=== PATIENT | male | born 1960 | race Caucasian/White ===

== ENCOUNTER 2016-12-09 19:46 | Emergency (ER) | payer OTHER ==
[~2016-12-09] VITALS: Ht 175.3 cm; Wt 118.4 kg
[~2016-12-09 19:46] MED LIST: ALBU2.5V13 NEB; BUDE10.2 IH; HYDR-2666 PO; HYDR-971 PO; METF10002 PO; PRED20TA PO; PROAIR HFA8.5 GM IH; SULF1TAB24 PO
[2016-12-09 20:40] VITALS: BP 128/85
[2016-12-09] MEDS ORDERED: LEVO750T31 PO (21:20)
[2016-12-09] MEDS ORDERED: PRED50TA PO (21:20)
--- NOTE | 2016-12-09 21:20 | PHYS DOC ---
Past Medical History Past Medical History: COPD, Diabetes-Type II Additional Past Medical Histor: home o2 Past Surgical History: Other Additional Past Surgical Histo: left hip replacement (titanium), right shoulder surgery, left knee surgery Alcohol Use: None Drug Use: None Adult General Chief Complaint Chief Complaint: COUGH HPI HPI Patient is a 56 year old male who presents with cough for 2 days along with congestion. Daily smoker with COPD and uses an Albuterol inhaler at home. Denies shortness of air, chest pain, or fever. States he has been using his inhaler but is still wheezing. Requesting antibiotic, steroid shot. Refuses Xray Review of Systems Review of Systems Constitutional: Denies fever or chills Eyes: Denies change in visual acuity, redness, or eye pain HENT: Denies nasal congestion or sore throat Respiratory: Denies shortness of breath. COugh for two days and wheezing Cardiovascular: No additional information not addressed in HPI GI: Denies abdominal pain, nausea, vomiting, bloody stools or diarrhea [] : Denies dysuria or hematuria [] Musculoskeletal: Denies back pain or joint pain [] Integument: Denies rash or skin lesions [] Neurologic: Denies headache, focal weakness or sensory changes [] Endocrine: Denies polyuria or polydipsia [] Current Medications Current Medications Current Medications Medications (Trade) Dose Ordered Sig/Paulino Start Time Stop Time Status Last Admin Dose Admin Methylprednisolone Sodium Succinate (Solu-Medrol 125mg Vial) 125 mg 1X ONCE 12/09/16 21:30 12/09/16 21:31 DC 12/09/16 21:18 125 MG Allergies Allergies Allergies Coded Allergies Type Severity Reaction Last Updated Verified No Known Drug Allergies 12/24/15 No Physical Exam Physical Exam Constitutional: Well developed, well nourished, no acute distress, non-toxic appearance. HENT: Normocephalic, atraumatic, bilateral external ears normal, oropharynx moist, no oral exudates, nose normal. Eyes: PERRLA, EOMI, conjunctiva normal, no discharge. Neck: Normal range of motion, no tenderness, supple, no stridor. Cardiovascular:Heart rate regular rhythm, no murmur Lungs & Thorax: Bilateral upper posterior wheezing. Abdomen: Bowel sounds normal, soft, no tenderness, no masses, no pulsatile masses. [] Skin: Warm, dry, no erythema, no rash. [] Back: No tenderness, no CVA tenderness. [] Extremities: No tenderness, no cyanosis, no clubbing, ROM intact, no edema. [] Neurologic: Alert and oriented X 3, normal motor function, normal sensory function, no focal deficits noted. [] Psychologic: Affect normal, judgement normal, mood normal. [] Current Patient Data Vital Signs Vital Signs Date Time Temp Pulse Resp B/P Pulse Ox O2 Delivery O2 Flow Rate FiO2 12/09/16 20:40 97.9 97 22 92 Room Air 97.9 EKG EKG [] Radiology/Procedures Radiology/Procedures [] Impressions: 1. Bronchitis 2. COPD exac Course & Med Decision Making Course & Med Decision Making Pertinent Labs and Imaging studies reviewed. (See chart for details) [] Dragon Disclaimer Dragon Disclaimer This electronic medical record was generated, in whole or in part, using a voice recognition dictation system. Departure Departure Impression: Primary Impression: COPD (chronic obstructive pulmonary disease) Additional Impression: Bronchitis Disposition: HOME, SELF-CARE Condition: STABLE Referrals: KATHRYN SWIFT MD (PCP) Patient Instructions: Acute Bronchitis, [id number], Chronic Obstructive Pulmonary Disease Exacerbation, [id number], Smoking Cessation, Tips For Success Additional Instructions: 1. Take medication as prescribed 2. Stop smoking 3. Follow up with your doctor in 1-2 days 3. Return if problems or concerns Scripts Prednisone 50 Mg [id number] Mg PO DAILY 5 Days Prov:RUPA MADDOX APRN 12/09/16 Levofloxacin (Levaquin)750 Mg Tablet1 Tab PO DAILY #5 TAB Prov:RUPA MADDOX APRN 12/09/16 Problem Qualifiers RUPA MADDOX APRN Dec 09, 2016 21:21
[2016-12-09] MEDS ORDERED: methylPREDNISolone SOD SUCC PF 125 MG/2 ML VIAL. IM ONE (21:30)
== END 2016-12-09 21:36 | disposition home or self-care (01) ==
LOC: ER 19:46
DX: J44.0 Chronic obstructive pulmonary disease with (acute) lower respiratory infection (principal); J40 Bronchitis, not specified as acute or chronic; F17.200 Nicotine dependence, unspecified, uncomplicated; E11.9 Type 2 diabetes mellitus without complications; Z79.899 Other long term (current) drug therapy; Z99.81 Dependence on supplemental oxygen
CPT/HCPCS: 96372; 99283; J2930

== ENCOUNTER → 2017-02-11 | Outpatient (CLI) | payer OTHER ==
[~2017-02-11] MED LIST changes: -ALBU2.5V13 NEB; +ALBU2.5V14 NEB; +LEVO750T31 PO; +PRED50TA PO
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
== END | disposition home or self-care (01) ==
LOC: KCIC MRI 15:53
PROVIDERS: ATTEND Family Medicine
DX: M51.36 Other intervertebral disc degeneration, lumbar region (principal); M25.78 Osteophyte, vertebrae; M47.892 Other spondylosis, cervical region; M50.321 Other cervical disc degeneration at C4-C5 level; M54.2 Cervicalgia
CPT/HCPCS: 72141; 72148

== ENCOUNTER 2017-03-10 15:55 | Emergency (ER) | payer OTHER ==
[2017-03-10 16:15] VITALS: BP 117/75
[2017-03-10] MEDS ORDERED: IPRATRPIUM/ALBUTEROL 0.5/2.5MG 3 ML NEBU. NEB ONE (16:15)
[2017-03-10] MEDS ORDERED: methylPREDNISolone SOD SUCC PF 125 MG/2 ML VIAL. IV ONE (16:15)
[2017-03-10 16:20] LABS: BASO # 0.1 x10^3/uL (0.0-0.2); BASO % 1 % (0-3); EOS % 7 % (0-3); HEMATOCRIT 44.4 % (39.0-53.0); HEMOGLOBIN 14.7 g/dL (13.0-17.5); LYMPH # 1.6 x10^3/uL (1.0-4.8); LYMPH % 18 % (24-48); MEAN CORPUSCULAR HEMOGLOBIN 31 pg (25-35); MEAN CORPUSCULAR HGB CONC 33 g/dL (31-37); MEAN CORPUSCULAR VOLUME 94 fL (79-100); MONO % 15 % (0-9); NEUT % 60 % (31-73); PLATELET COUNT 247 x10^3/uL (140-400); RED BLOOD COUNT 4.73 x10^6/uL (4.30-5.70); RED CELL DISTRIBUTION WIDTH 14.2 % (11.5-14.5); WHITE BLOOD COUNT 9.3 x10^3/uL (4.0-11.0)
[2017-03-10] MEDS ORDERED: ONDANSETRON PF 4 MG/2 ML VIAL. IV ONE (16:30)
[2017-03-10] MEDS ORDERED: FENTANYL PF 100 MCG/2 ML VIAL. IV ONE (16:30)
[2017-03-10 16:31] LABS: CALCIUM 8.7 mg/dL (8.5-10.1); CREATININE 1.4 mg/dL (0.7-1.3); GFR 52.8; POTASSIUM 3.9 mmol/L (3.5-5.1)
[2017-03-10 16:36] LABS: ALBUMIN 3.5 g/dL (3.4-5.0); ALBUMIN/GLOBULIN RATIO 0.9 (1.0-1.7); TOTAL BILIRUBIN 0.4 mg/dL (0.2-1.0); TOTAL PROTEIN 7.5 g/dL (6.4-8.2)
--- NOTE | 2017-03-10 17:08 | PHYS DOC ---
Past Medical History Past Medical History: COPD, Diabetes-Type II Additional Past Medical Histor: home o2 Past Surgical History: Other Additional Past Surgical Histo: left hip replacement (titanium), right shoulder surgery, left knee surgery Alcohol Use: None Drug Use: None Adult General Chief Complaint Chief Complaint: CHEST WALL PAIN HPI HPI 56-year-old male who appears much older than his stated age presents with 2-3 day history of progressive shortness of breath cough and congestion. He states he's been wearing oxygen at home but it doesn't seem to be helping. He is also been using his medication at home but continues to cough and feel short of breath. He denies any fever chills or sweats. He has not had any hemoptysis. He states this feels like a very typical COPD exacerbation. [] Review of Systems Review of Systems Constitutional: Denies fever or chills [] Eyes: Denies change in visual acuity, redness, or eye pain [] HENT: Denies nasal congestion or sore throat [] Respiratory: Per history of present illness [] Cardiovascular: No additional information not addressed in HPI [] GI: Denies abdominal pain, nausea, vomiting, bloody stools or diarrhea [] : Denies dysuria or hematuria [] Musculoskeletal: Denies back pain or joint pain [] Integument: Denies rash or skin lesions [] Neurologic: Denies headache, focal weakness or sensory changes [] Endocrine: Denies polyuria or polydipsia [] Current Medications Current Medications Current Medications Medications (Trade) Dose Ordered Sig/Paulino Start Time Stop Time Status Last Admin Dose Admin Albuterol/ Ipratropium (Duoneb) 6 ml 1X ONCE 03/10/17 16:15 03/10/17 16:21 DC 03/10/17 16:36 6 ML Fentanyl Citrate (Fentanyl 2ml Vial) 50 mcg 1X ONCE 03/10/17 16:30 03/10/17 16:31 DC 03/10/17 16:32 50 MCG Methylprednisolone Sodium Succinate (Solu-Medrol 125mg Vial) 125 mg 1X ONCE 03/10/17 16:15 03/10/17 16:21 DC 03/10/17 16:32 125 MG Ondansetron HCl (Zofran) 4 mg 1X ONCE 03/10/17 16:30 03/10/17 16:31 DC 03/10/17 16:32 4 MG Allergies Allergies Allergies Coded Allergies Type Severity Reaction Last Updated Verified No Known Drug Allergies 12/24/15 No Physical Exam Physical Exam Constitutional: Well developed, well nourished, no acute distress, non-toxic appearance. [] HENT: Normocephalic, atraumatic, bilateral external ears normal, oropharynx moist, no oral exudates, nose normal. [] Eyes: PERRLA, EOMI, conjunctiva normal, no discharge. [] Neck: Normal range of motion, no tenderness, supple, no stridor. [] Cardiovascular:Heart rate regular rhythm, no murmur [] Lungs & Thorax: Bilateral breath sounds clear to auscultation [] Abdomen: Bowel sounds normal, soft, no tenderness, no masses, no pulsatile masses. [] Skin: Warm, dry, no erythema, no rash. [] Back: No tenderness, no CVA tenderness. [] Extremities: No tenderness, no cyanosis, no clubbing, ROM intact, no edema. [] Neurologic: Alert and oriented X 3, normal motor function, normal sensory function, no focal deficits noted. [] Psychologic: Affect normal, judgement normal, mood normal. [] Current Patient Data Vital Signs Vital Signs Date Time Temp Pulse Resp B/P Pulse Ox O2 Delivery O2 Flow Rate FiO2 03/10/17 16:37 90 Nasal Cannula 2.0 03/10/17 16:32 18 03/10/17 16:15 98.5 102 117/75 98.5 Lab Values Laboratory Tests Test 03/10/17 16:09 White Blood Count 9.3x10^3/uL (4.0-11.0) Red Blood Count 4.73x10^6/uL (4.30-5.70) Hemoglobin 14.7g/dL (13.0-17.5) Hematocrit 44.4% (39.0-53.0) Mean Corpuscular Volume 94fL (79-100) Mean Corpuscular Hemoglobin 31pg (25-35) Mean Corpuscular Hemoglobin Concent 33g/dL (31-37) Red Cell Distribution Width 14.2% (11.5-14.5) Platelet Count 247x10^3/uL (140-400) Neutrophils (%) (Auto) 60% (31-73) Lymphocytes (%) (Auto) 18% (24-48) L Monocytes (%) (Auto) 15% (0-9) H Eosinophils (%) (Auto) 7% (0-3) H Basophils (%) (Auto) 1% (0-3) Neutrophils # (Auto) 5.5x10^3uL (1.8-7.7) Lymphocytes # (Auto) 1.6x10^3/uL (1.0-4.8) Monocytes # (Auto) 1.4x10^3/uL (0.0-1.1) H Eosinophils # (Auto) 0.6x10^3/uL (0.0-0.7) Basophils # (Auto) 0.1x10^3/uL (0.0-0.2) Sodium Level 142mmol/L (136-145) Potassium Level 3.9mmol/L (3.5-5.1) Chloride Level 105mmol/L (98-107) Carbon Dioxide Level 26mmol/L (21-32) Anion Gap 11 (6-14) Blood Urea Nitrogen 13mg/dL (8-26) Creatinine 1.4mg/dL (0.7-1.3) H Estimated GFR (Cockcroft-Gault) 52.8 BUN/Creatinine Ratio 9 (6-20) Glucose Level 163mg/dL (70-99) H Calcium Level 8.7mg/dL (8.5-10.1) Total Bilirubin 0.4mg/dL (0.2-1.0) Aspartate Amino Transferase (AST) 27U/L (15-37) Alanine Aminotransferase (ALT) 40U/L (16-63) Alkaline Phosphatase 82U/L (46-116) Troponin I Quantitative < 0.017ng/mL (0.000-0.055) Total Protein 7.5g/dL (6.4-8.2) Albumin 3.5g/dL (3.4-5.0) Albumin/Globulin Ratio 0.9 (1.0-1.7) L Laboratory Tests 03/10/17 16:09 Laboratory Tests 03/10/17 16:09 EKG EKG [EKG: Sinus tachycardia rate of [address]-T changes] Radiology/Procedures Radiology/Procedures [] Impressions: Chest x-ray: No obvious acute cardiopulmonary abnormality Course & Med Decision Making Course & Med Decision Making Pertinent Labs and Imaging studies reviewed. (See chart for details) [ED course: Evaluation reveals a 56-year-old male with significant bilateral wheezing and hypoxia. His initial oxygen saturation was 85% on room air. He was placed on 2 L nasal cannula which did improve his oxygen saturation to 92%. He received [id number] DuoNeb nebs in the department followed by Solu-Medrol 125 mg IV which did significantly help his symptoms.] Dragon Disclaimer Dragon Disclaimer This electronic medical record was generated, in whole or in part, using a voice recognition dictation system. Departure Departure Impression: Primary Impression: COPD (chronic obstructive pulmonary disease) Disposition: HOME, SELF-CARE Condition: IMPROVED Referrals: KATHRYN SWIFT MD (PCP) Patient Instructions: Acute Bronchitis Additional Instructions: Thank you for allowing us to participate in your care today. Followup with your primary care physician in 3 days if your symptoms do not improve. Return to the emergency department you have any new or concerning findings. This should be evaluated by the primary care physician and any necessary consulting services for continued management within a few days after discharge. Return to emergency room if you have any new or concerning symptoms including but not limited to fever, chills, nausea, vomiting, intractable pain, any new rashes, chest pain, shortness of air, uncontrolled bleeding, difficulty breathing, and/or vision loss. You may have been prescribed medication that can change in your level of thinking and ability to operate machinery. These medications include hydrocodone and Ativan. Also, Benadryl has been known to do this as well. Be sure to check with your pharmacist and ask if the medications you've prescribed can affect your level of consciousness. I recommend not operating heavy machinery or driving while on medication such as these. Scripts Prednisone 20 Mg Tablet2 Tab PO DAILY PRN COUGH #14 TAB Prov:JESSIE RAGLAND DO 03/10/17 Hydrocodone/Apap 5-325 ([place]ora 5-325 Tablet)1 Each Tablet1 Tab PO PRN Q6HRS PRN PAIN #10 TAB Prov:JESSIE RAGLAND DO 03/10/17 Azithromycin (Zithromax)250 Mg Tablet1 Pkg PO UD bronchitis #6 TAB Take 2 tablets on day 1 and then 1 tablet each day for the next 4 days as directed Prov:JESSIE RAGLAND DO 03/10/17 Problem Qualifiers Primary Impression: COPD (chronic obstructive pulmonary disease) COPD type: COPD with acute exacerbation Qualified Code: J44.1 - Chronic obstructive pulmonary disease with (acute) exacerbation JESSIE RAGLAND DO Mar 10, 2017 17:07
[2017-03-10] MEDS ORDERED: AZIT250T PO (17:13)
[2017-03-10] MEDS ORDERED: HYDR-971 PO (17:13)
[2017-03-10] MEDS ORDERED: PRED20TA PO (17:13)
--- NOTE | 2017-03-11 06:10 | EKG ---
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
--- NOTE | 2017-03-11 09:39 | RAD ---
Portable chest, 03/10/2017: History: Shortness of breath, COPD Comparison is made to a study from 07/09/2016. The heart size is normal. There is mild prominence of the left basilar pulmonary markings. There may be a component of scarring. The lungs are otherwise clear. There is no evidence of pleural fluid. IMPRESSION: Minimal left basilar atelectasis/infiltrate.
== END 2017-03-10 17:21 | disposition home or self-care (01) ==
LOC: ER 15:55
DX: J44.1 Chronic obstructive pulmonary disease with (acute) exacerbation (principal); E11.9 Type 2 diabetes mellitus without complications; Z99.81 Dependence on supplemental oxygen; Z96.642 Presence of left artificial hip joint
CPT/HCPCS: 36415; 71010; 80053; 84484; 85027; 93005; 94640; 96374; 96375; 99285; J2405; J2930; J3010; J7620

== ENCOUNTER 2017-03-16 17:52 | Emergency (ER) | payer OTHER ==
[~2017-03-16] VITALS: Ht 175.3 cm; Wt 121.1 kg
[~2017-03-16 17:52] MED LIST changes: +AZIT250T PO
[2017-03-16] MEDS ORDERED: PROMETH/CODEINE 6.25/10MG 5 ML SYRUP. PO ONE (18:45)
[2017-03-16] MEDS ORDERED: PREDNISONE 10 MG TABLET PO ONE (18:45)
[2017-03-16] MEDS ORDERED: IPRATRPIUM/ALBUTEROL 0.5/2.5MG 3 ML NEBU. NEB ONE (18:45)
[2017-03-16 18:52] VITALS: BP 134/86
[2017-03-16] MEDS ORDERED: OXYCODONE/APAP 5/325 TABLET. PO ONE (20:00)
[2017-03-16] MEDS ORDERED: SULF1TAB24 PO (20:20)
[2017-03-16] MEDS ORDERED: PROM5SYR2 PO (20:20)
[2017-03-16] MEDS ORDERED: PRED-220 PO (20:20)
--- NOTE | 2017-03-16 20:20 | PHYS DOC ---
Past Medical History Past Medical History: COPD, Diabetes-Type II, High Cholesterol Additional Past Medical Histor: home o2 Past Surgical History: Other Additional Past Surgical Histo: left hip replacement (titanium), right shoulder surgery, left knee surgery Alcohol Use: None Drug Use: None Adult General Chief Complaint Chief Complaint: SHORTNESS OF BREATH HPI HPI Patient is a 56 year old gentleman with history significant for COPD, diabetes , presents here today complaining of shortness of breath for one week. Patient reports that he was seen here on the ninth and was started on steroids and was given an antibiotic to take. Patient reports he finished all his medication and has been getting worse since he's finishes medication. Patient reports that he was told that he did not have pneumonia back in the 90s. Patient denies any fevers shakes chills nausea vomiting diarrhea or abdominal pain. Patient reports he had nasal congestion and a headache and feels like he is clogged up. Patient reports that he feels fine when he is inside or vomiting. He was outside and has contact with pollen he starts getting short of breath and wheezing. He feels like he has allergic rhinitis. Patient reports he does smoke and smoke cessation was discussed with the patient and his . Patient is allergic to any medications. Patient reports he uses Cymbalta, albuterol, and Atrovent home. Patient reports that he uses his nebulizer 2 times a day at home. Patient denies any history of PE DVT stroke CHF hypertension or CAD. Patient does not drink or do any drugs. Patient is not allergic to any medications. Patient is also complaining of some redness to his left groin region. Patient does have an area of induration to his left groin. There is no evidence of significant cellulitis of area. There is no warmth or fluctuance. There is no evidence of fourniers. Patient's ER hospital course was significant for getting a DuoNeb here in the ER was significant improvement in his symptoms. Patient received by mouth prednisone in the ER. Patient's lungs initially had some extra lorenzo wheezing however after the neb treatment patient feels much better and his lungs are clear. Patient was also given Phenergan With Codeine to assist with this cough and congestion as well as a Percocet secondary to pain from the congestion that he is having. Patient's chest x-ray did not reveal any infiltrate or effusion. There is no pneumonia. Patient is stable for discharge to home at this time for respiratory standpoint. Patient will also be given Bactrim DS to assist him with his early cellulitis to his left upper thigh. Patient otherwise clinically and hemodynamically stable. Patient was instructed to follow-up with his doctor within 24-48 hours for reevaluation of the erythematous area in his left upper thigh. Patient's physical exam was significant for inspiratory and expiratory wheezing initially upon arrival. This has cleared since to nebulizer therapy in the ER. Patient's heart was tachycardic initially. Abdomen was soft nontender no rebound or guarding. No calf edema. No calf tenderness. No split S2 no S3. A/P #1 COPD exacerbation likely secondary to environmental allergies. Patient is ready been treated with antibiotics. I discussed with the patient at this is most likely secondary to allergic reaction/pollen/allergic sinusitis. Patient will be discharged home with prednisone 50 mg by mouth daily 7 days. Phenergan with codeine and Bactrim DS. Patient was instructed to follow up with primary care physician. Patient was instructed to return to the ER if he has recurrence of his dyspnea. Review of Systems Review of Systems Constitutional: Denies fever or chills [] Eyes: Denies change in visual acuity, redness, or eye pain []] All other review systems are negative except as documented in the history of present illness. Current Medications Current Medications Current Medications Medications (Trade) Dose Ordered Sig/Paulino Start Time Stop Time Status Last Admin Dose Admin Albuterol/ Ipratropium (Duoneb) 3 ml 1X ONCE 03/16/17 18:45 03/16/17 18:46 DC 03/16/17 18:34 3 ML Oxycodone/ Acetaminophen (Percocet 5/325) 1 tab 1X ONCE 03/16/17 20:00 03/16/17 20:01 DC 03/16/17 19:46 1 TAB Prednisone (Prednisone) 50 mg 1X ONCE 03/16/17 18:45 03/16/17 18:46 DC 03/16/17 18:33 50 MG Promethazine HCl/ Codeine (Phenergan With Codeine) 10 ml 1X ONCE 03/16/17 18:45 03/16/17 18:46 DC 03/16/17 18:33 10 ML Trimethoprim/ Sulfamethoxazole (Bactrim Ds) 2 tab 1X ONCE 03/16/17 21:00 03/16/17 21:01 Allergies Allergies Allergies Coded Allergies Type Severity Reaction Last Updated Verified No Known Drug Allergies 12/24/15 No Physical Exam Physical Exam Constitutional: Well developed, well nourished, no acute distress, non-toxic appearance. [] HENT: Normocephalic, atraumatic, bilateral external ears normal, oropharynx moist, no oral exudates, nose normal. [] Eyes: PERRLA, EOMI, conjunctiva normal, no discharge. [] Neck: Normal range of motion, no tenderness, supple, no stridor. [] Cardiovascular:Heart rate regular and tachycardic. Lungs & Thorax: Diffuse expiratory wheezing upon arrival. This is cleared after the neb treatments. 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 Abdomen: Bowel sounds normal, soft, no tenderness, no masses, no pulsatile masses. [] Skin: Warm, dry see above. Back: No tenderness, no CVA tenderness. [] Extremities: No tenderness, no cyanosis, no clubbing, ROM intact, no edema. [] Neurologic: Alert and oriented X 3, normal motor function, normal sensory function, no focal deficits noted. [] Psychologic: Affect normal, judgement normal, mood normal. [] Current Patient Data Vital Signs Vital Signs Date Time Temp Pulse Resp B/P Pulse Ox O2 Delivery O2 Flow Rate FiO2 03/16/17 18:35 92 Room Air 03/16/17 18:00 98.1 91 28 161/93 98.1 EKG EKG [] Radiology/Procedures Radiology/Procedures [] Course & Med Decision Making Course & Med Decision Making Pertinent Labs and Imaging studies reviewed. (See chart for details) [] Dragon Disclaimer Dragon Disclaimer This electronic medical record was generated, in whole or in part, using a voice recognition dictation system. Departure Departure Impression: Primary Impression: Allergic rhinitis Additional Impressions: Cellulitis of left thigh COPD exacerbation Disposition: HOME, SELF-CARE Condition: IMPROVED Referrals: KATHRYN SWIFT MD (PCP) Patient Instructions: Allergic Rhinitis, Cellulitis, Chronic Obstructive Pulmonary Disease Exacerbation Scripts Promethazine HCl/Codeine (Prometh-Codein 6.25-10 mg/5 ml)5 Ml Syrup10 Ml PO Q6HRS PRN COUGH #120 Prov:LUCY CHEN MD 03/16/17 Sulfamethoxazole/Trimethoprim (Bactrim Ds Tablet)1 Each Tablet2 Tab PO BID 10 Days Prov:LUCY CHEN MD 03/16/17 Prednisone 10 Mg Subxat15 Mg PO DAILY 7 Days Prov:LUCY CHEN MD 03/16/17 Problem Qualifiers LUCY CHEN MD Mar 16, 2017 20:20
[2017-03-16] MEDS ORDERED: SMZ/TMP 800/160MG TABLET. PO ONE (21:00)
--- NOTE | 2017-03-17 07:54 | RAD ---
CHEST PA LATERAL Clinical Indication: cough Comparison: March 10, 2017 Technique: Frontal and lateral views of the chest are obtained. Findings: No interval consolidation, pleural effusion or pneumothorax is seen. Minimal linear opacity is present within the lung bases, suggestive of atelectasis. Cardiomediastinal silhouette remains within normal limits of size. Visualized osseous structures and overlying soft tissues demonstrate no acute interval change. IMPRESSION: No focal consolidation. Minimal bibasilar atelectasis.
--- NOTE | 2017-03-17 09:49 | EKG ---
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
== END 2017-03-16 20:31 | disposition home or self-care (01) ==
LOC: ER 17:52
DX: J44.1 Chronic obstructive pulmonary disease with (acute) exacerbation (principal); L03.116 Cellulitis of left lower limb; J30.9 Allergic rhinitis, unspecified; R51 Headache; E11.9 Type 2 diabetes mellitus without complications; E78.00 Pure hypercholesterolemia, unspecified; Z99.81 Dependence on supplemental oxygen
CPT/HCPCS: 71020; 93005; 94640; 99284; J7512; J7620

== ENCOUNTER → 2017-04-22 | Outpatient (CLI) | payer OTHER ==
[~2017-04-22] MED LIST changes: +METF-620 PO; -METF10002 PO; +PRED-220 PO; +PROM5SYR2 PO
--- NOTE | 2017-04-22 16:23 | RAD ---
Indication shortness of air. PA and lateral views of the chest were obtained. Comparison is made to a study 03/16/2017. The heart and pulmonary vessels are similar. There is some minimal volume loss compatible with atelectasis at the left lung base. An acute parenchymal infiltrate is not seen. There has not been a significant change compared to the previous exam. IMPRESSION: No acute process. No significant change
== END | disposition home or self-care (01) ==
LOC: RAD 15:58
PROVIDERS: ATTEND Internal Medicine Pulmonary Disease
DX: R06.02 Shortness of breath (principal)
CPT/HCPCS: 71020

== ENCOUNTER → 2017-06-19 | Day surgery (SDC) | payer OTHER ==
[~2017-06-19] MED LIST changes: -HYDR-2666 PO; +HYDR-2758 PO; +HYDROmorphone 2 MG/ML VIAL IV PRN; +IV RINGERS,LACTATED 1000ML 1,000 ML IV SCH; +LIDOCAINE 1% 1 ML SYRINGE. ID PRN; +LIDOCAINE 2% PF Vial for OR 5 ML VIAL. ONE; +MORPHINE SULFATE 2 MG/ML DISP.SYRIN. IV PRN; +OMEP20TA8 PO; +ONDANSETRON PF 4 MG/2 ML VIAL. IV PRN; +PIOG15TA42 PO; +PROCHLORPERAZINE 10 MG/2 ML VIAL. IV PRN; +PROPOFOL 0 ML IV ONE; +PROPOFOL 20 ML IV ONE; +SIMV40TA3 PO; +VARE0.5T PO; +fentaNYL PF VIAL 100 MCG/2 ML VIAL IV PRN
[2017-06-19 07:51] VITALS: BP 115/68
--- NOTE | 2017-06-20 15:00 | PATHOLOGY ---
PATHOLOGY REPORT * * * * * * * * FINAL DIAGNOSIS: Esophageal biopsy: - Segments of hyperplastic squamous esophageal mucosa and esophagogastric mucosa showing active chronic inflammation, consistent with reflux esophagitis. JPM:serena; 06/20/2017) COMMENT: Sections of the esophageal biopsy reveal segments of hyperplastic squamous esophageal mucosa and esophagogastric mucosa showing active chronic inflammation. The squamous mucosa shows focal intraepithelial neutrophils and a few eosinophils. The findings are consistent with reflux esophagitis. There is no evidence of Milton's change, dysplasia, or malignancy. (JPM:serena; 06/20/2017) REPORT ELECTRONICALLY SIGNED BY: Angel Fernandez M.D. DATE/TIME: 06/20/2017 14:59 * * * * * * * * GROSS PATHOLOGY: Received in formalin labeled "Zhang Chou, esophagus, r/o Milton's" are multiple segments of fowler soft tissue measuring 0.2 up to 0.3 cm in maximum dimension. The specimen is submitted entirely in cassette A1. INITIAL CPT CODE(S): A; 40443 Professional services performed by [facility] [place] [address] Technical services performed by [facility] at [address] [place] [address]. SPECIMEN(S) RECEIVED: A.Esophageal biopsy, r/o Milton's CLINICAL HISTORY: GERD PATIENT: ZHANG CHOU /AGE: 7 1960 (Age: 56) PATIENT #: [id number] ALT CASE #: SPECIMEN COLLECTION DATE: 06/19/2017 SPECIMEN RECEIVED DATE: 06/19/2017 [facility] - [address] [place] [address] - PHONE: [phone] * * * END OF REPORT * * *
== END | disposition home or self-care (01) ==
LOC: ENDOS 06:26
PROVIDERS: ATTEND Internal Medicine Gastroenterology
DX: K21.0 Gastro-esophageal reflux disease with esophagitis (principal); K29.50 Unspecified chronic gastritis without bleeding; J45.909 Unspecified asthma, uncomplicated; J44.9 Chronic obstructive pulmonary disease, unspecified; E11.9 Type 2 diabetes mellitus without complications; E78.00 Pure hypercholesterolemia, unspecified; F17.200 Nicotine dependence, unspecified, uncomplicated; Z83.3 Family history of diabetes mellitus; Z80.3 Family history of malignant neoplasm of breast; Z72.89 Other problems related to lifestyle
CPT/HCPCS: 43239; 82962; 88305; J2001; J2704

== ENCOUNTER → 2017-11-08 | Outpatient (CLI) | payer BC, OTHER ==
[2017-06-19 07:51] VITALS: BP 115/68
[~2017-11-08] MED LIST changes: -HYDROmorphone 2 MG/ML VIAL IV PRN; -IV RINGERS,LACTATED 1000ML 1,000 ML IV SCH; -LIDOCAINE 1% 1 ML SYRINGE. ID PRN; -LIDOCAINE 2% PF Vial for OR 5 ML VIAL. ONE; -MORPHINE SULFATE 2 MG/ML DISP.SYRIN. IV PRN; -ONDANSETRON PF 4 MG/2 ML VIAL. IV PRN; -PROCHLORPERAZINE 10 MG/2 ML VIAL. IV PRN; -PROPOFOL 0 ML IV ONE; -PROPOFOL 20 ML IV ONE; -fentaNYL PF VIAL 100 MCG/2 ML VIAL IV PRN
--- NOTE | 2017-11-08 16:42 | RAD ---
Examination: CT chest without contrast History: History of smoking, cough Comparison: None available Technique: Axial CT images of chest were performed without contrast. Coronal and sagittal reformats were performed PQRS Compliance Statement: One or more of the following individualized dose reduction techniques were utilized for this examination: 1. Automated exposure control 2. Adjustment of the mA and/or kV according to patient size 3. Use of iterative reconstruction technique Findings: The visualized thyroid gland grossly appears unremarkable. The central airways are patent. Heart size grossly appears unremarkable. No radiologically significant mediastinal lymphadenopathy identified. Moderate emphysematous changes identified in the bilateral upper lobes. Mild airspace opacity identified in the left lingula likely atelectasis or infiltrate. Minimal bibasal lung atelectasis or partially visualized hepatomegaly. There is decreased attenuation noted throughout the liver likely hepatic steatosis. The visualized spleen, adrenals grossly appears unremarkable. Mild degenerative disease thoracic spine. Partially visualized exophytic density measuring 1 cm in the left kidney is difficult to characterize. Impression: 1. Moderate emphysematous changes bilateral lungs. 2. Mild airspace opacity identified in the left lingula of the lung likely atelectasis or infiltrate. Follow-up to resolution. 3. Partially visualized exophytic density measuring 1 cm in the left kidney is difficult to characterize. Follow-up ultrasound kidneys can be considered. 4. Hepatomegaly with hepatic steatosis.
== END | disposition home or self-care (01) ==
LOC: CT 16:32
PROVIDERS: ATTEND Internal Medicine Pulmonary Disease
DX: J43.8 Other emphysema (principal); K76.0 Fatty (change of) liver, not elsewhere classified; R16.0 Hepatomegaly, not elsewhere classified; Z87.891 Personal history of nicotine dependence
CPT/HCPCS: 71250

== ENCOUNTER 2017-11-24 14:07 | Emergency (ER) | payer BC, OTHER ==
[2017-11-24] MEDS: predniSONE 10 MG TABLET PO (14:56)
[2017-11-24] MEDS: ACETAMINOPHEN/CODEINE 120/12MG 5 ML SOLUTION. PO (14:56)
[2017-11-24] MEDS: IPRATRPIUM/ALBUTEROL 0.5/2.5MG 3 ML NEBU. NEB (14:59)
== END 2017-11-24 16:06 | disposition home or self-care (01) ==
LOC: ER 14:07
DX: J44.9 Chronic obstructive pulmonary disease, unspecified (principal); F17.200 Nicotine dependence, unspecified, uncomplicated; E11.9 Type 2 diabetes mellitus without complications; E78.00 Pure hypercholesterolemia, unspecified; Z96.642 Presence of left artificial hip joint; Z99.81 Dependence on supplemental oxygen; Z71.6 Tobacco abuse counseling; Z79.899 Other long term (current) drug therapy
CPT/HCPCS: 71020; 94640; 99284-25; J7512; J7620

== ENCOUNTER → 2017-11-29 | Outpatient (CLI) | payer BC, OTHER | END | disposition home or self-care (01) | LOC: US 16:02 | DX: J44.9 Chronic obstructive pulmonary disease, unspecified (principal); N28.1 Cyst of kidney, acquired | CPT/HCPCS: 76770 ==

== ENCOUNTER 2018-01-21 15:41 | Emergency (ER) | payer BC, OTHER ==
[2018-01-21 16:05] LABS: ADD MAN DIFF? NO
[2018-01-21 16:08] LABS: BASO # 0.1 x10^3/uL (0.0-0.2); BASO % 1 % (0-3); EOS % 9 % (0-3); HEMATOCRIT 44.4 % (39.0-53.0); HEMOGLOBIN 14.4 g/dL (13.0-17.5); LYMPH # 2.7 x10^3/uL (1.0-4.8); LYMPH % 23 % (24-48); MEAN CORPUSCULAR HEMOGLOBIN 30 pg (25-35); MEAN CORPUSCULAR HGB CONC 32 g/dL (31-37); MEAN CORPUSCULAR VOLUME 92 fL (79-100); MONO # 0.8 x10^3/uL (0.0-1.1); MONO % 7 % (0-9); NEUT # 7.2 x10^3uL (1.8-7.7); NEUT % 61 % (31-73); PLATELET COUNT 319 x10^3/uL (140-400); RED BLOOD COUNT 4.82 x10^6/uL (4.30-5.70); WHITE BLOOD COUNT 11.9 x10^3/uL (4.0-11.0)
[2018-01-21 16:14] LABS: ANION GAP 7 (6-14); BLOOD UREA NITROGEN 7 mg/dL (8-26); BUN/CREATININE RATIO 6 (6-20); CALCIUM 9.2 mg/dL (8.5-10.1); CARBON DIOXIDE 30 mmol/L (21-32); CHLORIDE 107 mmol/L (98-107); CREATININE 1.1 mg/dL (0.7-1.3); GFR 69.5; GLUCOSE 177 mg/dL (70-99); POTASSIUM 4.1 mmol/L (3.5-5.1); SODIUM 144 mmol/L (136-145)
[2018-01-21] MEDS ORDERED: IPRATRPIUM/ALBUTEROL 0.5/2.5MG 3 ML NEBU. NEB ×2 (16:15)
[2018-01-21] MEDS: methylPREDNISolone SOD SUCC PF 125 MG/2 ML VIAL. IV ×2 (16:16)
[2018-01-21] MEDS: ONDANSETRON PF 4 MG/2 ML VIAL. IV ×2 (16:16)
[2018-01-21] MEDS: fentaNYL PF VIAL 100 MCG/2 ML VIAL IV ×2 (16:17)
[2018-01-21 16:23] LABS: TROPONINI < 0.017 ng/mL (0.000-0.055)
[2018-01-21 16:27] LABS: ALBUMIN 3.4 g/dL (3.4-5.0); ALBUMIN/GLOBULIN RATIO 0.9 (1.0-1.7); ALK PHOS 102 U/L (46-116); ALT (SGPT) 31 U/L (16-63); AST (SGOT) 16 U/L (15-37); TOTAL BILIRUBIN 0.2 mg/dL (0.2-1.0); TOTAL PROTEIN 7.3 g/dL (6.4-8.2)
== END 2018-01-21 17:39 | disposition home or self-care (01) ==
LOC: ER 15:41
DX: J44.1 Chronic obstructive pulmonary disease with (acute) exacerbation (principal); E11.9 Type 2 diabetes mellitus without complications; E78.00 Pure hypercholesterolemia, unspecified; F17.210 Nicotine dependence, cigarettes, uncomplicated; Z96.642 Presence of left artificial hip joint; Z99.81 Dependence on supplemental oxygen
CPT/HCPCS: 36415; 71045; 80053; 84484; 85025; 93005; 94640; 94760; 96374; 96375; 99285-25; J2405; J2930; J3010

== ENCOUNTER 2018-02-07 14:24 | Emergency (ER) | payer OTHER, BC ==
[2018-02-07 14:45] LABS: ADD MAN DIFF? NO
[2018-02-07 14:47] LABS: BASO # 0.1 x10^3/uL (0.0-0.2); BASO % 1 % (0-3); EOS # 1.1 x10^3/uL (0.0-0.7); EOS % 11 % (0-3); HEMATOCRIT 43.4 % (39.0-53.0); HEMOGLOBIN 14.6 g/dL (13.0-17.5); LYMPH % 19 % (24-48); MEAN CORPUSCULAR HEMOGLOBIN 31 pg (25-35); MEAN CORPUSCULAR HGB CONC 34 g/dL (31-37); MEAN CORPUSCULAR VOLUME 92 fL (79-100); MONO % 10 % (0-9); NEUT # 6.1 x10^3uL (1.8-7.7); NEUT % 59 % (31-73); PLATELET COUNT 346 x10^3/uL (140-400); RED BLOOD COUNT 4.73 x10^6/uL (4.30-5.70); RED CELL DISTRIBUTION WIDTH 14.3 % (11.5-14.5); WHITE BLOOD COUNT 10.3 x10^3/uL (4.0-11.0)
[2018-02-07] MEDS: IPRATRPIUM/ALBUTEROL 0.5/2.5MG 3 ML NEBU. NEB (14:47)
[2018-02-07] MEDS: ALBUTEROL SULFATE 2.5 MG/3 ML NEBU. CONT NEB (14:47)
[2018-02-07] MEDS: IV NORMAL SALINE 1000ML BAG 1,000 ML IV ×2 (14:49→15:45)
[2018-02-07] MEDS: methylPREDNISolone SOD SUCC PF 125 MG/2 ML VIAL. IV (14:49)
[2018-02-07 15:06] LABS: BASE EXCESS ABG -1 mmol/L (-3-3); HCO3 ABG 24 mmol/L (21-28); PCO2 ABG 40 mmHg (35-46); PO2 ABG 79 mmHg (75-108); SAT O2 ABG 96 % (92-99)
[2018-02-07 15:08] LABS: ANION GAP 7 (6-14); BLOOD UREA NITROGEN 15 mg/dL (8-26); BUN/CREATININE RATIO 14 (6-20); CALCIUM 10.2 mg/dL (8.5-10.1); CARBON DIOXIDE 27 mmol/L (21-32); CHLORIDE 103 mmol/L (98-107); CREATININE 1.1 mg/dL (0.7-1.3); GFR 69.5; GLUCOSE 174 mg/dL (70-99); PH ABG 7.39 (7.35-7.45); POTASSIUM 3.9 mmol/L (3.5-5.1); SODIUM 137 mmol/L (136-145)
[2018-02-07 15:14] LABS: ALBUMIN 3.4 g/dL (3.4-5.0); ALBUMIN/GLOBULIN RATIO 0.8 (1.0-1.7); ALK PHOS 112 U/L (46-116); ALT (SGPT) 33 U/L (16-63); AST (SGOT) 16 U/L (15-37); TOTAL BILIRUBIN 0.2 mg/dL (0.2-1.0); TOTAL PROTEIN 7.8 g/dL (6.4-8.2)
[2018-02-07 15:15] LABS: LACTIC ACID 2.3 mmol/L (0.4-2.0)
[2018-02-07 15:18] LABS: TROPONINI < 0.017 ng/mL (0.000-0.055)
[2018-02-07 15:20] LABS: NT-PRO BNP 8 pg/mL (0-124)
[2018-02-07 15:23] LABS: INFLUENZA A PATIENT NEGATIVE (NEGATIVE); INFLUENZA B PATIENT NEGATIVE (NEGATIVE); OBC FLU VALID
[2018-02-07] MEDS: levOFLOXacin PER PHARMACY. MC (15:52)
== END 2018-02-07 16:13 | disposition left against medical advice (07) ==
LOC: ER 14:24
DX: J18.9 Pneumonia, unspecified organism (principal); J96.00 Acute respiratory failure, unspecified whether with hypoxia or hypercapnia; J44.0 Chronic obstructive pulmonary disease with (acute) lower respiratory infection; E11.9 Type 2 diabetes mellitus without complications; E78.00 Pure hypercholesterolemia, unspecified
CPT/HCPCS: 36415; 71045; 80053; 82805; 83605; 83880; 84484; 85025; 87040; 87804; 87804-59; 93005; 94644; 96361; 96374; 99285-25; J2930; J7030; J7613; J7620

== ENCOUNTER 2018-05-12 12:32 | Emergency (ER) | payer BC, OTHER ==
[2018-05-12 14:10] LABS: BILIRUBIN,URINE NEGATIVE (NEG); CLARITY,URINE CLEAR; COLOR,URINE YELLOW; GLUCOSE,URINE 250 mg/dL (NEG); NITRITE,URINE POSITIVE (NEG); PROTEIN,URINE NEGATIVE (NEG-TRACE); UROBILINOGEN,URINE 0.2 mg/dL (0.2 mg/dL)
[2018-05-12 14:20] LABS: ADD MAN DIFF? NO
[2018-05-12 14:21] LABS: BACTERIA,URINE MANY /HPF (0-FEW); WBC,URINE TNTC /HPF (0-4)
[2018-05-12 14:23] LABS: BASO # 0.1 x10^3/uL (0.0-0.2); BASO % 1 % (0-3); EOS # 0.4 x10^3/uL (0.0-0.7); EOS % 3 % (0-3); HEMATOCRIT 44.5 % (39.0-53.0); HEMOGLOBIN 15.1 g/dL (13.0-17.5); LYMPH # 1.9 x10^3/uL (1.0-4.8); LYMPH % 12 % (24-48); MEAN CORPUSCULAR HEMOGLOBIN 31 pg (25-35); MEAN CORPUSCULAR HGB CONC 34 g/dL (31-37); MEAN CORPUSCULAR VOLUME 90 fL (79-100); MONO # 1.4 x10^3/uL (0.0-1.1); MONO % 9 % (0-9); NEUT # 12.1 x10^3uL (1.8-7.7); NEUT % 76 % (31-73); PLATELET COUNT 405 x10^3/uL (140-400); RED BLOOD COUNT 4.94 x10^6/uL (4.30-5.70); RED CELL DISTRIBUTION WIDTH 13.8 % (11.5-14.5)
[2018-05-12] MEDS: IV NORMAL SALINE 1000ML BAG 1,000 ML IV (14:37)
[2018-05-12] MEDS: ONDANSETRON PF 4 MG/2 ML VIAL. IV (14:39)
[2018-05-12] MEDS: fentaNYL PF VIAL 100 MCG/2 ML VIAL IV (14:40)
[2018-05-12 14:42] LABS: ANION GAP 10 (6-14); BLOOD UREA NITROGEN 8 mg/dL (8-26); BUN/CREATININE RATIO 8 (6-20); CALCIUM 9.1 mg/dL (8.5-10.1); CARBON DIOXIDE 27 mmol/L (21-32); CHLORIDE 100 mmol/L (98-107); GFR 77.6; GLUCOSE 183 mg/dL (70-99); POTASSIUM 3.7 mmol/L (3.5-5.1); SODIUM 137 mmol/L (136-145)
[2018-05-12 14:46] LABS: LACTIC ACID 2.1 mmol/L (0.4-2.0)
[2018-05-12 14:47] LABS: TROPONINI < 0.017 ng/mL (0.000-0.055)
[2018-05-12 14:53] LABS: ALBUMIN 2.8 g/dL (3.4-5.0); ALBUMIN/GLOBULIN RATIO 0.6 (1.0-1.7); ALK PHOS 104 U/L (46-116); ALT (SGPT) 25 U/L (16-63); AST (SGOT) 12 U/L (15-37); LIPASE 170 U/L (73-393); TOTAL BILIRUBIN 0.5 mg/dL (0.2-1.0); TOTAL PROTEIN 7.8 g/dL (6.4-8.2)
[2018-05-12] MEDS ORDERED: IOHEXOL 300 MG/ML 100ML VIAL. IV (15:00)
[2018-05-12] MEDS: IOHEXOL 300 MG/ML 100ML VIAL. IV (15:14)
[2018-05-12] MEDS ORDERED: CONTRAST GIVEN. MC (15:15)
[2018-05-12] MEDS ORDERED: IV NORMAL SALINE 1000ML BAG 1,000 ML IV (16:01)
[2018-05-12] MEDS ORDERED: MORPHINE SULFATE 2 MG/ML DISP.SYRIN. IV (16:15)
[2018-05-12] MEDS ORDERED: ONDANSETRON PF 4 MG/2 ML VIAL. IV (16:15)
== END 2018-05-12 16:26 | disposition left against medical advice (07) ==
LOC: ER 12:32
DX: N10 Acute pyelonephritis (principal); J44.9 Chronic obstructive pulmonary disease, unspecified; E11.9 Type 2 diabetes mellitus without complications; E78.00 Pure hypercholesterolemia, unspecified
CPT/HCPCS: 36415; 74177; 80053; 81001; 83605; 83690; 84484; 85025; 87086; 93005; 96374; 96375; 99285-25; J0690; J2405; J3010; J7030; Q9967

== ENCOUNTER → 2018-05-13 | Outpatient (CLI) | payer BC | END | disposition home or self-care (01) | LOC: RAD 13:59 | DX: Z47.1 Aftercare following joint replacement surgery (principal); Z96.652 Presence of left artificial knee joint | CPT/HCPCS: 73502 ==

== ENCOUNTER 2018-06-07 09:41 | Emergency (ER) | payer BC ==
[2018-06-07] MEDS ORDERED: IPRATRPIUM/ALBUTEROL 0.5/2.5MG 3 ML NEBU. NEB (10:00)
[2018-06-07] MEDS: IPRATRPIUM/ALBUTEROL 0.5/2.5MG 3 ML NEBU. NEB (10:12)
[2018-06-07] MEDS: methylPREDNISolone SOD SUCC PF 125 MG/2 ML VIAL. IV (10:16)
[2018-06-07] MEDS: fentaNYL PF VIAL 100 MCG/2 ML VIAL IV (10:16)
[2018-06-07 10:22] LABS: BILIRUBIN,URINE NEGATIVE (NEG); CLARITY,URINE CLEAR; COLOR,URINE YELLOW; GLUCOSE,URINE 100 mg/dL (NEG); NITRITE,URINE NEGATIVE (NEG); PROTEIN,URINE NEGATIVE (NEG-TRACE)
[2018-06-07 10:35] LABS: BASO # 0.1 x10^3/uL (0.0-0.2); BASO % 1 % (0-3); EOS # 1.3 x10^3/uL (0.0-0.7); EOS % 10 % (0-3); HEMATOCRIT 42.7 % (39.0-53.0); HEMOGLOBIN 14.3 g/dL (13.0-17.5); LYMPH # 2.6 x10^3/uL (1.0-4.8); LYMPH % 18 % (24-48); MEAN CORPUSCULAR HEMOGLOBIN 30 pg (25-35); MEAN CORPUSCULAR HGB CONC 33 g/dL (31-37); MEAN CORPUSCULAR VOLUME 91 fL (79-100); MONO # 1.4 x10^3/uL (0.0-1.1); MONO % 10 % (0-9); NEUT # 8.6 x10^3uL (1.8-7.7); NEUT % 61 % (31-73); PLATELET COUNT 309 x10^3/uL (140-400); RED BLOOD COUNT 4.71 x10^6/uL (4.30-5.70); RED CELL DISTRIBUTION WIDTH 14.5 % (11.5-14.5)
[2018-06-07 10:39] LABS: ADD MAN DIFF? YES
[2018-06-07 10:49] LABS: BACTERIA,URINE FEW /HPF (0-FEW); RBC,URINE 0 /HPF (0-2); SQUAMOUS EPITHELIAL CELL,UR OCC /LPF; WBC,URINE 20-40 /HPF (0-4)
[2018-06-07 10:50] LABS: ANION GAP 6 (6-14); BLOOD UREA NITROGEN 15 mg/dL (8-26); BUN/CREATININE RATIO 13 (6-20); CALCIUM 9.3 mg/dL (8.5-10.1); CARBON DIOXIDE 28 mmol/L (21-32); CHLORIDE 105 mmol/L (98-107); CREATININE 1.2 mg/dL (0.7-1.3); GFR 62.9; GLUCOSE 134 mg/dL (70-99); POTASSIUM 3.8 mmol/L (3.5-5.1); SODIUM 139 mmol/L (136-145)
[2018-06-07 10:56] LABS: ALBUMIN 3.1 g/dL (3.4-5.0); ALBUMIN/GLOBULIN RATIO 0.7 (1.0-1.7); ALK PHOS 108 U/L (46-116); ALT (SGPT) 26 U/L (16-63); AST (SGOT) 12 U/L (15-37); TOTAL BILIRUBIN 0.4 mg/dL (0.2-1.0); TOTAL PROTEIN 7.7 g/dL (6.4-8.2)
[2018-06-07 10:57] LABS: TROPONINI < 0.017 ng/mL (0.000-0.055)
[2018-06-07 11:04] LABS: % ATYL 1 % (0-0); % BANDS 2 % (0-9); % BASOS 2 % (0-3); % EOS 11 % (0-5); % LYMPHS 14 % (24-48); % MONOS 7 % (0-10); % SEGS 63 % (35-66)
[2018-06-07 11:05] LABS: CKMB INDEX 1.4 % (0-4); CKMB MASS 2.4 ng/mL (0.0-3.6); CREATINE KINASE 172 U/L (39-308); PLT ESTIMATE ADEQUATE (ADEQUATE)
== END 2018-06-07 12:18 | disposition home or self-care (01) ==
LOC: ER 12:18
DX: J44.1 Chronic obstructive pulmonary disease with (acute) exacerbation (principal); N39.0 Urinary tract infection, site not specified; E11.9 Type 2 diabetes mellitus without complications; E78.00 Pure hypercholesterolemia, unspecified; Z91.041 Radiographic dye allergy status
CPT/HCPCS: 36415; 71045; 80053; 81001; 82553; 84484; 85007; 85025; 93005; 94640; 96365; 96374; 96375; 99285-25; J0690; J2930; J3010; J7620

== ENCOUNTER 2018-06-20 18:04 | Emergency (ER) | payer BC ==
[2018-06-20] MEDS: IPRATRPIUM/ALBUTEROL 0.5/2.5MG 3 ML NEBU. NEB (18:35)
[2018-06-20 18:36] LABS: ADD MAN DIFF? NO
[2018-06-20] MEDS: methylPREDNISolone SOD SUCC PF 125 MG/2 ML VIAL. IV (18:37)
[2018-06-20 18:40] LABS: BASO # 0.1 x10^3/uL (0.0-0.2); BASO % 1 % (0-3); EOS # 1.1 x10^3/uL (0.0-0.7); EOS % 10 % (0-3); HEMATOCRIT 41.2 % (39.0-53.0); HEMOGLOBIN 13.9 g/dL (13.0-17.5); LYMPH # 2.2 x10^3/uL (1.0-4.8); LYMPH % 20 % (24-48); MEAN CORPUSCULAR HEMOGLOBIN 31 pg (25-35); MEAN CORPUSCULAR HGB CONC 34 g/dL (31-37); MEAN CORPUSCULAR VOLUME 91 fL (79-100); MONO # 1.1 x10^3/uL (0.0-1.1); MONO % 10 % (0-9); NEUT # 6.5 x10^3uL (1.8-7.7); NEUT % 59 % (31-73); PLATELET COUNT 318 x10^3/uL (140-400); RED BLOOD COUNT 4.54 x10^6/uL (4.30-5.70); RED CELL DISTRIBUTION WIDTH 14.6 % (11.5-14.5); WHITE BLOOD COUNT 10.9 x10^3/uL (4.0-11.0)
[2018-06-20 18:47] LABS: ANION GAP 9 (6-14); BLOOD UREA NITROGEN 7 mg/dL (8-26); CALCIUM 8.8 mg/dL (8.5-10.1); CARBON DIOXIDE 29 mmol/L (21-32); CHLORIDE 104 mmol/L (98-107); CREATININE 1.1 mg/dL (0.7-1.3); GFR 69.5; GLUCOSE 132 mg/dL (70-99); POTASSIUM 3.6 mmol/L (3.5-5.1); SODIUM 142 mmol/L (136-145)
[2018-06-20 18:55] LABS: TROPONINI < 0.017 ng/mL (0.000-0.055)
[2018-06-20 19:00] LABS: NT-PRO BNP 15 pg/mL (0-124)
[2018-06-20] MEDS: MORPHINE SULFATE 10 MG/ML VIAL. IV (19:08)
[2018-06-20] MEDS: ALBUTEROL SULFATE 2.5 MG/3 ML NEBU. NEB (19:30)
== END 2018-06-20 20:38 | disposition home or self-care (01) ==
LOC: ER 18:04
DX: R06.00 Dyspnea, unspecified (principal); R05 Cough; R07.81 Pleurodynia; E78.00 Pure hypercholesterolemia, unspecified; E11.9 Type 2 diabetes mellitus without complications; J44.9 Chronic obstructive pulmonary disease, unspecified; Z91.041 Radiographic dye allergy status
CPT/HCPCS: 36415; 71045; 80048; 83880; 84484; 85025; 93005; 94640; 96374; 96375; 99285-25; J2270; J2930; J7613; J7620

== ENCOUNTER 2018-07-01 19:17 | Emergency (ER) | payer BC ==
[2018-07-01 20:02] LABS: ADD MAN DIFF? NO
[2018-07-01 20:05] LABS: BASO # 0.1 x10^3/uL (0.0-0.2); BASO % 1 % (0-3); EOS # 0.8 x10^3/uL (0.0-0.7); EOS % 7 % (0-3); HEMATOCRIT 43.9 % (39.0-53.0); HEMOGLOBIN 14.4 g/dL (13.0-17.5); LYMPH # 2.9 x10^3/uL (1.0-4.8); LYMPH % 24 % (24-48); MEAN CORPUSCULAR HEMOGLOBIN 30 pg (25-35); MEAN CORPUSCULAR HGB CONC 33 g/dL (31-37); MEAN CORPUSCULAR VOLUME 91 fL (79-100); MONO # 1.1 x10^3/uL (0.0-1.1); MONO % 9 % (0-9); NEUT # 7.3 x10^3uL (1.8-7.7); NEUT % 60 % (31-73); PLATELET COUNT 343 x10^3/uL (140-400); RED BLOOD COUNT 4.82 x10^6/uL (4.30-5.70); RED CELL DISTRIBUTION WIDTH 14.8 % (11.5-14.5); WHITE BLOOD COUNT 12.2 x10^3/uL (4.0-11.0)
[2018-07-01 20:13] LABS: ANION GAP 10 (6-14); BLOOD UREA NITROGEN 7 mg/dL (8-26); BUN/CREATININE RATIO 6 (6-20); CALCIUM 9.1 mg/dL (8.5-10.1); CARBON DIOXIDE 28 mmol/L (21-32); CHLORIDE 100 mmol/L (98-107); CREATININE 1.1 mg/dL (0.7-1.3); GFR 69.2; GLUCOSE 169 mg/dL (70-99); POTASSIUM 3.7 mmol/L (3.5-5.1); SODIUM 138 mmol/L (136-145)
[2018-07-01] MEDS: ALBUTEROL SULFATE 2.5 MG/3 ML NEBU. NEB (20:15)
[2018-07-01 20:16] LABS: D-DIMER 0.32 ug/mlFEU (0.00-0.50)
[2018-07-01 20:19] LABS: ALBUMIN 3.2 g/dL (3.4-5.0); ALBUMIN/GLOBULIN RATIO 0.7 (1.0-1.7); ALK PHOS 93 U/L (46-116); ALT (SGPT) 27 U/L (16-63); AST (SGOT) 14 U/L (15-37); TOTAL BILIRUBIN 0.4 mg/dL (0.2-1.0); TOTAL PROTEIN 7.5 g/dL (6.4-8.2)
[2018-07-01] MEDS: methylPREDNISolone SOD SUCC PF 125 MG/2 ML VIAL. IV (20:19)
[2018-07-01 20:27] LABS: TROPONINI < 0.017 ng/mL (0.000-0.055)
[2018-07-01 20:28] LABS: NT-PRO BNP 6 pg/mL (0-124)
[2018-07-01] MEDS: MORPHINE SULFATE 4 MG/ML DISP.SYRIN. IV (20:45)
== END 2018-07-01 21:21 | disposition home or self-care (01) ==
LOC: ER 19:17
DX: J44.1 Chronic obstructive pulmonary disease with (acute) exacerbation (principal); E11.9 Type 2 diabetes mellitus without complications; E78.00 Pure hypercholesterolemia, unspecified; Z96.642 Presence of left artificial hip joint; Z98.890 Other specified postprocedural states; Z91.041 Radiographic dye allergy status
CPT/HCPCS: 36415; 71046; 80053; 83880; 84484; 85025; 85379; 93005; 94640; 96374; 96375; 99285-25; J2270; J2930; J7613

== ENCOUNTER 2018-07-28 13:58 | Emergency (ER) | payer BC ==
[~2018-07-28] VITALS: Ht 175.3 cm; Wt 116.6 kg
[~2018-07-28 13:58] MED LIST changes: +ACET5SOL3 PO; +AMOX500C PO; +AZIT250T6 PO; +BENZ100C PO; +CIPR500T94 PO; +LEVO500T59 PO; -METF-620 PO; +METF10007 PO
[2018-07-28] MEDS ORDERED: KETOROLAC 30 MG/ML VIAL. IV ONE (14:15)
[2018-07-28] MEDS ORDERED: methylPREDNISolone SOD SUCC PF 125 MG/2 ML VIAL. IV ONE (14:15)
[2018-07-28] MEDS ORDERED: IPRATRPIUM/ALBUTEROL 0.5/2.5MG 3 ML NEBU. NEB PRN (14:15)
--- NOTE | 2018-07-28 14:19 | PHYS DOC ---
Past Medical History Past Medical History: COPD, Diabetes-Type II, High Cholesterol Additional Past Medical Histor: home o2 at night 3L Past Surgical History: Other Additional Past Surgical Histo: left hip replacement (titanium), right shoulder surgery, left knee surgery Smoking: Cigarettes, 1 Pack Per Day Alcohol Use: None Drug Use: None Adult General Chief Complaint Chief Complaint: SHORTNESS OF BREATH HPI HPI Patient is a 58-year-old male who presents to the emergency department stating "my COPD is acting up". He states he began having increasing shortness of breath yesterday. He has had a cough, productive of fowler sputum, but states is his baseline. He does report some diffuse soreness all over his body secondary to coughing but is not having any other pain or any focal pain. He denies any chest pain or pleuritic pain. He has not had any fevers or chills, dizziness, or lightheadedness. He does wear 3 L of oxygen at home at night, and has been told that he can use his oxygen during the day as needed as well. Unfortunately , he continues to smoke. He does not have a cardiac history but does have a history of diabetes. There are no alleviating, or exacerbating factors to his symptoms, although exertion does seem to worsen her shortness of breath. Review of Systems Review of Systems Constitutional: Denies fever or chills [] Eyes: Denies change in visual acuity, redness, or eye pain [] HENT: Denies nasal congestion or sore throat [] Respiratory: No additional information not addressed in HPI [] Cardiovascular: No additional information not addressed in HPI [] GI: Denies abdominal pain, nausea, vomiting, bloody stools or diarrhea [] : Denies dysuria or hematuria [] Musculoskeletal: Denies back pain or joint pain. Does report diffuse myalgias, secondary to coughing. [] Integument: Denies rash or skin lesions [] Neurologic: Denies headache, focal weakness or sensory changes [] Endocrine: Denies polyuria or polydipsia [] All other systems were reviewed and found to be within normal limits, except as documented in this note. Current Medications Current Medications Current Medications Medications (Trade) Dose Ordered Sig/Paulino Start Time Stop Time Status Last Admin Dose Admin Albuterol/ Ipratropium (Duoneb) 3 ml PRN Q20MIN PRN 07/28/18 14:15 07/28/18 18:00 07/28/18 16:39 3 ML Ketorolac Tromethamine (Toradol 30mg Vial) 30 mg 1X ONCE 07/28/18 14:15 07/28/18 14:18 DC 07/28/18 15:01 30 MG Methylprednisolone Sodium Succinate (SOLU-Medrol 125MG VIAL) 125 mg 1X ONCE 07/28/18 14:15 07/28/18 14:18 DC 07/28/18 15:03 125 MG Morphine Sulfate (Morphine Sulfate) 4 mg 1X ONCE 07/28/18 16:30 07/28/18 16:31 DC 07/28/18 16:18 4 MG Sodium Chloride 1,000 ml @ 100 mls/hr Q10H 07/28/18 14:30 07/29/18 00:29 07/28/18 15:06 100 MLS/HR Allergies Allergies Allergies Coded Allergies Type Severity Reaction Last Updated Verified I S O L A T I O N *CONTACT* Allergy Unknown 06/20/18 Yes No Known Medication Allergies Allergy Unknown 06/20/18 Yes Physical Exam Physical Exam PHYSICAL EXAM: CONSTITUTIONAL: Well developed, well nourished HEAD: normocephalic, atraumatic EENT: PERRL, EOMI. Conjunctivae normal color, sclerae non-icteric; moist mucous membranes. NECK: Supple, non-tender; no meningismus. LUNGS: There are globally diminished breath sounds, with diffuse coarse wheezes with ronchii, scattered in all lung epps, breathing is unlabored. there are no rales. HEART: Regular rate and rhythm, no murmur CHEST: No deformity; non-tender ABDOMEN: The abdomen is soft, and non-tender, no masses or bruits. EXTREM: Normal ROM; no deformity, no calf tenderness. Normal pulses palpable in all extremities. There is no pedal edema. SKIN: No rash; no diaphoresis NEURO: Alert; normal speech and cognition; CN's grossly intact; strength grossly intact without focal deficit. BACK: No CVA TTP. Current Patient Data Vital Signs Vital Signs Date Time Temp Pulse Resp B/P (MAP) Pulse Ox O2 Delivery O2 Flow Rate FiO2 07/28/18 16:18 22 95 Room Air 07/28/18 14:05 98.3 100 133/83 (100) 2.0 98.3 Lab Values Laboratory Tests Test 8/27/18 14:35 White Blood Count 10.6 x10^3/uL (4.0-11.0) Red Blood Count 4.53 x10^6/uL (4.30-5.70) Hemoglobin 14.0 g/dL (13.0-17.5) Hematocrit 41.4 % (39.0-53.0) Mean Corpuscular Volume 91 fL (79-100) Mean Corpuscular Hemoglobin 31 pg (25-35) Mean Corpuscular Hemoglobin Concent 34 g/dL (31-37) Red Cell Distribution Width 14.8 % (11.5-14.5) H Platelet Count 358 x10^3/uL (140-400) Neutrophils (%) (Auto) 57 % (31-73) Lymphocytes (%) (Auto) 22 % (24-48) L Monocytes (%) (Auto) 11 % (0-9) H Eosinophils (%) (Auto) 9 % (0-3) H Basophils (%) (Auto) 1 % (0-3) Neutrophils # (Auto) 6.1 x10^3uL (1.8-7.7) Lymphocytes # (Auto) 2.3 x10^3/uL (1.0-4.8) Monocytes # (Auto) 1.1 x10^3/uL (0.0-1.1) Eosinophils # (Auto) 1.0 x10^3/uL (0.0-0.7) H Basophils # (Auto) 0.1 x10^3/uL (0.0-0.2) Sodium Level 137 mmol/L (136-145) Potassium Level 4.0 mmol/L (3.5-5.1) Chloride Level 102 mmol/L (98-107) Carbon Dioxide Level 27 mmol/L (21-32) Anion Gap 8 (6-14) Blood Urea Nitrogen 9 mg/dL (8-26) Creatinine 1.1 mg/dL (0.7-1.3) Estimated GFR (Cockcroft-Gault) 69.2 BUN/Creatinine Ratio 8 (6-20) Glucose Level 133 mg/dL (70-99) H Calcium Level 9.8 mg/dL (8.5-10.1) Total Bilirubin 0.3 mg/dL (0.2-1.0) Aspartate Amino Transferase (AST) 14 U/L (15-37) L Alanine Aminotransferase (ALT) 26 U/L (16-63) Alkaline Phosphatase 91 U/L (46-116) Creatine Kinase 292 U/L (39-308) Creatine Kinase MB (Mass) 2.9 ng/mL (0.0-3.6) Creatine Kinase MB Relative Index 1.0 % (0-4) Troponin I Quantitative < 0.017 ng/mL (0.000-0.055) SG-Upb-Q-Type Natriuretic Peptide 9 pg/mL (0-124) Total Protein 7.3 g/dL (6.4-8.2) Albumin 3.6 g/dL (3.4-5.0) Albumin/Globulin Ratio 1.0 (1.0-1.7) Laboratory Tests 07/28/18 14:35 Laboratory Tests 07/28/18 14:35 EKG EKG [Normal sinus rhythm at a rate of 98 bpm, normal axis, normal intervals, there are no acute ischemic ST/T changes.] Radiology/Procedures Radiology/Procedures [PROCEDURE: CHEST PA & LATERAL CHEST PA LATERAL dated 07/28/2018 2:58 PM. Comparison: 07/01/2018 Clinical Indication: SOB, HX OF COPD. Findings: PA and lateral views were obtained. Heart and mediastinal contours are stable. Lungs are somewhat hyperinflated but otherwise clear. No consolidation or pleural effusion. No pneumothorax. Impression: No acute radiographic abnormality. Stable findings compared 07/28/2018.] Course & Med Decision Making Course & Med Decision Making Pertinent Labs and Imaging studies reviewed. (See chart for details) [5:30 PM: The patient's condition remained stable. His breath sounds have cleared. He is feeling significantly better he is not short of breath he is at his baseline. His oxygenation saturation is 88-90% on room air, the patient states that this is his baseline. He states whenever he goes to his doctor he routinely has ox saturations in the 80s and he feels fine with this. I encouraged him to use his oxygen at home. He does not want stay in the hospital. I will prescribe the patient antibiotics and steroids, we discussed return precautions.] Dragon Disclaimer Dragon Disclaimer This electronic medical record was generated, in whole or in part, using a voice recognition dictation system. Departure Departure Impression: Primary Impression: COPD exacerbation Disposition: HOME, SELF-CARE Condition: STABLE Referrals: KATHRYN SWIFT MD (PCP) Patient Instructions: Chronic Obstructive Pulmonary Disease Exacerbation Scripts Methylprednisolone (MEDROL) 4 Mg Tab.ds.pk 1 PKG PO UD, #1 PKG Prov: BETHANY MADRID MD 07/28/18 Azithromycin (AZITHROMYCIN TABLET) 250 Mg Tablet 1 PKG PO UD, #6 TAB Prov: BETHANY MADRID MD 07/28/18 BETHANY MADRID MD Jul 28, 2018 14:19
[2018-07-28] MEDS ORDERED: IV NORMAL SALINE 1000ML BAG 1,000 ML IV SCH (14:30)
[2018-07-28 14:44] LABS: BASO # 0.1 x10^3/uL (0.0-0.2); BASO % 1 % (0-3); EOS % 9 % (0-3); HEMATOCRIT 41.4 % (39.0-53.0); LYMPH # 2.3 x10^3/uL (1.0-4.8); LYMPH % 22 % (24-48); MEAN CORPUSCULAR HEMOGLOBIN 31 pg (25-35); MEAN CORPUSCULAR HGB CONC 34 g/dL (31-37); MEAN CORPUSCULAR VOLUME 91 fL (79-100); MONO # 1.1 x10^3/uL (0.0-1.1); MONO % 11 % (0-9); NEUT # 6.1 x10^3uL (1.8-7.7); NEUT % 57 % (31-73); PLATELET COUNT 358 x10^3/uL (140-400); RED BLOOD COUNT 4.53 x10^6/uL (4.30-5.70); RED CELL DISTRIBUTION WIDTH 14.8 % (11.5-14.5); WHITE BLOOD COUNT 10.6 x10^3/uL (4.0-11.0)
[2018-07-28 14:58] LABS: CALCIUM 9.8 mg/dL (8.5-10.1); CREATININE 1.1 mg/dL (0.7-1.3); GFR 69.2
[2018-07-28 15:03] LABS: ALBUMIN 3.6 g/dL (3.4-5.0); TOTAL BILIRUBIN 0.3 mg/dL (0.2-1.0); TOTAL PROTEIN 7.3 g/dL (6.4-8.2)
--- NOTE | 2018-07-28 15:29 | RAD ---
CHEST PA LATERAL dated 07/28/2018 2:58 PM. Comparison: 07/01/2018 Clinical Indication: SOB, HX OF COPD. Findings: PA and lateral views were obtained. Heart and mediastinal contours are stable. Lungs are somewhat hyperinflated but otherwise clear. No consolidation or pleural effusion. No pneumothorax. Impression: No acute radiographic abnormality. Stable findings compared 07/28/2018. Electronically signed by: Hemanth Hunter MD (07/28/2018 3:26 PM) [id number]
--- NOTE | 2018-07-28 15:30 | EKG ---
[facility] [address] [place] [address] Test Date: 2018-07-28 Test Time: 14:39:27 Pat Name: AVRIL CHOU Department: Room: Gender: M Paraprofessional Education Assistant: ALYSON : 1960 Requested By: BETHANY MADRID Order Number: [id number] Reading MD: Rayo Bahena MD Measurements Intervals [place] Rate: 97 P: 54 VA: 136 QRS: 18 QRSD: 92 T: 36 QT: 344 QTc: 441 Interpretive Statements SINUS RHYTHM Electronically Signed On 07-29-2018 11:28:10 CDT by Raoy Bahena MD
[2018-07-28] MEDS ORDERED: MORPHINE SULFATE 4 MG/ML VIAL. ONE (16:10)
[2018-07-28] MEDS ORDERED: MORPHINE SULFATE 4 MG/ML VIAL. IV ONE (16:30)
[2018-07-28 17:00] VITALS: BP 122/66
[2018-07-28] MEDS ORDERED: METH4TAB2 PO (17:31)
[2018-07-28] MEDS ORDERED: AZIT250T6 PO (17:31)
[2018-07-28] MEDS ORDERED: PRED20TA PO (18:00)
== END 2018-07-28 18:00 | disposition home or self-care (01) ==
LOC: ER 13:58
DX: J44.1 Chronic obstructive pulmonary disease with (acute) exacerbation (principal); E11.9 Type 2 diabetes mellitus without complications; E78.00 Pure hypercholesterolemia, unspecified; F17.210 Nicotine dependence, cigarettes, uncomplicated; Z96.642 Presence of left artificial hip joint; Z91.041 Radiographic dye allergy status
CPT/HCPCS: 36415; 71046; 80053; 82553; 83880; 84484; 85025; 93005; 94640; 96374; 96375; 99285; J1885; J2270; J2930; J7030; J7620

== ENCOUNTER 2018-08-26 19:01 | Emergency (ER) | payer BC ==
[~2018-08-26] VITALS: Ht 175.3 cm; Wt 117.9 kg
[~2018-08-26 19:01] MED LIST changes: +METH4TAB2 PO
--- NOTE | 2018-08-26 19:11 | PHYS DOC ---
Past Medical History Past Medical History: Asthma, COPD, Diabetes-Type II Additional Past Medical Histor: home o2 at night 3L Past Surgical History: Hip Replacement, Other Additional Past Surgical Histo: SHOULDER, KNEE, Alcohol Use: None Drug Use: None Adult General Chief Complaint Chief Complaint: SHORTNESS OF BREATH HPI HPI Patient is a 58 year old man who presents with increased SOB since last night Patient has a history of COPD on home O2 3liters at night. He smokes 1/2 per day and noted onset of increased SOB yesterday with non productive cough, no fevers. No chest pain or orthopnea. He has LE edema. Review of Systems Review of Systems Constitutional: Denies fever or chills Eyes: Denies change in visual acuity, redness, or eye pain HENT: Denies nasal congestion or sore throat Respiratory: with non productive cough, shortness of breath and wheezing Cardiovascular: Denies chest pain or palpitations, with edema GI: Denies abdominal pain, nausea, vomiting, bloody stools or diarrhea : Denies dysuria or hematuria Musculoskeletal: Denies back pain or joint pain Integument: Denies rash or skin lesions Neurologic: Denies headache, focal weakness or sensory changes Endocrine: Denies polyuria or polydipsia All other systems were reviewed and found to be within normal limits, except as documented in this note. Current Medications Current Medications Current Medications Medications (Trade) Dose Ordered Sig/Paulino Start Time Stop Time Status Last Admin Dose Admin Albuterol Sulfate (Ventolin Neb Soln) 10 mg 1X ONCE 08/26/18 19:15 08/26/18 19:16 DC 08/26/18 20:50 10 MG Albuterol/ Ipratropium (Duoneb) 3 ml 1X ONCE 08/26/18 19:15 08/26/18 19:16 DC 08/26/18 20:50 3 ML Diphtheria/ Tetanus/Acell Pertussis (Boostrix) 0.5 ml ONCE ONCE 08/26/18 22:15 08/26/18 22:16 DC Methylprednisolone Sodium Succinate (SOLU-Medrol 125MG VIAL) 125 mg 1X ONCE 08/26/18 19:15 08/26/18 19:16 DC 08/26/18 20:11 125 MG Morphine Sulfate (Morphine Sulfate) 4 mg 1X ONCE 08/26/18 21:15 08/26/18 21:16 DC 08/26/18 21:19 4 MG Trimethoprim/ Sulfamethoxazole (Bactrim Ds) 2 tab 1X ONCE 08/26/18 22:15 08/26/18 22:16 DC 08/26/18 22:36 2 TAB Allergies Allergies Allergies Coded Allergies Type Severity Reaction Last Updated Verified I S O L A T I O N *CONTACT* Allergy Unknown 06/20/18 Yes No Known Medication Allergies Allergy Unknown 06/20/18 Yes Physical Exam Physical Exam Constitutional: Well developed, well nourished, in mild distress with increased work of breathing, non-toxic appearance. HENT: Normocephalic, atraumatic, bilateral external ears normal, oropharynx moist, no oral exudates, nose normal. Eyes: PERRLA, EOMI, conjunctiva normal, no discharge. Neck: Normal range of motion, no tenderness, supple, no stridor. Cardiovascular:Heart rate regular rhythm, no murmur Lungs & Thorax: With bilateral wheezing Abdomen: Bowel sounds normal, soft, no tenderness, no masses, no pulsatile masses. Skin: Warm, dry, no erythema, no rash. With right upper medial thigh erythema and tenderness no fluctuance 10X10 cm area Back: No tenderness, no CVA tenderness. Extremities: No tenderness, no cyanosis, no clubbing, ROM intact, no edema. Neurologic: Alert and oriented X 3, normal motor function, normal sensory function, no focal deficits noted. Psychologic: Affect normal, judgement normal, mood normal. Current Patient Data Vital Signs Vital Signs Date Time Temp Pulse Resp B/P (MAP) Pulse Ox O2 Delivery O2 Flow Rate FiO2 08/26/18 21:49 20 Nasal Cannula 3.0 08/26/18 21:19 93 08/26/18 20:15 98 133/78 (96) 08/26/18 19:05 98.3 98.3 Lab Values Laboratory Tests Test 08/26/18 19:20 White Blood Count 12.1 x10^3/uL (4.0-11.0) H Red Blood Count 4.56 x10^6/uL (4.30-5.70) Hemoglobin 14.3 g/dL (13.0-17.5) Hematocrit 42.1 % (39.0-53.0) Mean Corpuscular Volume 92 fL (79-100) Mean Corpuscular Hemoglobin 31 pg (25-35) Mean Corpuscular Hemoglobin Concent 34 g/dL (31-37) Red Cell Distribution Width 14.8 % (11.5-14.5) H Platelet Count 349 x10^3/uL (140-400) Neutrophils (%) (Auto) 62 % (31-73) Lymphocytes (%) (Auto) 20 % (24-48) L Monocytes (%) (Auto) 9 % (0-9) Eosinophils (%) (Auto) 8 % (0-3) H Basophils (%) (Auto) 1 % (0-3) Neutrophils # (Auto) 7.4 x10^3uL (1.8-7.7) Lymphocytes # (Auto) 2.4 x10^3/uL (1.0-4.8) Monocytes # (Auto) 1.1 x10^3/uL (0.0-1.1) Eosinophils # (Auto) 0.9 x10^3/uL (0.0-0.7) H Basophils # (Auto) 0.1 x10^3/uL (0.0-0.2) Sodium Level 138 mmol/L (136-145) Potassium Level 3.9 mmol/L (3.5-5.1) Chloride Level 101 mmol/L (98-107) Carbon Dioxide Level 27 mmol/L (21-32) Anion Gap 10 (6-14) Blood Urea Nitrogen 8 mg/dL (8-26) Creatinine 1.1 mg/dL (0.7-1.3) Estimated GFR (Cockcroft-Gault) 69.2 BUN/Creatinine Ratio 7 (6-20) Glucose Level 201 mg/dL (70-99) H Calcium Level 9.6 mg/dL (8.5-10.1) Total Bilirubin 0.2 mg/dL (0.2-1.0) Aspartate Amino Transferase (AST) 13 U/L (15-37) L Alanine Aminotransferase (ALT) 32 U/L (16-63) Alkaline Phosphatase 93 U/L (46-116) Troponin I Quantitative < 0.017 ng/mL (0.000-0.055) BZ-Qhu-A-Type Natriuretic Peptide 13 pg/mL (0-124) Total Protein 7.0 g/dL (6.4-8.2) Albumin 3.4 g/dL (3.4-5.0) Albumin/Globulin Ratio 0.9 (1.0-1.7) L Laboratory Tests 08/26/18 19:20 Laboratory Tests 08/26/18 19:20 EKG EKG ECG 19:25 NSR @ [address]-T wave changes suggestive of ischemia Radiology/Procedures Radiology/Procedures [address] [place] [address] IMAGING REPORT Signed PATIENT: AVRIL CHOU ACCOUNT: [id number] : 1960 LOCATION: ER AGE: 58 SEX: M EXAM STATUS: DEP ER ORD. PHYSICIAN: ROBSON WHATLEY MD REASON: SOB PROCEDURE: CHEST AP ONLY Exam performed: One view chest. Indication: Short of breath Date of Service: 08/26/2018 7:12 PM Comparison: 2 views chest from August 09, 2018. Single AP upright portable view chest findings: Cardiomediastinal silhouette is within limits of normal. Prominent interstitial markings are redemonstrated both lungs likely chronic. There is a linear opacity in the right lung base atelectasis. No acute infiltrates, effusion or pneumothorax is detected. The bony structures are normal. Impression: No acute cardiopulmonary process is detected. Sterile chronic changes. Electronically signed by: Sadia Renee MD (08/26/2018 11:29 PM) [facility] DICTATED and SIGNED BY: SADIA RENEE MD DATE: 08/26/18 3550 Course & Med Decision Making Course & Med Decision Making Pertinent Labs and Imaging studies reviewed. (See chart for details) Emergency Department Course Patient presents with SOB and wheezing DDx- COPD exacerbation, asthma, CHF, pneumonia, ACS The patient was stable in the emergency department improved after DuoNeb albuterol and Solu-Medrol. ECG and troponin showed no evidence of acute coronary syndrome. CXR unremarkable. Labs remarakble for leukocytosis, hyperglycemia. BNP normal, doubt CHF. 22:10 Patient improved with marked decreased wheezing and resolution of shortness breath. Patient feels well enough to go home. He refused ABG. Patient has a right thigh cellulitis that he's had for the last 4-5 days. No fluctuance or drainage. Patient says he has a past history of staph. We'll give Bactrim for right inner thigh cellulitis. Patient will follow-up with PCP. Patient advised to return to the ED if he develops recurrent SOB, fevers or pain. Anna Disclaimer Anna Disclaimer This electronic medical record was generated, in whole or in part, using a voice recognition dictation system. Departure Departure Impression: Primary Impression: Acute exacerbation of COPD with asthma Additional Impressions: Cellulitis of right thigh Hyperglycemia Disposition: HOME, SELF-CARE Condition: STABLE Referrals: KATHRYN SWIFT MD (PCP) Follow-up with your PCP tomorrow for further evaluation Patient Instructions: Cellulitis, Chronic Obstructive Pulmonary Disease, Hyperglycemia Additional Instructions: If you develop recurrent shortness of breath, pain, fevers, drainage return to the Emergency Department. Scripts Sulfamethoxazole/Trimethoprim (BACTRIM DS TABLET) 1 Each Tablet 2 TAB PO BID, #28 TAB Prov: ROBSON WHATLEY MD 08/26/18 Albuterol Sulfate (VENTOLIN HFA INHALER) 18 Gm Hfa.aer.ad 2 PUFF INH Q4HRS for FOR ASTHMA for 20 Days, #1 INHALER 0 Refills Prov: ROBSON WHATLEY MD 08/26/18 Prednisone (PREDNISONE) 20 Mg Tablet 2 TAB PO DAILY for 5 Days, #10 TAB Prov: ROBSON WHATLEY MD 08/26/18 Problem Qualifiers ROBSON WHATLEY MD Aug 26, 2018 19:11
[2018-08-26 19:37] LABS: BASO # 0.1 x10^3/uL (0.0-0.2); BASO % 1 % (0-3); EOS # 0.9 x10^3/uL (0.0-0.7); EOS % 8 % (0-3); HEMATOCRIT 42.1 % (39.0-53.0); HEMOGLOBIN 14.3 g/dL (13.0-17.5); LYMPH # 2.4 x10^3/uL (1.0-4.8); LYMPH % 20 % (24-48); MEAN CORPUSCULAR HEMOGLOBIN 31 pg (25-35); MEAN CORPUSCULAR HGB CONC 34 g/dL (31-37); MEAN CORPUSCULAR VOLUME 92 fL (79-100); MONO # 1.1 x10^3/uL (0.0-1.1); MONO % 9 % (0-9); NEUT # 7.4 x10^3uL (1.8-7.7); NEUT % 62 % (31-73); PLATELET COUNT 349 x10^3/uL (140-400); RED BLOOD COUNT 4.56 x10^6/uL (4.30-5.70); RED CELL DISTRIBUTION WIDTH 14.8 % (11.5-14.5); WHITE BLOOD COUNT 12.1 x10^3/uL (4.0-11.0)
[2018-08-26 19:45] LABS: CALCIUM 9.6 mg/dL (8.5-10.1); CREATININE 1.1 mg/dL (0.7-1.3); GFR 69.2; POTASSIUM 3.9 mmol/L (3.5-5.1)
[2018-08-26 19:51] LABS: ALBUMIN 3.4 g/dL (3.4-5.0); ALBUMIN/GLOBULIN RATIO 0.9 (1.0-1.7); TOTAL BILIRUBIN 0.2 mg/dL (0.2-1.0)
--- NOTE | 2018-08-26 20:04 | EKG ---
[facility] [address] [place] [address] Test Date: 2018-08-26 Test Time: 19:21:35 Pat Name: AVRIL CHOU Department: Room: Gender: M Supervisor Contact And Service Clerks: TW : 1960 Requested By: ROBSON WHATLEY Order Number: [id number] Reading MD: Sander Mae Measurements Intervals [place] Rate: 98 P: 45 NE: 146 QRS: 0 QRSD: 94 T: 28 QT: 336 QTc: 431 Interpretive Statements SINUS RHYTHM LEFTWARD AXIS QRS(T) CONTOUR ABNORMALITY CONSIDER ANTEROLATERAL MYOCARDIAL DAMAGE POSSIBLY ABNORMAL ECG RI6.01 Compared to ECG 08/09/2018 15:34:32 Left-axis deviation now present Electronically Signed On 08-27-2018 15:26:43 CDT by Sander Mae
[2018-08-26] MEDS: methylPREDNISolone SOD SUCC PF 125 MG/2 ML VIAL. IV ONE (20:11)
[2018-08-26 20:15] VITALS: BP 133/78
[2018-08-26] MEDS: ALBUTEROL SULFATE 2.5 MG/3 ML NEBU. CONT NEB ONE (20:50)
[2018-08-26] MEDS: IPRATRPIUM/ALBUTEROL 0.5/2.5MG 3 ML NEBU. NEB ONE (20:50)
[2018-08-26] MEDS: MORPHINE SULFATE 4 MG/ML VIAL. IV ONE (21:19)
[2018-08-26] MEDS: DIPHTH,PERTUSS(ACELL),TET TOX 0.5 ML DISP.SYRIN. VAX IM ONE (22:15)
[2018-08-26] MEDS ORDERED: PRED20TA PO (22:19)
[2018-08-26] MEDS ORDERED: VENTOLIN HFA18 GM INH (22:19)
[2018-08-26] MEDS ORDERED: SULF1TAB24 PO (22:19)
[2018-08-26] MEDS: SMZ/TMP 800/160MG TABLET. PO ONE (22:36)
--- NOTE | 2018-08-26 23:32 | RAD ---
Exam performed: One view chest. Indication: Short of breath Date of Service: 08/26/2018 7:12 PM Comparison: 2 views chest from August 09, 2018. Single AP upright portable view chest findings: Cardiomediastinal silhouette is within limits of normal. Prominent interstitial markings are redemonstrated both lungs likely chronic. There is a linear opacity in the right lung base atelectasis. No acute infiltrates, effusion or pneumothorax is detected. The bony structures are normal. Impression: No acute cardiopulmonary process is detected. Sterile chronic changes. Electronically signed by: Sadia Renee MD (08/26/2018 11:29 PM) [facility]
== END 2018-08-26 22:39 | disposition home or self-care (01) ==
LOC: ER 19:01
DX: J44.1 Chronic obstructive pulmonary disease with (acute) exacerbation (principal); L03.115 Cellulitis of right lower limb; E11.65 Type 2 diabetes mellitus with hyperglycemia; Z91.041 Radiographic dye allergy status
CPT/HCPCS: 36415; 71045; 80053; 83880; 84484; 85025; 93005; 94644; 96374; 96375; 99285; J2270; J2930; J7613; J7620

== ENCOUNTER 2018-10-16 13:24 | Emergency (ER) | payer BC, OTHER ==
[~2018-10-16] VITALS: Ht 175.3 cm; Wt 112.0 kg
[~2018-10-16 13:24] MED LIST changes: +HYDR-3164 PO; -HYDR-971 PO; +VENTOLIN HFA18 GM INH
[2018-10-16] MEDS ORDERED: methylPREDNISolone SOD SUCC PF 125 MG/2 ML VIAL. IV ONE (14:00)
[2018-10-16] MEDS ORDERED: ALBUTEROL SULFATE 2.5 MG/3 ML NEBU. CONT NEB ONE (14:00)
[2018-10-16] MEDS ORDERED: IPRATROPIUM BROMIDE 0.5 MG/2.5 ML NEBU. NEB ONE (14:00)
[2018-10-16 14:03] LABS: BASO # 0.1 x10^3/uL (0.0-0.2); BASO % 1 % (0-3); EOS # 1.6 x10^3/uL (0.0-0.7); EOS % 15 % (0-3); HEMATOCRIT 43.1 % (39.0-53.0); HEMOGLOBIN 14.7 g/dL (13.0-17.5); LYMPH % 28 % (24-48); MEAN CORPUSCULAR HEMOGLOBIN 31 pg (25-35); MEAN CORPUSCULAR HGB CONC 34 g/dL (31-37); MEAN CORPUSCULAR VOLUME 91 fL (79-100); MONO % 10 % (0-9); NEUT # 4.7 x10^3uL (1.8-7.7); NEUT % 46 % (31-73); PLATELET COUNT 417 x10^3/uL (140-400); RED BLOOD COUNT 4.71 x10^6/uL (4.30-5.70); RED CELL DISTRIBUTION WIDTH 14.1 % (11.5-14.5); WHITE BLOOD COUNT 10.4 x10^3/uL (4.0-11.0)
--- NOTE | 2018-10-16 14:05 | EKG ---
[facility] [address] [place] [address] Test Date: 2018-10-16 Test Time: 14:02:12 Pat Name: AVRIL CHOU Department: Room: Gender: M Manager Battery: : 1960 Requested By: CHRIS BYNUM Order Number: [id number] Reading MD: Wilder Parra Measurements Intervals [place] Rate: 93 P: 59 IN: 146 QRS: 25 QRSD: 94 T: 36 QT: 358 QTc: 447 Interpretive Statements SINUS RHYTHM NORMAL ECG Electronically Signed On 10-17-2018 14:29:25 CAMPGROUND MANAGER by Wilder Parra
[2018-10-16 14:12] LABS: CALCIUM 9.2 mg/dL (8.5-10.1); CREATININE 1.1 mg/dL (0.7-1.3); GFR 69.2; POTASSIUM 3.7 mmol/L (3.5-5.1)
--- NOTE | 2018-10-16 14:13 | RAD ---
AP and Lateral Views of the Chest 10/16/2018 1:52 PM Indication: COPD, PRODUCTIVE COUGH Comparison: Chest radiograph August 26, 2018 CT of the abdomen and pelvis May 12, 2018. Findings: No pneumothorax or pleural effusion is identified. There is a somewhat nodular opacity in the left lung base new from prior exam. On lateral view this appears to be in the lingula. A pulmonary nodule/mass not excluded. An opacity in this region is is seen on prior CT of the abdomen. No other focal consolidative infiltrate is seen. Heart size is normal. Diffuse interstitial coarsening suggesting chronic lung disease possibly COPD noted. No acute osseous changes are appreciated. IMPRESSION: 1. Nodular opacity, left lung base, projecting over the lingula. This could represent overlapping structures versus a true nodule or persistent opacity is demonstrated on prior CT of the abdomen. CT chest recommended for further evaluation. 2. Similar changes of chronic lung disease, possibly COPD Electronically signed by: Wild Bledsoe MD (10/16/2018 2:10 PM) [id number]
[2018-10-16 14:18] LABS: ALBUMIN 3.3 g/dL (3.4-5.0); ALBUMIN/GLOBULIN RATIO 0.7 (1.0-1.7); TOTAL BILIRUBIN 0.3 mg/dL (0.2-1.0); TOTAL PROTEIN 7.8 g/dL (6.4-8.2)
[2018-10-16] MEDS ORDERED: KETOROLAC 15 MG/ML VIAL. IV ONE (14:30)
[2018-10-16] MEDS ORDERED: HYDROcodone/APAP 7.5/325MG 1 TAB TABLET PO ONE (14:30)
[2018-10-16 14:53] LABS: % BANDS 2 % (0-9); % BASOS 2 % (0-3); % EOS 20 % (0-5); % LYMPHS 25 % (24-48); % MONOS 10 % (0-10); % SEGS 41 % (35-66); PLT ESTIMATE INCREASED (ADEQUATE)
[2018-10-16 14:56] LABS: INFLUENZA A PATIENT NEGATIVE (NEGATIVE); INFLUENZA B PATIENT NEGATIVE (NEGATIVE)
[2018-10-16] MEDS ORDERED: fentaNYL PF VIAL 100 MCG/2 ML VIAL IV ONE (15:15)
[2018-10-16 15:30] VITALS: BP 117/79
--- NOTE | 2018-10-16 15:43 | PHYS DOC ---
Past Medical History Past Medical History: Asthma, COPD, Diabetes-Type II, Other Additional Past Medical Histor: home o2 at night 3L Past Surgical History: Hip Replacement, Other Additional Past Surgical Histo: SHOULDER, KNEE Alcohol Use: None Drug Use: None Adult General Chief Complaint Chief Complaint: SHORTNESS OF BREATH HPI HPI Patient is a 58-year-old male who presents with complaint of cough, shortness of breath and wheezing for the last couple days. Patient states his symptoms are progressively getting worse. Patient has history of COPD. He states this cough as been productive of whitish colored sputum. He denies any fever. Patient states that symptoms are worsened with minimal exertion. He denies any chest pain but does admit to bilateral lower rib pain and back pain associated with the coughing. States that nothing is improving his symptoms. Review of Systems Review of Systems Constitutional: Denies fever or chills [] Respiratory: Complains of cough and shortness of breath [] Cardiovascular: No additional information not addressed in HPI [] Musculoskeletal: Complains of back and bilateral rib pain [] Integument: Denies rash or skin lesions [] All other systems were reviewed and found to be within normal limits, except as documented in this note. Current Medications Current Medications Current Medications Medications (Trade) Dose Ordered Sig/Paulino Start Time Stop Time Status Last Admin Dose Admin Acetaminophen/ Hydrocodone Bitart (Lortab 7.5/325) 1 tab 1X ONCE 10/16/18 14:30 10/16/18 14:31 DC 10/16/18 14:21 1 TAB Albuterol Sulfate (Ventolin Neb Soln) 10 mg 1X ONCE 10/16/18 14:00 10/16/18 14:01 DC 10/16/18 14:07 10 MG Fentanyl Citrate (Fentanyl 2ml Vial) 50 mcg 1X ONCE 10/16/18 15:15 10/16/18 15:16 DC 10/16/18 15:22 50 MCG Ipratropium [place] (Atrovent) 0.5 mg 1X ONCE 10/16/18 14:00 10/16/18 14:01 DC 10/16/18 14:08 0.5 MG Ketorolac Tromethamine (Toradol 15mg Vial) 15 mg 1X ONCE 10/16/18 14:30 10/16/18 14:31 DC 10/16/18 14:23 15 MG Methylprednisolone Sodium Succinate (SOLU-Medrol 125MG VIAL) 125 mg 1X ONCE 10/16/18 14:00 10/16/18 14:01 DC 10/16/18 14:15 125 MG Allergies Allergies Allergies Coded Allergies Type Severity Reaction Last Updated Verified I S O L A T I O N *CONTACT* Allergy Unknown 06/20/18 Yes No Known Medication Allergies Allergy Unknown 06/20/18 Yes Physical Exam Physical Exam Constitutional: Well developed, well nourished, no acute distress, non-toxic appearance. [] HENT: Normocephalic, atraumatic, bilateral external ears normal, oropharynx moist, no oral exudates, nose normal. [] Eyes: PERRLA, EOMI, conjunctiva normal, no discharge. [] Neck: Normal range of motion, no tenderness, supple, no stridor. [] Cardiovascular:Heart rate regular rhythm, no murmur [] Lungs & Thorax: Lungs demonstrate slightly reduced breath sounds bilaterally with inspiratory and expiratory wheezes noted bilaterally[] Abdomen: Bowel sounds normal, soft, no tenderness, no masses, no pulsatile masses. [] Skin: Warm, dry, no erythema, no rash. [] Extremities: No tenderness, no cyanosis, no clubbing, ROM intact, no edema. [] Neurologic: Alert and oriented X 3, normal motor function, normal sensory function, no focal deficits noted. [] Current Patient Data Vital Signs Vital Signs Date Time Temp Pulse Resp B/P (MAP) Pulse Ox O2 Delivery O2 Flow Rate FiO2 10/16/18 15:22 16 90 Room Air 10/16/18 15:22 3.0 10/16/18 13:30 97.9 96 145/89 (107) 97.9 Lab Values Laboratory Tests Test 10/16/18 13:45 10/16/18 14:30 White Blood Count 10.4 x10^3/uL (4.0-11.0) Red Blood Count 4.71 x10^6/uL (4.30-5.70) Hemoglobin 14.7 g/dL (13.0-17.5) Hematocrit 43.1 % (39.0-53.0) Mean Corpuscular Volume 91 fL (79-100) Mean Corpuscular Hemoglobin 31 pg (25-35) Mean Corpuscular Hemoglobin Concent 34 g/dL (31-37) Red Cell Distribution Width 14.1 % (11.5-14.5) Platelet Count 417 x10^3/uL (140-400) H Neutrophils (%) (Auto) 46 % (31-73) Lymphocytes (%) (Auto) 28 % (24-48) Monocytes (%) (Auto) 10 % (0-9) H Eosinophils (%) (Auto) 15 % (0-3) H Basophils (%) (Auto) 1 % (0-3) Neutrophils # (Auto) 4.7 x10^3uL (1.8-7.7) Lymphocytes # (Auto) 3.0 x10^3/uL (1.0-4.8) Monocytes # (Auto) 1.0 x10^3/uL (0.0-1.1) Eosinophils # (Auto) 1.6 x10^3/uL (0.0-0.7) H Basophils # (Auto) 0.1 x10^3/uL (0.0-0.2) Segmented Neutrophils % 41 % (35-66) Band Neutrophils % 2 % (0-9) Lymphocytes % 25 % (24-48) Monocytes % 10 % (0-10) Eosinophils % 20 % (0-5) H Basophils % 2 % (0-3) Platelet Estimate Increased (ADEQUATE) Sodium Level 140 mmol/L (136-145) Potassium Level 3.7 mmol/L (3.5-5.1) Chloride Level 104 mmol/L (98-107) Carbon Dioxide Level 26 mmol/L (21-32) Anion Gap 10 (6-14) Blood Urea Nitrogen 10 mg/dL (8-26) Creatinine 1.1 mg/dL (0.7-1.3) Estimated GFR (Cockcroft-Gault) 69.2 BUN/Creatinine Ratio 9 (6-20) Glucose Level 151 mg/dL (70-99) H Calcium Level 9.2 mg/dL (8.5-10.1) Total Bilirubin 0.3 mg/dL (0.2-1.0) Aspartate Amino Transferase (AST) 15 U/L (15-37) Alanine Aminotransferase (ALT) 24 U/L (16-63) Alkaline Phosphatase 100 U/L (46-116) ZK-Wkl-F-Type Natriuretic Peptide 27 pg/mL (0-124) Total Protein 7.8 g/dL (6.4-8.2) Albumin 3.3 g/dL (3.4-5.0) L Albumin/Globulin Ratio 0.7 (1.0-1.7) L Influenza Type A Antigen Negative (NEGATIVE) Influenza Type B Antigen Negative (NEGATIVE) Laboratory Tests 10/16/18 13:45 Laboratory Tests 10/16/18 13:45 EKG EKG [] Radiology/Procedures Radiology/Procedures [] Impressions: PROCEDURE: CHEST PA & LATERAL AP and Lateral Views of the Chest 10/16/2018 1:52 PM Indication: COPD, PRODUCTIVE COUGH Comparison: Chest radiograph August 26, 2018 CT of the abdomen and pelvis May 12, 2018. Findings: No pneumothorax or pleural effusion is identified. There is a somewhat nodular opacity in the left lung base new from prior exam. On lateral view this appears to be in the lingula. A pulmonary nodule/mass not excluded. An opacity in this region is is seen on prior CT of the abdomen. No other focal consolidative infiltrate is seen. Heart size is normal. Diffuse interstitial coarsening suggesting chronic lung disease possibly COPD noted. No acute osseous changes are appreciated. IMPRESSION: 1. Nodular opacity, left lung base, projecting over the lingula. This could represent overlapping structures versus a true nodule or persistent opacity is demonstrated on prior CT of the abdomen. CT chest recommended for further evaluation. 2. Similar changes of chronic lung disease, possibly COPD Electronically signed by: Wild Bledsoe MD (10/16/2018 2:10 PM) [facility] Course & Med Decision Making Course & Med Decision Making Pertinent Labs and Imaging studies reviewed. (See chart for details) [] Dragon Disclaimer Dragon Disclaimer This electronic medical record was generated, in whole or in part, using a voice recognition dictation system. Departure Departure Impression: Primary Impression: COPD exacerbation Disposition: 01 HOME, SELF-CARE Condition: STABLE Patient Instructions: Chronic Obstructive Pulmonary Disease, Bronchitis CHRSI BYNUM Jr. DO Oct 16, 2018 15:43
== END 2018-10-16 15:45 | disposition home or self-care (01) ==
LOC: ER 13:24
DX: J44.1 Chronic obstructive pulmonary disease with (acute) exacerbation (principal); R07.81 Pleurodynia; M54.5 Low back pain; E11.9 Type 2 diabetes mellitus without complications; Z96.649 Presence of unspecified artificial hip joint; Z91.041 Radiographic dye allergy status
CPT/HCPCS: 36415; 71046; 80053; 83880; 85007; 85025; 87804; 93005; 94644; 96374; 96375; 99285; J1885; J2930; J3010; J7613; J7644

== ENCOUNTER 2018-11-03 19:53 | Emergency (ER) | payer OTHER ==
[~2018-11-03] VITALS: Ht 175.3 cm; Wt 109.8 kg
[~2018-11-03 19:53] MED LIST changes: -HYDR-2758 PO; +HYDR-2761 PO
[2018-11-03] MEDS ORDERED: IPRATRPIUM/ALBUTEROL 0.5/2.5MG 3 ML NEBU. NEB ONE (20:15)
[2018-11-03] MEDS ORDERED: DEXAMETHASONE SOD PHOS 20 MG/5 ML VIAL. IV ONE (20:15)
[2018-11-03 20:17] LABS: BASO # 0.2 x10^3/uL (0.0-0.2); BASO % 1 % (0-3); EOS # 1.1 x10^3/uL (0.0-0.7); EOS % 7 % (0-3); HEMATOCRIT 43.6 % (39.0-53.0); HEMOGLOBIN 14.9 g/dL (13.0-17.5); LYMPH # 2.8 x10^3/uL (1.0-4.8); LYMPH % 18 % (24-48); MEAN CORPUSCULAR HEMOGLOBIN 31 pg (25-35); MEAN CORPUSCULAR HGB CONC 34 g/dL (31-37); MEAN CORPUSCULAR VOLUME 92 fL (79-100); MONO # 1.4 x10^3/uL (0.0-1.1); MONO % 9 % (0-9); NEUT # 10.6 x10^3uL (1.8-7.7); NEUT % 66 % (31-73); PLATELET COUNT 309 x10^3/uL (140-400); RED BLOOD COUNT 4.75 x10^6/uL (4.30-5.70); RED CELL DISTRIBUTION WIDTH 14.1 % (11.5-14.5); WHITE BLOOD COUNT 16.1 x10^3/uL (4.0-11.0)
[2018-11-03 20:26] LABS: CALCIUM 9.5 mg/dL (8.5-10.1); CREATININE 1.2 mg/dL (0.7-1.3); GFR 62.6; POTASSIUM 4.2 mmol/L (3.5-5.1)
[2018-11-03 20:30] VITALS: BP 142/81
[2018-11-03 20:32] LABS: ALBUMIN 3.5 g/dL (3.4-5.0); ALBUMIN/GLOBULIN RATIO 0.8 (1.0-1.7); MAGNESIUM 1.8 mg/dL (1.8-2.4); TOTAL BILIRUBIN 0.4 mg/dL (0.2-1.0)
[2018-11-03] MEDS ORDERED: fentaNYL PF VIAL 100 MCG/2 ML VIAL IV ONE (20:45)
--- NOTE | 2018-11-03 20:48 | PHYS DOC ---
Past Medical History Past Medical History: Asthma, COPD, Diabetes-Type II, Other Additional Past Medical Histor: home o2 at night 3L Past Surgical History: Hip Replacement, Other Additional Past Surgical Histo: SHOULDER, KNEE Additional Information: HALF PACK A DAY Alcohol Use: None Drug Use: None Adult General Chief Complaint Chief Complaint: SHORTNESS OF BREATH HPI HPI Patient is a 58 year old male with PMHx of COPD, asthma, DM2 presenting with acute worsening SOA. Pt notes he woke up at 4:30 am today acutely SOA. Pt notes he has also had worsening cough that is now productive with white sputum. Pt denies fever, chills, chest pain, LE edema. Pt also complaining of headache and back pain with coughing. Pt notes he has done 2 DuoNeb breathing treatments at home today. Pt notes new onset clear rhinorrhea today. Pt uses 3L O2 at night. Pt recently seen in the ED on 10/16/18 for COPD exacerbation. Pt was discharged at that time without antibiotics. Review of Systems Review of Systems Constitutional: Denies fever or chills [] Eyes: Denies change in visual acuity, redness, or eye pain [] HENT: Notes nasal congestion, denies sore throat [] Respiratory: Notes cough and shortness of breath [] Cardiovascular: Denies chest pain or palpitations [] GI: Denies abdominal pain, nausea, vomiting, or diarrhea [] : Denies dysuria or hematuria [] Musculoskeletal: Notes back pain and joint pain [] Integument: Denies rash or skin lesions [] Neurologic: Notes headache. Denies focal weakness or sensory changes [] Complete systems were reviewed and found to be within normal limits, except as documented in this note. Current Medications Current Medications Current Medications Medications (Trade) Dose Ordered Sig/Paulino Start Time Stop Time Status Last Admin Dose Admin Albuterol/ Ipratropium (Duoneb) 3 ml 1X ONCE 11/03/18 20:15 11/03/18 20:16 DC 11/03/18 20:14 3 ML Dexamethasone Sodium Phosphate (Decadron) 10 mg 1X ONCE 11/03/18 20:15 11/03/18 20:16 DC 11/03/18 20:15 10 MG Fentanyl Citrate (Fentanyl 2ml Vial) 50 mcg 1X ONCE 11/03/18 20:45 11/03/18 20:46 DC 11/03/18 20:41 50 MCG Allergies Allergies Allergies Coded Allergies Type Severity Reaction Last Updated Verified I S O L A T I O N *CONTACT* Allergy Unknown 06/20/18 Yes No Known Medication Allergies Allergy Unknown 06/20/18 Yes Physical Exam Physical Exam Constitutional: Well developed, well nourished, no acute distress, non-toxic appearance. [] HENT: Normocephalic, atraumatic, oropharynx moist, nose normal. [] Eyes: PERRL, EOMI, no discharge. [] Neck: Normal range of motion, no tenderness, supple, no stridor. [] Cardiovascular: Heart rate regular rhythm, no murmur [] Lungs & Thorax: Diffuse expiratory wheezes, decreased breath sounds bilaterally [] Abdomen: Soft, nondistended no tenderness. [] Skin: Warm, dry, no erythema, no rash. [] Back: Paraspinal tenderness, no CVA tenderness. [] Extremities: No tenderness, no cyanosis, ROM intact, no edema. [] Neurologic: Alert and oriented X 3, normal motor function, normal sensory function, no focal deficits noted. [] Psychologic: Affect normal, judgement normal, mood normal. [] Current Patient Data Vital Signs Vital Signs Date Time Temp Pulse Resp B/P (MAP) Pulse Ox O2 Delivery O2 Flow Rate FiO2 11/03/18 21:10 20 98 Nasal Cannula 3.0 11/03/18 21:00 92 11/03/18 20:30 142/81 (101) 11/03/18 20:02 98.8 98.8 Lab Values Laboratory Tests Test 11/03/18 20:00 White Blood Count 16.1 x10^3/uL (4.0-11.0) H Red Blood Count 4.75 x10^6/uL (4.30-5.70) Hemoglobin 14.9 g/dL (13.0-17.5) Hematocrit 43.6 % (39.0-53.0) Mean Corpuscular Volume 92 fL (79-100) Mean Corpuscular Hemoglobin 31 pg (25-35) Mean Corpuscular Hemoglobin Concent 34 g/dL (31-37) Red Cell Distribution Width 14.1 % (11.5-14.5) Platelet Count 309 x10^3/uL (140-400) Neutrophils (%) (Auto) 66 % (31-73) Lymphocytes (%) (Auto) 18 % (24-48) L Monocytes (%) (Auto) 9 % (0-9) Eosinophils (%) (Auto) 7 % (0-3) H Basophils (%) (Auto) 1 % (0-3) Neutrophils # (Auto) 10.6 x10^3uL (1.8-7.7) H Lymphocytes # (Auto) 2.8 x10^3/uL (1.0-4.8) Monocytes # (Auto) 1.4 x10^3/uL (0.0-1.1) H Eosinophils # (Auto) 1.1 x10^3/uL (0.0-0.7) H Basophils # (Auto) 0.2 x10^3/uL (0.0-0.2) Segmented Neutrophils % 62 % (35-66) Band Neutrophils % 2 % (0-9) Lymphocytes % 18 % (24-48) L Monocytes % 8 % (0-10) Eosinophils % 9 % (0-5) H Basophils % 1 % (0-3) Toxic Granulation Slight Platelet Estimate Adequate (ADEQUATE) Sodium Level 141 mmol/L (136-145) Potassium Level 4.2 mmol/L (3.5-5.1) Chloride Level 102 mmol/L (98-107) Carbon Dioxide Level 28 mmol/L (21-32) Anion Gap 11 (6-14) Blood Urea Nitrogen 9 mg/dL (8-26) Creatinine 1.2 mg/dL (0.7-1.3) Estimated GFR (Cockcroft-Gault) 62.6 BUN/Creatinine Ratio 8 (6-20) Glucose Level 164 mg/dL (70-99) H Calcium Level 9.5 mg/dL (8.5-10.1) Magnesium Level 1.8 mg/dL (1.8-2.4) Total Bilirubin 0.4 mg/dL (0.2-1.0) Aspartate Amino Transferase (AST) 15 U/L (15-37) Alanine Aminotransferase (ALT) 26 U/L (16-63) Alkaline Phosphatase 94 U/L (46-116) Creatine Kinase 231 U/L (39-308) Creatine Kinase MB (Mass) 3.2 ng/mL (0.0-3.6) Creatine Kinase MB Relative Index 1.4 % (0-4) Troponin I Quantitative < 0.017 ng/mL (0.000-0.055) QI-Vyb-C-Type Natriuretic Peptide 6 pg/mL (0-124) Total Protein 8.0 g/dL (6.4-8.2) Albumin 3.5 g/dL (3.4-5.0) Albumin/Globulin Ratio 0.8 (1.0-1.7) L Laboratory Tests 11/03/18 20:00 Laboratory Tests 11/03/18 20:00 EKG EKG HR 101, UT 140, QTc 453. No STEMI. Sinus tachycardia, normal axis[] Radiology/Procedures Radiology/Procedures PROCEDURE: CHEST PA & LATERAL Two-view chest dated 11/03/2018. Comparison made to 10/16/2018. Clinical data indication: Cough for 3 days. FINDINGS: 2 views chest show normal heart and mediastinal contours. Lungs are somewhat hyperinflated. There is some mild peribronchial thickening, unchanged. No consolidation or pleural effusion. No pneumothorax. IMPRESSION: 1. Acute radiographic abnormality. 2. Peribronchial thickening with mild hyperinflation. This could be related to acute or chronic bronchial inflammatory process but is unchanged from prior exam. Electronically signed by: Hemanth Hunter MD (11/03/2018 9:32 PM) [facility] Course & Med Decision Making Course & Med Decision Making 58 yo male with hx COPD presenting with SOA. Pt notes productive cough but denies fever, chills, or LE edema. On initial exam pt had diffuse expiratory wheezing and decreased breath sounds and initial O2 sat of 94% on 3L NC. SOA and wheezing improved after DuoNeb breathing treatment. Pt given 50 mcg fentanyl for back pain. Labs collected, evaluated, and posted to chart. EKG unremarkable, cardiac enzymes negative. Pt prescribed PO prednisone and azithromycin for COPD exacerbation. Patient stable for discharge with outpatient follow-up with PCP. Discussed findings and plan with patient and family, who acknowledge understanding and agreement. Dragon Disclaimer Dragon Disclaimer This electronic medical record was generated, in whole or in part, using a voice recognition dictation system. Departure Departure Impression: Primary Impression: COPD exacerbation Disposition: 01 HOME, SELF-CARE Condition: IMPROVED Referrals: KATHRYN SWIFT MD (PCP) Patient Instructions: Chronic Obstructive Pulmonary Disease Exacerbation, Easy- to-Read, Smoking Cessation, Tips For Success Scripts Prednisone (PREDNISONE) 20 Mg Tablet 2 TAB PO DAILY, #10 TAB Prov: HEMANTH GONSALEZ DO 11/03/18 Azithromycin (ZITHROMAX) 250 Mg Tablet 1 PKG PO UD for bronchitis, #6 TAB Take 2 tablets on day 1 and then 1 tablet each day for the next 4 days as directed Prov: HEMANTH GONSALEZ DO 11/03/18 HEMANTH GONSALEZ DO Nov 03, 2018 20:48
[2018-11-03] MEDS ORDERED: PRED20TA PO (21:16)
[2018-11-03] MEDS ORDERED: AZIT250T PO (21:16)
[2018-11-03 21:28] LABS: % BANDS 2 % (0-9); % BASOS 1 % (0-3); % EOS 9 % (0-5); % LYMPHS 18 % (24-48); % MONOS 8 % (0-10); % SEGS 62 % (35-66)
[2018-11-03 21:35] LABS: PLT ESTIMATE ADEQUATE (ADEQUATE); TOXIC GRANULATION SLIGHT
--- NOTE | 2018-11-03 21:36 | RAD ---
Two-view chest dated 11/03/2018. Comparison made to 10/16/2018. Clinical data indication: Cough for 3 days. FINDINGS: 2 views chest show normal heart and mediastinal contours. Lungs are somewhat hyperinflated. There is some mild peribronchial thickening, unchanged. No consolidation or pleural effusion. No pneumothorax. IMPRESSION: 1. Acute radiographic abnormality. 2. Peribronchial thickening with mild hyperinflation. This could be related to acute or chronic bronchial inflammatory process but is unchanged from prior exam. Electronically signed by: Hemanth Hunter MD (11/03/2018 9:32 PM) [facility]
--- NOTE | 2018-11-04 03:41 | EKG ---
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
== END 2018-11-03 21:25 | disposition home or self-care (01) ==
LOC: ER 19:53
DX: J44.1 Chronic obstructive pulmonary disease with (acute) exacerbation (principal); R51 Headache; E11.9 Type 2 diabetes mellitus without complications; F17.200 Nicotine dependence, unspecified, uncomplicated; Z91.041 Radiographic dye allergy status
CPT/HCPCS: 36415; 71046; 80053; 82553; 83735; 83880; 84484; 85007; 85025; 93005; 94640; 96374; 96375; 99284; J1100; J3010; J7620

== ENCOUNTER → 2018-11-07 | Outpatient (CLI) | payer OTHER ==
[2018-11-03 20:30] VITALS: BP 142/81
--- NOTE | 2018-11-07 17:26 | RAD ---
CT of the chest without contrast, 11/07/2018: HISTORY: Shortness of breath, smoker Noncontrast scans were obtained with multiplanar reconstructions produced. Emphysematous changes are present in the lungs. There are scattered parenchymal scars. There is minimal atelectasis or scarring in the inferior lingula on the and anteroinferiorly in the right middle lobe. There are mild reticular and groundglass opacities in the dependent aspects of both lungs compatible with dependent atelectasis and/or scarring. No pulmonary mass or dense pulmonary consolidation is seen. There is no evidence of pleural fluid. The thoracic aorta is of normal caliber. The heart size is normal. No mediastinal adenopathy is evident. IMPRESSION: 1. Emphysema with scattered parenchymal scars. 2. Minimal scarring and/or atelectasis in the inferior lingula and right middle lobe. PQRS Compliance Statement: One or more of the following individualized dose reduction techniques were utilized for this examination: 1. Automated exposure control 2. Adjustment of the mA and/or kV according to patient size 3. Use of iterative reconstruction technique Electronically signed by: Abelardo Leung MD (11/07/2018 5:22 PM) [facility]
== END | disposition home or self-care (01) ==
LOC: CT 11:20
PROVIDERS: ATTEND Internal Medicine Pulmonary Disease
DX: J43.8 Other emphysema (principal); J98.11 Atelectasis; F17.200 Nicotine dependence, unspecified, uncomplicated
CPT/HCPCS: 71250

== ENCOUNTER → 2018-11-28 | Day surgery (SDC) | payer OTHER ==
[~2018-11-28] MED LIST changes: +ALBU2.5V8 IH; +HYDROmorphone 2 MG/ML VIAL IV PRN; +IV RINGERS,LACTATED 1000ML 1,000 ML IV SCH; +LIDOCAINE 1% PF 2 ML VIAL. ID PRN; +LIDOCAINE 1% PF 2 ML VIAL. ONE; +MORPHINE SULFATE 2 MG/ML VIAL. IV PRN; -PROAIR HFA8.5 GM IH; +PROCHLORPERAZINE 10 MG/2 ML VIAL. IV PRN; +PROPOFOL 40 ML IV ONE; +fentaNYL PF VIAL 100 MCG/2 ML VIAL IV PRN
--- NOTE | 2018-11-28 08:00 | PDOC2 ---
CONSULT Date of Consult Date of Consult DATE: 11/28/18 TIME: 07:54 Reason for Consult Reason for Consult: CRC screening Identification/Chief Complaint Chief Complaint 58 yo male seen for colorectal screening. Bowel habits are regular without diarrhea or constipation. Weight and appetite are stable. No melena and/or hematochezia is present. Family history is unrevelaing for colon cancer. He otherwise is without additional complaints. Past Medical History Pulmonary: COPD Endocrine: Diabetes Past Surgical History Past Surgical History: Total knee replacement Family History Family History: Cancer (breast cancer), Diabetes Social History 1 pack per day ALCOHOL: social Current Medications Current Medications Current Medications Fentanyl Citrate (Fentanyl 2ml Vial) 25 mcg PRN Q5MIN PRN IV MILD PAIN; Start 11/28/18 at 07:00; Stop 11/29/18 at 06:59 Fentanyl Citrate (Fentanyl 2ml Vial) 50 mcg PRN Q5MIN PRN IV MODERATE TO SEVERE PAIN; Start 11/28/18 at 07:00; Stop 11/29/18 at 06:59 Morphine Sulfate (Morphine Sulfate) 1 mg PRN Q10MIN PRN IV SEVERE PAIN; Start 11/28/18 at 07:00; Stop 11/29/18 at 06:59 Ringer's Solution 1,000 ml @ 30 mls/hr Q24H IV Last administered on at 06:52; Start 11/28/18 at 07:00; Stop 11/28/18 at 18:59 Lidocaine HCl (Xylocaine-Mpf 1% 2ml Vial) 2 ml PRN 1X PRN ID IV START; Start 11/28/18 at 07:00; Stop 11/29/18 at 06:59 Hydromorphone HCl (Dilaudid) 0.5 mg PRN Q10MIN PRN IV SEV PAIN, Second choice; Start 11/28/18 at 07:00; Stop 11/29/18 at 06:59 Prochlorperazine Edisylate (Compazine) 5 mg PACU PRN PRN IV NAUSEA, MRX1; Start 11/28/18 at 07:00; Stop 11/29/18 at 06:59 Propofol 40 ml @ As Directed STK-MED ONCE IV ; Start 11/28/18 at 07:52; Stop 11/28/18 at 07:54; Status DC Lidocaine HCl (Xylocaine-Mpf 1% 2ml Vial) 2 ml STK-MED ONCE .ROUTE ; Start at 07:52; Stop 11/28/18 at 07:54; Status DC Active Scripts Active Zithromax (Azithromycin) 250 Mg Tablet 1 Pkg PO UD Take 2 tablets on day 1 and then 1 tablet each day for the next 4 days as directed Ventolin Hfa Inhaler (Albuterol Sulfate) 18 Gm Hfa.aer.ad 2 Puff INH Q4HRS 20 Days Hydrocodone-Apap 5-325 (Hydrocodone Bit/Acetaminophen) 1 Each Tablet 1 Tab PO PRN Q6HRS PRN Reported Prednisone 20 Mg Tablet 20 Mg PO DAILY Simvastatin 40 Mg Tablet 40 Mg PO DAILY Metformin Hcl 1,000 Mg Tablet 1 Tab PO BID Symbicort 160-4.5 Mcg Inhaler (Budesonide/Formoterol Fumarate) 10.2 Gm Hfa.aer.ad 2 Puff IH BID Albuterol Sulfate Conc Neb Soln (Albuterol Sulfate) 2.5 Mg/0.5 Ml Vial.neb 1 Vial NEB Q6HRS Allergies Allergies: Coded Allergies: I S O L A T I O N *CONTACT* (Verified Allergy, Unknown, 11/28/18) mrsa No Known Medication Allergies (Verified Allergy, Unknown, 11/28/18) Physical Exam General: Alert, Oriented X3 Lungs: Clear to auscultation Heart: Regular rate, Normal S1, Normal S2 Abdomen: Normal bowel sounds, Soft, No tenderness Vitals VITALS Vital Signs Date Time Temp Pulse Resp B/P (MAP) Pulse Ox O2 Delivery O2 Flow Rate FiO2 11/27/18 07:16 97.9 91 20 90 97.9 Labs Labs Laboratory Tests Test 11/28/18 06:51 Glucose (Fingerstick) 124 mg/dL (70-99) Laboratory Tests Test 11/28/18 06:51 Glucose (Fingerstick) 124 mg/dL (70-99) Assessment/Plan Assessment/Plan Colorectal cancer screening- is recommended at this time. Risks and benefits of procedure discussed with patient who is willing to proceed. TROY FLOOD MD Nov 28, 2018 07:59
[2018-11-28 08:39] VITALS: BP 125/74
--- NOTE | 2018-12-01 15:07 | PATHOLOGY ---
[facility] Accession Number: [id number] . 01 Material submitted: . PART A: TRANSVERSE COLON POLYP PART B: SIGMOID POLYP . 01 Clinical history: . Screening . 02 Diagnosis: A. Colon biopsy, transverse colon polyp: - Tubular adenoma. . B. Colon biopsies, sigmoid polyp: - Tubular adenoma. P/12/01/2018 . 02 Comment: There is no high-grade dysplasia or evidence of malignancy. (JPM:[facility] 12/01/2018) . 02 Electronically signed: . Angel Fernandez MD, Pathologist NPI- [id number] . 01 Gross description: . A. Received in formalin labeled "Nikunjman, Zhang, transverse polyp," is a 0.8 x 0.4 x 0.4 cm polypoid piece of fowler soft tissue. The margin is inked and the specimen is sectioned perpendicular to the margin and entirely submitted in cassette A1. . B. Received in formalin labeled "Smotherman, Zhang, sigmoid colon," are 2 segments of fowler soft tissue measuring 1.2 x 0.4 x 0.4 cm in aggregate dimensions and measuring 0.6 cm each in maximum dimension. The specimen is submitted entirely in cassette B1. (TSD; 11/28/2018) TOB/TOB . 02 Pathologist provided ICD-10: D12.3, D12.5 . 02 CPT . 850730, 871296 Specimen Comment: A courtesy copy of this report has been sent to Specimen Comment: [phone], . Specimen Comment: Report sent to / DR SWIFT Specimen Comment: A duplicate report has been generated due to demographic updates. Performed at: [address], [place], [place] [id number] MD Mayur Ortega MD Phone: [phone] Performed at: [address] [id number] MD Angel Fernandez MD Phone: [phone]
== END ==
LOC: ENDOS 06:23
PROVIDERS: ATTEND Internal Medicine Gastroenterology
DX: Z12.11 Encounter for screening for malignant neoplasm of colon (principal); D12.3 Benign neoplasm of transverse colon; D12.5 Benign neoplasm of sigmoid colon; K64.0 First degree hemorrhoids; K57.30 Diverticulosis of large intestine without perforation or abscess without bleeding; E11.9 Type 2 diabetes mellitus without complications
CPT/HCPCS: 45385; 82962; 88305; J2704; 45380

== ENCOUNTER 2018-12-11 19:08 | Inpatient (IN) | payer OTHER ==
[~2018-12-11] VITALS: Ht 175.3 cm; Wt 109.8 kg
[~2018-12-11 19:08] MED LIST changes: -HYDROmorphone 2 MG/ML VIAL IV PRN; -IV RINGERS,LACTATED 1000ML 1,000 ML IV SCH; -LIDOCAINE 1% PF 2 ML VIAL. ID PRN; -LIDOCAINE 1% PF 2 ML VIAL. ONE; -MORPHINE SULFATE 2 MG/ML VIAL. IV PRN; -PROCHLORPERAZINE 10 MG/2 ML VIAL. IV PRN; -PROPOFOL 40 ML IV ONE; -fentaNYL PF VIAL 100 MCG/2 ML VIAL IV PRN
[2018-12-11 19:59] LABS: BASO # 0.1 x10^3/uL (0.0-0.2); BASO % 1 % (0-3); EOS # 1.1 x10^3/uL (0.0-0.7); EOS % 9 % (0-3); HEMATOCRIT 42.6 % (39.0-53.0); HEMOGLOBIN 14.6 g/dL (13.0-17.5); LYMPH # 2.3 x10^3/uL (1.0-4.8); LYMPH % 19 % (24-48); MEAN CORPUSCULAR HEMOGLOBIN 31 pg (25-35); MEAN CORPUSCULAR HGB CONC 34 g/dL (31-37); MEAN CORPUSCULAR VOLUME 92 fL (79-100); MONO # 0.9 x10^3/uL (0.0-1.1); MONO % 7 % (0-9); NEUT # 7.8 x10^3uL (1.8-7.7); NEUT % 64 % (31-73); PLATELET COUNT 310 x10^3/uL (140-400); RED BLOOD COUNT 4.65 x10^6/uL (4.30-5.70); RED CELL DISTRIBUTION WIDTH 13.9 % (11.5-14.5); WHITE BLOOD COUNT 12.3 x10^3/uL (4.0-11.0)
[2018-12-11] MEDS ORDERED: DEXAMETHASONE SOD PHOS 20 MG/5 ML VIAL. IV ONE (20:00)
[2018-12-11] MEDS ORDERED: ALBUTEROL SULFATE 2.5 MG/3 ML NEBU. NEB ONE (20:00)
[2018-12-11] MEDS ORDERED: fentaNYL PF VIAL 100 MCG/2 ML VIAL IV ONE (20:00)
[2018-12-11] MEDS ORDERED: IPRATRPIUM/ALBUTEROL 0.5/2.5MG 3 ML NEBU. NEB ONE (20:00)
[2018-12-11] MEDS ORDERED: ASPIRIN 325 MG TABLET PO ONE (20:00)
[2018-12-11 20:08] LABS: CALCIUM 9.1 mg/dL (8.5-10.1); CREATININE 1.2 mg/dL (0.7-1.3); GFR 62.6; POTASSIUM 3.5 mmol/L (3.5-5.1)
[2018-12-11 20:13] LABS: ALBUMIN 3.4 g/dL (3.4-5.0); ALBUMIN/GLOBULIN RATIO 0.8 (1.0-1.7); TOTAL BILIRUBIN 0.3 mg/dL (0.2-1.0); TOTAL PROTEIN 7.7 g/dL (6.4-8.2)
--- NOTE | 2018-12-11 21:13 | PHYS DOC ---
Past Medical History Past Medical History: Arthritis, Asthma, COPD, Diabetes-Type II, High Cholesterol, Other Additional Past Medical Histor: home o2 at night 3L Past Surgical History: Hip Replacement, Other Additional Past Surgical Histo: RIGHT SHOULDER, LEFT KNEE, LEFT HIP Alcohol Use: None Drug Use: None Adult General Chief Complaint Chief Complaint: SHORTNESS OF BREATH HPI HPI Patient is a 58 year old male who presents to the ER, accompanied by his , with complaints of shortness of breath and a productive cough that has increased over the last day. Pt states his symptoms began yesterday and he reports a history of COPD. Pt reports clear sputum is produced by the cough in additon to shortness of breath, wheezing, and chest tightness. He denies any fever, nausea, vomiting, diarrhea, abdominal pain, sore throat, or body aches, Review of Systems Review of Systems Constitutional: Denies fever or chills [] HENT: Denies nasal congestion or sore throat [] Respiratory: See HPI Cardiovascular: No additional information not addressed in HPI [] GI: Denies abdominal pain, nausea, vomiting, or diarrhea [] : Denies dysuria or hematuria [] Musculoskeletal: Denies back pain or joint pain [] Integument: Denies rash or skin lesions [] Neurologic: Denies headache, focal weakness or sensory changes [] All other systems were reviewed and found to be within normal limits, except as documented in this note. Current Medications Current Medications Current Medications Medications (Trade) Dose Ordered Sig/Paulino Start Time Stop Time Status Last Admin Dose Admin Albuterol Sulfate (Ventolin Neb Soln) 2.5 mg 1X ONCE 12/11/18 20:00 12/11/18 20:01 DC 12/11/18 20:12 2.5 MG Albuterol/ Ipratropium (Duoneb) 3 ml 1X ONCE 12/11/18 20:00 12/11/18 20:01 DC 12/11/18 20:11 3 ML Aspirin (Dorothea Aspirin) 325 mg 1X ONCE 12/11/18 20:00 12/11/18 20:01 DC 12/11/18 20:27 325 MG Dexamethasone Sodium Phosphate (Decadron) 10 mg 1X ONCE 12/11/18 20:00 12/11/18 20:01 DC 12/11/18 20:27 10 MG Fentanyl Citrate (Fentanyl 2ml Vial) 50 mcg 1X ONCE 12/11/18 20:00 12/11/18 20:01 DC 12/11/18 20:26 50 MCG Allergies Allergies Allergies Coded Allergies Type Severity Reaction Last Updated Verified I S O L A T I O N *CONTACT* Allergy Unknown 11/28/18 Yes No Known Medication Allergies Allergy Unknown 11/28/18 Yes Physical Exam Physical Exam Constitutional: Well developed, well nourished, no acute distress, ill appearance. [] HENT: Normocephalic, atraumatic, bilateral external ears normal, oropharynx moist, no oral exudates, nose normal. [] Eyes:conjunctiva normal, no discharge. [] Neck: Normal range of motion, no tenderness, supple, no stridor. [] Cardiovascular:Heart rate regular rhythm, no murmur [] Lungs & Thorax: Bilateral breath sounds coarse with wheezing in all epps and diminished in bases bilat. Skin: Warm, dry, no erythema, no rash. [] Extremities: No cyanosis, no clubbing, ROM intact, no edema. [] Neurologic: Alert and oriented X 3, normal motor function, normal sensory function, no focal deficits noted. [] Psychologic: Affect normal, judgement normal, mood normal. [] Current Patient Data Vital Signs Vital Signs Date Time Temp Pulse Resp B/P (MAP) Pulse Ox O2 Delivery O2 Flow Rate FiO2 12/11/18 21:00 92 20 110/66 (81) 93 Nasal Cannula 3.0 12/11/18 19:15 97.8 97.8 Lab Values Laboratory Tests Test 12/11/18 19:43 12/11/18 20:45 White Blood Count 12.3 x10^3/uL (4.0-11.0) H Red Blood Count 4.65 x10^6/uL (4.30-5.70) Hemoglobin 14.6 g/dL (13.0-17.5) Hematocrit 42.6 % (39.0-53.0) Mean Corpuscular Volume 92 fL (79-100) Mean Corpuscular Hemoglobin 31 pg (25-35) Mean Corpuscular Hemoglobin Concent 34 g/dL (31-37) Red Cell Distribution Width 13.9 % (11.5-14.5) Platelet Count 310 x10^3/uL (140-400) Neutrophils (%) (Auto) 64 % (31-73) Lymphocytes (%) (Auto) 19 % (24-48) L Monocytes (%) (Auto) 7 % (0-9) Eosinophils (%) (Auto) 9 % (0-3) H Basophils (%) (Auto) 1 % (0-3) Neutrophils # (Auto) 7.8 x10^3uL (1.8-7.7) H Lymphocytes # (Auto) 2.3 x10^3/uL (1.0-4.8) Monocytes # (Auto) 0.9 x10^3/uL (0.0-1.1) Eosinophils # (Auto) 1.1 x10^3/uL (0.0-0.7) H Basophils # (Auto) 0.1 x10^3/uL (0.0-0.2) Segmented Neutrophils % 68 % (35-66) H Lymphocytes % 19 % (24-48) L Monocytes % 6 % (0-10) Eosinophils % 7 % (0-5) H Platelet Estimate Adequate (ADEQUATE) Polychromasia Slight Ovalocytes Occ Sodium Level 138 mmol/L (136-145) Potassium Level 3.5 mmol/L (3.5-5.1) Chloride Level 100 mmol/L (98-107) Carbon Dioxide Level 28 mmol/L (21-32) Anion Gap 10 (6-14) Blood Urea Nitrogen 10 mg/dL (8-26) Creatinine 1.2 mg/dL (0.7-1.3) Estimated GFR (Cockcroft-Gault) 62.6 BUN/Creatinine Ratio 8 (6-20) Glucose Level 191 mg/dL (70-99) H Calcium Level 9.1 mg/dL (8.5-10.1) Total Bilirubin 0.3 mg/dL (0.2-1.0) Aspartate Amino Transferase (AST) 15 U/L (15-37) Alanine Aminotransferase (ALT) 25 U/L (16-63) Alkaline Phosphatase 95 U/L (46-116) Troponin I Quantitative < 0.017 ng/mL (0.000-0.055) HD-Ozb-P-Type Natriuretic Peptide 9 pg/mL (0-124) Total Protein 7.7 g/dL (6.4-8.2) Albumin 3.4 g/dL (3.4-5.0) Albumin/Globulin Ratio 0.8 (1.0-1.7) L Influenza Type A Antigen Negative (NEGATIVE) Influenza Type B Antigen Negative (NEGATIVE) Laboratory Tests 12/11/18 19:43 Laboratory Tests 12/11/18 19:43 EKG EKG SR NO STEMI read by Dr. Arriola[] Radiology/Procedures Radiology/Procedures CXR concerning for increased infiltrate on right read by Dr. Moreno[] Course & Med Decision Making Course & Med Decision Making Pertinent Labs and Imaging studies reviewed. (See chart for details) CXR is concerning for infiltrate on right. Pt was given decadron, duoneb, and albuterol in the ER. Reported feeling better after these medications. Discussed need for admission for pneumonia and COPD exacerbation with pt, he agrees with need for admission. Rocephin and doxycycline were ordered IV. 2103- Spoke with Dr. Giovanni Wagner will admit patient for pneumonia and COPD exacerbation. [] Dragon Disclaimer Dragon Disclaimer This electronic medical record was generated, in whole or in part, using a voice recognition dictation system. Departure Departure Impression: Primary Impression: COPD exacerbation Additional Impression: Pneumonia Disposition: 09 ADMITTED INPATIENT Admitting Physician: Giovanni Wagner Condition: STABLE Referrals: GIOVANNI WAGNER MD (PCP) Scripts Ipratropium/Albuterol Sulfate (COMBIVENT RESPIMAT INHAL) 4 Gm Aer.w.adap 2 INH IH QID for COPD, #1 INHALER Prov: GIOVANNI WAGNER MD 12/12/18 Prednisone (PREDNISONE) 20 Mg Tablet 60 MG PO DAILY for asthma for 7 Days, #21 TAB Prov: GIOVANNI WAGNER MD 12/12/18 Metformin Hcl (METFORMIN HCL) 1,000 Mg Tablet 1 TAB PO BID for diabetes, #90 TAB 5 Refills Prov: GIOVANNI WAGNER MD 12/12/18 Budesonide/Formoterol Fumarate (SYMBICORT 160-4.5 MCG INHALER) 10.2 Gm Hfa.aer.ad 2 PUFF IH BID for COPD, #10.6 GM 3 Refills Prov: GIOVANNI WAGNER MD 12/12/18 Problem Qualifiers Additional Impression: Pneumonia Pneumonia type: due to unspecified organism Laterality: right Lung location : lower lobe of lung Qualified Codes: J18.1 - Lobar pneumonia, unspecified organism SHIKHA COX STALLION KEEPER Dec 11, 2018 21:13
[2018-12-11 21:14] LABS: INFLUENZA A PATIENT NEGATIVE (NEGATIVE); INFLUENZA B PATIENT NEGATIVE (NEGATIVE)
[2018-12-11] MEDS ORDERED: DOXYCYCLINE HYCLATE 100 MG in IV DEXTROSE 5% 100ML 100 ML IV ONE (21:15)
[2018-12-11] MEDS ORDERED: cefTRIAXone IV Push 1 GM VIAL. IVP ONE (21:15)
[2018-12-11 21:24] LABS: % EOS 7 % (0-5); % LYMPHS 19 % (24-48); % SEGS 68 % (35-66)
[2018-12-11 21:25] LABS: % MONOS 6 % (0-10)
[2018-12-11 21:26] LABS: OVALOCYTES OCC; PLT ESTIMATE ADEQUATE (ADEQUATE); POLYCHROMASIA SLIGHT
--- NOTE | 2018-12-11 21:38 | RAD ---
Examination: CHEST PA LATERAL History: ER PATIENT. SHORTNESS OF AIR. HX DIABETES, ASTHMA, COPD. PRIOR XRAY. Comparison/Correlation: 11/03/2018 two-view chest x-ray exam Findings: PA and lateral views of chest were obtained. Heart size and pulmonary vasculature are normal. No infiltrate or effusion. No pneumothorax. Nonspecific subtle interstitial thickening of lung epps is similar to previous exam. Impression: No focal infiltrate. Electronically signed by: Ezekiel Arguello MD (12/11/2018 9:33 PM) [facility]
[2018-12-11 22:55] VITALS: BP 113/81
--- NOTE | 2018-12-11 23:17 | NUR ---
The patient, AVRIL CHOU, 58 y/o, M admitted by KATHRYN SWIFT MD, was given written information regarding hospital policies, unit procedures and contact persons. Valuables were checked and left in patients room with patient.
[2018-12-11] MEDS: HYDROcodone/APAP 5/325MG 1 TAB TABLET PO PRN (23:49)
[2018-12-12 02:55] VITALS: BP 126/79
--- NOTE | 2018-12-12 06:12 | EKG ---
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
[2018-12-12 07:00] VITALS: BP 122/81
[2018-12-12] MEDS ORDERED: ALBUTEROL SULFATE 2.5 MG/3 ML NEBU. NEB PRN (08:00)
[2018-12-12] MEDS ORDERED: DEXTROSE 50% 25 GM / 50ML DISP.SYRIN. IV PRN (08:00)
[2018-12-12] MEDS ORDERED: BUDESONIDE 0.5 MG/2 ML NEBU. NEB SCH (08:00)
[2018-12-12] MEDS ORDERED: methylPREDNISolone SOD SUCC PF 125 MG/2 ML VIAL. IV SCH (08:00)
[2018-12-12] MEDS ORDERED: INSULIN LISPRO 300 UNITS/3 ML INSULN.PEN. SQ SCH (08:00)
[2018-12-12] MEDS ORDERED: IPRA4AER IH (08:15)
[2018-12-12] MEDS ORDERED: PRED20TA PO (08:15)
[2018-12-12] MEDS ORDERED: METF10007 PO (08:15)
[2018-12-12] MEDS ORDERED: BUDE10.2 IH (08:15)
--- NOTE | 2018-12-12 08:20 | PDOC1 ---
History and Physical Date of Admission Date of Admission DATE: 12/11/18 Date of Discharge: 12/12/18 Identification/Chief Complaint Chief Complaint Shortness of breath Source Source: Patient History of Present Illness History of Present Illness Pt says that he ran out of his symbicort about two weeks ago. Had increased shortness of breath over the past 2 days and seemed to be getting worse so came to the ER. Had productive sputum that was clear in color. Denies fevers, chills, chest pain. Feeling better today and would like to go home. Pt is on oxygen at night for his sleep apnea. He has chronic respiratory failure and has needed to be on oxygen during the day for a while, but was without insurance for a period of time Past Medical History Cardiovascular: Hyperlipidemia Pulmonary: COPD GI: GERD Heme/Onc: No pertinent hx Hepatobiliary: No pertinent hx Psych: No pertinent hx Musculoskeletal: low back pain, Osteoarthritis Rheumatologic: No pertinent hx Infectious disease: No pertinent hx ENT: No pertinent hx Renal/: Chronic renal insuff Endocrine: Diabetes Dermatology: No pertinent hx Past Surgical History Past Surgical History: Total hip replacement, Total knee replacement Family History Family History: Cancer, Diabetes Social History Smoke: <1 pack per day ALCOHOL: social Drugs: None Current Problem List Problem List Problems Medical Problems: (1) COPD exacerbation Status: Acute (2) Pneumonia Status: Acute Current Medications Current Medications Current Medications Fentanyl Citrate (Fentanyl 2ml Vial) 50 mcg 1X ONCE IV Last administered on 09/19at 20:26; Start 12/11/18 at 20:00; Stop 12/11/18 at 20:01; Status DC Dexamethasone Sodium Phosphate (Decadron) 10 mg 1X ONCE IV Last administered on 12/11/18at 20:27; Start 12/11/18 at 20:00; Stop 12/11/18 at 20:01; Status DC Aspirin (Dorothea Aspirin) 325 mg 1X ONCE PO Last administered on 12/11/18at 20:27 ; Start 12/11/18 at 20:00; Stop 12/11/18 at 20:01; Status DC Albuterol/ Ipratropium (Duoneb) 3 ml 1X ONCE NEB Last administered on at 20:11; Start 12/11/18 at 20:00; Stop 12/11/18 at 20:01; Status DC Albuterol Sulfate (Ventolin Neb Soln) 2.5 mg 1X ONCE NEB Last administered on 12/11/18at 20:12; Start 12/11/18 at 20:00; Stop 12/11/18 at 20:01; Status DC Ceftriaxone Sodium (Rocephin) 1 gm 1X ONCE IVP Last administered on 12/11/18at 21:27; Start 12/11/18 at 21:15; Stop 12/11/18 at 21:16; Status DC Doxycycline Hyclate 100 mg/ Dextrose 100 ml @ 50 mls/hr 1X ONCE IV Last administered on 12/11/18at 21:26; Start 12/11/18 at 21:15; Stop 12/11/18 at 23:14 ; Status DC Acetaminophen/ Hydrocodone Bitart (Lortab 5/325) 1 tab PRN Q6HRS PRN PO PAIN Last administered on 12/11/18at 23:49; Start 12/11/18 at 23:15 Albuterol Sulfate (Ventolin Neb Soln) 2.5 mg PRN Q4HRS PRN NEB SHORTNESS OF BREATH; Start 12/12/18 at 08:00 Budesonide (Pulmicort) 0.5 mg RTBID NEB ; Start 12/12/18 at 08:00 Albuterol/ Ipratropium (Duoneb) 3 ml RTQID NEB ; Start 12/12/18 at 08:00 Simvastatin (Zocor) 40 mg QHS PO ; Start 12/12/18 at 21:00 Methylprednisolone Sodium Succinate (SOLU-Medrol 125MG VIAL) 125 mg Q8HRS IV ; Start 12/12/18 at 08:00 Insulin Human Lispro (HumaLOG) 0-5 UNITS TIDWMEALS SQ ; Start 12/12/18 at 08:00 Dextrose (Dextrose 50%-Water Syringe) 12.5 gm PRN Q15MIN PRN IV SEE COMMENTS; Start 12/12/18 at 08:00 Levofloxacin/ Dextrose 100 ml @ 100 mls/hr Q24H IV ; Start 12/12/18 at 08:00 Active Scripts Active Combivent Respimat Inhal (Ipratropium/Albuterol Sulfate) 4 Gm Aer.w.adap 2 Inh IH QID Prednisone 20 Mg Tablet 60 Mg PO DAILY 7 Days Metformin Hcl 1,000 Mg Tablet 1 Tab PO BID Symbicort 160-4.5 Mcg Inhaler (Budesonide/Formoterol Fumarate) 10.2 Gm Hfa.aer.ad 2 Puff IH BID Ventolin Hfa Inhaler (Albuterol Sulfate) 18 Gm Hfa.aer.ad 2 Puff INH Q4HRS 20 Days Hydrocodone-Apap 5-325 (Hydrocodone Bit/Acetaminophen) 1 Each Tablet 1 Tab PO PRN Q6HRS PRN Reported Simvastatin 40 Mg Tablet 40 Mg PO DAILY Albuterol Sulfate Conc Neb Soln (Albuterol Sulfate) 2.5 Mg/0.5 Ml Vial.neb 1 Vial NEB Q6HRS Allergies Allergies: Coded Allergies: I S O L A T I O N *CONTACT* (Verified Allergy, Unknown, 11/28/18) mrsa No Known Medication Allergies (Verified Allergy, Unknown, 11/28/18) ROS General: No: Chills, Night Sweats PSYCHOLOGICAL ROS: No: Anxiety, Depression Eyes: No Decreased vision, No Eye Pain HEENT: No: Hearing change, Nasal congestion, Sore Throat ALLERGY AND IMMUNOLOGY: No: Hives, Post Nasal Drip Hematological and Lymphatic: No: Bleeding Problems, Blood Clots Respiratory: YES: Cough, Shortness of breath; No: Sputum Changes Cardiovascular: No Chest Pain, No Palpitations, No Edema Gastrointestinal: No Nausea, No Vomiting, No Abdominal Pain, No Diarrhea, No Constipation Genitourinary: No Dysuria, No Urgency Musculoskeletal: Yes Joint Pain; No Muscle Pain Neurological: No Impaired Coord/balance, No Numbness/Tingling Skin: No Rash, No Skin Lesion Changes Physical Exam General: Alert, Oriented X3, Cooperative HEENT: Atraumatic, PERRLA Lungs: Clear to auscultation, Other (decrease air movement throughout) Heart: RRR, no gallops, no murmurs Abdomen: Normal bowel sounds, Soft, No tenderness, No hepatosplenomegaly Extremities: No clubbing, No cyanosis, No edema Skin: No rashes, No breakdown Neuro: Normal speech, Cranial nerves 3-12 NL Psych/Mental Status: Mental status NL, Mood NL Vitals Vitals Vital Signs Date Time Temp Pulse Resp B/P (MAP) Pulse Ox O2 Delivery O2 Flow Rate FiO2 12/12/18 07:00 97.3 99 20 122/81 (95) 94 BiPAP/CPAP 97.3 12/12/18 00:49 3.0 Labs Labs Laboratory Tests Test 12/11/18 19:43 12/11/18 20:45 12/12/18 07:13 White Blood Count 12.3 x10^3/uL (4.0-11.0) Red Blood Count 4.65 x10^6/uL (4.30-5.70) Hemoglobin 14.6 g/dL (13.0-17.5) Hematocrit 42.6 % (39.0-53.0) Mean Corpuscular Volume 92 fL (79-100) Mean Corpuscular Hemoglobin 31 pg (25-35) Mean Corpuscular Hemoglobin Concent 34 g/dL (31-37) Red Cell Distribution Width 13.9 % (11.5-14.5) Platelet Count 310 x10^3/uL (140-400) Neutrophils (%) (Auto) 64 % (31-73) Lymphocytes (%) (Auto) 19 % (24-48) Monocytes (%) (Auto) 7 % (0-9) Eosinophils (%) (Auto) 9 % (0-3) Basophils (%) (Auto) 1 % (0-3) Neutrophils # (Auto) 7.8 x10^3uL (1.8-7.7) Lymphocytes # (Auto) 2.3 x10^3/uL (1.0-4.8) Monocytes # (Auto) 0.9 x10^3/uL (0.0-1.1) Eosinophils # (Auto) 1.1 x10^3/uL (0.0-0.7) Basophils # (Auto) 0.1 x10^3/uL (0.0-0.2) Segmented Neutrophils % 68 % (35-66) Lymphocytes % 19 % (24-48) Monocytes % 6 % (0-10) Eosinophils % 7 % (0-5) Platelet Estimate Adequate (ADEQUATE) Polychromasia Slight Ovalocytes Occ Sodium Level 138 mmol/L (136-145) Potassium Level 3.5 mmol/L (3.5-5.1) Chloride Level 100 mmol/L (98-107) Carbon Dioxide Level 28 mmol/L (21-32) Anion Gap 10 (6-14) Blood Urea Nitrogen 10 mg/dL (8-26) Creatinine 1.2 mg/dL (0.7-1.3) Estimated GFR (Cockcroft-Gault) 62.6 BUN/Creatinine Ratio 8 (6-20) Glucose Level 191 mg/dL (70-99) Calcium Level 9.1 mg/dL (8.5-10.1) Total Bilirubin 0.3 mg/dL (0.2-1.0) Aspartate Amino Transf (AST/SGOT) 15 U/L (15-37) Alanine Aminotransferase (ALT/SGPT) 25 U/L (16-63) Alkaline Phosphatase 95 U/L (46-116) Troponin I Quantitative < 0.017 ng/mL (0.000-0.055) SL-Hal-H-Type Natriuretic Peptide 9 pg/mL (0-124) Total Protein 7.7 g/dL (6.4-8.2) Albumin 3.4 g/dL (3.4-5.0) Albumin/Globulin Ratio 0.8 (1.0-1.7) Influenza Type A Antigen Negative (NEGATIVE) Influenza Type B Antigen Negative (NEGATIVE) Glucose (Fingerstick) 212 mg/dL (70-99) Laboratory Tests Test 12/11/18 19:43 12/11/18 20:45 12/12/18 07:13 White Blood Count 12.3 x10^3/uL (4.0-11.0) Red Blood Count 4.65 x10^6/uL (4.30-5.70) Hemoglobin 14.6 g/dL (13.0-17.5) Hematocrit 42.6 % (39.0-53.0) Mean Corpuscular Volume 92 fL (79-100) Mean Corpuscular Hemoglobin 31 pg (25-35) Mean Corpuscular Hemoglobin Concent 34 g/dL (31-37) Red Cell Distribution Width 13.9 % (11.5-14.5) Platelet Count 310 x10^3/uL (140-400) Neutrophils (%) (Auto) 64 % (31-73) Lymphocytes (%) (Auto) 19 % (24-48) Monocytes (%) (Auto) 7 % (0-9) Eosinophils (%) (Auto) 9 % (0-3) Basophils (%) (Auto) 1 % (0-3) Neutrophils # (Auto) 7.8 x10^3uL (1.8-7.7) Lymphocytes # (Auto) 2.3 x10^3/uL (1.0-4.8) Monocytes # (Auto) 0.9 x10^3/uL (0.0-1.1) Eosinophils # (Auto) 1.1 x10^3/uL (0.0-0.7) Basophils # (Auto) 0.1 x10^3/uL (0.0-0.2) Segmented Neutrophils % 68 % (35-66) Lymphocytes % 19 % (24-48) Monocytes % 6 % (0-10) Eosinophils % 7 % (0-5) Platelet Estimate Adequate (ADEQUATE) Polychromasia Slight Ovalocytes Occ Sodium Level 138 mmol/L (136-145) Potassium Level 3.5 mmol/L (3.5-5.1) Chloride Level 100 mmol/L (98-107) Carbon Dioxide Level 28 mmol/L (21-32) Anion Gap 10 (6-14) Blood Urea Nitrogen 10 mg/dL (8-26) Creatinine 1.2 mg/dL (0.7-1.3) Estimated GFR (Cockcroft-Gault) 62.6 BUN/Creatinine Ratio 8 (6-20) Glucose Level 191 mg/dL (70-99) Calcium Level 9.1 mg/dL (8.5-10.1) Total Bilirubin 0.3 mg/dL (0.2-1.0) Aspartate Amino Transf (AST/SGOT) 15 U/L (15-37) Alanine Aminotransferase (ALT/SGPT) 25 U/L (16-63) Alkaline Phosphatase 95 U/L (46-116) Troponin I Quantitative < 0.017 ng/mL (0.000-0.055) OQ-Wyx-X-Type Natriuretic Peptide 9 pg/mL (0-124) Total Protein 7.7 g/dL (6.4-8.2) Albumin 3.4 g/dL (3.4-5.0) Albumin/Globulin Ratio 0.8 (1.0-1.7) Influenza Type A Antigen Negative (NEGATIVE) Influenza Type B Antigen Negative (NEGATIVE) Glucose (Fingerstick) 212 mg/dL (70-99) VTE Prophylaxis Ordered VTE Prophylaxis Devices: Yes VTE Pharmacological Prophylaxi: No Assessment/Plan Assessment/Plan Pt is a 58yo CM who was admitted for pneumonia. Pt has not been having symptoms of pneumonia and chest xray findings not consistent with pneumonia. Pt wants to be discharged today, planning on continuing treatment for COPD Exacerbation 1)Acute on chronic respiratory failure- pt went a period of time without insurance. Needs to be on home O2 throughout the day. Will D/C on 3L O2 NC continuous 2)COPD Exacerbation- continue Symbicort, Combivent, albuterol. Will D/C on Prednisone. Improved today 3)DM2- uncontrolled due to steroids. Continue Metformin, glipizide on D/C 4)Chronic pain- pt continued on pain medication 5)HLD- continue Atorvastatin KATHRYN SWIFT MD Dec 12, 2018 08:19
[2018-12-12] MEDS: HYDROcodone/APAP 5/325MG 1 TAB TABLET PO PRN (08:32)
[2018-12-12] MEDS: IPRATRPIUM/ALBUTEROL 0.5/2.5MG 3 ML NEBU. NEB SCH ×2 (08:54→11:14)
--- NOTE | 2018-12-12 09:14 | NUR ---
IP: Pt has a hx of mrsa in urine on 05/12/18. P to be in contact precautions until there are 2 negative urine cultures 7 days apart without antibiotics.
--- NOTE | 2018-12-12 11:04 | NUR ---
[facility] phoned and faxed orders for oxygen to [facility]. Awaiting to hear approval/denial.
[2018-12-12 11:11] VITALS: BP 125/83
--- NOTE | 2018-12-12 12:21 | NUR ---
[facility] following pt. Oxygen order is approved by [facility] but they want Physician to document Chronic Respiratory failure on H&P. Physician notified regarding documentation. [facility] provided pt with an oxygen tank to take home and informed him to call [facility] when he arrives home so they can provide him with more oxygen tank. RN notified. Addendum: 12/16/18 at 1252 by FRIEDA HAYNES Post dc note: [facility] phoned and faxed H&P to [facility].
--- NOTE | 2018-12-12 12:54 | NUR ---
Discharge teaching provided written and verbal to pt,understanding verbalized. Dismissed to home with all belongings.Portable 02 tank provided by [facility].Ambulated to exit with SBA at 1220.
[2018-12-12] MEDS ORDERED: SIMVASTATIN 40 MG TABLET. PO SCH (21:00)
== END 2018-12-12 12:20 | disposition home or self-care (01) | DRG 189 ==
LOC: ER 19:08 → 5 NORTH 21:08
PROVIDERS: ADMIT Family Medicine; ATTEND Family Medicine
PROC: 5A09357 Assistance with Respiratory Ventilation, Less than 24 Consecutive Hours, Continuous Positive Airway Pressure (ICD-10-PCS; principal; 2018-12-12)
DX: J96.20 Acute and chronic respiratory failure, unspecified whether with hypoxia or hypercapnia (principal); J44.1 Chronic obstructive pulmonary disease with (acute) exacerbation; J44.0 Chronic obstructive pulmonary disease with (acute) lower respiratory infection; E78.00 Pure hypercholesterolemia, unspecified; N18.9 Chronic kidney disease, unspecified; E11.22 Type 2 diabetes mellitus with diabetic chronic kidney disease; M19.90 Unspecified osteoarthritis, unspecified site; Z96.649 Presence of unspecified artificial hip joint; Z96.659 Presence of unspecified artificial knee joint; K21.9 Gastro-esophageal reflux disease without esophagitis; E78.5 Hyperlipidemia, unspecified; F17.210 Nicotine dependence, cigarettes, uncomplicated; Z83.3 Family history of diabetes mellitus; G47.30 Sleep apnea, unspecified; G89.29 Other chronic pain; T38.0X5A Adverse effect of glucocorticoids and synthetic analogues, initial encounter
CPT/HCPCS: 36415; 71046; 80053; 82962; 83880; 84484; 85007; 85025; 87804; 93005; 94618; 94640; 96365; 96375; J0696; J1100; J1815; J1956; J2930; J3010; J3490; J7613; J7620; J7626; 99285-25; G0378

== ENCOUNTER 2018-12-29 09:48 | Emergency (ER) | payer OTHER ==
[~2018-12-29] VITALS: Ht 175.3 cm; Wt 111.1 kg
[~2018-12-29 09:48] MED LIST changes: +IPRA4AER IH
[2018-12-29] MEDS ORDERED: IPRATRPIUM/ALBUTEROL 0.5/2.5MG 3 ML NEBU. NEB ONE (10:00)
[2018-12-29] MEDS ORDERED: methylPREDNISolone SOD SUCC PF 125 MG/2 ML VIAL. IV ONE (10:00)
--- NOTE | 2018-12-29 10:00 | PHYS DOC ---
Past Medical History Past Medical History: Arthritis, Asthma, COPD, Diabetes-Type II, High Cholesterol, Other Additional Past Medical Histor: home o2 at night 3L Past Surgical History: Hip Replacement, Other Additional Past Surgical Histo: RIGHT SHOULDER, LEFT KNEE, LEFT HIP Smokin Pack Per Day Alcohol Use: None Drug Use: None Adult General Chief Complaint Chief Complaint: SHORTNESS OF BREATH HPI HPI Patient is a 58 year old male presented to ER today for evaluation of trouble breathing, nonproductive cough since yesterday. Patient has COPD, he is on 3 L of oxygen at home. Patient doesn't have a portable oxygen tank so he only way oxygen at night. Patient continues to smoke. Patient feels like he has the fever. He had been coughing so much that he has chest pain. Review of Systems Review of Systems Constitutional: Positive for fever or chills [] Eyes: Denies change in visual acuity, redness, or eye pain [] HENT: Positive for nasal congestion, no sore throat [] Respiratory: Positive for cough and shortness of breath [] Cardiovascular: No additional information not addressed in HPI [] GI: Denies abdominal pain, nausea, vomiting, bloody stools or diarrhea [] : Denies dysuria or hematuria [] Musculoskeletal: Denies back pain or joint pain [] Integument: Denies rash or skin lesions [] Neurologic: Denies headache, focal weakness or sensory changes [] Endocrine: Denies polyuria or polydipsia [] All other systems were reviewed and found to be within normal limits, except as documented in this note. Current Medications Current Medications Current Medications Medications (Trade) Dose Ordered Sig/Paulino Start Time Stop Time Status Last Admin Dose Admin Albuterol/ Ipratropium (Duoneb) 3 ml 1X ONCE 12/29/18 10:00 12/29/18 10:04 DC 12/29/18 10:15 3 ML Fentanyl Citrate (Fentanyl 2ml Vial) 75 mcg 1X ONCE 12/29/18 11:45 12/29/18 11:46 DC 12/29/18 11:50 75 MCG Levofloxacin/ Dextrose 150 ml @ 100 mls/hr 1X ONCE 12/29/18 11:30 12/29/18 12:59 DC 12/29/18 11:34 100 MLS/HR Methylprednisolone Sodium Succinate (SOLU-Medrol 125MG VIAL) 125 mg 1X ONCE 12/29/18 10:00 12/29/18 10:04 DC 12/29/18 10:27 125 MG Morphine Sulfate (Morphine Sulfate) 4 mg 1X ONCE 12/29/18 10:30 12/29/18 10:31 DC 12/29/18 10:28 4 MG Sodium Chloride 1,000 ml @ 1,000 mls/hr 1X ONCE 12/29/18 10:45 12/29/18 11:44 DC 12/29/18 10:47 1,000 MLS/HR Allergies Allergies Allergies Coded Allergies Type Severity Reaction Last Updated Verified I S O L A T I O N *CONTACT* Allergy Unknown 11/28/18 Yes No Known Medication Allergies Allergy Unknown 11/28/18 Yes Physical Exam Physical Exam Constitutional: Well developed, well nourished, no acute distress, non-toxic appearance. [] HENT: Normocephalic, atraumatic, bilateral external ears normal, oropharynx moist, no oral exudates, nose normal. [] Eyes: PERRLA, EOMI, conjunctiva normal, no discharge. [] Neck: Normal range of motion, no tenderness, supple, no stridor. [] Cardiovascular:Sinus tachycardia, no murmur [] Lungs & Thorax: Bilateral breath sounds with moderate inspiratory and expiratory wheezing , tachypnic, Abdomen: Bowel sounds normal, soft, no tenderness, no masses, no pulsatile masses. [] Skin: Warm, dry, no erythema, no rash. [] Back: No tenderness, no CVA tenderness. [] Extremities: No tenderness, no cyanosis, no clubbing, ROM intact, no edema. [] Neurologic: Alert and oriented X 3, normal motor function, normal sensory function, no focal deficits noted. [] Psychologic: Affect normal, judgement normal, mood normal. [] Current Patient Data Vital Signs Vital Signs Date Time Temp Pulse Resp B/P (MAP) Pulse Ox O2 Delivery O2 Flow Rate FiO2 12/29/18 11:59 117 28 124/66 (85) 89 Nasal Cannula 3.0 12/29/18 09:52 98.8 98.8 Lab Values Laboratory Tests Test 12/29/18 10:00 White Blood Count 24.7 x10^3/uL (4.0-11.0) H Red Blood Count 5.03 x10^6/uL (4.30-5.70) Hemoglobin 15.3 g/dL (13.0-17.5) Hematocrit 46.1 % (39.0-53.0) Mean Corpuscular Volume 92 fL (79-100) Mean Corpuscular Hemoglobin 30 pg (25-35) Mean Corpuscular Hemoglobin Concent 33 g/dL (31-37) Red Cell Distribution Width 14.4 % (11.5-14.5) Platelet Count 307 x10^3/uL (140-400) Neutrophils (%) (Auto) 76 % (31-73) H Lymphocytes (%) (Auto) 12 % (24-48) L Monocytes (%) (Auto) 9 % (0-9) Eosinophils (%) (Auto) 2 % (0-3) Basophils (%) (Auto) 1 % (0-3) Neutrophils # (Auto) 18.8 x10^3uL (1.8-7.7) H Lymphocytes # (Auto) 3.0 x10^3/uL (1.0-4.8) Monocytes # (Auto) 2.3 x10^3/uL (0.0-1.1) H Eosinophils # (Auto) 0.5 x10^3/uL (0.0-0.7) Basophils # (Auto) 0.2 x10^3/uL (0.0-0.2) Segmented Neutrophils % 78 % (35-66) H Band Neutrophils % 7 % (0-9) Lymphocytes % 8 % (24-48) L Monocytes % 3 % (0-10) Eosinophils % 4 % (0-5) Toxic Vacuolation Present Platelet Estimate Adequate (ADEQUATE) Prothrombin Time 13.9 SEC (11.7-14.0) Prothrombin Time INR 1.1 (0.8-1.1) PTT 34 SEC (24-38) Sodium Level 134 mmol/L (136-145) L Potassium Level 4.3 mmol/L (3.5-5.1) Chloride Level 98 mmol/L (98-107) Carbon Dioxide Level 25 mmol/L (21-32) Anion Gap 11 (6-14) Blood Urea Nitrogen 10 mg/dL (8-26) Creatinine 1.3 mg/dL (0.7-1.3) Estimated GFR (Cockcroft-Gault) 57.1 BUN/Creatinine Ratio 8 (6-20) Glucose Level 229 mg/dL (70-99) H Lactic Acid Level 1.8 mmol/L (0.4-2.0) Calcium Level 9.7 mg/dL (8.5-10.1) Total Bilirubin 0.9 mg/dL (0.2-1.0) Aspartate Amino Transferase (AST) 10 U/L (15-37) L Alanine Aminotransferase (ALT) 20 U/L (16-63) Alkaline Phosphatase 100 U/L (46-116) Creatine Kinase 152 U/L (39-308) Creatine Kinase MB (Mass) 1.1 ng/mL (0.0-3.6) Creatine Kinase MB Relative Index 0.7 % (0-4) Troponin I Quantitative < 0.017 ng/mL (0.000-0.055) TJ-Pnw-Y-Type Natriuretic Peptide 17 pg/mL (0-124) Total Protein 8.0 g/dL (6.4-8.2) Albumin 3.3 g/dL (3.4-5.0) L Albumin/Globulin Ratio 0.7 (1.0-1.7) L Lipase 92 U/L (73-393) Laboratory Tests 12/29/18 10:00 Laboratory Tests 12/29/18 10:00 EKG EKG EKG WAS READ BY THIS PHYSICIAN AT 1010 AM, RATE OF 133 BPM, SINUS TACHYCARDIA, NO STEMI. Radiology/Procedures Radiology/Procedures [][facility] [address] [place] [address] IMAGING REPORT Signed PATIENT: AVRIL CHOU ACCOUNT: [id number] : 1960 LOCATION: ER AGE: 58 SEX: M EXAM STATUS: REG ER ORD. PHYSICIAN: CLAUDETTE RICHMOND DO REASON: SOA, COUGH, FEVER PROCEDURE: PORTABLE CHEST 1V Chest radiograph 12/29/2018 9:58 AM INDICATION: Shortness of breath, cough COMPARISON: December 11, 2018 TECHNIQUE: Portable upright frontal view of the chest is provided. FINDINGS: The cardiomediastinal silhouette is within normal limits. There are no pleural effusions. There is no pulmonary vascular congestion. There is no pneumothorax. Mild chronic interstitial changes are present. Pulmonary emphysematous changes are identified. No focal airspace consolidation is identified. No significant osseous abnormality is identified. IMPRESSION: Improved aeration of the right lower lobe with chronic interstitial changes noted. No focal airspace consolidation is present. Electronically signed by: Edy Soriano MD (12/29/2018 10:32 AM) [id number] DICTATED and SIGNED BY: EDY SORIANO MD DATE: 12/29/18 1031 Course & Med Decision Making Course & Med Decision Making Pertinent Labs and Imaging studies reviewed. (See chart for details) Initially, patient agreed to be admitted to the hospital. His family doctor, Dr. Giovanni Wagner, was called, agreed to admit patient. Then Patient declined hospital admission later. He wanted to be released. He said he will call his family doctor for follow up. Dr. Wagner was notified, agreed to see follow up in clinic this week. Dragon Disclaimer Dragon Disclaimer This electronic medical record was generated, in whole or in part, using a voice recognition dictation system. Departure Departure Impression: Primary Impression: COPD exacerbation Additional Impression: Chest pain Disposition: 01 HOME, SELF-CARE Admitting Physician: Giovanni Wagner Condition: STABLE Referrals: GIOVANNI WAGNER MD (PCP) FOLLOW UP WITH YOUR DOCTOR IN 2 DAYS Patient Instructions: Chronic Obstructive Pulmonary Disease Exacerbation Scripts Prednisone (PREDNISONE) 20 Mg Tablet 20 MG PO DAILY for 10 Days, #10 TAB Prov: CLAUDETTE RICHMOND DO 12/29/18 Levofloxacin (LEVAQUIN) 750 Mg Tablet 1 TAB PO DAILY, #7 TAB Prov: CLAUDETTE RICHMOND DO 12/29/18 Problem Qualifiers CLAUDETTE RICHMOND DO Dec 29, 2018 10:00
--- NOTE | 2018-12-29 10:11 | EKG ---
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
[2018-12-29 10:20] LABS: BASO # 0.2 x10^3/uL (0.0-0.2); BASO % 1 % (0-3); EOS # 0.5 x10^3/uL (0.0-0.7); EOS % 2 % (0-3); HEMATOCRIT 46.1 % (39.0-53.0); HEMOGLOBIN 15.3 g/dL (13.0-17.5); LYMPH % 12 % (24-48); MEAN CORPUSCULAR HEMOGLOBIN 30 pg (25-35); MEAN CORPUSCULAR HGB CONC 33 g/dL (31-37); MEAN CORPUSCULAR VOLUME 92 fL (79-100); MONO # 2.3 x10^3/uL (0.0-1.1); MONO % 9 % (0-9); NEUT # 18.8 x10^3uL (1.8-7.7); NEUT % 76 % (31-73); PLATELET COUNT 307 x10^3/uL (140-400); RED BLOOD COUNT 5.03 x10^6/uL (4.30-5.70); RED CELL DISTRIBUTION WIDTH 14.4 % (11.5-14.5); WHITE BLOOD COUNT 24.7 x10^3/uL (4.0-11.0)
[2018-12-29 10:30] LABS: CALCIUM 9.7 mg/dL (8.5-10.1); CREATININE 1.3 mg/dL (0.7-1.3); GFR 57.1; POTASSIUM 4.3 mmol/L (3.5-5.1)
[2018-12-29] MEDS ORDERED: MORPHINE SULFATE 4 MG/ML VIAL. IV ONE (10:30)
--- NOTE | 2018-12-29 10:36 | RAD ---
Chest radiograph 12/29/2018 9:58 AM INDICATION: Shortness of breath, cough COMPARISON: December 11, 2018 TECHNIQUE: Portable upright frontal view of the chest is provided. FINDINGS: The cardiomediastinal silhouette is within normal limits. There are no pleural effusions. There is no pulmonary vascular congestion. There is no pneumothorax. Mild chronic interstitial changes are present. Pulmonary emphysematous changes are identified. No focal airspace consolidation is identified. No significant osseous abnormality is identified. IMPRESSION: Improved aeration of the right lower lobe with chronic interstitial changes noted. No focal airspace consolidation is present. Electronically signed by: Lorena Thomas MD (12/29/2018 10:32 AM) [id number]
[2018-12-29 10:45] LABS: PROTHROMBIN TIME PATIENT 13.9 SEC (11.7-14.0)
[2018-12-29] MEDS ORDERED: IV NORMAL SALINE 1000ML BAG 1,000 ML IV ONE (10:45)
[2018-12-29 10:49] LABS: ALBUMIN 3.3 g/dL (3.4-5.0); ALBUMIN/GLOBULIN RATIO 0.7 (1.0-1.7); TOTAL BILIRUBIN 0.9 mg/dL (0.2-1.0)
[2018-12-29 11:22] LABS: % BANDS 7 % (0-9); % EOS 4 % (0-5); % LYMPHS 8 % (24-48); % MONOS 3 % (0-10); % SEGS 78 % (35-66); TOXIC VACUOLATION PRESENT
[2018-12-29 11:24] LABS: PLT ESTIMATE ADEQUATE (ADEQUATE)
[2018-12-29] MEDS ORDERED: fentaNYL PF VIAL 100 MCG/2 ML VIAL IV ONE (11:45)
[2018-12-29] MEDS ORDERED: PRED20TA PO (12:18)
[2018-12-29] MEDS ORDERED: LEVO750T31 PO (12:18)
[2018-12-29 13:00] VITALS: BP 128/77
--- NOTE | 2018-12-31 11:29 | VNOTE ---
CALL BACK NOTE CALL BACK Microbiology 12/29/18 Blood Culture - Final, Complete 12/31/18 Blood cultures appear to be contaminated. This was also seen by Dr Vo. I called patient who states he is feeling much better and continues on antibiotics given and did follow up with his doctor yesterday. Patietn to return if not feeling better. JUAN A TRAYLOR APRN Dec 31, 2018 11:29
== END 2018-12-29 13:13 | disposition home or self-care (01) ==
LOC: ER 09:48
DX: J44.1 Chronic obstructive pulmonary disease with (acute) exacerbation (principal); M19.90 Unspecified osteoarthritis, unspecified site; E11.9 Type 2 diabetes mellitus without complications; E78.00 Pure hypercholesterolemia, unspecified; Z96.642 Presence of left artificial hip joint; F17.200 Nicotine dependence, unspecified, uncomplicated; Z91.041 Radiographic dye allergy status
CPT/HCPCS: 36415; 71045; 80053; 82550; 82553; 83605; 83690; 83880; 84484; 85007; 85025; 85610; 85730; 87040; 93005; 94640; 96365; 96366; 96375; 99284; J1956; J2270; J2930; J3010; J7030; J7620

== ENCOUNTER 2019-02-01 15:26 | Emergency (ER) | payer OTHER ==
[~2019-02-01] VITALS: Ht 175.3 cm; Wt 108.0 kg
[2019-02-01] MEDS ORDERED: methylPREDNISolone SOD SUCC PF 125 MG/2 ML VIAL. IV ONE (16:15)
[2019-02-01] MEDS ORDERED: fentaNYL PF VIAL 100 MCG/2 ML VIAL IV PRN (16:15)
[2019-02-01] MEDS ORDERED: IPRATRPIUM/ALBUTEROL 0.5/2.5MG 3 ML NEBU. NEB ONE (16:15)
[2019-02-01 16:23] LABS: BASO # 0.1 x10^3/uL (0.0-0.2); BASO % 1 % (0-3); EOS # 1.1 x10^3/uL (0.0-0.7); EOS % 11 % (0-3); HEMATOCRIT 44.4 % (39.0-53.0); HEMOGLOBIN 14.4 g/dL (13.0-17.5); LYMPH # 1.9 x10^3/uL (1.0-4.8); LYMPH % 19 % (24-48); MEAN CORPUSCULAR HEMOGLOBIN 30 pg (25-35); MEAN CORPUSCULAR HGB CONC 32 g/dL (31-37); MEAN CORPUSCULAR VOLUME 92 fL (79-100); MONO % 10 % (0-9); NEUT # 5.8 x10^3uL (1.8-7.7); NEUT % 59 % (31-73); PLATELET COUNT 369 x10^3/uL (140-400); RED BLOOD COUNT 4.85 x10^6/uL (4.30-5.70); WHITE BLOOD COUNT 9.8 x10^3/uL (4.0-11.0)
[2019-02-01 16:32] LABS: PROTHROMBIN TIME PATIENT 12.6 SEC (11.7-14.0)
[2019-02-01 16:35] LABS: CALCIUM 9.2 mg/dL (8.5-10.1); CREATININE 1.1 mg/dL (0.7-1.3); GFR 69.2; POTASSIUM 4.1 mmol/L (3.5-5.1)
--- NOTE | 2019-02-01 16:39 | PHYS DOC ---
Past Medical History Past Medical History: Arthritis, Asthma, COPD, Diabetes-Type II, High Cholesterol, Other Additional Past Medical Histor: Home O2 at night 3L Past Surgical History: Hip Replacement, Other Additional Past Surgical Histo: RIGHT SHOULDER, LEFT KNEE, LEFT HIP Additional Information: 1/2-1 PPD Alcohol Use: None Drug Use: None Adult General Chief Complaint Chief Complaint: DYSPNEA/RESPIRATOY DISTRESS HPI HPI Patient is a 58 year old male with history of COPD, high cholesterol, asthma, current smoker, who presents to the ED today complaining of shortness of breath intermittently for 2 days worse on laying down. Patient states he has tried using his inhaler with no relief. He states he is supposed to use Symbicort which his insurance will not pay for . He uses oxygen 2 L at night. Patient denies any fever. PCP Dr. Angelica Swift Review of Systems Review of Systems Constitutional: Denies fever or chills [] Eyes: Denies change in visual acuity, redness, or eye pain [] HENT: Denies nasal congestion or sore throat [] Respiratory: Reports cough or shortness of breath Cardiovascular: No additional information not addressed in HPI [] GI: Denies abdominal pain, nausea, vomiting, bloody stools or diarrhea [] : Denies dysuria or hematuria [] Musculoskeletal: Denies back pain or joint pain [] Integument: Denies rash or skin lesions [] Neurologic: Denies headache, focal weakness or sensory changes [] All other systems were reviewed and found to be within normal limits, except as documented in this note. Current Medications Current Medications Current Medications Medications (Trade) Dose Ordered Sig/[facility] Start Time Stop Time Status Last Admin Dose Admin Albuterol/ Ipratropium (Duoneb) 3 ml 1X ONCE 02/01/19 16:15 02/01/19 16:16 DC 02/01/19 16:42 3 ML Fentanyl Citrate (Fentanyl 2ml Vial) 25 mcg PRN Q15MIN PRN 02/01/19 16:15 02/02/19 16:14 02/01/19 16:27 25 MCG Methylprednisolone Sodium Succinate (SOLU-Medrol 125MG VIAL) 125 mg 1X ONCE 02/01/19 16:15 02/01/19 16:16 DC 02/01/19 16:29 125 MG Morphine Sulfate (Morphine Sulfate) 5 mg 1X ONCE 02/01/19 17:30 02/01/19 17:31 DC 02/01/19 17:35 5 MG Allergies Allergies Allergies Coded Allergies Type Severity Reaction Last Updated Verified I S O L A T I O N *CONTACT* Allergy Unknown 11/28/18 Yes No Known Medication Allergies Allergy Unknown 11/28/18 Yes Physical Exam Physical Exam Constitutional: Well developed, well nourished, no acute distress, non-toxic appearance. [] HENT: Normocephalic, atraumatic, bilateral external ears normal, oropharynx moist, no oral exudates, nose normal. [] Eyes: PERRLA, EOMI, conjunctiva normal, no discharge. [] Neck: Normal range of motion, no tenderness, supple, no stridor. [] Cardiovascular:Heart rate regular rhythm, no murmur [] Lungs & Thorax: Patient is short of air and actively coughing on arrival to the ED. Wheezing noted diffusely especially on posterior upper lung bases. Abdomen: Bowel sounds normal, soft, no tenderness, no masses, no pulsatile masses. [] Skin: Warm, dry, no erythema, no rash. [] Back: No tenderness, no CVA tenderness. [] Extremities: No tenderness, no cyanosis, no clubbing, ROM intact, no edema. [] Neurologic: Alert and oriented X 3, normal motor function, normal sensory function, no focal deficits noted. [] Psychologic: Affect normal, judgement normal, mood normal. [] Current Patient Data Vital Signs Vital Signs Date Time Temp Pulse Resp B/P (MAP) Pulse Ox O2 Delivery O2 Flow Rate FiO2 02/01/19 17:35 22 91 02/01/19 16:45 Room Air 02/01/19 15:57 98.2 105 120/77 (91) 98.2 Lab Values Laboratory Tests Test 02/01/19 16:10 02/01/19 16:15 White Blood Count 9.8 x10^3/uL (4.0-11.0) Red Blood Count 4.85 x10^6/uL (4.30-5.70) Hemoglobin 14.4 g/dL (13.0-17.5) Hematocrit 44.4 % (39.0-53.0) Mean Corpuscular Volume 92 fL (79-100) Mean Corpuscular Hemoglobin 30 pg (25-35) Mean Corpuscular Hemoglobin Concent 32 g/dL (31-37) Red Cell Distribution Width 15.0 % (11.5-14.5) H Platelet Count 369 x10^3/uL (140-400) Neutrophils (%) (Auto) 59 % (31-73) Lymphocytes (%) (Auto) 19 % (24-48) L Monocytes (%) (Auto) 10 % (0-9) H Eosinophils (%) (Auto) 11 % (0-3) H Basophils (%) (Auto) 1 % (0-3) Neutrophils # (Auto) 5.8 x10^3uL (1.8-7.7) Lymphocytes # (Auto) 1.9 x10^3/uL (1.0-4.8) Monocytes # (Auto) 1.0 x10^3/uL (0.0-1.1) Eosinophils # (Auto) 1.1 x10^3/uL (0.0-0.7) H Basophils # (Auto) 0.1 x10^3/uL (0.0-0.2) Sodium Level 142 mmol/L (136-145) Potassium Level 4.1 mmol/L (3.5-5.1) Chloride Level 104 mmol/L (98-107) Carbon Dioxide Level 29 mmol/L (21-32) Anion Gap 9 (6-14) Blood Urea Nitrogen 8 mg/dL (8-26) Creatinine 1.1 mg/dL (0.7-1.3) Estimated GFR (Cockcroft-Gault) 69.2 BUN/Creatinine Ratio 7 (6-20) Glucose Level 164 mg/dL (70-99) H Calcium Level 9.2 mg/dL (8.5-10.1) Magnesium Level 1.8 mg/dL (1.8-2.4) Total Bilirubin 0.3 mg/dL (0.2-1.0) Aspartate Amino Transferase (AST) 15 U/L (15-37) Alanine Aminotransferase (ALT) 21 U/L (16-63) Alkaline Phosphatase 92 U/L (46-116) Creatine Kinase 148 U/L (39-308) Creatine Kinase MB (Mass) 1.4 ng/mL (0.0-3.6) Creatine Kinase MB Relative Index 0.9 % (0-4) Troponin I Quantitative < 0.017 ng/mL (0.000-0.055) BE-Ipy-J-Type Natriuretic Peptide 27 pg/mL (0-124) Total Protein 7.7 g/dL (6.4-8.2) Albumin 3.2 g/dL (3.4-5.0) L Albumin/Globulin Ratio 0.7 (1.0-1.7) L Prothrombin Time 12.6 SEC (11.7-14.0) Prothrombin Time INR 1.0 (0.8-1.1) Laboratory Tests 02/01/19 16:10 Laboratory Tests 02/01/19 16:10 EKG EKG 16:[address] Nickerson sinus tachycardia heart rate 101 no STEMI[] Radiology/Procedures Radiology/Procedures [] Course & Med Decision Making Course & Med Decision Making Pertinent Labs and Imaging studies reviewed. (See chart for details) This is a 58-year-old male patient with history of COPD current smoker presented to the ED today with shortness of breath for 2 days. Patient advised to consider smoking cessation, he states is working on cutting back, he states he has been smoking less and less. Patient's labs are negative for any acute findings, patient was given a DuoNeb treatment, given Solu-Medrol, offered admission to the hospital because his O2 sats were in the high 80s and low 90s, patient declined saying his insurance will not pay for admission. Patient is signed out AMA. He is alert oriented and able to make his own decisions. I gave him rx for prednisone and albuterol inhaler. He requested antibiotic, prescription for doxycycline given. Follow-up with PCP in the course of next week. Dragon Disclaimer Dragon Disclaimer This electronic medical record was generated, in whole or in part, using a voice recognition dictation system. Departure Departure Impression: Primary Impression: COPD exacerbation Additional Impressions: Smoking addiction Hypoxemia Disposition: AGAINST MEDICAL ADVICE Condition: STABLE Referrals: KATHRYN SWIFT MD (PCP) Follow-up in the course of this week Patient Instructions: Chronic Obstructive Pulmonary Disease Exacerbation, Smoking Cessation, Tips For Success Additional Instructions: You were evaluated for COPD exacerbation. Use the breathing treatments as ordered. Complete your antibiotics, complete your prednisone, follow-up with your doctor in the next couple days. Scripts Albuterol Sulfate (VENTOLIN HFA INHALER) 18 Gm Hfa.aer.ad 2 PUFF INH Q4HRS for FOR ASTHMA, #1 INHALER 0 Refills Prov: ALPESH LAMAR APRN 02/01/19 Doxycycline Hyclate (DOXYCYCLINE HYCLATE) 100 Mg Tablet.dr 1 TAB PO BID, #14 TAB Prov: ALPESH LAMAR APRN 02/01/19 Prednisone (PREDNISONE) 50 Mg Tablet 1 TAB PO DAILY, #5 TAB Prov: ALPESH LAMAR APRN 02/01/19 Problem Qualifiers ALPESH LAMAR APRN Feb 01, 2019 16:39
[2019-02-01 16:43] LABS: ALBUMIN 3.2 g/dL (3.4-5.0); ALBUMIN/GLOBULIN RATIO 0.7 (1.0-1.7); MAGNESIUM 1.8 mg/dL (1.8-2.4); TOTAL BILIRUBIN 0.3 mg/dL (0.2-1.0); TOTAL PROTEIN 7.7 g/dL (6.4-8.2)
--- NOTE | 2019-02-01 17:24 | EKG ---
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
[2019-02-01] MEDS ORDERED: MORPHINE SULFATE 10 MG/ML VIAL. IV ONE (17:30)
[2019-02-01 17:56] VITALS: BP 118/69
[2019-02-01] MEDS ORDERED: PRED50TA PO (18:17)
[2019-02-01] MEDS ORDERED: DOXY100T9 PO (18:17)
[2019-02-01] MEDS ORDERED: VENTOLIN HFA18 GM INH (18:17)
--- NOTE | 2019-02-01 20:17 | RAD ---
AP portable chest 02/01/2019. Reason for exam: Chest pain. Shortness of breath. Comparison is made with a study of 12/29/2018. A few increased markings persist and appear similar. There appears to be focal atelectasis now the left lung base. No new consolidation or pleural fluid is seen. Heart size is normal. IMPRESSION: No significant acute findings. Electronically signed by: Sander Bragg Jr., MD (02/01/2019 8:14 PM) [facility]
== END 2019-02-01 18:45 | disposition left against medical advice (07) ==
LOC: ER 15:26
DX: J44.1 Chronic obstructive pulmonary disease with (acute) exacerbation (principal); R09.02 Hypoxemia; F17.200 Nicotine dependence, unspecified, uncomplicated; E78.00 Pure hypercholesterolemia, unspecified
CPT/HCPCS: 36415; 71045; 80053; 82553; 83735; 83880; 84484; 85025; 85610; 87040; 93005; 94640; 96374; 96375; 99284; J2270; J2930; J3010; J7620

== ENCOUNTER 2019-02-15 15:48 | Emergency (ER) | payer OTHER ==
[~2019-02-15] VITALS: Ht 175.3 cm; Wt 109.8 kg
[~2019-02-15 15:48] MED LIST changes: +DOXY100T9 PO
[2019-02-15] MEDS ORDERED: DEXAMETHASONE SOD PHOS 20 MG/5 ML VIAL. IV ONE (16:30)
[2019-02-15] MEDS ORDERED: IPRATRPIUM/ALBUTEROL 0.5/2.5MG 3 ML NEBU. NEB ONE (16:30)
[2019-02-15] MEDS ORDERED: fentaNYL PF VIAL 100 MCG/2 ML VIAL IV ONE ×2 (16:30→18:45)
--- NOTE | 2019-02-15 16:32 | PHYS DOC ---
Past Medical History Past Medical History: Arthritis, Asthma, COPD, Diabetes-Type II, High Cholesterol, Other Additional Past Medical Histor: Home O2 at night 3L Past Surgical History: Hip Replacement, Other Additional Past Surgical Histo: RIGHT SHOULDER, LEFT KNEE, LEFT HIP Alcohol Use: None Drug Use: None Adult General Chief Complaint Chief Complaint: SHORTNESS OF BREATH HPI HPI Patient is a 58 year old male who presents to the ER with complaints of shortness of breath for the last 3-4 days. Pt states he has COPD and his medicaid insurance will not pay for his symbicort. He denies any palpitations, fever, nausea,or vomiting. He reports a productive cough with thick, clear, sputum and complains of pain in his lateral ribs from coughing. he currently rates the pain an 8/10 on the pain scale, there are no alleviating factors. He denies any swelling in his extremities. Pt states he recently took a 5 day course of prednisone and was starting to feel better with that medication but his symptoms increased once he finished the medication. Review of Systems Review of Systems Constitutional: Denies fever or chills [] Eyes: Denies changes HENT: Denies nasal congestion or sore throat [] Respiratory: See HPI Cardiovascular: No additional information not addressed in HPI [] GI: Denies abdominal pain, nausea, vomiting, or diarrhea [] Musculoskeletal: Denies back pain or joint pain [] Integument: Denies rash or skin lesions [] Neurologic: Denies headache Complete systems were reviewed and found to be within normal limits, except as documented in this note. Current Medications Current Medications Current Medications Medications (Trade) Dose Ordered Sig/[facility] Start Time Stop Time Status Last Admin Dose Admin Albuterol/ Ipratropium (Duoneb) 3 ml 1X ONCE 02/15/19 16:30 02/15/19 16:31 DC 02/15/19 16:30 3 ML Dexamethasone Sodium Phosphate (Decadron) 10 mg 1X ONCE 02/15/19 16:30 02/15/19 16:31 DC 02/15/19 17:04 10 MG Fentanyl Citrate (Fentanyl 2ml Vial) 50 mcg 1X ONCE 02/15/19 18:45 02/15/19 18:46 DC 02/15/19 18:31 50 MCG Allergies Allergies Allergies Coded Allergies Type Severity Reaction Last Updated Verified I S O L A T I O N *CONTACT* Allergy Unknown 11/28/18 Yes No Known Medication Allergies Allergy Unknown 11/28/18 Yes Physical Exam Physical Exam Constitutional: Well developed, well nourished, no acute distress, non-toxic appearance, obese [] HENT: Normocephalic, atraumatic, bilateral external ears normal, nose normal. [] Eyes: conjunctiva normal, no discharge. [] Neck: Normal range of motion, no stridor. [] Cardiovascular:Heart rate regular rhythm, no murmur [] Lungs & Thorax: Bilateral breath sounds diminished in bases with expiratory wheezes throughout Skin: Warm, dry, no erythema, no rash. [] Extremities: No cyanosis, no clubbing, ROM intact, no edema. [] Neurologic: Alert and oriented X 3, no focal deficits noted. [] Psychologic: Affect normal, judgement normal, mood normal. [] Current Patient Data Vital Signs Vital Signs Date Time Temp Pulse Resp B/P (MAP) Pulse Ox O2 Delivery O2 Flow Rate FiO2 02/15/19 18:40 92 21 133/80 (97) 94 Nasal Cannula 2.0 02/15/19 16:39 98.0 98.0 Lab Values Laboratory Tests Test 02/15/19 16:30 02/15/19 17:04 White Blood Count 11.2 x10^3/uL (4.0-11.0) H Red Blood Count 4.90 x10^6/uL (4.30-5.70) Hemoglobin 14.7 g/dL (13.0-17.5) Hematocrit 44.6 % (39.0-53.0) Mean Corpuscular Volume 91 fL (79-100) Mean Corpuscular Hemoglobin 30 pg (25-35) Mean Corpuscular Hemoglobin Concent 33 g/dL (31-37) Red Cell Distribution Width 15.2 % (11.5-14.5) H Platelet Count 346 x10^3/uL (140-400) Neutrophils (%) (Auto) 57 % (31-73) Lymphocytes (%) (Auto) 16 % (24-48) L Monocytes (%) (Auto) 11 % (0-9) H Eosinophils (%) (Auto) 15 % (0-3) H Basophils (%) (Auto) 1 % (0-3) Neutrophils # (Auto) 6.4 x10^3uL (1.8-7.7) Lymphocytes # (Auto) 1.8 x10^3/uL (1.0-4.8) Monocytes # (Auto) 1.2 x10^3/uL (0.0-1.1) H Eosinophils # (Auto) 1.7 x10^3/uL (0.0-0.7) H Basophils # (Auto) 0.1 x10^3/uL (0.0-0.2) Segmented Neutrophils % 58 % (35-66) Band Neutrophils % 1 % (0-9) Lymphocytes % 15 % (24-48) L Monocytes % 8 % (0-10) Eosinophils % 17 % (0-5) H Basophils % 1 % (0-3) Platelet Estimate Adequate (ADEQUATE) Sodium Level 139 mmol/L (136-145) Potassium Level 4.2 mmol/L (3.5-5.1) Chloride Level 103 mmol/L (98-107) Carbon Dioxide Level 28 mmol/L (21-32) Anion Gap 8 (6-14) Blood Urea Nitrogen 11 mg/dL (8-26) Creatinine 1.2 mg/dL (0.7-1.3) Estimated GFR (Cockcroft-Gault) 62.6 BUN/Creatinine Ratio 9 (6-20) Glucose Level 145 mg/dL (70-99) H Calcium Level 9.1 mg/dL (8.5-10.1) Magnesium Level 2.0 mg/dL (1.8-2.4) Total Bilirubin 0.3 mg/dL (0.2-1.0) Aspartate Amino Transferase (AST) 14 U/L (15-37) L Alanine Aminotransferase (ALT) 24 U/L (16-63) Alkaline Phosphatase 89 U/L (46-116) Troponin I Quantitative < 0.017 ng/mL (0.000-0.055) VD-Gvl-U-Type Natriuretic Peptide 6 pg/mL (0-124) Total Protein 7.7 g/dL (6.4-8.2) Albumin 3.4 g/dL (3.4-5.0) Albumin/Globulin Ratio 0.8 (1.0-1.7) L Laboratory Tests 02/15/19 16:30 Laboratory Tests 02/15/19 17:04 EKG EKG 1614- sinus tach rate 107 no STEMI, read by Dr. Steve[] Radiology/Procedures Radiology/Procedures CXR bronchitis changes, no infiltrate read by Dr. Arriola[] Course & Med Decision Making Course & Med Decision Making Pertinent Labs and Imaging studies reviewed. (See chart for details) dx: COPD exacerbation, bronchitis Pt reports feeling better after medications, wants to go home or sign out AMA. Prescription for 12 day taper of prednisone, and z-pack written. CXR negative for acute findings. Patient verbalized an understanding of home care, medications, follow-up, and return to ED instructions and was in agreement with the plan of care. Dragon Disclaimer Dragon Disclaimer This electronic medical record was generated, in whole or in part, using a voice recognition dictation system. Departure Departure Impression: Primary Impression: Bronchitis Additional Impression: COPD exacerbation Disposition: HOME, SELF-CARE Condition: STABLE Referrals: KATHRYN SWIFT MD (PCP) Patient Instructions: Acute Bronchitis, [id number], Chronic Obstructive Pulmonary Disease Exacerbation, [id number] Additional Instructions: Fill prescription(s) and use as directed. Alternate Tylenol or ibuprofen as needed for pain/fever. Increase clear fluids. Avoid airway triggers such as smoke, fragrance, dust, and pollen. Follow-up with your primary care doctor this week, return to the ER if symptoms worsen. Scripts Azithromycin (ZITHROMAX) 250 Mg Tablet 1 PKG PO UD, #6 TAB 0 Refills Prov: SHIKHA COX CONVEYOR INSTALLER 02/15/19 Prednisone (PREDNISONE) 20 Mg Tablet 20 MG PO DAILY for 12 Days, #21 TAB take 2.5 tablets x3 days then take 2 tablets x3 days then take 1.5 tablets x3 days then take 1 tablet x3 days then Prov: SHIKHA COX CONVEYOR INSTALLER 02/15/19 Problem Qualifiers SHIKHA COX CONVEYOR INSTALLER Feb 15, 2019 16:32
[2019-02-15 16:42] LABS: BASO # 0.1 x10^3/uL (0.0-0.2); BASO % 1 % (0-3); EOS # 1.7 x10^3/uL (0.0-0.7); EOS % 15 % (0-3); HEMATOCRIT 44.6 % (39.0-53.0); HEMOGLOBIN 14.7 g/dL (13.0-17.5); LYMPH # 1.8 x10^3/uL (1.0-4.8); LYMPH % 16 % (24-48); MEAN CORPUSCULAR HEMOGLOBIN 30 pg (25-35); MEAN CORPUSCULAR HGB CONC 33 g/dL (31-37); MEAN CORPUSCULAR VOLUME 91 fL (79-100); MONO # 1.2 x10^3/uL (0.0-1.1); MONO % 11 % (0-9); NEUT # 6.4 x10^3uL (1.8-7.7); NEUT % 57 % (31-73); PLATELET COUNT 346 x10^3/uL (140-400); RED CELL DISTRIBUTION WIDTH 15.2 % (11.5-14.5); WHITE BLOOD COUNT 11.2 x10^3/uL (4.0-11.0)
[2019-02-15 17:08] LABS: % BANDS 1 % (0-9); % BASOS 1 % (0-3); % EOS 17 % (0-5); % LYMPHS 15 % (24-48); % MONOS 8 % (0-10); % SEGS 58 % (35-66); PLT ESTIMATE ADEQUATE (ADEQUATE)
[2019-02-15 17:22] LABS: CALCIUM 9.1 mg/dL (8.5-10.1); CREATININE 1.2 mg/dL (0.7-1.3); GFR 62.6; POTASSIUM 4.2 mmol/L (3.5-5.1)
[2019-02-15 17:27] LABS: ALBUMIN 3.4 g/dL (3.4-5.0); ALBUMIN/GLOBULIN RATIO 0.8 (1.0-1.7); TOTAL BILIRUBIN 0.3 mg/dL (0.2-1.0); TOTAL PROTEIN 7.7 g/dL (6.4-8.2)
[2019-02-15 18:40] VITALS: BP 133/80
[2019-02-15] MEDS ORDERED: PRED20TA PO (19:31)
[2019-02-15] MEDS ORDERED: AZIT250T PO (19:31)
--- NOTE | 2019-02-16 07:03 | EKG ---
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
--- NOTE | 2019-02-16 07:45 | RAD ---
CHEST PA LATERAL CLINICAL INDICATION: PT STATES BREATHING TROUBLE FOR 4 DAYS, DENIES CHEST PAIN. COMPARISON: 02/01/2019 FINDINGS: Heart is normal in size. Lungs are hyperinflated with interstitial opacities. No focal consolidation. No pneumothorax or pleural effusion. Visualized bony thorax is within normal limits. IMPRESSION: Findings of COPD. Superimposed atypical/viral infection not ruled out. Electronically signed by: Zach Joseph DO (02/16/2019 7:42 AM) [facility]
== END 2019-02-15 19:35 | disposition home or self-care (01) ==
LOC: ER 15:48
DX: J44.1 Chronic obstructive pulmonary disease with (acute) exacerbation (principal); E78.00 Pure hypercholesterolemia, unspecified; E11.9 Type 2 diabetes mellitus without complications; Z91.041 Radiographic dye allergy status
CPT/HCPCS: 36415; 71046; 80053; 83735; 83880; 84484; 85007; 85025; 93005; 94640; 96374; 96375; 96376; 99284; J1100; J3010; J7620

== ENCOUNTER → 2019-03-13 | Outpatient (CLI) | payer OTHER ==
[2019-02-15 18:40] VITALS: BP 133/80
[~2019-03-13] MED LIST changes: +DOXY100C2 PO
--- NOTE | 2019-03-13 10:02 | KCIC ---
Examination: MRI of the left calf without contrast HISTORY: History of left calf pain, injury COMPARISON: None available TECHNIQUE: Multiplanar, multisequence MR imaging of the left calf was performed without contrast FINDINGS: Partially visualized lesion demonstrates small knee joint effusion. The attachment of infrapatellar tendon grossly appears intact. The alignment of the visualized tibia and fibula grossly appears unremarkable. There is fluid signal identified within the soleus muscle and the medial head of the gastrocnemius with some irregular low intensity signal within. There is mild increased T2 signal identified in the lateral aspect of the medial gastrocnemius muscle and the medial aspect of the lateral gastrocnemius muscle. There is mild increased T2 signal/edema identified in the subcutaneous region of the posterior medial leg. The visualized Achilles tendon grossly appears unremarkable. The distal most aspect of the Achilles tendon not included on the images. IMPRESSION: 1. Fluid signal identified between the soleus muscle and medial gastrocnemius muscle with low intensity signal within, given the edema pattern, this is suspicious for plantaris tendon rupture/tennis leg. 2. Mild increased T2 signal identified in the lateral aspect of the medial gastrocnemius muscle and the medial aspect of the gastrocnemius muscle likely strain. Electronically signed by: Tima Collins MD (03/13/2019 9:59 AM) [facility]
== END | disposition home or self-care (01) ==
LOC: KCIC MRI 07:33
PROVIDERS: ATTEND Family Medicine
DX: M79.662 Pain in left lower leg (principal); R60.0 Localized edema
CPT/HCPCS: 73718

== ENCOUNTER 2019-03-20 13:50 | Emergency (ER) | payer OTHER ==
[~2019-03-20] VITALS: Ht 175.3 cm; Wt 108.9 kg
[~2019-03-20 13:50] MED LIST changes: -DOXY100C2 PO
[2019-03-20] MEDS ORDERED: IPRATRPIUM/ALBUTEROL 0.5/2.5MG 3 ML NEBU. NEB ONE (14:00)
[2019-03-20 14:20] LABS: BASO # 0.1 x10^3/uL (0.0-0.2); BASO % 1 % (0-3); EOS # 0.6 x10^3/uL (0.0-0.7); EOS % 4 % (0-3); HEMATOCRIT 41.1 % (39.0-53.0); HEMOGLOBIN 13.5 g/dL (13.0-17.5); LYMPH # 1.3 x10^3/uL (1.0-4.8); LYMPH % 9 % (24-48); MEAN CORPUSCULAR HEMOGLOBIN 30 pg (25-35); MEAN CORPUSCULAR HGB CONC 33 g/dL (31-37); MEAN CORPUSCULAR VOLUME 91 fL (79-100); MONO # 1.3 x10^3/uL (0.0-1.1); MONO % 9 % (0-9); NEUT # 11.2 x10^3uL (1.8-7.7); NEUT % 78 % (31-73); PLATELET COUNT 398 x10^3/uL (140-400); RED BLOOD COUNT 4.54 x10^6/uL (4.30-5.70); RED CELL DISTRIBUTION WIDTH 14.8 % (11.5-14.5); WHITE BLOOD COUNT 14.3 x10^3/uL (4.0-11.0)
[2019-03-20 14:30] LABS: CALCIUM 9.4 mg/dL (8.5-10.1); CREATININE 1.3 mg/dL (0.7-1.3); GFR 57.1; POTASSIUM 4.1 mmol/L (3.5-5.1)
[2019-03-20 14:39] LABS: ALBUMIN 3.1 g/dL (3.4-5.0); DIRECT BILIRUBIN 0.1 mg/dL (0.0-0.2); TOTAL BILIRUBIN 0.4 mg/dL (0.2-1.0); TOTAL PROTEIN 7.7 g/dL (6.4-8.2)
--- NOTE | 2019-03-20 14:41 | PHYS DOC ---
Past Medical History Past Medical History: COPD, Diabetes-Type II Additional Past Medical Histor: Home O2 at night 3L Past Surgical History: Hip Replacement, Knee Replacement Additional Past Surgical Histo: RIGHT SHOULDER, LEFT KNEE, LEFT HIP Smoking: Cigarettes Alcohol Use: None Drug Use: None Adult General Chief Complaint Chief Complaint: SHORTNESS OF BREATH HPI HPI 58-year-old male with a history of COPD presenting to the emergency department today with worsening dyspnea over the past 2 days. He also complains of lower abdominal pain from coughing. The pain is sharp shooting pain that only occurs when he coughs. It is mild to moderate. Review of systems is negative for headache chest pain. He denies fevers or chills. All other review of systems is negative unless otherwise noted in history of present illness. ED course: 58-year-old male presenting the emergency department today with COPD exacerbation. He had a mild amount of abdominal pain with coughing. We gave acetaminophen for this. Heart rate is elevated at 115 about. The pressure is elevated at 150 about systolically. He is on 3 L here in the emergency department which is about baseline for him. Chest x-ray ordered along with EKG. EKG obtained and reviewed by myself shows sinus tachycardia. ST segments congruent. Not suggestive of ACS. Patient received a nebulizer in the emergency department along with oral prednisone. Chest x-ray shows pneumonia. Patient is tachycardic here in the emergency department. After DuoNeb and oral prednisone the patient is feeling better. Given the patient's tachycardia and pneumonia age with comorbidities I was going to admit the patient to the hospital for IV antibiotic therapy. The patient refuses and would like to be discharged home. He then left AMA. I informed the patient of their right to a medical screening exam and any treatment and/or stabilization that may be necessary regardless of their ability to pay. The patient appears to have intact insight, judgment, and reason. In my opinion, this patient has the capacity to make decisions. The patient presented with SOA AND PNA and I am concerned that he could decline. My initial plan prior to the pt expressing the desire to leave was to admit for IV abx and monitoring. I explained the risk of and disability to the patient in plain language which they were able to demonstrate in their own words verbal understanding. I discussed the limitations of the workup thus far included but were not limited to monitoring and hospitalization. The pt has verbalized understanding of my concerns. I offered alternatives to the therapy including oral abx and close f/u. I recommended the pt follow up with pcp as soon as possible or return to ED. I explained that at any time if the patient changed their mind, we are always open and would be happy to have them back. The patient refused further care and then left against medical advice. Review of Systems Review of Systems SEE ABOVE. Current Medications Current Medications Current Medications Medications (Trade) Dose Ordered Sig/Paulino Start Time Stop Time Status Last Admin Dose Admin Acetaminophen (Tylenol) 650 mg 1X ONCE 03/20/19 14:45 03/20/19 14:46 DC Albuterol/ Ipratropium (Duoneb) 3 ml 1X ONCE 03/20/19 14:00 03/20/19 14:01 DC 03/20/19 14:08 3 ML Prednisone (Prednisone) 50 mg 1X ONCE 03/20/19 14:45 03/20/19 14:46 DC 03/20/19 14:50 50 MG Allergies Allergies Allergies Coded Allergies Type Severity Reaction Last Updated Verified I S O L A T I O N *CONTACT* Allergy Unknown 11/28/18 Yes No Known Medication Allergies Allergy Unknown 11/28/18 Yes Physical Exam Physical Exam SEE ABOVE Constitutional: Well developed, well nourished, non-toxic appearance. HENT: Normocephalic, atraumatic, bilateral external ears normal, oropharynx moist, no oral exudates, nose normal. [] Eyes: PERRLA, EOMI, conjunctiva normal, no discharge. [] Neck: Normal range of motion, no tenderness, supple, no stridor. Cardiovascular:Heart rate regular rhythm, no murmur Lungs & Thorax: wheezing bilaterally with prolonged exp phase. increased work of breathing. Abdomen: Bowel sounds normal, soft, no tenderness, no masses, no pulsatile masses. Skin: Warm, dry, no erythema, no rash. [] Back: No tenderness, no CVA tenderness. Extremities: No tenderness, no cyanosis, no clubbing, ROM intact, no edema. [] Neurologic: Alert and oriented X 3, normal motor function, normal sensory function, no focal deficits noted. Psychologic: Affect normal, judgement normal, mood normal. [] Current Patient Data Vital Signs Vital Signs Date Time Temp Pulse Resp B/P (MAP) Pulse Ox O2 Delivery O2 Flow Rate FiO2 03/20/19 14:10 100.0 110 36 148/74 (98) 94 Room Air 3.0 100.0 Lab Values Laboratory Tests Test 03/20/19 14:10 White Blood Count 14.3 x10^3/uL (4.0-11.0) H Red Blood Count 4.54 x10^6/uL (4.30-5.70) Hemoglobin 13.5 g/dL (13.0-17.5) Hematocrit 41.1 % (39.0-53.0) Mean Corpuscular Volume 91 fL (79-100) Mean Corpuscular Hemoglobin 30 pg (25-35) Mean Corpuscular Hemoglobin Concent 33 g/dL (31-37) Red Cell Distribution Width 14.8 % (11.5-14.5) H Platelet Count 398 x10^3/uL (140-400) Neutrophils (%) (Auto) 78 % (31-73) H Lymphocytes (%) (Auto) 9 % (24-48) L Monocytes (%) (Auto) 9 % (0-9) Eosinophils (%) (Auto) 4 % (0-3) H Basophils (%) (Auto) 1 % (0-3) Neutrophils # (Auto) 11.2 x10^3uL (1.8-7.7) H Lymphocytes # (Auto) 1.3 x10^3/uL (1.0-4.8) Monocytes # (Auto) 1.3 x10^3/uL (0.0-1.1) H Eosinophils # (Auto) 0.6 x10^3/uL (0.0-0.7) Basophils # (Auto) 0.1 x10^3/uL (0.0-0.2) Sodium Level 136 mmol/L (136-145) Potassium Level 4.1 mmol/L (3.5-5.1) Chloride Level 99 mmol/L (98-107) Carbon Dioxide Level 27 mmol/L (21-32) Anion Gap 10 (6-14) Blood Urea Nitrogen 10 mg/dL (8-26) Creatinine 1.3 mg/dL (0.7-1.3) Estimated GFR (Cockcroft-Gault) 57.1 Glucose Level 183 mg/dL (70-99) H Calcium Level 9.4 mg/dL (8.5-10.1) Total Bilirubin 0.4 mg/dL (0.2-1.0) Direct Bilirubin 0.1 mg/dL (0.0-0.2) Aspartate Amino Transferase (AST) 10 U/L (15-37) L Alanine Aminotransferase (ALT) 21 U/L (16-63) Alkaline Phosphatase 91 U/L (46-116) Troponin I Quantitative < 0.017 ng/mL (0.000-0.055) KA-Sjv-H-Type Natriuretic Peptide 25 pg/mL (0-124) Total Protein 7.7 g/dL (6.4-8.2) Albumin 3.1 g/dL (3.4-5.0) L Lipase 160 U/L (73-393) Laboratory Tests 03/20/19 14:10 Laboratory Tests 03/20/19 14:10 EKG EKG [] Radiology/Procedures Radiology/Procedures [] Course & Med Decision Making Course & Med Decision Making Pertinent Labs and Imaging studies reviewed. (See chart for details) [] Dragon Disclaimer Dragon Disclaimer This electronic medical record was generated, in whole or in part, using a voice recognition dictation system. Departure Departure Impression: Primary Impression: COPD (chronic obstructive pulmonary disease) Additional Impressions: COPD exacerbation Pneumonia Disposition: 07 AGAINST MEDICAL ADVICE Condition: GUARDED Referrals: KATHRYN SWIFT MD (PCP) Patient Instructions: Chronic Obstructive Pulmonary Disease, Pneumonia, Adult Additional Instructions: Thank you for allowing us to participate in your care today. Return to the emergency department you have any new or worsening symptoms, or if you are concerned for any reason. Return to emergency department if you have any new or concerning symptoms including but not limited to fever, chills, nausea, vomiting, intractable pain, any new rashes, chest pain, shortness of air , uncontrolled bleeding, difficulty breathing, and/or vision loss. Follow up with your primary care physician within 1-2 days. Call your Primary Doctor tomorrow and inform them of your visit today. If you do not have a primary care provider we are happy to provide you with a list of our primary care providers contact information. This condition should be evaluated by your primary care physician and any recommended consulting services for continued management within 2 days after discharge. If at any time, you are having difficulty getting into your primary care doctor or a specialist, return to the emergency department. Scripts Prednisone (PREDNISONE) 50 Mg Tablet 1 TAB PO DAILY, #5 TAB Prov: CHELE ESPINOZA MD 03/20/19 Doxycycline Hyclate (DOXYCYCLINE HYCLATE) 100 Mg Capsule 1 CAP PO BID, #20 CAP Prov: CHELE ESPINOZA MD 03/20/19 Problem Qualifiers CHELE ESPINOZA MD Mar 20, 2019 14:41
[2019-03-20] MEDS ORDERED: ACETAMINOPHEN 325 MG TABLET. PO ONE (14:45)
[2019-03-20] MEDS ORDERED: predniSONE 20 MG TABLET PO ONE (14:45)
--- NOTE | 2019-03-20 14:53 | RAD ---
CHEST AP ONLY Clinical indications: PT STATES HAVING CHEST PAIN AND SHORT OF BREATH FOR 2 DAYS. COMPARISON: February 15, 2019. Findings: Chronic bilateral interstitial lung disease is seen. There is a new focus of consolidation within the right lung base. This may represent pneumonia. No pleural effusion or pneumothorax is seen. The heart size, pulmonary vasculature, mediastinum and both josef are stable. Impression: Right lung base pneumonia. Electronically signed by: Kirby Muñoz MD (03/20/2019 2:50 PM) [id number]
[2019-03-20 15:00] VITALS: BP 123/77
[2019-03-20] MEDS ORDERED: PRED50TA PO (15:24)
[2019-03-20] MEDS ORDERED: DOXY100C2 PO (15:24)
--- NOTE | 2019-03-21 15:04 | EKG ---
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
== END 2019-03-20 15:31 | disposition left against medical advice (07) ==
LOC: ER 13:50
DX: J44.1 Chronic obstructive pulmonary disease with (acute) exacerbation (principal); J18.9 Pneumonia, unspecified organism; E11.9 Type 2 diabetes mellitus without complications; F17.210 Nicotine dependence, cigarettes, uncomplicated; Z91.041 Radiographic dye allergy status
CPT/HCPCS: 36415; 71045; 80048; 80076; 83690; 83880; 84484; 85025; 93005; 94640; 99285; J7512; J7620

== ENCOUNTER 2019-05-22 19:33 | Emergency (ER) | payer MEDICAID, OTHER ==
[~2019-05-22] VITALS: Ht 175.3 cm; Wt 113.4 kg
[~2019-05-22 19:33] MED LIST changes: +DOXY100C2 PO
--- NOTE | 2019-05-22 19:49 | PHYS DOC ---
Past Medical History Past Medical History: COPD, Diabetes-Type II Additional Past Medical Histor: Home O2 at night 3L Past Surgical History: Hip Replacement, Knee Replacement Additional Past Surgical Histo: RIGHT SHOULDER, LEFT KNEE, LEFT HIP Alcohol Use: None Drug Use: None Adult General Chief Complaint Chief Complaint: SHORTNESS OF BREATH HPI HPI Patient is a 58 year old []Shortness of breath for the last 2-3 days increased cough yellow sputum bilateral rib pain with coughing sharp mild to moderate in nature. Usually on 3 L of oxygen at night only room air sat 86% in triage. No central chest pain no fever symptoms are moderate slowly worsening with time no relief with inhalers Review of Systems Review of Systems Constitutional: Denies fever or chills [] Eyes: Denies change in visual acuity, redness, or eye pain [] HENT: Musculoskeletal: Denies back pain or joint pain [] Integument: Denies rash or skin lesions [] Neurologic: Denies headache, focal weakness or sensory changes [] Endocrine: Denies polyuria or polydipsia [] All other systems were reviewed and found to be within normal limits, except as documented in this note. Current Medications Current Medications Current Medications Medications (Trade) Dose Ordered Sig/Paulino Start Time Stop Time Status Last Admin Dose Admin Acetaminophen/ Hydrocodone Bitart (Lortab 5/325) 2 tab 1X ONCE 05/22/19 20:45 05/22/19 20:46 DC 05/22/19 20:45 2 TAB Albuterol/ Ipratropium (Duoneb) 3 ml 1X ONCE 05/22/19 20:00 05/22/19 20:01 DC 05/22/19 19:58 3 ML Fentanyl Citrate (Fentanyl 2ml Vial) 50 mcg 1X ONCE 05/22/19 20:00 05/22/19 20:01 DC 05/22/19 20:06 50 MCG Methylprednisolone Sodium Succinate (SOLU-Medrol 125MG VIAL) 125 mg 1X ONCE 05/22/19 20:00 05/22/19 20:01 DC 05/22/19 20:07 125 MG Allergies Allergies Allergies Coded Allergies Type Severity Reaction Last Updated Verified I S O L A T I O N *CONTACT* Allergy Unknown 11/28/18 Yes No Known Medication Allergies Allergy Unknown 11/28/18 Yes Physical Exam Physical Exam Constitutional: Well developed, well nourished, mild distress, non-toxic appearance. [] HENT: Normocephalic, atraumatic, bilateral external ears normal, oropharynx moist, no oral exudates, nose normal. [] Eyes: PERRLA, EOMI, conjunctiva normal, no discharge. [] Neck: Normal range of motion, no tenderness, supple, no stridor. [] Cardiovascular:Heart rate regular rhythm, no murmur [] Lungs & Thorax: Wheezing bilateral Abdomen: Bowel sounds normal, soft, no tenderness, no masses, no pulsatile masses. [] Skin: Warm, dry, no erythema, no rash. [] Extremities: No tenderness, no cyanosis, no clubbing, ROM intact, no edema. [] Neurologic: Alert and oriented X 3, normal motor function, normal sensory function, no focal deficits noted. [] Psychologic: Affect normal, judgement normal, mood normal. [] Current Patient Data Vital Signs Vital Signs Date Time Temp Pulse Resp B/P (MAP) Pulse Ox O2 Delivery O2 Flow Rate FiO2 05/22/19 20:45 24 94 Nasal Cannula 3.0 05/22/19 20:40 84 148/87 (107) 05/22/19 19:39 98.0 98.0 Lab Values Laboratory Tests Test 05/22/19 19:47 White Blood Count 9.4 x10^3/uL (4.0-11.0) Red Blood Count 4.46 x10^6/uL (4.30-5.70) Hemoglobin 13.5 g/dL (13.0-17.5) Hematocrit 40.2 % (39.0-53.0) Mean Corpuscular Volume 90 fL (79-100) Mean Corpuscular Hemoglobin 30 pg (25-35) Mean Corpuscular Hemoglobin Concent 34 g/dL (31-37) Red Cell Distribution Width 15.5 % (11.5-14.5) H Platelet Count 332 x10^3/uL (140-400) Neutrophils (%) (Auto) 51 % (31-73) Lymphocytes (%) (Auto) 23 % (24-48) L Monocytes (%) (Auto) 10 % (0-9) H Eosinophils (%) (Auto) 16 % (0-3) H Basophils (%) (Auto) 1 % (0-3) Neutrophils # (Auto) 4.8 x10^3uL (1.8-7.7) Lymphocytes # (Auto) 2.2 x10^3/uL (1.0-4.8) Monocytes # (Auto) 0.9 x10^3/uL (0.0-1.1) Eosinophils # (Auto) 1.5 x10^3/uL (0.0-0.7) H Basophils # (Auto) 0.1 x10^3/uL (0.0-0.2) Segmented Neutrophils % 53 % (35-66) Band Neutrophils % 3 % (0-9) Lymphocytes % 21 % (24-48) L Atypical Lymphocytes % (Manual) 2 % (0-0) H Monocytes % 4 % (0-10) Eosinophils % 17 % (0-5) H Platelet Estimate Adequate (ADEQUATE) Prothrombin Time 12.6 SEC (11.7-14.0) Prothrombin Time INR 1.0 (0.8-1.1) Sodium Level 143 mmol/L (136-145) Potassium Level 3.4 mmol/L (3.5-5.1) L Chloride Level 107 mmol/L (98-107) Carbon Dioxide Level 28 mmol/L (21-32) Anion Gap 8 (6-14) Blood Urea Nitrogen 8 mg/dL (8-26) Creatinine 1.1 mg/dL (0.7-1.3) Estimated GFR (Cockcroft-Gault) 69.2 BUN/Creatinine Ratio 7 (6-20) Glucose Level 77 mg/dL (70-99) Calcium Level 9.4 mg/dL (8.5-10.1) Total Bilirubin 0.2 mg/dL (0.2-1.0) Aspartate Amino Transferase (AST) 9 U/L (15-37) L Alanine Aminotransferase (ALT) 18 U/L (16-63) Alkaline Phosphatase 97 U/L (46-116) Troponin I Quantitative < 0.017 ng/mL (0.000-0.055) RQ-Sbe-G-Type Natriuretic Peptide 50 pg/mL (0-124) Total Protein 7.7 g/dL (6.4-8.2) Albumin 3.2 g/dL (3.4-5.0) L Albumin/Globulin Ratio 0.7 (1.0-1.7) L Laboratory Tests 05/22/19 19:47 Laboratory Tests 05/22/19 19:47 EKG EKG Normal sinus rhythm rate of 84 no acute ischemic changes noted Radiology/Procedures Radiology/Procedures [] Impressions: cxr negative. Course & Med Decision Making Course & Med Decision Making Pertinent Labs and Imaging studies reviewed. (See chart for details) []58-year-old male on home oxygen at night only presenting with COPD exacerbation did have wheezing on examination chest x-ray EKG lab work albuterol Solu-Medrol reassessment performed Patient felt much better after ER treatment. He really wants to go home. He is given take oxygen 24 hours [id number] for the next couple of days take steroids take antibiotics no definite pneumonia seen on my review of chest x-ray patient was advised to follow-up with primary care doctor next week for reevaluation come back anytime should he feel worse and wanted be admitted. Dragon Disclaimer Dragon Disclaimer This electronic medical record was generated, in whole or in part, using a voice recognition dictation system. Departure Departure Impression: Primary Impression: COPD (chronic obstructive pulmonary disease) Disposition: 01 HOME, SELF-CARE Condition: IMPROVED Referrals: KATHRYN SWIFT MD (PCP) Scripts Doxycycline Hyclate (DOXYCYCLINE HYCLATE) 100 Mg Tablet 1 TAB PO BID, #14 TAB Prov: SERGE SHINE MD 05/22/19 Prednisone (PREDNISONE) 50 Mg Tablet 1 TAB PO DAILY, #5 TAB Prov: SERGE SHINE MD 05/22/19 SERGE SHINE MD May 22, 2019 19:49
[2019-05-22] MEDS ORDERED: fentaNYL PF VIAL 100 MCG/2 ML VIAL IV ONE (20:00)
[2019-05-22] MEDS ORDERED: IPRATRPIUM/ALBUTEROL 0.5/2.5MG 3 ML NEBU. NEB ONE (20:00)
[2019-05-22] MEDS ORDERED: methylPREDNISolone SOD SUCC PF 125 MG/2 ML VIAL. IV ONE (20:00)
[2019-05-22 20:04] LABS: BASO # 0.1 x10^3/uL (0.0-0.2); BASO % 1 % (0-3); EOS # 1.5 x10^3/uL (0.0-0.7); EOS % 16 % (0-3); HEMATOCRIT 40.2 % (39.0-53.0); HEMOGLOBIN 13.5 g/dL (13.0-17.5); LYMPH # 2.2 x10^3/uL (1.0-4.8); LYMPH % 23 % (24-48); MEAN CORPUSCULAR HEMOGLOBIN 30 pg (25-35); MEAN CORPUSCULAR HGB CONC 34 g/dL (31-37); MEAN CORPUSCULAR VOLUME 90 fL (79-100); MONO # 0.9 x10^3/uL (0.0-1.1); MONO % 10 % (0-9); NEUT # 4.8 x10^3uL (1.8-7.7); NEUT % 51 % (31-73); PLATELET COUNT 332 x10^3/uL (140-400); RED BLOOD COUNT 4.46 x10^6/uL (4.30-5.70); RED CELL DISTRIBUTION WIDTH 15.5 % (11.5-14.5); WHITE BLOOD COUNT 9.4 x10^3/uL (4.0-11.0)
[2019-05-22 20:11] LABS: PROTHROMBIN TIME PATIENT 12.6 SEC (11.7-14.0)
[2019-05-22 20:16] LABS: CALCIUM 9.4 mg/dL (8.5-10.1); CREATININE 1.1 mg/dL (0.7-1.3); GFR 69.2; POTASSIUM 3.4 mmol/L (3.5-5.1)
[2019-05-22 20:22] LABS: ALBUMIN 3.2 g/dL (3.4-5.0); ALBUMIN/GLOBULIN RATIO 0.7 (1.0-1.7); TOTAL BILIRUBIN 0.2 mg/dL (0.2-1.0); TOTAL PROTEIN 7.7 g/dL (6.4-8.2)
[2019-05-22] MEDS ORDERED: PRED50TA PO (20:31)
[2019-05-22] MEDS ORDERED: DOXY100T PO (20:31)
[2019-05-22 20:40] VITALS: BP 148/87
[2019-05-22] MEDS ORDERED: HYDROcodone/APAP 5/325MG 1 TAB TABLET PO ONE (20:45)
[2019-05-22 21:09] LABS: % ATYL 2 % (0-0); % BANDS 3 % (0-9); % EOS 17 % (0-5); % LYMPHS 21 % (24-48); % MONOS 4 % (0-10); % SEGS 53 % (35-66); PLT ESTIMATE ADEQUATE (ADEQUATE)
--- NOTE | 2019-05-22 23:29 | RAD ---
AP chest. HISTORY: Chest pain AP view was taken of the chest. Heart is within normal limits in size. There is a slight interstitial prominence similar to prior studies. There is no pleural effusion. There are no confluent infiltrates. The density noted in the right lung base on the study from March was not identified on the current exam. IMPRESSION: 1. No confluent infiltrates. Electronically signed by: Jonathan Rosen MD (05/22/2019 11:26 PM) [facility]
--- NOTE | 2019-05-23 12:09 | EKG ---
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
== END 2019-05-22 21:21 | disposition home or self-care (01) ==
LOC: ER 19:33
DX: J44.9 Chronic obstructive pulmonary disease, unspecified (principal); E11.9 Type 2 diabetes mellitus without complications; Z91.041 Radiographic dye allergy status
CPT/HCPCS: 36415; 71045; 80053; 83880; 84484; 85007; 85025; 85610; 93005; 94640; 96374; 96375; 99285; J2930; J3010; J7620

== ENCOUNTER 2019-06-14 20:35 | Emergency (ER) | payer MEDICAID, OTHER ==
[~2019-06-14] VITALS: Ht 175.3 cm; Wt 114.3 kg
[~2019-06-14 20:35] MED LIST changes: +DOXY100T PO
[2019-06-14] MEDS ORDERED: methylPREDNISolone SOD SUCC PF 125 MG/2 ML VIAL. IV ONE ×2 (20:45→21:00)
[2019-06-14] MEDS ORDERED: IPRATRPIUM/ALBUTEROL 0.5/2.5MG 3 ML NEBU. NEB ONE ×2 (20:45→21:00)
[2019-06-14] MEDS ORDERED: cefTRIAXone IV Push 1 GM VIAL. IVP ONE (21:00)
[2019-06-14 21:06] LABS: BASO # 0.1 x10^3/uL (0.0-0.2); BASO % 1 % (0-3); EOS # 1.2 x10^3/uL (0.0-0.7); EOS % 8 % (0-3); HEMATOCRIT 37.7 % (39.0-53.0); HEMOGLOBIN 12.8 g/dL (13.0-17.5); LYMPH # 1.7 x10^3/uL (1.0-4.8); LYMPH % 11 % (24-48); MEAN CORPUSCULAR HEMOGLOBIN 30 pg (25-35); MEAN CORPUSCULAR HGB CONC 34 g/dL (31-37); MEAN CORPUSCULAR VOLUME 89 fL (79-100); MONO # 1.8 x10^3/uL (0.0-1.1); MONO % 12 % (0-9); NEUT # 10.2 x10^3/uL (1.8-7.7); NEUT % 68 % (31-73); PLATELET COUNT 293 x10^3/uL (140-400); RED BLOOD COUNT 4.24 x10^6/uL (4.30-5.70); RED CELL DISTRIBUTION WIDTH 15.8 % (11.5-14.5)
[2019-06-14 21:15] LABS: PROTHROMBIN TIME PATIENT 13.7 SEC (11.7-14.0)
[2019-06-14 21:18] LABS: CALCIUM 8.7 mg/dL (8.5-10.1); GFR 77.3; POTASSIUM 3.5 mmol/L (3.5-5.1)
[2019-06-14 21:25] LABS: ALBUMIN/GLOBULIN RATIO 0.7 (1.0-1.7); MAGNESIUM 1.6 mg/dL (1.8-2.4); TOTAL BILIRUBIN 0.7 mg/dL (0.2-1.0); TOTAL PROTEIN 7.3 g/dL (6.4-8.2)
[2019-06-14] MEDS ORDERED: LEVO750T31 PO (21:37)
[2019-06-14] MEDS ORDERED: PRED50TA PO (21:37)
[2019-06-14] MEDS: HYDROcodone/APAP 5/325MG 1 TAB TABLET PO ONE ×2 (21:45→21:50)
--- NOTE | 2019-06-14 21:48 | RAD ---
AP chest x-ray HISTORY: Fever. COMPARISON: Chest x-ray May 22, 2019. FINDINGS: Heart size is normal. Mediastinal silhouette is normal. Some chronic coarse interstitial markings as present on prior x-rays likely indicate chronic interstitial lung disease. However there are new superimposed reticulonodular x-rays at the lung bases suggesting a superimposed pneumonia. No pneumothorax or pleural effusions. IMPRESSION: Reticulonodular infiltrates at the lung bases suspicious for multilobar pneumonia. Electronically signed by: Samuel Burns MD (06/14/2019 9:44 PM) [facility]
[2019-06-14 21:50] LABS: % BANDS 15 % (0-9); % EOS 8 % (0-5); % LYMPHS 18 % (24-48); % MONOS 6 % (0-10); % SEGS 53 % (35-66)
[2019-06-14 21:53] LABS: PLT ESTIMATE ADEQUATE (ADEQUATE); POLYCHROMASIA SLIGHT; TOXIC GRANULATION MOD
[2019-06-14 22:00] VITALS: BP 145/77
[2019-06-14] MEDS ORDERED: fentaNYL PF VIAL 100 MCG/2 ML VIAL IV ONE (22:00)
--- NOTE | 2019-06-14 22:52 | PHYS DOC ---
Past Medical History Past Medical History: COPD, Diabetes-Type II Additional Past Medical Histor: Home O2 at night 3L Past Surgical History: Hip Replacement Additional Past Surgical Histo: RIGHT SHOULDER, LEFT KNEE, LEFT HIP Alcohol Use: None Drug Use: None Adult General Chief Complaint Chief Complaint: SHORTNESS OF BREATH HPI HPI Patient is a 58 year old Female who is presenting with shortness of breath felt feverish 100 point something according to the increased shortness of breath for the last couple of days coughing more she is worried that he is got pneumonia again. They were on the [place] so he did not have S regular [place] II his usual medications. Of note he does have an oxygen concentrator at home now. Symptoms are moderately also has chest tightness sharp with coughing only lateral aspects of the rib Review of Systems Review of Systems Constitutional: Eyes: Denies change in visual acuity, redness, or eye pain [] Musculoskeletal: Integument: Denies rash or skin lesions [] Neurologic: Denies headache, focal weakness or sensory changes [] Endocrine: Denies polyuria or polydipsia [] All other systems were reviewed and found to be within normal limits, except as documented in this note. Current Medications Current Medications Current Medications Medications (Trade) Dose Ordered Sig/Paulino Start Time Stop Time Status Last Admin Dose Admin Acetaminophen/ Hydrocodone Bitart (Lortab 5/325) 2 tab 1X ONCE 06/14/19 21:45 06/14/19 21:54 DC Albuterol/ Ipratropium (Duoneb) 3 ml 1X ONCE 06/14/19 21:00 06/14/19 21:01 DC 06/14/19 21:11 3 ML Ceftriaxone Sodium (Rocephin) 1 gm 1X ONCE 06/14/19 21:00 06/14/19 21:01 DC 06/14/19 21:36 1 GM Fentanyl Citrate (Fentanyl 2ml Vial) 50 mcg 1X ONCE 06/14/19 22:00 06/14/19 22:01 DC 06/14/19 21:59 50 MCG Levofloxacin (Levaquin) 750 mg 1X ONCE 06/14/19 21:30 06/14/19 21:31 DC 06/14/19 21:49 750 MG Methylprednisolone Sodium Succinate (SOLU-Medrol 125MG VIAL) 125 mg 1X ONCE 06/14/19 21:00 06/14/19 21:01 UNV Allergies Allergies Allergies Coded Allergies Type Severity Reaction Last Updated Verified I S O L A T I O N *CONTACT* Allergy Unknown 11/28/18 Yes No Known Medication Allergies Allergy Unknown 11/28/18 Yes Physical Exam Physical Exam Constitutional: Well developed, well nourished, no acute distress, non-toxic appearance. [] HENT: Normocephalic, atraumatic, bilateral external ears normal, oropharynx moist, no oral exudates, nose normal. [] Eyes: PERRLA, EOMI, conjunctiva normal, no discharge. [] Neck: Normal range of motion, no tenderness, supple, no stridor. [] Cardiovascular:Heart rate regular rhythm, no murmur [] Lungs & Thorax: Bilateral wheezing noted patient speaking full sentences Abdomen: Bowel sounds normal, soft, no tenderness, no masses, no pulsatile masses. [] Skin: Warm, dry, no erythema, no rash. [] Back: No tenderness, no CVA tenderness. [] Extremities: No tenderness, no cyanosis, no clubbing, ROM 1+ edema bilaterally Neurologic: Alert and oriented X 3, normal motor function, normal sensory function, no focal deficits noted. [] Psychologic: Affect normal, judgement normal, mood normal. [] Current Patient Data Vital Signs Vital Signs Date Time Temp Pulse Resp B/P (MAP) Pulse Ox O2 Delivery O2 Flow Rate FiO2 06/14/19 22:00 106 20 145/77 (99) 93 4.0 06/14/19 21:30 Nasal Cannula 06/14/19 20:38 98.4 98.4 Lab Values Laboratory Tests Test 06/14/19 20:50 White Blood Count 15.0 x10^3/uL (4.0-11.0) H Red Blood Count 4.24 x10^6/uL (4.30-5.70) L Hemoglobin 12.8 g/dL (13.0-17.5) L Hematocrit 37.7 % (39.0-53.0) L Mean Corpuscular Volume 89 fL (79-100) Mean Corpuscular Hemoglobin 30 pg (25-35) Mean Corpuscular Hemoglobin Concent 34 g/dL (31-37) Red Cell Distribution Width 15.8 % (11.5-14.5) H Platelet Count 293 x10^3/uL (140-400) Neutrophils (%) (Auto) 68 % (31-73) Lymphocytes (%) (Auto) 11 % (24-48) L Monocytes (%) (Auto) 12 % (0-9) H Eosinophils (%) (Auto) 8 % (0-3) H Basophils (%) (Auto) 1 % (0-3) Neutrophils # (Auto) 10.2 x10^3/uL (1.8-7.7) H Lymphocytes # (Auto) 1.7 x10^3/uL (1.0-4.8) Monocytes # (Auto) 1.8 x10^3/uL (0.0-1.1) H Eosinophils # (Auto) 1.2 x10^3/uL (0.0-0.7) H Basophils # (Auto) 0.1 x10^3/uL (0.0-0.2) Segmented Neutrophils % 53 % (35-66) Band Neutrophils % 15 % (0-9) H Lymphocytes % 18 % (24-48) L Monocytes % 6 % (0-10) Eosinophils % 8 % (0-5) H Toxic Granulation Mod Platelet Estimate Adequate (ADEQUATE) Polychromasia Slight Prothrombin Time 13.7 SEC (11.7-14.0) Prothrombin Time INR 1.1 (0.8-1.1) Sodium Level 132 mmol/L (136-145) L Potassium Level 3.5 mmol/L (3.5-5.1) Chloride Level 95 mmol/L (98-107) L Carbon Dioxide Level 24 mmol/L (21-32) Anion Gap 13 (6-14) Blood Urea Nitrogen 10 mg/dL (8-26) Creatinine 1.0 mg/dL (0.7-1.3) Estimated GFR (Cockcroft-Gault) 77.3 BUN/Creatinine Ratio 10 (6-20) Glucose Level 58 mg/dL (70-99) L Lactic Acid Level 1.5 mmol/L (0.4-2.0) Calcium Level 8.7 mg/dL (8.5-10.1) Magnesium Level 1.6 mg/dL (1.8-2.4) L Total Bilirubin 0.7 mg/dL (0.2-1.0) Aspartate Amino Transferase (AST) 16 U/L (15-37) Alanine Aminotransferase (ALT) 22 U/L (16-63) Alkaline Phosphatase 129 U/L (46-116) H Troponin I Quantitative < 0.017 ng/mL (0.000-0.055) AQ-Jsx-H-Type Natriuretic Peptide 205 pg/mL (0-124) H Total Protein 7.3 g/dL (6.4-8.2) Albumin 3.0 g/dL (3.4-5.0) L Albumin/Globulin Ratio 0.7 (1.0-1.7) L Lipase 72 U/L (73-393) L Laboratory Tests 06/14/19 20:50 Laboratory Tests 06/14/19 20:50 EKG EKG []Sinus tach rate 110 no acute ischemic changes noted intervals normal no STEMI Radiology/Procedures Radiology/Procedures [] Impressions: AP chest x-ray HISTORY: Fever. COMPARISON: Chest x-ray May 22, 2019. FINDINGS: Heart size is normal. Mediastinal silhouette is normal. Some chronic coarse interstitial markings as present on prior x-rays likely indicate chronic interstitial lung disease. However there are new superimposed reticulonodular x-rays at the lung bases suggesting a superimposed pneumonia. No pneumothorax or pleural effusions. IMPRESSION: Reticulonodular infiltrates at the lung bases suspicious for multilobar pneumonia. Electronically signed by: Josué Burns MD (06/14/2019 9:44 PM) [facility] DICTATED and SIGNED BY: JOSUÉ BURNS MD DATE: 06/14/192143 Course & Med Decision Making Course & Med Decision Making Pertinent Labs and Imaging studies reviewed. (See chart for details) []Patient was 73% on room air in triage however he came up to the mid 90s on 4-5 L of oxygen. We did give her nebulizer he felt better. I recommended admission due to the pneumonia his increased hypoxia as well as his known underlying COPD I think would benefit from serial nebulizers as well as IV antibiotics and a period of observation. I cannot convince him to stay he does not want to stay because the CPAP machine that we use here at night does not fit his face well. He has oxygen at home he can use it he knows the risks of leaving up to and including worsening respiratory status and even . He will sign the AMA paperwork according to the nursing staff I asked him to have them sign it. He does understand I talked him in detail he is of sound mind have him to come back at any time. I also talked to his primary care doctor Dr. Wagner who said she can follow up with him this week as well. I ALSO ASKED HIMT O GET REPEAT CXR IN 6 WEEKS Anna Disclaimer Anna Disclaimer This electronic medical record was generated, in whole or in part, using a voice recognition dictation system. Departure Departure Impression: Primary Impression: Pneumonia Disposition: 07 AGAINST MEDICAL ADVICE Condition: STABLE Patient Instructions: Pneumonia, Adult, [id number] Scripts Prednisone (PREDNISONE) 50 Mg Tablet 1 TAB PO DAILY, #5 TAB Prov: SERGE SHINE MD 06/14/19 Levofloxacin (LEVAQUIN) 750 Mg Tablet 1 TAB PO DAILY, #7 TAB Prov: SERGE SHINE MD 06/14/19 SERGE SHINE MD Jun 14, 2019 22:52
--- NOTE | 2019-06-15 07:33 | EKG ---
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
== END 2019-06-14 22:00 | disposition home or self-care (01) ==
LOC: ER 20:35
DX: J18.9 Pneumonia, unspecified organism (principal); E11.9 Type 2 diabetes mellitus without complications; J44.9 Chronic obstructive pulmonary disease, unspecified; Z91.041 Radiographic dye allergy status
CPT/HCPCS: 36415; 71045; 80053; 83605; 83690; 83735; 83880; 84484; 85007; 85025; 85610; 87040; 93005; 94640; 96374; 96375; 99285; J0696; J2930; J3010; J7620

== ENCOUNTER 2019-07-22 19:54 | Emergency (ER) | payer MEDICAID, OTHER ==
[~2019-07-22] VITALS: Ht 175.3 cm; Wt 113.9 kg
[2019-07-22] MEDS ORDERED: IV NORMAL SALINE 1000ML BAG 1,000 ML IV SCH (20:11)
[2019-07-22] MEDS ORDERED: fentaNYL PF VIAL 100 MCG/2 ML VIAL IV ONE (20:15)
[2019-07-22] MEDS ORDERED: methylPREDNISolone SOD SUCC PF 125 MG/2 ML VIAL. IV ONE (20:15)
[2019-07-22] MEDS ORDERED: IPRATRPIUM/ALBUTEROL 0.5/2.5MG 3 ML NEBU. NEB ONE (20:15)
[2019-07-22 20:20] LABS: BASO # 0.1 x10^3/uL (0.0-0.2); BASO % 1 % (0-3); EOS # 1.1 x10^3/uL (0.0-0.7); EOS % 8 % (0-3); HEMATOCRIT 46.4 % (39.0-53.0); HEMOGLOBIN 15.3 g/dL (13.0-17.5); LYMPH # 2.8 x10^3/uL (1.0-4.8); LYMPH % 20 % (24-48); MEAN CORPUSCULAR HEMOGLOBIN 29 pg (25-35); MEAN CORPUSCULAR HGB CONC 33 g/dL (31-37); MEAN CORPUSCULAR VOLUME 89 fL (79-100); MONO # 1.5 x10^3/uL (0.0-1.1); MONO % 11 % (0-9); NEUT % 59 % (31-73); PLATELET COUNT 394 x10^3/uL (140-400); RED CELL DISTRIBUTION WIDTH 16.5 % (11.5-14.5); WHITE BLOOD COUNT 13.6 x10^3/uL (4.0-11.0)
[2019-07-22 20:32] LABS: CALCIUM 10.1 mg/dL (8.5-10.1); CREATININE 1.1 mg/dL (0.7-1.3); POTASSIUM 3.9 mmol/L (3.5-5.1)
[2019-07-22 20:37] LABS: % BASOS 1 % (0-3); % EOS 12 % (0-5); % LYMPHS 21 % (24-48); % MONOS 9 % (0-10); % SEGS 57 % (35-66); PLT ESTIMATE ADEQUATE (ADEQUATE)
[2019-07-22 20:38] LABS: ALBUMIN 3.5 g/dL (3.4-5.0); ALBUMIN/GLOBULIN RATIO 0.8 (1.0-1.7); TOTAL BILIRUBIN 0.3 mg/dL (0.2-1.0); TOTAL PROTEIN 8.1 g/dL (6.4-8.2)
[2019-07-22 20:48] LABS: BILIRUBIN,URINE NEGATIVE (NEG); CLARITY,URINE CLEAR; COLOR,URINE YELLOW; NITRITE,URINE NEGATIVE (NEG); PH,URINE 5.5; PROTEIN,URINE NEGATIVE (NEG-TRACE); UROBILINOGEN,URINE 0.2 mg/dL (0.2 mg/dL)
[2019-07-22 20:58] LABS: BACTERIA,URINE 0 /HPF (0-FEW); RBC,URINE 0 /HPF (0-2); WBC,URINE 0 /HPF (0-4)
--- NOTE | 2019-07-22 21:06 | RAD ---
Exam: Chest 2 views INDICATION: Shortness of breath TECHNIQUE: Frontal and lateral views of the chest Comparisons: 06/14/2019 FINDINGS: The cardiomediastinal silhouette and pulmonary vessels are within normal limits. Patchy bibasilar airspace disease. IMPRESSION: Patchy bibasilar airspace disease not significant change compared to the prior exam, may represent multifocal pneumonia. Electronically signed by: Edelmira Leonard MD (07/22/2019 9:03 PM) [facility]
[2019-07-22] MEDS ORDERED: cefTRIAXone IV Push 1 GM VIAL. IVP ONE (21:15)
[2019-07-22] MEDS ORDERED: BENZ100C PO (21:47)
[2019-07-22] MEDS ORDERED: DOXY100C2 PO (21:47)
[2019-07-22] MEDS ORDERED: METH4TAB2 PO (21:47)
--- NOTE | 2019-07-22 21:47 | PHYS DOC ---
Past Medical History Past Medical History: COPD, Diabetes-Type II, Pneumonia Additional Past Medical Histor: Home O2 at night 3L Past Surgical History: Hip Replacement Additional Past Surgical Histo: RIGHT SHOULDER, LEFT KNEE, LEFT HIP Alcohol Use: None Drug Use: None Adult General Chief Complaint Chief Complaint: DYSPNEA/RESPIRATOY DISTRESS [facility] 59-year-old male patient with history of COPD on home oxygen complaining of shortness of breath and cough. Patient complaining of productive cough with clear and white sputum for couple days and intermittent episodes of shortness of breath and bilateral lower chest wall pain during episodes of cough. Patient denies fever and chills, chest pain, sick contact, confusion, vomiting and diarrhea, urinary symptom. Patient states he took his home nebulizer and inhalers without improvement of his condition. Review of Systems Review of Systems Constitutional: Denies fever or chills [] Eyes: Denies change in visual acuity, redness, or eye pain [] HENT: Denies nasal congestion or sore throat [] Respiratory: Reports cough and shortness of breath Cardiovascular: No additional information not addressed in HPI [] GI: Denies abdominal pain, nausea, vomiting, bloody stools or diarrhea [] : Denies dysuria or hematuria [] Integument: Denies rash or skin lesions [] Neurologic: Denies headache, focal weakness or sensory changes [] Endocrine: Denies polyuria or polydipsia [] All other systems were reviewed and found to be within normal limits, except as documented in this note. Current Medications Current Medications Current Medications Medications (Trade) Dose Ordered Sig/Paulino Start Time Stop Time Status Last Admin Dose Admin Albuterol/ Ipratropium (Duoneb) 3 ml 1X ONCE 07/22/19 20:15 07/22/19 20:19 DC 07/22/19 20:19 3 ML Ceftriaxone Sodium (Rocephin) 1 gm 1X ONCE 07/22/19 21:15 07/22/19 21:16 DC 07/22/19 21:19 1 GM Fentanyl Citrate (Fentanyl 2ml Vial) 50 mcg 1X ONCE 07/22/19 20:15 07/22/19 20:19 DC 07/22/19 20:24 50 MCG Methylprednisolone Sodium Succinate (SOLU-Medrol 125MG VIAL) 125 mg 1X ONCE 07/22/19 20:15 07/22/19 20:19 DC 07/22/19 20:24 125 MG Sodium Chloride 1,000 ml @ 1,000 mls/hr Q1H 07/22/19 20:11 07/22/19 21:10 DC 07/22/19 20:24 1,000 MLS/HR Allergies Allergies Allergies Coded Allergies Type Severity Reaction Last Updated Verified I S O L A T I O N *CONTACT* Allergy Unknown 11/28/18 Yes No Known Medication Allergies Allergy Unknown 11/28/18 Yes Physical Exam Physical Exam Constitutional: Well developed, well nourished, mild distress, non-toxic appearance. [] HENT: Normocephalic, atraumatic. Eyes: PERRLA, EOMI, conjunctiva normal, no discharge. [] Neck: Normal range of motion, no tenderness, supple, no stridor. [] Cardiovascular:Heart rate regular rhythm, no murmur [] Lungs & Thorax: Bilateral breath sounds clear to auscultation [] Abdomen: Bowel sounds normal, soft, no tenderness, no masses, no pulsatile masses. [] Skin: Warm, dry, no erythema, no rash. [] Back: No tenderness, no CVA tenderness. [] Extremities: No tenderness, no cyanosis, no clubbing, ROM intact, no edema. [] Neurologic: Alert and oriented X 3, no focal deficits noted. [] Psychologic: Affect normal, judgement normal, mood normal. [] Current Patient Data Vital Signs Vital Signs Date Time Temp Pulse Resp B/P (MAP) Pulse Ox O2 Delivery O2 Flow Rate FiO2 07/22/19 21:57 87 20 127/72 (90) 93 Nasal Cannula 3.0 07/22/19 19:55 98.1 98.1 Lab Values Laboratory Tests Test 07/22/19 20:00 07/22/19 20:40 White Blood Count 13.6 x10^3/uL (4.0-11.0) H Red Blood Count 5.20 x10^6/uL (4.30-5.70) Hemoglobin 15.3 g/dL (13.0-17.5) Hematocrit 46.4 % (39.0-53.0) Mean Corpuscular Volume 89 fL (79-100) Mean Corpuscular Hemoglobin 29 pg (25-35) Mean Corpuscular Hemoglobin Concent 33 g/dL (31-37) Red Cell Distribution Width 16.5 % (11.5-14.5) H Platelet Count 394 x10^3/uL (140-400) Neutrophils (%) (Auto) 59 % (31-73) Lymphocytes (%) (Auto) 20 % (24-48) L Monocytes (%) (Auto) 11 % (0-9) H Eosinophils (%) (Auto) 8 % (0-3) H Basophils (%) (Auto) 1 % (0-3) Neutrophils # (Auto) 8.0 x10^3/uL (1.8-7.7) H Lymphocytes # (Auto) 2.8 x10^3/uL (1.0-4.8) Monocytes # (Auto) 1.5 x10^3/uL (0.0-1.1) H Eosinophils # (Auto) 1.1 x10^3/uL (0.0-0.7) H Basophils # (Auto) 0.1 x10^3/uL (0.0-0.2) Segmented Neutrophils % 57 % (35-66) Lymphocytes % 21 % (24-48) L Monocytes % 9 % (0-10) Eosinophils % 12 % (0-5) H Basophils % 1 % (0-3) Platelet Estimate Adequate (ADEQUATE) Sodium Level 142 mmol/L (136-145) Potassium Level 3.9 mmol/L (3.5-5.1) Chloride Level 102 mmol/L (98-107) Carbon Dioxide Level 29 mmol/L (21-32) Anion Gap 11 (6-14) Blood Urea Nitrogen 9 mg/dL (8-26) Creatinine 1.1 mg/dL (0.7-1.3) Estimated GFR (Cockcroft-Gault) 69.0 BUN/Creatinine Ratio 8 (6-20) Glucose Level 132 mg/dL (70-99) H Lactic Acid Level 2.4 mmol/L (0.4-2.0) H Calcium Level 10.1 mg/dL (8.5-10.1) Total Bilirubin 0.3 mg/dL (0.2-1.0) Aspartate Amino Transferase (AST) 14 U/L (15-37) L Alanine Aminotransferase (ALT) 21 U/L (16-63) Alkaline Phosphatase 102 U/L (46-116) Creatine Kinase 269 U/L (39-308) Troponin I Quantitative < 0.017 ng/mL (0.000-0.055) EE-Juo-H-Type Natriuretic Peptide 10 pg/mL (0-124) Total Protein 8.1 g/dL (6.4-8.2) Albumin 3.5 g/dL (3.4-5.0) Albumin/Globulin Ratio 0.8 (1.0-1.7) L Urine Collection Type Void Urine Color Yellow Urine Clarity Clear Urine pH 5.5 Urine Specific [place] 1.010 Urine Protein Negative mg/dL (NEG-TRACE) Urine Glucose (UA) Negative mg/dL (NEG) Urine Ketones (Stick) Negative mg/dL (NEG) Urine Blood Negative (NEG) Urine Nitrite Negative (NEG) Urine Bilirubin Negative (NEG) Urine Urobilinogen Dipstick 0.2 mg/dL (0.2 mg/dL) Urine Leukocyte Esterase Negative (NEG) Urine RBC 0 /HPF (0-2) Urine WBC 0 /HPF (0-4) Urine Bacteria 0 /HPF (0-FEW) Laboratory Tests 07/22/19 20:00 Laboratory Tests 07/22/19 20:00 EKG EKG EKG interpreted by me. EKG at 2003 showed normal sinus rhythm at rate of 100, normal TX and QT intervals, no acute ST and T-wave elevation. Radiology/Procedures Radiology/Procedures [] Course & Med Decision Making Course & Med Decision Making Pertinent Labs and Imaging studies reviewed. (See chart for details) Evaluation of patient in ER showed 59-year-old male patient with history of smoking currently and on 12 L of home oxygen resented with complaining of shortness of breath and cough. Patient is very comfortable without any distress but states that his pain 9/10 and asking for pain medication frequently. Labs showed white count of 13,000 and lactic acid of 2.4. Patient treated with IV fluids, Solu-Medrol, DuoNeb, Rocephin. Patient refuses hospitalization and wants to transfer as outpatient. I've spoken with the patient and/or caregivers. I've explained the patient's condition, diagnosis and treatment plan based on information available to me at this time. I've answered the patient's and/or caregivers questions and addressed any concerns. The patient and/or caregivers have a good understanding the patient's diagnosis, condition and treatment plan as can be expected at this point. Vital signs have been stabilized. The patient's condition is stable for discharge from the emergency department. The patient will pursue further outpatient evaluation with her primary care provider or other designated consulting physician as outlined in the discharge i nstructions. Patient and/or caregivers are agreeable to this plan of care and follow-up instructions have been explained in detail. The patient and/or caregivers have received these instructions in written format and expressed understanding of these discharge instructions. The patient and her caregivers are aware that if any significant change in condition or worsening of symptoms should prompt him to immediately return to this of the closest emergency department. If an emergent department is not readily available I would encourage him to call 911. Dragon Disclaimer Dragon Disclaimer This electronic medical record was generated, in whole or in part, using a voice recognition dictation system. Departure Departure Impression: Primary Impression: COPD with acute exacerbation Additional Impressions: Sepsis Tobacco abuse Tobacco abuse counseling Chronic narcotic use Noncompliance Disposition: HOME, SELF-CARE (at 2144) Condition: IMPROVED Referrals: KATHRYN SWIFT MD (PCP) Patient Instructions: Chronic Obstructive Pulmonary Disease Exacerbation, Sepsis, Adult, Smoking Cessation, Tips For Success Additional Instructions: Drink plenty of liquids Follow-up with your primary care physician in 2-3 days Return to ER if not getting better Scripts Prednisone (PREDNISONE) 50 Mg Tablet 1 TAB PO DAILY, #5 TAB Prov: MAHSA GARCIA MD 07/22/19 Benzonatate (TESSALON PERLE) 100 Mg Capsule 1 CAP PO TID for cough, #21 CAP Prov: MAHSA GARCIA MD 07/22/19 Doxycycline Hyclate (DOXYCYCLINE HYCLATE) 100 Mg Capsule 1 CAP PO BID, #14 CAP Prov: MAHSA GARCIA MD 07/22/19 Problem Qualifiers Additional Impressions: Sepsis Sepsis type: sepsis due to unspecified organism Sepsis acute organ dysfu nction status: unspecified Qualified Codes: A41.9 - Sepsis, unspecified organism MAHSA GARCIA MD Jul 22, 2019 21:47
[2019-07-22 21:57] VITALS: BP 127/72
[2019-07-22] MEDS ORDERED: PRED50TA PO (22:07)
--- NOTE | 2019-07-23 06:19 | EKG ---
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
== END 2019-07-22 22:10 | disposition home or self-care (01) ==
LOC: ER 19:54
DX: J44.1 Chronic obstructive pulmonary disease with (acute) exacerbation (principal); A41.9 Sepsis, unspecified organism; Z71.6 Tobacco abuse counseling; F11.10 Opioid abuse, uncomplicated; E11.9 Type 2 diabetes mellitus without complications; Z91.14 Patient's other noncompliance with medication regimen; Z96.642 Presence of left artificial hip joint; Z91.041 Radiographic dye allergy status
CPT/HCPCS: 36415; 71046; 80053; 81001; 82550; 83605; 83880; 84484; 85007; 85025; 87040; 93005; 94640; 96374; 96375; 99285; J0696; J2930; J3010; J7030; J7620

== ENCOUNTER 2019-08-09 17:39 | Emergency (ER) | payer MEDICAID ==
[~2019-08-09] VITALS: Ht 175.3 cm; Wt 113.9 kg
[2019-08-09 18:06] LABS: BASO # 0.1 x10^3/uL (0.0-0.2); BASO % 1 % (0-3); EOS # 1.1 x10^3/uL (0.0-0.7); EOS % 11 % (0-3); HEMATOCRIT 45.4 % (39.0-53.0); LYMPH # 1.6 x10^3/uL (1.0-4.8); LYMPH % 15 % (24-48); MEAN CORPUSCULAR HEMOGLOBIN 30 pg (25-35); MEAN CORPUSCULAR HGB CONC 33 g/dL (31-37); MEAN CORPUSCULAR VOLUME 90 fL (79-100); MONO % 10 % (0-9); NEUT # 6.7 x10^3/uL (1.8-7.7); NEUT % 63 % (31-73); PLATELET COUNT 327 x10^3/uL (140-400); RED BLOOD COUNT 5.03 x10^6/uL (4.30-5.70); RED CELL DISTRIBUTION WIDTH 16.4 % (11.5-14.5); WHITE BLOOD COUNT 10.5 x10^3/uL (4.0-11.0)
[2019-08-09] MEDS ORDERED: methylPREDNISolone SOD SUCC PF 125 MG/2 ML VIAL. IV ONE (18:15)
[2019-08-09] MEDS ORDERED: fentaNYL PF VIAL 100 MCG/2 ML VIAL IV ONE (18:15)
[2019-08-09] MEDS ORDERED: IPRATRPIUM/ALBUTEROL 0.5/2.5MG 3 ML NEBU. NEB ONE (18:15)
[2019-08-09 18:16] LABS: PROTHROMBIN TIME PATIENT 12.8 SEC (11.7-14.0)
[2019-08-09 18:18] LABS: CALCIUM 9.3 mg/dL (8.5-10.1); POTASSIUM 3.8 mmol/L (3.5-5.1)
[2019-08-09 18:24] LABS: ALBUMIN 3.6 g/dL (3.4-5.0); ALBUMIN/GLOBULIN RATIO 0.8 (1.0-1.7); MAGNESIUM 1.9 mg/dL (1.8-2.4); TOTAL BILIRUBIN 0.5 mg/dL (0.2-1.0)
[2019-08-09 18:49] LABS: % ATYL 4 % (0-0); % BANDS 3 % (0-9); % EOS 9 % (0-5); % LYMPHS 19 % (24-48); % MONOS 15 % (0-10); % SEGS 50 % (35-66); PLT ESTIMATE ADEQUATE (ADEQUATE)
[2019-08-09 19:00] VITALS: BP 143/79
--- NOTE | 2019-08-09 19:00 | RAD ---
Exam: Chest 2 views INDICATION: Shortness of breath TECHNIQUE: Frontal and lateral views of the chest Comparisons: 07/22/2019 FINDINGS: The cardiomediastinal silhouette and pulmonary vessels are within normal limits. Mild patchy opacities at the lung bases bilaterally. No pleural effusion. IMPRESSION: Improving aeration of the lungs with mild residual patchy opacity at the lung bases may represent sequela of prior infection versus residual infection. Follow-up imaging posttreatment with CT is recommended to ensure resolution. Electronically signed by: Edelmira Leonard MD (08/09/2019 6:57 PM) [facility]
[2019-08-09] MEDS ORDERED: PRED50TA PO (19:27)
--- NOTE | 2019-08-09 19:28 | PHYS DOC ---
Past Medical History Past Medical History: COPD, Diabetes-Type II, Pneumonia Additional Past Medical Histor: Home O2 at night 3L Past Surgical History: Hip Replacement Additional Past Surgical Histo: RIGHT SHOULDER, LEFT KNEE, LEFT HIP Alcohol Use: None Drug Use: None Adult General Chief Complaint Chief Complaint: SHORTNESS OF BREATH HPI HPI Patient is a 59 year old male who presents to the ER with complaints of shortness of breath and bilateral side pain since last night. Pt denies any chest pain, palpitations, nausea, vomiting, abdominal pain, or back pain. Pt states he last had to take prednisone for his COPD 3 weeks ago. He has been taking his COPD medications as prescribed. Currently, he rates his pain a 10/10, there are no alleviating factors. He denies any recent lengthy travel. Review of Systems Review of Systems Constitutional: Denies fever or chills [] Eyes: Denies change in visual acuity, redness, or eye pain [] HENT: Denies nasal congestion or sore throat [] Respiratory: See HPI Cardiovascular: No additional information not addressed in HPI [] GI: Denies abdominal pain, nausea, vomiting, or diarrhea [] : Denies dysuria or hematuria [] Musculoskeletal: Denies back pain or joint pain [] Integument: Denies rash or skin lesions [] Neurologic: Denies headache, focal weakness or sensory changes [] Complete systems were reviewed and found to be within normal limits, except as documented in this note. Current Medications Current Medications Current Medications Medications (Trade) Dose Ordered Sig/Paulino Start Time Stop Time Status Last Admin Dose Admin Albuterol/ Ipratropium (Duoneb) 3 ml 1X ONCE 08/09/19 18:15 08/09/19 18:16 DC 08/09/19 18:30 3 ML Fentanyl Citrate (Fentanyl 2ml Vial) 50 mcg 1X ONCE 08/09/19 18:15 08/09/19 18:16 DC 08/09/19 18:17 50 MCG Methylprednisolone Sodium Succinate (SOLU-Medrol 125MG VIAL) 125 mg 1X ONCE 08/09/19 18:15 08/09/19 18:16 DC 08/09/19 18:17 125 MG Allergies Allergies Allergies Coded Allergies Type Severity Reaction Last Updated Verified I S O L A T I O N *CONTACT* Allergy Unknown 11/28/18 Yes No Known Medication Allergies Allergy Unknown 11/28/18 Yes Physical Exam Physical Exam Constitutional: Well developed, well nourished, no acute distress, non-toxic appearance, obese [] HENT: Normocephalic, atraumatic, bilateral external ears normal, oropharynx moist, no oral exudates, nose normal. [] Eyes: PERRLA, EOMI, conjunctiva normal, no discharge. [] Neck: Normal range of motion, no tenderness, supple, no stridor. [] Cardiovascular:Heart rate regular rhythm, no murmur [] Lungs & Thorax: Bilateral breath sounds expiratory wheezes throughout all epps, diminished in bases bilat, no retractions, speaking full sentences Abdomen: soft, no tenderness, no masses, no pulsatile masses. [] Skin: Warm, dry, no erythema, no rash. [] Back: No tenderness Extremities: No cyanosis, no clubbing, ROM intact, no edema. [] Neurologic: Alert and oriented X 3, no focal deficits noted. [] Psychologic: Affect normal, judgement normal, mood normal. [] Current Patient Data Vital Signs Vital Signs Date Time Temp Pulse Resp B/P (MAP) Pulse Ox O2 Delivery O2 Flow Rate FiO2 08/09/19 19:00 92 16 143/79 (100) 92 Nasal Cannula 2.0 08/09/19 17:52 98.6 98.6 Lab Values Laboratory Tests Test 08/09/19 17:50 White Blood Count 10.5 x10^3/uL (4.0-11.0) Red Blood Count 5.03 x10^6/uL (4.30-5.70) Hemoglobin 15.0 g/dL (13.0-17.5) Hematocrit 45.4 % (39.0-53.0) Mean Corpuscular Volume 90 fL (79-100) Mean Corpuscular Hemoglobin 30 pg (25-35) Mean Corpuscular Hemoglobin Concent 33 g/dL (31-37) Red Cell Distribution Width 16.4 % (11.5-14.5) H Platelet Count 327 x10^3/uL (140-400) Neutrophils (%) (Auto) 63 % (31-73) Lymphocytes (%) (Auto) 15 % (24-48) L Monocytes (%) (Auto) 10 % (0-9) H Eosinophils (%) (Auto) 11 % (0-3) H Basophils (%) (Auto) 1 % (0-3) Neutrophils # (Auto) 6.7 x10^3/uL (1.8-7.7) Lymphocytes # (Auto) 1.6 x10^3/uL (1.0-4.8) Monocytes # (Auto) 1.0 x10^3/uL (0.0-1.1) Eosinophils # (Auto) 1.1 x10^3/uL (0.0-0.7) H Basophils # (Auto) 0.1 x10^3/uL (0.0-0.2) Segmented Neutrophils % 50 % (35-66) Band Neutrophils % 3 % (0-9) Lymphocytes % 19 % (24-48) L Atypical Lymphocytes % (Manual) 4 % (0-0) H Monocytes % 15 % (0-10) H Eosinophils % 9 % (0-5) H Platelet Estimate Adequate (ADEQUATE) Prothrombin Time 12.8 SEC (11.7-14.0) Prothrombin Time INR 1.0 (0.8-1.1) Activated Partial Thromboplast Time 30 SEC (24-38) Sodium Level 141 mmol/L (136-145) Potassium Level 3.8 mmol/L (3.5-5.1) Chloride Level 104 mmol/L (98-107) Carbon Dioxide Level 29 mmol/L (21-32) Anion Gap 8 (6-14) Blood Urea Nitrogen 8 mg/dL (8-26) Creatinine 1.0 mg/dL (0.7-1.3) Estimated GFR (Cockcroft-Gault) 77.0 BUN/Creatinine Ratio 8 (6-20) Glucose Level 186 mg/dL (70-99) H Calcium Level 9.3 mg/dL (8.5-10.1) Magnesium Level 1.9 mg/dL (1.8-2.4) Total Bilirubin 0.5 mg/dL (0.2-1.0) Aspartate Amino Transferase (AST) 13 U/L (15-37) L Alanine Aminotransferase (ALT) 23 U/L (16-63) Alkaline Phosphatase 99 U/L (46-116) Creatine Kinase 228 U/L (39-308) Creatine Kinase MB (Mass) 2.4 ng/mL (0.0-3.6) Creatine Kinase MB Relative Index 1.1 % (0-4) Troponin I Quantitative < 0.017 ng/mL (0.000-0.055) FY-Cqz-O-Type Natriuretic Peptide 11 pg/mL (0-124) Total Protein 8.0 g/dL (6.4-8.2) Albumin 3.6 g/dL (3.4-5.0) Albumin/Globulin Ratio 0.8 (1.0-1.7) L Laboratory Tests 08/09/19 17:50 Laboratory Tests 08/09/19 17:50 EKG EKG 1748- SR rate of 92, No STEMI, read by Dr. Palomares[] Radiology/Procedures Radiology/Procedures PROCEDURE: CHEST PA & LATERAL Exam: Chest 2 views INDICATION: Shortness of breath TECHNIQUE: Frontal and lateral views of the chest Comparisons: 07/22/2019 FINDINGS: The cardiomediastinal silhouette and pulmonary vessels are within normal limits. Mild patchy opacities at the lung bases bilaterally. No pleural effusion. IMPRESSION: Improving aeration of the lungs with mild residual patchy opacity at the lung bases may represent sequela of prior infection versus residual infection. Follow-up imaging posttreatment with CT is recommended to ensure resolution. [] Course & Med Decision Making Course & Med Decision Making Pertinent Labs and Imaging studies reviewed. (See chart for details) dx: COPD exacerbation Pt was given a duoneb treatment, 125 mg of solumedrol and 50 mcg of fentanyl in the ER, he reports feeling better after medications NO acute findings on CXR CBC unremarkable, PT/INR WNL, CMP: glucose 186, otherwise unremarkable, BNP 11, Troponin < 0.017, EKG no acute changes Prescription written for prednisone 50 mg po q d x 5 days to begin taking tomorrow. Pt to follow up w/PCP this week, return to ER if sx worsen. Patient verbalized an understanding of home care, medications, follow-up, and return to ED instructions and was in agreement with the plan of care. [] Dragon Disclaimer Dragon Disclaimer This electronic medical record was generated, in whole or in part, using a voice recognition dictation system. Departure Departure Impression: Primary Impression: COPD exacerbation Disposition: HOME, SELF-CARE Condition: STABLE Referrals: KATHRYN SWIFT MD (PCP) Patient Instructions: Chronic Obstructive Pulmonary Disease Exacerbation, [id number] Additional Instructions: Fill the Prescription and use as directed. Continue taking your home medications as prescribed. Avoid exposure to airway irritants such as dust, smoke, pollen, and animal dander. Return to the ER if your symptoms worsen. Follow-up with your primary care doctor this week. Scripts Prednisone (PREDNISONE) 50 Mg Tablet 1 TAB PO DAILY for 5 Days, #5 TAB 0 Refills begin taking on 08/10/19 Prov: SHIKHA COX APRN 08/09/19 SHIKHA COX APRN Aug 09, 2019 19:27
--- NOTE | 2019-08-10 08:55 | EKG ---
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
== END 2019-08-09 19:41 | disposition home or self-care (01) ==
LOC: ER 17:39
DX: J44.1 Chronic obstructive pulmonary disease with (acute) exacerbation (principal); E11.9 Type 2 diabetes mellitus without complications; Z96.642 Presence of left artificial hip joint; Z91.041 Radiographic dye allergy status
CPT/HCPCS: 36415; 71046; 80053; 82553; 83735; 83880; 84484; 85007; 85025; 85610; 85730; 93005; 94640; 96374; 96375; 99285; J2930; J3010; J7620

== ENCOUNTER 2019-10-07 14:49 | Emergency (ER) | payer MEDICAID ==
[~2019-10-07] VITALS: Ht 175.3 cm; Wt 114.3 kg
[~2019-10-07 14:49] MED LIST changes: +DOXY-96 PO; -DOXY100T9 PO; +SIMV40TA18 PO; -SIMV40TA3 PO
[2019-10-07] MEDS ORDERED: ALBUTEROL SULFATE 2.5 MG/3 ML NEBU. NEB ONE (15:45)
[2019-10-07] MEDS ORDERED: methylPREDNISolone SOD SUCC PF 125 MG/2 ML VIAL. IV ONE (15:45)
[2019-10-07] MEDS ORDERED: oxyCODONE/APAP 10/325 1 TAB TABLET PO ONE (15:45)
--- NOTE | 2019-10-07 15:56 | RAD ---
Single AP view of the chest. Comparison: 08/21/2019. Indication: Shortness of air since last night productive cough Findings: The heart is not enlarged. There is no pneumothorax or effusion. There is mild airspace disease in the right lung base. Impression: 1. Mild right basilar airspace disease may represent pneumonia given history. Electronically signed by: Edward Pardo MD (10/07/2019 3:53 PM) [facility]
[2019-10-07 16:19] LABS: BASO # 0.1 x10^3/uL (0.0-0.2); BASO % 1 % (0-3); EOS # 0.5 x10^3/uL (0.0-0.7); EOS % 3 % (0-3); HEMATOCRIT 40.8 % (39.0-53.0); HEMOGLOBIN 13.3 g/dL (13.0-17.5); LYMPH # 1.8 x10^3/uL (1.0-4.8); LYMPH % 10 % (24-48); MEAN CORPUSCULAR HEMOGLOBIN 30 pg (25-35); MEAN CORPUSCULAR HGB CONC 33 g/dL (31-37); MEAN CORPUSCULAR VOLUME 91 fL (79-100); MONO # 1.7 x10^3/uL (0.0-1.1); MONO % 10 % (0-9); NEUT # 13.6 x10^3/uL (1.8-7.7); NEUT % 77 % (31-73); PLATELET COUNT 333 x10^3/uL (140-400); RED BLOOD COUNT 4.47 x10^6/uL (4.30-5.70); RED CELL DISTRIBUTION WIDTH 16.3 % (11.5-14.5); WHITE BLOOD COUNT 17.7 x10^3/uL (4.0-11.0)
[2019-10-07 16:25] LABS: PROTHROMBIN TIME PATIENT 13.3 SEC (11.7-14.0)
[2019-10-07 16:28] LABS: CALCIUM 9.1 mg/dL (8.5-10.1); POTASSIUM 3.8 mmol/L (3.5-5.1)
[2019-10-07 16:34] LABS: ALBUMIN 3.2 g/dL (3.4-5.0); ALBUMIN/GLOBULIN RATIO 0.7 (1.0-1.7); TOTAL BILIRUBIN 0.7 mg/dL (0.2-1.0); TOTAL PROTEIN 7.6 g/dL (6.4-8.2)
[2019-10-07 16:41] LABS: % BANDS 9 % (0-9); % EOS 2 % (0-5); % LYMPHS 14 % (24-48); % MONOS 9 % (0-10); % SEGS 66 % (35-66); PLT ESTIMATE ADEQUATE (ADEQUATE)
[2019-10-07] MEDS ORDERED: PROM5SYR2 PO (17:09)
[2019-10-07] MEDS ORDERED: PRED50TA PO (17:09)
[2019-10-07] MEDS ORDERED: AZIT250T6 PO (17:09)
--- NOTE | 2019-10-07 17:09 | PHYS DOC ---
Past Medical History Past Medical History: COPD, Diabetes-Type II, Pneumonia Additional Past Medical Histor: Home O2 at night 3L Past Surgical History: Hip Replacement Additional Past Surgical Histo: RIGHT SHOULDER, LEFT KNEE, LEFT HIP Alcohol Use: None Drug Use: None Adult General Chief Complaint Chief Complaint: SHORTNESS OF BREATH [facility] HPI Patient is a 59 year old male, accompanied by his , who presents to the emergency department with complaints of increased shortness of breath, and a productive cough with yellow sputum since last night. Patient states he has a history of COPD and reports that this is how he feels whenever he has an exacerbation of his COPD. He states that he took 2 breathing treatments of DuoNeb prior to arrival with little improvement in symptoms. Patient denies any fever, chest pain, abdominal pain, nausea, vomiting, diarrhea, swelling of lower extremities, or rash. Patient currently rates his discomfort an 8 out of 10 on pain scale, he requested Percocet for his pain, patient states he is prescribed Percocet 10/325 mg tablets at home for pain but did not take one prior to arrival because he was worried about his breathing. Patient denies any body aches, numbness, tingling, or weakness of the extremities. He states that he tried to call his primary care doctor but no one answered the office phone. All other ROS is neg unless otherwise noted in HPI. Review of Systems Review of Systems See Above Current Medications Current Medications Current Medications Medications (Trade) Dose Ordered Sig/Paulino Start Time Stop Time Status Last Admin Dose Admin Albuterol Sulfate (Ventolin Neb Soln) 2.5 mg 1X ONCE 10/07/19 15:45 10/07/19 15:46 DC 10/07/19 16:26 2.5 MG Methylprednisolone Sodium Succinate (SOLU-Medrol 125MG VIAL) 125 mg 1X ONCE 10/07/19 15:45 10/07/19 15:46 DC 10/07/19 16:30 125 MG Oxycodone/ Acetaminophen (Percocet 10/325) 1 tab 1X ONCE 10/07/19 15:45 10/07/19 15:46 DC 10/07/19 16:30 1 TAB Allergies Allergies Allergies Coded Allergies Type Severity Reaction Last Updated Verified I S O L A T I O N *CONTACT* Allergy Unknown 11/28/18 Yes No Known Medication Allergies Allergy Unknown 11/28/18 Yes Physical Exam Physical Exam See Above Constitutional: Well developed, well nourished, no acute distress, non-toxic appearance. [] HENT: Normocephalic, atraumatic, bilateral external ears normal, oropharynx moist, no oral exudates, nose normal. [] Eyes: PERRLA, EOMI, conjunctiva normal, no discharge. [] Neck: Normal range of motion, no stridor. [] Cardiovascular:Heart rate regular tachycardic rhythm, no murmur [] Lungs & Thorax: Bilateral breath course throughout all epps with rhonchi bilaterally, scattered wheezes, and diminished in bilateral bases. No r etractions, respirations mildly labored, speaking full sentences. Abdomen: soft, no tenderness Skin: Warm, dry, no erythema, no rash. [] Back: No tenderness, Extremities: No cyanosis, no clubbing, ROM intact, no edema. [] Neurologic: Alert and oriented X 3, no focal deficits noted. [] Psychologic: Affect normal, judgement normal, mood normal. [] Current Patient Data Vital Signs Vital Signs Date Time Temp Pulse Resp B/P (MAP) Pulse Ox O2 Delivery O2 Flow Rate FiO2 10/07/19 17:30 92 20 134/78 (96) 95 Nasal Cannula 2.0 10/07/19 15:02 98.3 98.3 Lab Values Laboratory Tests Test 10/07/19 16:00 White Blood Count 17.7 x10^3/uL (4.0-11.0) H Red Blood Count 4.47 x10^6/uL (4.30-5.70) Hemoglobin 13.3 g/dL (13.0-17.5) Hematocrit 40.8 % (39.0-53.0) Mean Corpuscular Volume 91 fL (79-100) Mean Corpuscular Hemoglobin 30 pg (25-35) Mean Corpuscular Hemoglobin Concent 33 g/dL (31-37) Red Cell Distribution Width 16.3 % (11.5-14.5) H Platelet Count 333 x10^3/uL (140-400) Neutrophils (%) (Auto) 77 % (31-73) H Lymphocytes (%) (Auto) 10 % (24-48) L Monocytes (%) (Auto) 10 % (0-9) H Eosinophils (%) (Auto) 3 % (0-3) Basophils (%) (Auto) 1 % (0-3) Neutrophils # (Auto) 13.6 x10^3/uL (1.8-7.7) H Lymphocytes # (Auto) 1.8 x10^3/uL (1.0-4.8) Monocytes # (Auto) 1.7 x10^3/uL (0.0-1.1) H Eosinophils # (Auto) 0.5 x10^3/uL (0.0-0.7) Basophils # (Auto) 0.1 x10^3/uL (0.0-0.2) Segmented Neutrophils % 66 % (35-66) Band Neutrophils % 9 % (0-9) Lymphocytes % 14 % (24-48) L Monocytes % 9 % (0-10) Eosinophils % 2 % (0-5) Platelet Estimate Adequate (ADEQUATE) Prothrombin Time 13.3 SEC (11.7-14.0) Prothrombin Time INR 1.0 (0.8-1.1) Activated Partial Thromboplast Time 30 SEC (24-38) Sodium Level 143 mmol/L (136-145) Potassium Level 3.8 mmol/L (3.5-5.1) Chloride Level 103 mmol/L (98-107) Carbon Dioxide Level 29 mmol/L (21-32) Anion Gap 11 (6-14) Blood Urea Nitrogen 7 mg/dL (8-26) L Creatinine 1.0 mg/dL (0.7-1.3) Estimated GFR (Cockcroft-Gault) 77.0 BUN/Creatinine Ratio 7 (6-20) Glucose Level 134 mg/dL (70-99) H Calcium Level 9.1 mg/dL (8.5-10.1) Total Bilirubin 0.7 mg/dL (0.2-1.0) Aspartate Amino Transferase (AST) 14 U/L (15-37) L Alanine Aminotransferase (ALT) 20 U/L (16-63) Alkaline Phosphatase 113 U/L (46-116) Creatine Kinase 221 U/L (39-308) Creatine Kinase MB (Mass) 1.8 ng/mL (0.0-3.6) Creatine Kinase MB Relative Index 0.8 % (0-4) Troponin I Quantitative < 0.017 ng/mL (0.000-0.055) [id number] Natriuretic Peptide 136 pg/mL (0-124) H Total Protein 7.6 g/dL (6.4-8.2) Albumin 3.2 g/dL (3.4-5.0) L Albumin/Globulin Ratio 0.7 (1.0-1.7) L Laboratory Tests 10/07/19 16:00 Laboratory Tests 10/07/19 16:00 EKG EKG 1536- Sinus tach rate of 104, otherwise normal, read by Dr. Hameed, no STEMI[] Radiology/Procedures Radiology/Procedures PROCEDURE: CHEST AP ONLY Single AP view of the chest. Comparison: 08/21/2019. Indication: Shortness of air since last night productive cough Findings: The heart is not enlarged. There is no pneumothorax or effusion. There is mild airspace disease in the right lung base. Impression: 1. Mild right basilar airspace disease may represent pneumonia given history. [] Course & Med Decision Making Course & Med Decision Making Pertinent Labs and Imaging studies reviewed. (See chart for details) dx: Acute COPD exacerbation, bronchitis. Patient was given 125 of Solu-Medrol IV, and a Percocet 10/325 mg tablet. He was given an albuterol breathing treatment. Patient reported feeling better after these interventions. Patient was offered admission to the hospital however he declined and stated he would like to go home. Patient requests [id number] Phenergan With Codeine cough syrup, we'll prescribe 3 days worth. Prescription also written for prednisone 50 mg by mouth daily 5 days to begin tomorrow and Zithromax Dosepak to take as directed 5 days. Patient instructed to follow-up with his primary care doctor in the next 1-2 days, return to the ER if symptoms worsen. Patient Complete systems were reviewed and found to be within normal limits, except as documented in this note. [] Dragon Disclaimer Dragon Disclaimer This electronic medical record was generated, in whole or in part, using a voice recognition dictation system. Departure Departure Impression: Primary Impression: COPD (chronic obstructive pulmonary disease) Additional Impressions: Bronchitis COPD exacerbation Disposition: HOME, SELF-CARE Condition: STABLE Referrals: KATHRYN SWIFT MD (PCP) Patient Instructions: Chronic Obstructive Pulmonary Disease Exacerbation, [id number] Additional Instructions: Fill prescription(s) and use as directed. Recommend use of a Cool mist humidifier in room at bedtime. Alternate Tylenol or ibuprofen as needed for pain/fever. Increase clear fluids. Avoid airway triggers such as smoke, fragrance, dust, and pollen. Follow-up with your primary care doctor in 1-2 days, return to the ER if symptoms worsen. Scripts Promethazine HCl/Codeine (Prometh-Codein 6.25-10 mg/5 ml) 5 Ml Syrup 5 ML PO PRN Q4-6HRS PRN for cough MDD 30 Milliliter(s), #60 ML 0 Refills Prov: SHIKHA COX APRN 10/07/19 Prednisone (PREDNISONE) 50 Mg Tablet 1 TAB PO DAILY for 5 Days, #5 TAB 0 Refills start taking on 10/08/19 Prov: SHIKHA COX APRN 10/07/19 Azithromycin (AZITHROMYCIN TABLET) 250 Mg Tablet 1 PKG PO UD for 5 Days, #6 TAB 0 Refills 2 the first day followed by 1 for days 2-5 Prov: SHIKHA COX APRN 10/07/19 Problem Qualifiers Primary Impression: COPD (chronic obstructive pulmonary disease) COPD type: COPD with acute lower respiratory infection Qualified Codes: J44.0 - Chronic obstructive pulmonary disease with (acute) lower respiratory infection SHIKHA COX APRN Oct 07, 2019 17:09
[2019-10-07 17:30] VITALS: BP 134/78
--- NOTE | 2019-10-08 07:11 | EKG ---
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
== END 2019-10-07 18:08 | disposition home or self-care (01) ==
LOC: ER 14:49
DX: J44.1 Chronic obstructive pulmonary disease with (acute) exacerbation (principal); E11.9 Type 2 diabetes mellitus without complications; Z91.041 Radiographic dye allergy status
CPT/HCPCS: 36415; 71045; 80053; 82553; 83880; 84484; 85007; 85025; 85610; 85730; 93005; 94640; 96374; 99285; J2930; J7613

== ENCOUNTER 2019-10-29 17:54 | Inpatient (IN) | payer MEDICAID ==
[~2019-10-29] VITALS: Ht 175.3 cm; Wt 112.5 kg
[2019-10-29] MEDS ORDERED: ALBUTEROL SULFATE 2.5 MG/3 ML NEBU. ONE (18:06)
[2019-10-29] MEDS ORDERED: fentaNYL PF VIAL 100 MCG/2 ML VIAL IVP ONE (18:15)
[2019-10-29] MEDS ORDERED: IPRATROPIUM BROMIDE 0.5 MG/2.5 ML NEBU. NEB ONE (18:15)
[2019-10-29] MEDS ORDERED: IPRATRPIUM/ALBUTEROL 0.5/2.5MG 3 ML NEBU. NEB ONE (18:15)
[2019-10-29] MEDS ORDERED: ALBUTEROL SULFATE 2.5 MG/3 ML NEBU. CONT NEB ONE (18:15)
[2019-10-29] MEDS ORDERED: methylPREDNISolone SOD SUCC PF 125 MG/2 ML VIAL. IV ONE (18:15)
[2019-10-29 18:17] LABS: BASO # 0.1 x10^3/uL (0.0-0.2); BASO % 1 % (0-3); EOS # 0.8 x10^3/uL (0.0-0.7); EOS % 6 % (0-3); HEMOGLOBIN 13.8 g/dL (13.0-17.5); LYMPH # 1.7 x10^3/uL (1.0-4.8); LYMPH % 14 % (24-48); MEAN CORPUSCULAR HEMOGLOBIN 30 pg (25-35); MEAN CORPUSCULAR HGB CONC 34 g/dL (31-37); MEAN CORPUSCULAR VOLUME 90 fL (79-100); MONO # 1.5 x10^3/uL (0.0-1.1); MONO % 12 % (0-9); NEUT # 8.6 x10^3/uL (1.8-7.7); NEUT % 68 % (31-73); PLATELET COUNT 464 x10^3/uL (140-400); RED BLOOD COUNT 4.54 x10^6/uL (4.30-5.70); RED CELL DISTRIBUTION WIDTH 14.9 % (11.5-14.5); WHITE BLOOD COUNT 12.6 x10^3/uL (4.0-11.0)
--- NOTE | 2019-10-29 18:20 | RAD ---
AP chest x-ray HISTORY: Shortness of breath. COMPARISON: Chest x-ray October 07, 2019. FINDINGS: Heart size normal. Mediastinal silhouette is normal. No pneumothorax. No pleural effusions. Coarse interstitial markings diffusely as present on prior studies although mildly progressed. No focal pulmonary opacity.. . No pleural effusions. IMPRESSION: Chronic coarse interstitial markings slightly progressed from prior studies likely represents chronic interstitial lung disease with superimposed interstitial thickening from either edema or atypical infection. Electronically signed by: Samuel Burns MD (10/29/2019 6:17 PM) [facility]
--- NOTE | 2019-10-29 18:23 | PHYS DOC ---
Past Medical History Past Medical History: COPD, Diabetes-Type II, Pneumonia Additional Past Medical Histor: Home O2 at night 3L (BANNERJUAN A HUMPHREYS WIRELESS TELEGRAPHER) Past Surgical History: Hip Replacement Additional Past Surgical Histo: RIGHT SHOULDER, LEFT KNEE, LEFT HIP (BANNERJUAN A HUMPHREYS WIRELESS TELEGRAPHER) Alcohol Use: None Drug Use: None (BANNERJUAN A HUMPHREYS WIRELESS TELEGRAPHER) Date and Time of Assessment Date: Oct 29, 2019 Time: 18:33 ([facility]) Vital Signs Vital Signs: Vital Signs Date Time Temp Pulse Resp B/P (MAP) Pulse Ox O2 Delivery O2 Flow Rate FiO2 10/29/19 18:30 122 155/91 (112) 96 Nasal Cannula 4.0 10/29/19 17:55 98.9 28 98.9 (GONSALEZ,CHELSEA R DO) Temperature Source: Oral ([facility] WIREL[facility] TELEGRAPHER) Temperature Source: Oral (GONSALEZ,CHELSEA R DO) Respirations Respiratory Effort: Shortness of breath Respiratory Pattern: Tachypnea (BANNERANGELA HUMPHREYSA WIRELESS TELEGRAPHER) Cardiovascular Pulse Rhythm: Regular Heart: Nml S1, S2, no murmurs ([facility] WIRELESS TELEGRAPHER) Lung Sounds Breath Sounds: Coarse, Diminished ([facility]LE[facility]APHER) Capillary Refil Capillary Refill: Rt Hand > 3 seconds (BANNERANGELA HUMPHREYSA M WIRELESS TELEGRAPHER) Peripheral Pulse Pulse Location: Radial Pulse Strength: Normal (2+) Pulse Assessment Method: Monitor ([facility] WIRELESS TELEGRAPHER) Pulse Assessment Method: Monitor (GONSALEZ,CHELSEA R DO) Integumentary Skin: Warm Skin Moisture: Dry Skin Turgor: Normal Skin Color: warm Fingernail Color: WNL ([facility] A M WIRELESS TELEGRAPHER) Fluid Challenge Is the fluid challenge complet: No IBW Target Volume Used: Yes BMI > 30: Yes ([facility] WIRELESS TELEGRAPHER) Adult General Chief Complaint Chief Complaint: SHORTNESS OF BREATH HPI HPI Patient is a 59 year old male who presents with was here on October 07, 2019 with a COPD accessed patient declined to be admitted. Patient was sent home with azithromycin, prednisone and promethazine with codeine. Patient states that it "did not help his COPD exacerbation and slight pneumonia". Patient states for the last week he has been having a very hard time breathing especially when he gets up and tries to walk. Patient states he cannot walk very far without becoming too breathless. Patient states he hurts all over his body and especially in his upper back and chest when he is coughing. Patient rates his pain an 8 out of 10. (JUAN A TRAYLOR APRN) Review of Systems Review of Systems Respiratory: cough or shortness of breath [] Cardiovascular: Pain with cough Musculoskeletal: Upper back pain with cough or joint pain [] All other systems were reviewed and found to be within normal limits, except as documented in this note. (JUAN A TRAYLOR APRN) Current Medications Current Medications Current Medications Medications (Trade) Dose Ordered Sig/Paulino Start Time Stop Time Status Last Admin Dose Admin Albuterol Sulfate (Ventolin Neb Soln) 10 mg 1X ONCE 10/29/19 18:15 10/29/19 18:21 DC 10/29/19 18:24 10 MG Albuterol/ Ipratropium (Duoneb) 3 ml 1X ONCE 10/29/19 18:15 10/29/19 18:16 DC Fentanyl Citrate (Fentanyl 2ml Vial) 50 mcg 1X ONCE 10/29/19 18:15 10/29/19 18:17 DC 10/29/19 18:38 50 MCG Ipratropium Grant (Atrovent) 0.5 mg 1X ONCE 10/29/19 18:15 10/29/19 18:21 DC 10/29/19 18:24 0.5 MG Methylprednisolone Sodium Succinate (SOLU-Medrol 125MG VIAL) 125 mg 1X ONCE 10/29/19 18:15 10/29/19 18:16 DC 10/29/19 18:38 125 MG Piperacillin Sod/ Tazobactam Sod 3.375 gm/Sodium Chloride 50 ml @ 100 mls/hr 1X ONCE 10/29/19 18:30 10/29/19 18:59 DC 10/29/19 18:39 100 MLS/HR Sodium Chloride 500 ml @ 500 mls/hr 1X ONCE 10/29/19 18:30 10/29/19 19:29 (CHELSEA GONSALEZ DO) Allergies Allergies Allergies Coded Allergies Type Severity Reaction Last Updated Verified I S O L A T I O N *CONTACT* Allergy Unknown 11/28/18 Yes No Known Medication Allergies Allergy Unknown 11/28/18 Yes (CHELSEA GONSALEZ DO) Physical Exam Physical Exam Constitutional: Well developed, well nourished, no acute distress, non-toxic appearance. [] HENT: Normocephalic, atraumatic, bilateral external ears normal, oropharynx moist, no oral exudates, nose normal. [] Eyes: PERRLA, EOMI, conjunctiva normal, no discharge. [] Neck: Normal range of motion, no tenderness, supple, no stridor. [] Cardiovascular:Heart Tachy rate regular rhythm, no murmur [] Lungs & Thorax: Bilateral breath sounds diminished with Left side upper coarse sounds to auscultation [] Abdomen: Bowel sounds normal, soft, no tenderness, no masses, no pulsatile masses. [] Skin: Warm, dry, no erythema, no rash. [] Back: No tenderness, no CVA tenderness. [] Extremities: No tenderness, no cyanosis, no clubbing, ROM intact, no edema. [] Neurologic: Alert and oriented X 3, normal motor function, normal sensory function, no focal deficits noted. [] Psychologic: Affect normal, judgement normal, mood normal. [] (LAYTON,JUAN A Rice APRN) Current Patient Data Vital Signs Vital Signs Date Time Temp Pulse Resp B/P (MAP) Pulse Ox O2 Delivery O2 Flow Rate FiO2 10/29/19 18:30 122 155/91 (112) 96 Nasal Cannula 4.0 10/29/19 17:55 98.9 28 98.9 (CHELSEA GONSALEZ DO) Lab Values Laboratory Tests Test 10/29/19 18:06 White Blood Count 12.6 x10^3/uL (4.0-11.0) H Red Blood Count 4.54 x10^6/uL (4.30-5.70) Hemoglobin 13.8 g/dL (13.0-17.5) Hematocrit 41.0 % (39.0-53.0) Mean Corpuscular Volume 90 fL (79-100) Mean Corpuscular Hemoglobin 30 pg (25-35) Mean Corpuscular Hemoglobin Concent 34 g/dL (31-37) Red Cell Distribution Width 14.9 % (11.5-14.5) H Platelet Count 464 x10^3/uL (140-400) H Neutrophils (%) (Auto) 68 % (31-73) Lymphocytes (%) (Auto) 14 % (24-48) L Monocytes (%) (Auto) 12 % (0-9) H Eosinophils (%) (Auto) 6 % (0-3) H Basophils (%) (Auto) 1 % (0-3) Neutrophils # (Auto) 8.6 x10^3/uL (1.8-7.7) H Lymphocytes # (Auto) 1.7 x10^3/uL (1.0-4.8) Monocytes # (Auto) 1.5 x10^3/uL (0.0-1.1) H Eosinophils # (Auto) 0.8 x10^3/uL (0.0-0.7) H Basophils # (Auto) 0.1 x10^3/uL (0.0-0.2) Sodium Level 138 mmol/L (136-145) Potassium Level 3.8 mmol/L (3.5-5.1) Chloride Level 98 mmol/L (98-107) Carbon Dioxide Level 30 mmol/L (21-32) Anion Gap 10 (6-14) Blood Urea Nitrogen 5 mg/dL (8-26) L Creatinine 1.1 mg/dL (0.7-1.3) Estimated GFR (Cockcroft-Gault) 69.0 BUN/Creatinine Ratio 5 (6-20) L Glucose Level 157 mg/dL (70-99) H Lactic Acid Level 2.0 mmol/L (0.4-2.0) Calcium Level 10.0 mg/dL (8.5-10.1) Total Bilirubin 0.2 mg/dL (0.2-1.0) Aspartate Amino Transferase (AST) 16 U/L (15-37) Alanine Aminotransferase (ALT) 19 U/L (16-63) Alkaline Phosphatase 123 U/L (46-116) H Troponin I Quantitative < 0.017 ng/mL (0.000-0.055) Total Protein 8.9 g/dL (6.4-8.2) H Albumin 2.8 g/dL (3.4-5.0) L Albumin/Globulin Ratio 0.5 (1.0-1.7) L Laboratory Tests 10/29/19 18:06 Laboratory Tests 10/29/19 18:06 (CHELSEA GONSALEZ DO) Lab Values Laboratory Tests Test 10/29/19 18:06 White Blood Count 12.6 x10^3/uL (4.0-11.0) H Red Blood Count 4.54 x10^6/uL (4.30-5.70) Hemoglobin 13.8 g/dL (13.0-17.5) Hematocrit 41.0 % (39.0-53.0) Mean Corpuscular Volume 90 fL (79-100) Mean Corpuscular Hemoglobin 30 pg (25-35) Mean Corpuscular Hemoglobin Concent 34 g/dL (31-37) Red Cell Distribution Width 14.9 % (11.5-14.5) H Platelet Count 464 x10^3/uL (140-400) H Neutrophils (%) (Auto) 68 % (31-73) Lymphocytes (%) (Auto) 14 % (24-48) L Monocytes (%) (Auto) 12 % (0-9) H Eosinophils (%) (Auto) 6 % (0-3) H Basophils (%) (Auto) 1 % (0-3) Neutrophils # (Auto) 8.6 x10^3/uL (1.8-7.7) H Lymphocytes # (Auto) 1.7 x10^3/uL (1.0-4.8) Monocytes # (Auto) 1.5 x10^3/uL (0.0-1.1) H Eosinophils # (Auto) 0.8 x10^3/uL (0.0-0.7) H Basophils # (Auto) 0.1 x10^3/uL (0.0-0.2) Sodium Level 138 mmol/L (136-145) Potassium Level 3.8 mmol/L (3.5-5.1) Chloride Level 98 mmol/L (98-107) Carbon Dioxide Level 30 mmol/L (21-32) Anion Gap 10 (6-14) Blood Urea Nitrogen 5 mg/dL (8-26) L Creatinine 1.1 mg/dL (0.7-1.3) Estimated GFR (Cockcroft-Gault) 69.0 BUN/Creatinine Ratio 5 (6-20) L Glucose Level 157 mg/dL (70-99) H Lactic Acid Level 2.0 mmol/L (0.4-2.0) Calcium Level 10.0 mg/dL (8.5-10.1) Total Bilirubin 0.2 mg/dL (0.2-1.0) Aspartate Amino Transferase (AST) 16 U/L (15-37) Alanine Aminotransferase (ALT) 19 U/L (16-63) Alkaline Phosphatase 123 U/L (46-116) H Troponin I Quantitative < 0.017 ng/mL (0.000-0.055) Total Protein 8.9 g/dL (6.4-8.2) H Albumin 2.8 g/dL (3.4-5.0) L Albumin/Globulin Ratio 0.5 (1.0-1.7) L Laboratory Tests 10/29/19 18:06 Laboratory Tests 10/29/19 18:06 (JUAN A TRAYLOR APRN) EKG EKG Sinus Tachycardia and no STEMI[] Interpretation Time: [address] Gonsalez (JUAN A TRAYLOR APRN) Radiology/Procedures Radiology/Procedures [] (JUAN A TRAYLOR APRN) Impressions: [facility] [address] [place] [address] IMAGING REPORT Signed PATIENT: AVRIL CHOU DACCOUNT: [id number] : 1960 LOCATION: ER AGE: 59 SEX: M EXAM STATUS: REG ER ORD. PHYSICIAN: JUAN A TRAYLOR APRN REASON: soa PROCEDURE: PORTABLE CHEST 1V AP chest x-ray HISTORY: Shortness of breath. COMPARISON: Chest x-ray October 07, 2019. FINDINGS: Heart size normal. Mediastinal silhouette is normal. No pneumothorax. No pleural effusions. Coarse interstitial markings diffusely as present on prior studies although mildly progressed. No focal pulmonary opacity.. . No pleural effusions. IMPRESSION: Chronic coarse interstitial markings slightly progressed from prior studies likely represents chronic interstitial lung disease with superimposed interstitial thickening from either edema or atypical infection. Electronically signed by: Josué Burns MD (10/29/2019 6:17 PM) [facility] DICTATED and SIGNED BY: JOSUÉ BURNS MD DATE: 10/29/191816 (JUAN A TRAYLOR APRN) Course & Med Decision Making Course & Med Decision Making Alert and oriented. Skin pink warm and dry. Patient speaks in short sentences and is breathless. Patient states he will let us admit him this time. Patient is diminished throughout all lobes in the left upper lobe his course. Abdomen is soft and nontender. No extremity edema. Patient is 92% on 4 L nasal cannula. Patient usually wears 3 L at home. EKG shows sinus tachycardia and no STEMI. Chest Xray shows IMPRESSION: Chronic coarse interstitial markings slightly progressed from prior studies likely represents chronic interstitial lung disease with superimposed interstitial thickening from either edema or atypical infection. Patient meets SIRs criteria. Fluids and antibiotics ordered. Solumedrol 125mg is given. Dr Dial is called and patient is admitted. (JUAN A TRAYLOR APRN) Dragon Disclaimer Dragon Disclaimer This electronic medical record was generated, in whole or in part, using a voice recognition dictation system. (JUAN A TRAYLOR APRN) Departure Departure Impression: Primary Impression: Sepsis Additional Impressions: Pneumonia SIRS (systemic inflammatory response syndrome) Disposition: ADMITTED INPATIENT Admitting Physician: CLOVIS SMITH) (JUAN A TRAYLOR APRN) Condition: STABLE Attending Signature Attending Signature I have reviewed the PA/IP ARCHITECT's note and plan of care. I was available for consultation as needed during the patient's visit in the emergency department. I agree with the clinical impression, plan, and disposition. (CHELSEA GONSALEZ DO) Problem Qualifiers Primary Impression: Sepsis Sepsis type: sepsis due to unspecified organism Sepsis acute organ d ysfunction status: without acute organ dysfunction Qualified Codes: A41.9 - Sepsis, unspecified organism Additional Impressions: Pneumonia Pneumonia type: due to unspecified organism Laterality: unspecified laterality Lung location: unspecified part of lung Qualified Codes: J18.9 - Pneumonia, unspecified organism JUAN A TRAYLOR APRN Oct 29, 2019 18:23 CHELSEA GONSALEZ DO Oct 29, 2019 19:25
[2019-10-29 18:29] LABS: CREATININE 1.1 mg/dL (0.7-1.3); POTASSIUM 3.8 mmol/L (3.5-5.1)
[2019-10-29] MEDS ORDERED: PIPERACILLIN/TAZOBACTAM 3.375 GM in IV NORMAL SALINE 50ML 50 ML IV ONE (18:30)
[2019-10-29] MEDS ORDERED: IV NORMAL SALINE 500ML BAG 500 ML IV ONE (18:30)
[2019-10-29] MEDS ORDERED: IV NORMAL SALINE 1000ML BAG 1,000 ML IV ONE ×2 (18:30)
[2019-10-29 18:42] LABS: ALBUMIN 2.8 g/dL (3.4-5.0); ALBUMIN/GLOBULIN RATIO 0.5 (1.0-1.7); TOTAL BILIRUBIN 0.2 mg/dL (0.2-1.0); TOTAL PROTEIN 8.9 g/dL (6.4-8.2)
[2019-10-29] MEDS ORDERED: levOFLOXacin PER PHARMACY. MC PRN (18:45)
[2019-10-29] MEDS ORDERED: ONDANSETRON PF 4 MG/2 ML VIAL. IV PRN (19:00)
[2019-10-29] MEDS ORDERED: VANCOMYCIN PER PHARMACY MC PRN (19:00)
[2019-10-29] MEDS ORDERED: ACETAMINOPHEN 325 MG TABLET. PO PRN (19:00)
[2019-10-29] MEDS ORDERED: VANCOMYCIN 2 GM in IV NORMAL SALINE 500ML BAG 500 ML IV ONE (19:00)
[2019-10-29 19:45] VITALS: BP 152/93
[2019-10-29] MEDS: IPRATRPIUM/ALBUTEROL 0.5/2.5MG 3 ML NEBU. NEB SCH (20:00)
[2019-10-29] MEDS: fentaNYL PF VIAL 100 MCG/2 ML VIAL IV PRN ×2 (20:30→22:50)
[2019-10-29] MEDS ORDERED: RANI300T PO (20:50)
--- NOTE | 2019-10-29 21:14 | NUR ---
Pharmacy Vancomycin Dosing Note S:Consulted to monitor and dose vancomycin started 10/29/19. O:AVRIL CHOU is a 59 year old M with Sepsis Pneumonia . Height: 5 feet, 9 inches Weight: 112.588458 kg Maxwell Body Weight: 70.70 Adjusted Body Weight: 87.22 Dosing Weight: Actual Other Antibiotics: ZOSYN 3.375GM IV X1 IN ER (10/29) LABS: Last BUN: 5 Last Creatinine: 1.1 Creatinine Clearance: 91.4 mL/min Last WBC: 12.6 Last Procalcitonin: Tmax (past 24 hours): Microbiology: I/O: Drug Levels: Last level: on at Last dose given at Vancomycin Dosing: Loading Dose: 2000 mg x1 10/29/192030 Dosing Weight: Actual Target Trough: 15-20 A: Based on: Actual Wt and CrCl P: 1. 0830 Vancomycin 1750 mg IV q12h 2. Follow up Trough level on 10/31/19 at 0800 3. Pharmacy will continue to monitor, follow and adjust therapy as needed. KADIE BARBA RPH, 10/29/192113 Signed: 10/29/19 at 2114 by KADIE BARBA RPH PHA
[2019-10-29 23:35] VITALS: BP 141/98
[2019-10-30] MEDS: ENOXAPARIN 40 MG/0.4 ML SYRINGE. SQ SCH
[2019-10-30] MEDS ORDERED: guaiFENesin DM 200MG/20MG 10 ML SYRUP PO PRN
[2019-10-30] MEDS ORDERED: PIP/TAZO PER PHARMACY MC PRN
[2019-10-30] MEDS ORDERED: DEXTROSE 50% 25 GM / 50ML DISP.SYRIN. IV PRN (00:15)
[2019-10-30] MEDS: HYDROcodone/APAP 5/325MG 1 TAB TABLET PO PRN ×2 (00:32→09:30)
[2019-10-30] MEDS: PIPERACILLIN/TAZOBACTAM 3.375 GM in IV NORMAL SALINE 50ML 50 ML IV SCH ×5 (01:05→23:25)
[2019-10-30 03:30] VITALS: BP 140/89
[2019-10-30] MEDS: fentaNYL PF VIAL 100 MCG/2 ML VIAL IV PRN ×3 (04:19→10:57)
[2019-10-30 06:03] LABS: CREATININE 0.9 mg/dL (0.7-1.3)
--- NOTE | 2019-10-30 07:31 | PDOC1 ---
History and Physical Date of Admission Date of Admission DATE: 10/30/19 TIME: 07:30 Identification/Chief Complaint Chief Complaint seen in er , Patient states for the last week he has been having a very hard time breathing especially when he gets up and tries to walk. Patient states he cannot walk very far without becoming too breathless. Patient states he hurts all over his body and especially in his upper back and chest when he is coughing. Patient rates his pain an 8 out of 10. Past Medical History Past Medical History Past Medical History Cardiovascular: Hyperlipidemia Pulmonary: COPD GI: GERD Heme/Onc: No pertinent hx Hepatobiliary: No pertinent hx Psych: No pertinent hx Musculoskeletal: low back pain, Osteoarthritis Rheumatologic: No pertinent hx Infectious disease: No pertinent hx ENT: No pertinent hx Renal/: Chronic renal insuff Endocrine: Diabetes Dermatology: No pertinent hx Past Surgical History Past Surgical History: Total hip replacement, Total knee replacement Family History Family History: Cancer, Diabetes Social History Smoke: <1 pack per day ALCOHOL: social Drugs: None Cardiovascular: Hyperlipidemia Pulmonary: COPD GI: GERD Heme/Onc: No pertinent hx Hepatobiliary: No pertinent hx Psych: No pertinent hx Musculoskeletal: low back pain, Osteoarthritis Rheumatologic: No pertinent hx Infectious disease: No pertinent hx Renal/: Chronic renal insuff Endocrine: Diabetes Past Surgical History Past Surgical History: Total hip replacement, Total knee replacement Family History Family History: Cancer, Diabetes Social History Smoke: <1 pack per day ALCOHOL: social Drugs: None Current Problem List Problem List Problems Medical Problems: (1) Pneumonia Status: Acute (2) Sepsis Status: Acute (3) SIRS (systemic inflammatory response syndrome) Status: Acute Current Medications Current Medications Current Medications Albuterol/ Ipratropium (Duoneb) 3 ml 1X ONCE NEB ; Start 10/29/19 at 18:15; Stop 10/29/19 at 18:16; Status DC Methylprednisolone Sodium Succinate (SOLU-Medrol 125MG VIAL) 125 mg 1X ONCE IV Last administered on 10/29/19at 18:38; Start 10/29/19 at 18:15; Stop 10/29/19 at 18:16; Status DC Albuterol Sulfate (Ventolin Neb Soln) 2.5 mg STK-MED ONCE .ROUTE ; Start 10/29/19 at 18:06; Stop 10/29/19 at 18:07; Status DC Fentanyl Citrate (Fentanyl 2ml Vial) 50 mcg 1X ONCE IVP Last administered on 10/29/19at 18:38; Start 10/29/19 at 18:15; Stop 10/29/19 at 18:17; Status DC Ipratropium Bassett (Atrovent) 0.5 mg 1X ONCE NEB Last administered on 10/29/19at 18:24; Start 10/29/19 at 18:15; Stop 10/29/19 at 18:21; Status DC Albuterol Sulfate (Ventolin Neb Soln) 10 mg 1X ONCE CONT NEB Last administered on 10/29/19at 18:24; Start 10/29/19 at 18:15; Stop 10/29/19 at 18:21; Status DC Sodium Chloride 1,000 ml @ 1,000 mls/hr 1X ONCE IV Last administered on 10/29/19at 18:39; Start 10/29/19 at 18:30; Stop 10/29/19 at 19:29; Status DC Piperacillin Sod/ Tazobactam Sod 3.375 gm/Sodium Chloride 50 ml @ 100 mls/hr 1X ONCE IV Last administered on 10/29/19at 18:39; Start 10/29/19 at 18:30; Stop 10/29/19 at 18:59; Status DC Sodium Chloride 1,000 ml @ 1,000 mls/hr 1X ONCE IV Last administered on 10/29/19at 20:58; Start 10/29/19 at 18:30; Stop 10/29/19 at 19:29; Status DC Sodium Chloride 500 ml @ 500 mls/hr 1X ONCE IV ; Start 10/29/19 at 18:30; Stop 10/29/19 at 19:29; Status DC Levofloxacin/ Dextrose (Levaquin Per Pharmacy) 1 each PRN DAILY PRN MC SEE COMMENTS; Start 10/29/19 at 18:45; Stop 10/29/19 at 20:19; Status DC Levofloxacin/ Dextrose 100 ml @ 100 mls/hr 1X ONCE IV ; Start 10/29/19 at 18:45; Stop 10/29/19 at 19:44; Status Cancel Levofloxacin/ Dextrose 100 ml @ 100 mls/hr Q24H IV ; Start 10/30/19 at 21:00; Status Cancel Vancomycin HCl (Vanco Per Pharmacy) 1 each PRN DAILY PRN MC SEE COMMENTS Last administered on 10/29/19at 21:12; Start 10/29/19 at 19:00; Stop 10/30/19 at 00:19; Status DC Vancomycin HCl 2 gm/Sodium Chloride 500 ml @ 250 mls/hr 1X ONCE IV Last administered on 10/29/19at 20:31; Start 10/29/19 at 19:00; Stop 10/29/19 at 20:59; Status DC Ondansetron HCl (Zofran) 4 mg PRN Q8HRS PRN IV NAUSEA/VOMITING; Start 10/29/19 at 19:00; Stop 10/30/19 at 00:02; Status DC Fentanyl Citrate (Fentanyl 2ml Vial) 50 mcg PRN Q1HR PRN IV PAIN Last administered on 10/30/19at 06:26; Start 10/29/19 at 19:00; Stop 10/30/19 at 18:59 Acetaminophen (Tylenol) 650 mg PRN Q4HRS PRN PO FEVER; Start 10/29/19 at 19 :00; Stop 10/30/19 at 18:59 Albuterol/ Ipratropium (Duoneb) 3 ml RTQID NEB ; Start 10/29/19 at 20:00 Vancomycin HCl 1.75 gm/Sodium Chloride 500 ml @ 250 mls/hr Q12H IV ; Start 10/30/19 at 08:30 Vancomycin HCl (Vancomycin Trough Level) 1 each 1X ONCE MC ; Start 10/31/19 at 08:00; Stop 10/31/19 at 08:01 Ondansetron HCl (Zofran) 4 mg PRN Q6HRS PRN IV NAUSEA/VOMITING; Start 10/30/19 at 00:00 Benzonatate (Tessalon Perle) 100 mg TID PO ; Start 10/30/19 at 09:00 Acetaminophen/ Hydrocodone Bitart (Lortab 5/325) 1 tab PRN Q6HRS PRN PO PAIN Last administered on 10/30/19at 00:32; Start 10/30/19 at 00:00 Prednisone (Prednisone) 60 mg DAILY PO ; Start 10/30/19 at 09:00 Simvastatin (Zocor) 40 mg HS PO ; Start 10/30/19 at 21:00 Non-Formulary Medication (Budesonide/ Formoterol Fumarate (Symbicort 160-4.5 Mcg Inhaler)) 2 puff BID IH ; Start 10/30/19 at 09:00; Status UNV Metformin HCl (Glucophage) 1,000 mg BIDWMEALS PO ; Start 10/30/19 at 08:00 Famotidine (Pepcid) 40 mg BID PO ; Start 10/30/19 at 09:00 Guaifenesin (Robitussin Dm) 10 ml PRN Q6HRS PRN PO COUGH; Start 10/30/19 at 00:00 Piperacillin Sod/ Tazobactam Sod (Zosyn Per Pharmacy) 1 each PRN DAILY PRN MC SEE COMMENTS; Start 10/30/19 at 00:00 Vancomycin HCl (Vanco Per Pharmacy) 1 each PRN DAILY PRN MC SEE COMMENTS; Start 10/30/19 at 00:00 Enoxaparin Sodium (Lovenox 40mg Syringe) 40 mg Q24H SQ ; Start 10/30/19 at 00:00 Insulin Human Lispro (HumaLOG) 0-5 UNITS TIDWMEALS SQ ; Start 10/30/19 at 08:00 Dextrose (Dextrose 50%-Water Syringe) 12.5 gm PRN Q15MIN PRN IV SEE COMMENTS; Start 10/30/19 at 00:15 Piperacillin Sod/ Tazobactam Sod 3.375 gm/Sodium Chloride 50 ml @ 100 mls/hr Q6HRS IV Last administered on 10/30/19at 06:26; Start 10/30/19 at 00:30 Budesonide (Pulmicort) 0.5 mg RTBID NEB ; Start 10/30/19 at 08:00 Albuterol Sulfate (Ventolin Neb Soln) 2.5 mg RTQID NEB ; Start 10/30/19 at 08:00 Active Scripts Active Prometh-Codein 6.25-10 mg/5 ml (Promethazine HCl/Codeine) 5 Ml Syrup 5 Ml PO PRN Q4-6HRS PRN MDD 30 Milliliter(s) Prednisone 50 Mg Tablet 1 Tab PO DAILY 5 Days start taking on 10/08/19 Azithromycin Tablet (Azithromycin) 250 Mg Tablet 1 Pkg PO UD 5 Days 2 the first day followed by 1 for days 2-5 Prednisone 50 Mg Tablet 1 Tab PO DAILY 5 Days begin taking on 08/10/19 Prednisone 50 Mg Tablet 1 Tab PO DAILY Tessalon Perle (Benzonatate) 100 Mg Capsule 1 Cap PO TID Doxycycline Hyclate 100 Mg Capsule 1 Cap PO BID Prednisone 50 Mg Tablet 1 Tab PO DAILY Levaquin (Levofloxacin) 750 Mg Tablet 1 Tab PO DAILY Doxycycline Hyclate 100 Mg Tablet 1 Tab PO BID Prednisone 50 Mg Tablet 1 Tab PO DAILY Prednisone 50 Mg Tablet 1 Tab PO DAILY Doxycycline Hyclate 100 Mg Capsule 1 Cap PO BID Zithromax (Azithromycin) 250 Mg Tablet 1 Pkg PO UD Prednisone 20 Mg Tablet 20 Mg PO DAILY 12 Days take 2.5 tablets x3 days then take 2 tablets x3 days then take 1.5 tablets x3 days then take 1 tablet x3 days then Ventolin Hfa Inhaler (Albuterol Sulfate) 18 Gm Hfa.aer.ad 2 Puff INH Q4HRS Doxycycline Hyclate 100 Mg Tablet.dr 1 Tab PO BID Prednisone 50 Mg Tablet 1 Tab PO DAILY Prednisone 20 Mg Tablet 20 Mg PO DAILY 10 Days Levaquin (Levofloxacin) 750 Mg Tablet 1 Tab PO DAILY Combivent Respimat Inhal (Ipratropium/Albuterol Sulfate) 4 Gm Aer.w.adap 2 Inh IH QID Prednisone 20 Mg Tablet 60 Mg PO DAILY 7 Days Metformin Hcl 1,000 Mg Tablet 1 Tab PO BID Symbicort 160-4.5 Mcg Inhaler (Budesonide/Formoterol Fumarate) 10.2 Gm Hfa.aer.ad 2 Puff IH BID Ventolin Hfa Inhaler (Albuterol Sulfate) 18 Gm Hfa.aer.ad 2 Puff INH Q4HRS 20 Days Hydrocodone-Apap 5-325 (Hydrocodone Bit/Acetaminophen) 1 Each Tablet 1 Tab PO PRN Q6HRS PRN Reported Ranitidine Hcl 300 Mg Tablet 1 Tab PO BID Simvastatin 40 Mg Tablet 40 Mg PO DAILY Albuterol Sulfate Conc Neb Soln (Albuterol Sulfate) 2.5 Mg/0.5 Ml Vial.neb 1 Vial NEB Q6HRS Allergies Allergies: Coded Allergies: I S O L A T I O N *CONTACT* (Verified Allergy, Unknown, 11/28/18) mrsa No Known Medication Allergies (Verified Allergy, Unknown, 11/28/18) ROS General: YES: Fatigue PSYCHOLOGICAL ROS: YES: Anxiety Eyes: No Blurry vision, No Decreased vision, No Double vision, No Dry eyes, No Excessive tearing, No Eye Pain, No Itchy Eyes, No Loss of vision, No Photophobia, No Scotomata, No Uses contacts, No Uses glasses, No Other HEENT: No: Heacaches, Visual Changes, Hearing change, Nasal congestion, Nasal discharge, Oral lesions, Sinus pain, Sore Throat, Epistaxis, Sneezing, Snoring, Tinnitus, Vertigo, Vocal changes, Other ALLERGY AND IMMUNOLOGY: No: Hives, Insect Bite Sensitivity, Itchy/Watery Eyes, Nasal Congestion, Post Nasal Drip, Seasonal Allergies, Other Hematological and Lymphatic: No: Bleeding Problems, Blood Clots, Blood Transfusions, Brusing, Night Sweats, Pallor, Swollen Lymph Nodes, Other Respiratory: YES: Cough, Shortness of breath, SOB with excertion, Sputum Changes Cardiovascular: No Chest Pain, No Palpitations, No Orthopnea, No Paroxysmal Noc. Dyspnea, No Edema, No Lt Headedness, No Other Gastrointestinal: No Nausea, No Vomiting, No Abdominal Pain, No Diarrhea, No Constipation, No Melena, No Hematochezia, No Other Genitourinary: No Dysuria, No Frequency, No Incontinence, No Hematuria, No Retention, No Discharge, No Urgency, No Pain, No Flank Pain, No Other, No , No , No , No , No , No , No Musculoskeletal: Yes Joint Stiffness Neurological: Yes Gait Disturbance; No Behavorial Changes, No Bowel/Bladder ControlChng, No Confusion, No Dizziness, No Headaches, No Impaired Coord/balance, No Memory Loss, No Numbness/Tingling, No Seizures, No Speech Problems, No Tremors, No Visual Changes, No Weakness, No Other Skin: Yes Dry Skin; No Eczema, No Hair Changes, No Lumps, No Mole Changes, No Mottling, No Nail Changes, No Pruritus, No Rash, No Skin Lesion Changes, No Other, No Acne Physical Exam Physical Exam Physical Exam Physical Exam Constitutional: Well developed, well nourished, no acute distress, non-toxic appearance. [] HENT: Normocephalic, atraumatic, bilateral external ears normal, oropharynx moist, no oral exudates, nose normal. [] Eyes: PERRLA, EOMI, conjunctiva normal, no discharge. [] Neck: Normal range of motion, no tenderness, supple, no stridor. [] Cardiovascular:Heart Tachy rate regular rhythm, no murmur [] Lungs & Thorax: Bilateral breath sounds diminished with Left side upper coarse sounds to auscultation FEW SCATTERED WHEEZES[] Abdomen: Bowel sounds normal, soft, no tenderness, no masses, no pulsatile masses. [] Skin: Warm, dry, no erythema, no rash. [] Back: No tenderness, no CVA tenderness. [] Extremities: No tenderness, no cyanosis, no clubbing, ROM intact, no edema. [] Neurologic: Alert and oriented X 3, normal motor function, normal sensory function, no focal deficits noted. [] Psychologic: Affect normal, judgement normal, mood normal. [] General: Alert, Oriented X3, Cooperative, No acute distress HEENT: Atraumatic Heart: RRR Breasts: Not examined Abdomen: Normal bowel sounds, Soft Rectal Exam: not examined PELVIC: Examination not indicated Extremities: No cyanosis Neuro: Normal speech, Cranial nerves 3-12 NL Psych/Mental Status: Mental status NL, Mood NL Vitals Vitals Vital Signs Date Time Temp Pulse Resp B/P (MAP) Pulse Ox O2 Delivery O2 Flow Rate FiO2 10/30/19 07:00 Nasal Cannula 3.0 10/30/19 03:30 97.5 94 20 140/89 (106) 96 97.5 Labs Labs Laboratory Tests Test 10/29/19 18:06 10/29/19 21:31 10/30/19 04:50 White Blood Count 12.6 x10^3/uL (4.0-11.0) Red Blood Count 4.54 x10^6/uL (4.30-5.70) Hemoglobin 13.8 g/dL (13.0-17.5) Hematocrit 41.0 % (39.0-53.0) Mean Corpuscular Volume 90 fL (79-100) Mean Corpuscular Hemoglobin 30 pg (25-35) Mean Corpuscular Hemoglobin Concent 34 g/dL (31-37) Red Cell Distribution Width 14.9 % (11.5-14.5) Platelet Count 464 x10^3/uL (140-400) Neutrophils (%) (Auto) 68 % (31-73) Lymphocytes (%) (Auto) 14 % (24-48) Monocytes (%) (Auto) 12 % (0-9) Eosinophils (%) (Auto) 6 % (0-3) Basophils (%) (Auto) 1 % (0-3) Neutrophils # (Auto) 8.6 x10^3/uL (1.8-7.7) Lymphocytes # (Auto) 1.7 x10^3/uL (1.0-4.8) Monocytes # (Auto) 1.5 x10^3/uL (0.0-1.1) Eosinophils # (Auto) 0.8 x10^3/uL (0.0-0.7) Basophils # (Auto) 0.1 x10^3/uL (0.0-0.2) Sodium Level 138 mmol/L (136-145) Potassium Level 3.8 mmol/L (3.5-5.1) Chloride Level 98 mmol/L (98-107) Carbon Dioxide Level 30 mmol/L (21-32) Anion Gap 10 (6-14) Blood Urea Nitrogen 5 mg/dL (8-26) 8 mg/dL (8-26) Creatinine 1.1 mg/dL (0.7-1.3) 0.9 mg/dL (0.7-1.3) Estimated GFR (Cockcroft-Gault) 69.0 87.0 BUN/Creatinine Ratio 5 (6-20) Glucose Level 157 mg/dL (70-99) Lactic Acid Level 2.0 mmol/L (0.4-2.0) 1.1 mmol/L (0.4-2.0) Calcium Level 10.0 mg/dL (8.5-10.1) Total Bilirubin 0.2 mg/dL (0.2-1.0) Aspartate Amino Transf (AST/SGOT) 16 U/L (15-37) Alanine Aminotransferase (ALT/SGPT) 19 U/L (16-63) Alkaline Phosphatase 123 U/L (46-116) Troponin I Quantitative < 0.017 ng/mL (0.000-0.055) Total Protein 8.9 g/dL (6.4-8.2) Albumin 2.8 g/dL (3.4-5.0) Albumin/Globulin Ratio 0.5 (1.0-1.7) Procalcitonin 0.31 ng/mL (0.00-0.10) Laboratory Tests Test 10/29/19 18:06 10/29/19 21:31 10/30/19 04:50 White Blood Count 12.6 x10^3/uL (4.0-11.0) Red Blood Count 4.54 x10^6/uL (4.30-5.70) Hemoglobin 13.8 g/dL (13.0-17.5) Hematocrit 41.0 % (39.0-53.0) Mean Corpuscular Volume 90 fL (79-100) Mean Corpuscular Hemoglobin 30 pg (25-35) Mean Corpuscular Hemoglobin Concent 34 g/dL (31-37) Red Cell Distribution Width 14.9 % (11.5-14.5) Platelet Count 464 x10^3/uL (140-400) Neutrophils (%) (Auto) 68 % (31-73) Lymphocytes (%) (Auto) 14 % (24-48) Monocytes (%) (Auto) 12 % (0-9) Eosinophils (%) (Auto) 6 % (0-3) Basophils (%) (Auto) 1 % (0-3) Neutrophils # (Auto) 8.6 x10^3/uL (1.8-7.7) Lymphocytes # (Auto) 1.7 x10^3/uL (1.0-4.8) Monocytes # (Auto) 1.5 x10^3/uL (0.0-1.1) Eosinophils # (Auto) 0.8 x10^3/uL (0.0-0.7) Basophils # (Auto) 0.1 x10^3/uL (0.0-0.2) Sodium Level 138 mmol/L (136-145) Potassium Level 3.8 mmol/L (3.5-5.1) Chloride Level 98 mmol/L (98-107) Carbon Dioxide Level 30 mmol/L (21-32) Anion Gap 10 (6-14) Blood Urea Nitrogen 5 mg/dL (8-26) 8 mg/dL (8-26) Creatinine 1.1 mg/dL (0.7-1.3) 0.9 mg/dL (0.7-1.3) Estimated GFR (Cockcroft-Gault) 69.0 87.0 BUN/Creatinine Ratio 5 (6-20) Glucose Level 157 mg/dL (70-99) Lactic Acid Level 2.0 mmol/L (0.4-2.0) 1.1 mmol/L (0.4-2.0) Calcium Level 10.0 mg/dL (8.5-10.1) Total Bilirubin 0.2 mg/dL (0.2-1.0) Aspartate Amino Transf (AST/SGOT) 16 U/L (15-37) Alanine Aminotransferase (ALT/SGPT) 19 U/L (16-63) Alkaline Phosphatase 123 U/L (46-116) Troponin I Quantitative < 0.017 ng/mL (0.000-0.055) Total Protein 8.9 g/dL (6.4-8.2) Albumin 2.8 g/dL (3.4-5.0) Albumin/Globulin Ratio 0.5 (1.0-1.7) Procalcitonin 0.31 ng/mL (0.00-0.10) Images Images CT chest without contrast PQRS statement: CT scans at this facility use dose reduction including either automated exposure control, iterative reconstructions, and /or weight based radiation dosing via mA and kV modification when appropriate to reduce radiation dose to as low as reasonably achievable. HISTORY: Congestive heart failure. COMPARISON: Chest x-ray October 21, 2019, the CT chest November 08, 2017 images and report were not available at time of exam interpretation. FINDINGS: Exophytic 1.2 cm cyst left renal upper pole density of 16 units. Borderline enlarged mediastinal lymph nodes without definitive enlargement by size criteria largest at the AP window measuring 1.1 x 0.7 cm and at the prevascular station measuring 1.5 x 1.0 cm. Heart size normal. Aortic arch calcified plaque. Pulmonary vessels and esophagus are unremarkable. Centrilobular pulmonary emphysema. Diffuse bilateral scattered tiny centrilobular nodules measuring 1 to 2 mm in size involving both the upper and lower lobes with a slightly greater upper lobe distribution. Posterior subpleural left lower lobe oblong some solid 11 mm nodule image 48 with smaller some solid similar type nodules at the posterior lower lobes elsewhere. No pleural effusions. Bones are unremarkable. No interstitial thickening evident to suggest edema. IMPRESSION: 1. No evidence of pulmonary edema. Diffuse pulmonary centrilobular nodules measuring 1 to 2 mm in size indicative of a small airways infectious or inflammatory process. Respiratory bronchiolitis interstitial lung disease is a consideration, particularly if the patient is a tobacco smoker, given the presence of centrilobular pulmonary emphysema on this exam. Diffuse endobronchial infection would also be a consideration. There are separate subsolid nodules at the posterior lower lobes largest measuring 11 mm may represent areas of atelectasis or localized pneumonitis. Per Fleischner guidelines follow-up CT imaging in 3-6 months is advised. 2. Borderline mediastinal adenopathy as described above. Electronically signed by: Samuel Burns MD (10/30/2019 10:06 AM) [facility] [place] DICTATED and SIGNED BY: SAMUEL BURNS MD VTE Prophylaxis Ordered VTE Prophylaxis Devices: Yes VTE Pharmacological Prophylaxi: No Assessment/Plan Assessment/Plan Impression: Sepsis TOBACCO ABUSE COPD MORBID OBESITY Pneumonia Respiratory bronchiolitis interstitial lung disease is a consideration, particularly if the patient is a tobacco smoker, given the presence of centrilobular pulmonary emphysema on this exam. Diffuse endobronchial infection would also be a consideration. There are separate subsolid nodules at the posterior lower lobes largest measuring 11 mm may represent areas of atelectasis or localized pneumonitis. SIRS (systemic inflammatory response syndrome) ADMITTED PULM CONSULT IV ANTIBIOTICS BLOOD CULT DUONEBS QID dvt prophylaxis 56 MIN pt exam, chart review,> 50% of time spent with exam, chart review, pt ca re coordination LEXI BIRD MD Oct 30, 2019 07:31
[2019-10-30 07:44] VITALS: BP 137/82
[2019-10-30] MEDS: IPRATRPIUM/ALBUTEROL 0.5/2.5MG 3 ML NEBU. NEB SCH ×5 (07:57→20:32)
[2019-10-30] MEDS: BUDESONIDE 0.5 MG/2 ML NEBU. NEB SCH ×2 (07:57→20:32)
[2019-10-30] MEDS ORDERED: ALBUTEROL SULFATE 2.5 MG/3 ML NEBU. NEB SCH (08:00)
[2019-10-30] MEDS: INSULIN LISPRO 300 UNITS/3 ML VIAL. SQ SCH ×3 (08:00→17:00)
[2019-10-30] MEDS ORDERED: NON FORMULARY ITEM (Budesonide/Formoterol Fumarate (Symbicort 160-4.5 Mcg Inhaler) 2 PUFF) IH SCH (09:00)
[2019-10-30] MEDS ORDERED: predniSONE 20 MG TABLET PO SCH (09:00)
[2019-10-30] MEDS ORDERED: FUROSEMIDE 40 MG/4 ML VIAL. IVP ONE (09:15)
[2019-10-30] MEDS: FAMOTIDINE 20 MG TABLET. PO SCH ×2 (09:50→20:21)
[2019-10-30] MEDS: metFORMIN 500 MG TABLET PO SCH ×2 (09:52→18:18)
[2019-10-30] MEDS: BENZONATATE 100 MG CAPSULE. PO SCH ×3 (09:53→20:21)
--- NOTE | 2019-10-30 10:09 | RAD ---
CT chest without contrast PQRS statement: CT scans at this facility use dose reduction including either automated exposure control, iterative reconstructions, and /or weight based radiation dosing via mA and kV modification when appropriate to reduce radiation dose to as low as reasonably achievable. HISTORY: Congestive heart failure. COMPARISON: Chest x-ray October 21, 2019, the CT chest November 08, 2017 images and report were not available at time of exam interpretation. FINDINGS: Exophytic 1.2 cm cyst left renal upper pole density of 16 units. Borderline enlarged mediastinal lymph nodes without definitive enlargement by size criteria largest at the AP window measuring 1.1 x 0.7 cm and at the prevascular station measuring 1.5 x 1.0 cm. Heart size normal. Aortic arch calcified plaque. Pulmonary vessels and esophagus are unremarkable. Centrilobular pulmonary emphysema. Diffuse bilateral scattered tiny centrilobular nodules measuring 1 to 2 mm in size involving both the upper and lower lobes with a slightly greater upper lobe distribution. Posterior subpleural left lower lobe oblong some solid 11 mm nodule image 48 with smaller some solid similar type nodules at the posterior lower lobes elsewhere. No pleural effusions. Bones are unremarkable. No interstitial thickening evident to suggest edema. IMPRESSION: 1. No evidence of pulmonary edema. Diffuse pulmonary centrilobular nodules measuring 1 to 2 mm in size indicative of a small airways infectious or inflammatory process. Respiratory bronchiolitis interstitial lung disease is a consideration, particularly if the patient is a tobacco smoker, given the presence of centrilobular pulmonary emphysema on this exam. Diffuse endobronchial infection would also be a consideration. There are separate subsolid nodules at the posterior lower lobes largest measuring 11 mm may represent areas of atelectasis or localized pneumonitis. Per Fleischner guidelines follow-up CT imaging in 3-6 months is advised. 2. Borderline mediastinal adenopathy as described above. Electronically signed by: Samuel Burns MD (10/30/2019 10:06 AM) [facility]
--- NOTE | 2019-10-30 10:10 | CONS ---
DATE OF CONSULTATION: PULMONARY CONSULTATION ATTENDING PHYSICIAN: Dr. Diop. REASON FOR CONSULTATION: Dyspnea, abnormal chest x-ray. HISTORY OF PRESENT ILLNESS: The patient is a 59-year-old who has been a smoker for 40+ years and still smokes cigarettes. He has a history of chronic hypoxic respiratory failure and remains on oxygen at 3 liters on a 24-hour basis. He was hospitalized in the first week of October and was treated for right lower lobe pneumonia and discharged on antibiotics. He was brought into the hospital as he said he never felt better despite being on antibiotics. He states that he became progressively weak. He has a cough, which has been productive of yellow sputum. No fever, no chills. No chest pains. No leg edema, no headaches, no nausea, vomiting, no diarrhea, no dysuria, no focal weakness. He does not vape. He does not have any pets at home. 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 The patient's chest x-ray was reviewed and it shows diffuse bilateral interstitial infiltrates, which has progressed since 10/07 chest x-ray and also there were mild interstitial infiltrates seen in January of this year. His procalcitonin level was 0.3. I have been asked to see him for further evaluation. PAST MEDICAL HISTORY: Significant for history of oxygen-dependent COPD, history of hyperlipidemia, GERD, osteoarthritis, chronic renal insufficiency, diabetes. PAST SURGICAL HISTORY: Total hip replacement, total knee replacement. FAMILY HISTORY: Cancer and diabetes. SOCIAL HISTORY: Smoker for 40 years, less than 1 pack per day. Social alcohol use. SYSTEM REVIEW: Twelve-point system obtained. Pertinent positives discussed in my history of present illness, otherwise noncontributory. All systems that were negative were reviewed as well. ALLERGIES: None. CURRENT MEDICATIONS: Reviewed as listed in the MRAD, including vancomycin and Zosyn. He is also on prednisone oral along with Pulmicort and DuoNebs. PHYSICAL EXAMINATION: VITAL SIGNS: Reviewed. Blood pressure 137/82. Pulse ox 91% on 3 liters. He is afebrile. HEENT: Sclerae nonicteric. NECK: Supple. LUNGS: Diffuse bilateral expiratory wheezes. CARDIOVASCULAR: With a regular rate. ABDOMEN: Soft, nontender. EXTREMITIES: With no pitting edema. LABORATORY AND DIAGNOSTIC DATA: Labs reviewed. His procalcitonin 0.31, BUN is 5 and creatinine of 1.1. Troponin less than 0.017. Sodium 138. White cell count is 12.6 and hemoglobin is 13.8 and platelets 464. IMPRESSION: Dyspnea in a patient who has chronic hypoxic respiratory failure and has been on home oxygen at 3 liters secondary to underlying chronic obstructive pulmonary disease. Now presents with progressive dyspnea, weakness and diffuse bronchospasm. He was admitted on the first week of October and was discharged on antibiotic for right lower lobe infiltrate, but has no improvement. His procalcitonin level is 0.3 and has mild leukocytosis. He has worked in construction most of his life. His chest x-ray has shown diffuse interstitial infiltrates, which has progressed since mild interstitial infiltrates seen on 10/07 in the right lower lobe and also 02/17 Following is the differential diagnoses. A. Possible progressive interstitial edema. B. Acute interstitial pneumonia. C. Cannot exclude the possibility of underlying interstitial lung disease with progression. Possible smoking related ILD (RESPIRATORY BRONCHIOLITIS) . He also has worked in construction most of his life.Needs to r/o occupational related ILD. RECOMMENDATIONS: 1. We will continue with present home oxygen at 3 liters. 2. The patient has diffuse bronchospasm. We will increase DuoNeb to q.4 hours and continue with Pulmicort. In addition, dc oral prednisone and change to IV steroids 3. Continue broad-spectrum antibiotics to cover for gram-negative healthcare-associated pneumonia. 4. CT chest without contrast to better assess for interstitial pneumonia versus interstitial edema and rule out any definite interstitial lung disease. 5. Obtain echocardiogram. 6. Obtain BNP. 7. Lovenox for DVT prophylaxis. 8. Procalcitonin 9. Discussed with the patient and RN and will follow along with you. JULIENNE CORNELL MD DR: EVELIO/gracie JOB#: [id number] / [id number] KEITH
--- NOTE | 2019-10-30 10:14 | EKG ---
[facility] [address] [place] [address] Test Date: 2019-10-29 Test Time: 18:02:30 Pat Name: AVRIL CHOU Department: Room: Gender: M [employer] [place]: : 1960 Requested By: JUAN A TRAYLOR Order Number: [id number] Reading MD: Measurements Intervals [place] Rate: 127 P: -32 [place]: 106 QRS: 22 QRSD: 92 T: 75 QT: 302 QTc: 444 Interpretive Statements SINUS TACHYCARDIA NO SPECIFIC ECG ABNORMALITIES RI6.01 No previous ECG available for comparison
[2019-10-30] MEDS: VANCOMYCIN 1.75 GM in IV NORMAL SALINE 500ML BAG 500 ML IV SCH ×2 (10:54→20:20)
[2019-10-30 10:58] VITALS: BP 177/89
--- NOTE | 2019-10-30 12:03 | CARD ---
MR#: [id number] Date of Study: 10/30/2019 Ordering Physician: JULIENNE CORNELL, Referring Physician: JULIENNE CORNELL Tech: Maria Isabel Mcgill RDCS APPROVED REPORT EXAM: Two-dimensional and M-mode echocardiogram with Doppler and color Doppler. Other Information Quality : Fair Technically limited study due to lung interference INDICATION Congestive Heart Failure 2D DIMENSIONS RVDd2.7 (2.9-3.5cm)Left Atrium(2D)3.4 (1.6-4.0cm) IVSd1.1 (0.7-1.1cm)Aortic Root(2D)3.0 (2.0-3.7cm) LVDd5.0 (3.9-5.9cm)LVOT Diameter2.3 (1.8-2.4cm) PWd1.2 (0.7-1.1cm)LVDs3.8 (2.5-4.0cm) FS (%) 23.6 %SV54.5 ml LVEF(%)50.0 (>50%) Aortic Valve AoV Peak Cezar.137.3cm/sAoV VTI25.5cm AO Peak GR.7.5mmHgLVOT VTI 22.50cm AO Mean GR.4mmHgAVA (VTI)3.60cm2 Mitral Valve MV E Crzizngx35.6cm/sMV DECEL [id number] MV A Zdaqnptw17.1cm/sE/A Ratio0.8 TDI Lateral E' P. V10.62cm/sMedial E' P. V10.43cm/s E/Lateral E'7.0E/Medial E'7.2 LEFT VENTRICLE The left ventricle is normal size. There is mild concentric left ventricular hypertrophy. Left ventri tracy systolic function is low normal. The Ejection Fraction is 50%. Minimal global hypokinesis. Transm itral Doppler flow pattern is Grade I-abnormal relaxation pattern. RIGHT VENTRICLE The right ventricle is normal size. The right ventricular systolic function is normal. ATRIA The left atrium size is normal. The right atrium size is normal. The interatrial septum is intact wit h no evidence for an atrial septal defect or patent foramen ovale as noted on 2-D or Doppler imaging. AORTIC VALVE The aortic valve is not well visualized but appears to be functioning normally by Doppler interrogati on. Doppler and Color Flow revealed no significant aortic regurgitation. There is no significant aort ic valvular stenosis. MITRAL VALVE Not well visualized. There is no mitral valve stenosis. Doppler and Color-flow revealed trace mitral regurgitation. TRICUSPID VALVE Not well visualized. Doppler and Color Flow revealed no tricuspid valve regurgitation noted. There is no tricuspid valve stenosis. PULMONIC VALVE The pulmonic valve is not well visualized. Doppler and Color Flow revealed no pulmonic valvular regur gitation. There is no pulmonic valvular stenosis. GREAT VESSELS The aortic root is normal in size. The ascending aorta is not well seen. The IVC is normal in size an d collapses >50% with inspiration. PERICARDIAL EFFUSION There is no evidence of significant pericardial effusion. Cannot rule out small effusion versus fat p ad, correlate with CT findings. Critical Notification Critical Value: No <Conclusion> Left ventricle systolic function is low normal. The Ejection Fraction is 50%. Minimal global hypokinesis. There is no evidence of significant pericardial effusion. Cannot rule out small effusion versus fat p ad, correlate with CT findings. Signed by : Rayo Bahena, Electronically Approved : 10/30/2019 12:03:17
[2019-10-30] MEDS: methylPREDNISolone SOD SUCC PF 125 MG/2 ML VIAL. IV SCH ×2 (13:26→21:48)
[2019-10-30] MEDS ORDERED: guaiFENesin ORAL 200 MG/10 ML LIQUID. PO PRN (14:00)
[2019-10-30] MEDS ORDERED: DOCUSATE SODIUM 100 MG CAPSULE. PO PRN (14:00)
[2019-10-30] MEDS ORDERED: 0.9 % SODIUM CHLORIDE 10 ML DISP.SYRIN. IV PRN (14:00)
[2019-10-30] MEDS ORDERED: ACETAMINOPHEN 325 MG TABLET. PO PRN (14:00)
[2019-10-30] MEDS ORDERED: ONDANSETRON PF 4 MG/2 ML VIAL. IV PRN ×2 (14:00)
[2019-10-30] MEDS ORDERED: cloNIDine HCL 0.1 MG TABLET PO PRN (14:00)
[2019-10-30] MEDS ORDERED: MAG HYDROX/ALUMINUM HYD/SIMETH 30 ML ORAL.SUSP PO PRN (14:00)
[2019-10-30] MEDS ORDERED: guaiFENesin/CODEINE 100mg/10mg 5 ML LIQUID PO PRN (14:15)
[2019-10-30] MEDS: HYDROcodone/APAP 7.5/325MG 1 TAB TABLET PO PRN ×2 (14:16→20:28)
[2019-10-30 15:16] VITALS: BP 150/94
[2019-10-30] MEDS ORDERED: NON FORMULARY ITEM (Albuterol Sulfate (Ventolin Hfa Inhaler) 2 PUFF) INH SCH ×2 (16:00)
[2019-10-30] MEDS ORDERED: NON FORMULARY ITEM (Ipratropium/Albuterol Sulfate (Combivent Respimat Inhal) 2 INH) IH SCH (17:00)
[2019-10-30] MEDS: VANCOMYCIN PER PHARMACY MC PRN (17:26)
[2019-10-30] MEDS ORDERED: NON FORMULARY ITEM (Albuterol Sulfate (Albuterol Sulfate Conc Neb Soln) 1 VIAL) NEB SCH (18:00)
[2019-10-30] MEDS ORDERED: fentaNYL PF VIAL 100 MCG/2 ML VIAL IVP PRN (18:45)
[2019-10-30] MEDS: fentaNYL PF VIAL 100 MCG/2 ML VIAL IVP PRN ×2 (19:00→23:24)
[2019-10-30 19:20] VITALS: BP 138/82
[2019-10-30] MEDS ORDERED: SIMVASTATIN 40 MG TABLET. PO SCH (21:00)
[2019-10-30 23:32] VITALS: BP 145/93
[2019-10-31] MEDS: ENOXAPARIN 40 MG/0.4 ML SYRINGE. SQ SCH
[2019-10-31] MEDS: HYDROcodone/APAP 7.5/325MG 1 TAB TABLET PO PRN (03:12)
[2019-10-31 03:43] VITALS: BP 155/96
[2019-10-31] MEDS: IPRATRPIUM/ALBUTEROL 0.5/2.5MG 3 ML NEBU. NEB SCH ×7 (03:49→11:49)
[2019-10-31] MEDS: fentaNYL PF VIAL 100 MCG/2 ML VIAL IVP PRN ×3 (03:52→12:02)
[2019-10-31] MEDS: methylPREDNISolone SOD SUCC PF 125 MG/2 ML VIAL. IV SCH (05:31)
[2019-10-31] MEDS: PIPERACILLIN/TAZOBACTAM 3.375 GM in IV NORMAL SALINE 50ML 50 ML IV SCH ×2 (05:32→12:00)
[2019-10-31 07:00] VITALS: BP 156/84
[2019-10-31] MEDS: BUDESONIDE 0.5 MG/2 ML NEBU. NEB SCH (07:45)
[2019-10-31] MEDS: INSULIN LISPRO 300 UNITS/3 ML VIAL. SQ SCH ×2 (08:00→12:00)
[2019-10-31 08:05] LABS: VANC TR 10.6 mcg/mL (10.0-20.0)
[2019-10-31 08:06] LABS: ALBUMIN 2.4 g/dL (3.4-5.0); ALBUMIN/GLOBULIN RATIO 0.5 (1.0-1.7); CALCIUM 9.2 mg/dL (8.5-10.1); POTASSIUM 4.4 mmol/L (3.5-5.1); TOTAL BILIRUBIN 0.1 mg/dL (0.2-1.0); TOTAL PROTEIN 6.9 g/dL (6.4-8.2)
[2019-10-31] MEDS: metFORMIN 500 MG TABLET PO SCH (08:07)
[2019-10-31] MEDS: FAMOTIDINE 20 MG TABLET. PO SCH (08:07)
[2019-10-31] MEDS: BENZONATATE 100 MG CAPSULE. PO SCH (08:07)
[2019-10-31 08:12] LABS: BASO % 0 % (0-3); EOS % 0 % (0-3); HEMATOCRIT 37.1 % (39.0-53.0); HEMOGLOBIN 12.2 g/dL (13.0-17.5); LYMPH # 1.2 x10^3/uL (1.0-4.8); LYMPH % 7 % (24-48); MEAN CORPUSCULAR HEMOGLOBIN 30 pg (25-35); MEAN CORPUSCULAR HGB CONC 33 g/dL (31-37); MEAN CORPUSCULAR VOLUME 91 fL (79-100); MONO # 0.7 x10^3/uL (0.0-1.1); MONO % 4 % (0-9); NEUT # 15.2 x10^3/uL (1.8-7.7); NEUT % 89 % (31-73); PLATELET COUNT 470 x10^3/uL (140-400); RED CELL DISTRIBUTION WIDTH 15.1 % (11.5-14.5); WHITE BLOOD COUNT 17.1 x10^3/uL (4.0-11.0)
--- NOTE | 2019-10-31 08:18 | PDOC ---
PROGRESS NOTES History of Present Illness History of Present Illness VTE Prophylaxis Ordered VTE Prophylaxis Devices: Yes VTE Pharmacological Prophylaxi: No Assessment/Plan Assessment/Plan Impression: Sepsis TOBACCO ABUSE COPD MORBID OBESITY Pneumonia Respiratory bronchiolitis interstitial lung disease is a consideration, particularly if the patient is a tobacco smoker, given the presence of centrilobular pulmonary emphysema on this exam. Diffuse endobronchial infection would also be a consideration. There are separate subsolid nodules at the posterior lower lobes largest measuring 11 mm may represent areas of atelectasis or localized pneumonitis. SIRS (systemic inflammatory response syndrome) CHRONIC PAIN ADMITTED PULM CONSULT IV ANTIBIOTICS BLOOD CULT DUONEBS QID dvt prophylaxis WANTS TO LEAVE AMA 36 MIN pt exam, chart review,> 50% of time spent with exam, chart review, pt care coordination Vitals Vitals Vital Signs Date Time Temp Pulse Resp B/P (MAP) Pulse Ox O2 Delivery O2 Flow Rate FiO2 10/31/19 07:57 Nasal Cannula 3.0 10/31/19 07:45 93 10/31/19 03:43 97.9 83 20 155/96 (115) 97.9 Physical Exam General: Alert, Oriented X3, Cooperative, No acute distress Heart: Regular rate, Normal S1 Lungs: Other (MILD WHEEZING) Abdomen: Normal bowel sounds, Soft, No tenderness Extremities: No cyanosis Skin: No significant lesion Labs LABS ATIENT: AVRIL CHOU ACCT: [id number] LOC: [address] [place] [address] U: [id number] AGE/SX: 59/M ROOM: [facility] RE10/29/[address]: JUNIOR YOUNG MD : 1960 BED: 1 DIS: STATUS: ADM IN TLOC: SPEC #: [id number] FAISAL: 10/29/19 STATUS: RES REQ #: [id number] RECD: 10/29/[address]: JUAN A TRAYLOR APRN SOURCE: BLOOD ENTR: 10/29/[address] [facility] [address]: SPDES: ORDERED: BCULT Procedure Result BLOOD CULTURE Preliminary NO GROWTH AFTER [address] chest without contrast PQRS statement: CT scans at this facility use dose reduction including either automated exposure control, iterative reconstructions, and /or weight based radiation dosing via mA and kV modification when appropriate to reduce radiation dose to as low as reasonably achievable. HISTORY: Congestive heart failure. COMPARISON: Chest x-ray October 21, 2019, the CT chest November 08, 2017 images and report were not available at time of exam interpretation. FINDINGS: Exophytic 1.2 cm cyst left renal upper pole density of 16 units. Borderline enlarged mediastinal lymph nodes without definitive enlargement by size criteria largest at the AP window measuring 1.1 x 0.7 cm and at the prevascular station measuring 1.5 x 1.0 cm. Heart size normal. Aortic arch calcified plaque. Pulmonary vessels and esophagus are unremarkable. Centrilobular pulmonary emphysema. Diffuse bilateral scattered tiny centrilobular nodules measuring 1 to 2 mm in size involving both the upper and lower lobes with a slightly greater upper lobe distribution. Posterior subpleural left lower lobe oblong some solid 11 mm nodule image 48 with smaller some solid similar type nodules at the posterior lower lobes elsewhere. No pleural effusions. Bones are unremarkable. No interstitial thickening evident to suggest edema. IMPRESSION: 1. No evidence of pulmonary edema. Diffuse pulmonary centrilobular nodules measuring 1 to 2 mm in size indicative of a small airways infectious or inflammatory process. Respiratory bronchiolitis interstitial lung disease is a consideration, particularly if the patient is a tobacco smoker, given the presence of centrilobular pulmonary emphysema on this exam. Diffuse endobronchial infection would also be a consideration. There are separate subsolid nodules at the posterior lower lobes largest measuring 11 mm may represent areas of atelectasis or localized pneumonitis. Per Fleischner guidelines follow-up CT imaging in 3-6 months is advised. 2. Borderline mediastinal adenopathy as described above. Electronically signed by: Josué Burns MD (10/30/2019 10:06 AM) [facility] [place] DICTATED and SIGNED BY: JOSUÉ BURNS MD DATE: 10/30/19 1006 Laboratory Tests Test 10/30/19 08:24 10/30/19 12:01 10/30/19 16:28 10/30/19 20:59 Glucose (Fingerstick) 211 mg/dL (70-99) 148 mg/dL (70-99) 184 mg/dL (70-99) 235 mg/dL (70-99) Test 10/31/19 07:45 10/31/19 08:01 Sodium Level 139 mmol/L (136-145) Potassium Level 4.4 mmol/L (3.5-5.1) Chloride Level 102 mmol/L (98-107) Carbon Dioxide Level 27 mmol/L (21-32) Anion Gap 10 (6-14) Blood Urea Nitrogen 14 mg/dL (8-26) Creatinine 1.0 mg/dL (0.7-1.3) Estimated GFR (Cockcroft-Gault) 77.0 BUN/Creatinine Ratio 14 (6-20) Glucose Level 264 mg/dL (70-99) Calcium Level 9.2 mg/dL (8.5-10.1) Total Bilirubin 0.1 mg/dL (0.2-1.0) Aspartate Amino Transf (AST/SGOT) 10 U/L (15-37) Alanine Aminotransferase (ALT/SGPT) 18 U/L (16-63) Alkaline Phosphatase 99 U/L (46-116) Total Protein 6.9 g/dL (6.4-8.2) Albumin 2.4 g/dL (3.4-5.0) Albumin/Globulin Ratio 0.5 (1.0-1.7) Vancomycin Level Trough 10.6 mcg/mL (10.0-20.0) Vancomycin Last Dose Date 10/30/19 Vancomycin Last Dose Time 2030 Glucose (Fingerstick) 250 mg/dL (70-99) Assessment and Plan Assessmemt and Plan Problems Medical Problems: (1) Pneumonia Status: Acute (2) Sepsis Status: Acute (3) SIRS (systemic inflammatory response syndrome) Status: Acute Comment Review of Relevant I have reviewed the following items thomas (where applicable) has been applied. Labs Laboratory Tests Test 10/29/19 18:06 10/29/19 21:31 10/30/19 04:50 10/30/19 07:15 White Blood Count 12.6 x10^3/uL (4.0-11.0) Red Blood Count 4.54 x10^6/uL (4.30-5.70) Hemoglobin 13.8 g/dL (13.0-17.5) Hematocrit 41.0 % (39.0-53.0) Mean Corpuscular Volume 90 fL (79-100) Mean Corpuscular Hemoglobin 30 pg (25-35) Mean Corpuscular Hemoglobin Concent 34 g/dL (31-37) Red Cell Distribution Width 14.9 % (11.5-14.5) Platelet Count 464 x10^3/uL (140-400) Neutrophils (%) (Auto) 68 % (31-73) Lymphocytes (%) (Auto) 14 % (24-48) Monocytes (%) (Auto) 12 % (0-9) Eosinophils (%) (Auto) 6 % (0-3) Basophils (%) (Auto) 1 % (0-3) Neutrophils # (Auto) 8.6 x10^3/uL (1.8-7.7) Lymphocytes # (Auto) 1.7 x10^3/uL (1.0-4.8) Monocytes # (Auto) 1.5 x10^3/uL (0.0-1.1) Eosinophils # (Auto) 0.8 x10^3/uL (0.0-0.7) Basophils # (Auto) 0.1 x10^3/uL (0.0-0.2) Sodium Level 138 mmol/L (136-145) Potassium Level 3.8 mmol/L (3.5-5.1) Chloride Level 98 mmol/L (98-107) Carbon Dioxide Level 30 mmol/L (21-32) Anion Gap 10 (6-14) Blood Urea Nitrogen 5 mg/dL (8-26) 8 mg/dL (8-26) Creatinine 1.1 mg/dL (0.7-1.3) 0.9 mg/dL (0.7-1.3) Estimated GFR (Cockcroft-Gault) 69.0 87.0 BUN/Creatinine Ratio 5 (6-20) Glucose Level 157 mg/dL (70-99) Lactic Acid Level 2.0 mmol/L (0.4-2.0) 1.1 mmol/L (0.4-2.0) Calcium Level 10.0 mg/dL (8.5-10.1) Total Bilirubin 0.2 mg/dL (0.2-1.0) Aspartate Amino Transf (AST/SGOT) 16 U/L (15-37) Alanine Aminotransferase (ALT/SGPT) 19 U/L (16-63) Alkaline Phosphatase 123 U/L (46-116) Troponin I Quantitative < 0.017 ng/mL (0.000-0.055) Total Protein 8.9 g/dL (6.4-8.2) Albumin 2.8 g/dL (3.4-5.0) Albumin/Globulin Ratio 0.5 (1.0-1.7) LF-Crx-I-Type Natriuretic Peptide 123 pg/mL (0-124) Procalcitonin 0.31 ng/mL (0.00-0.10) Nasal Screen MRSA (PCR) Positive (Negative) Test 10/30/19 08:24 10/30/19 12:01 10/30/19 16:28 10/30/19 20:59 Glucose (Fingerstick) 211 mg/dL (70-99) 148 mg/dL (70-99) 184 mg/dL (70-99) 235 mg/dL (70-99) Test 10/31/19 07:45 10/31/19 08:01 Sodium Level 139 mmol/L (136-145) Potassium Level 4.4 mmol/L (3.5-5.1) Chloride Level 102 mmol/L (98-107) Carbon Dioxide Level 27 mmol/L (21-32) Anion Gap 10 (6-14) Blood Urea Nitrogen 14 mg/dL (8-26) Creatinine 1.0 mg/dL (0.7-1.3) Estimated GFR (Cockcroft-Gault) 77.0 BUN/Creatinine Ratio 14 (6-20) Glucose Level 264 mg/dL (70-99) Calcium Level 9.2 mg/dL (8.5-10.1) Total Bilirubin 0.1 mg/dL (0.2-1.0) Aspartate Amino Transf (AST/SGOT) 10 U/L (15-37) Alanine Aminotransferase (ALT/SGPT) 18 U/L (16-63) Alkaline Phosphatase 99 U/L (46-116) Total Protein 6.9 g/dL (6.4-8.2) Albumin 2.4 g/dL (3.4-5.0) Albumin/Globulin Ratio 0.5 (1.0-1.7) Vancomycin Level Trough 10.6 mcg/mL (10.0-20.0) Vancomycin Last Dose Date 10/30/19 Vancomycin Last Dose Time 2030 Glucose (Fingerstick) 250 mg/dL (70-99) Laboratory Tests Test 10/30/19 08:24 10/30/19 12:01 10/30/19 16:28 10/30/19 20:59 Glucose (Fingerstick) 211 mg/dL (70-99) 148 mg/dL (70-99) 184 mg/dL (70-99) 235 mg/dL (70-99) Test 10/31/19 07:45 10/31/19 08:01 Sodium Level 139 mmol/L (136-145) Potassium Level 4.4 mmol/L (3.5-5.1) Chloride Level 102 mmol/L (98-107) Carbon Dioxide Level 27 mmol/L (21-32) Anion Gap 10 (6-14) Blood Urea Nitrogen 14 mg/dL (8-26) Creatinine 1.0 mg/dL (0.7-1.3) Estimated GFR (Cockcroft-Gault) 77.0 BUN/Creatinine Ratio 14 (6-20) Glucose Level 264 mg/dL (70-99) Calcium Level 9.2 mg/dL (8.5-10.1) Total Bilirubin 0.1 mg/dL (0.2-1.0) Aspartate Amino Transf (AST/SGOT) 10 U/L (15-37) Alanine Aminotransferase (ALT/SGPT) 18 U/L (16-63) Alkaline Phosphatase 99 U/L (46-116) Total Protein 6.9 g/dL (6.4-8.2) Albumin 2.4 g/dL (3.4-5.0) Albumin/Globulin Ratio 0.5 (1.0-1.7) Vancomycin Level Trough 10.6 mcg/mL (10.0-20.0) Vancomycin Last Dose Date 10/30/19 Vancomycin Last Dose Time 2030 Glucose (Fingerstick) 250 mg/dL (70-99) Microbiology 10/29/19 Blood Culture - Preliminary, Resulted NO GROWTH AFTER 1 DAY Medications Current Medications Albuterol/ Ipratropium (Duoneb) 3 ml 1X ONCE NEB ; Start 10/29/19 at 18:15; Stop 10/29/19 at 18:16; Status DC Methylprednisolone Sodium Succinate (SOLU-Medrol 125MG VIAL) 125 mg 1X ONCE IV Last administered on 10/29/19at 18:38; Start 10/29/19 at 18:15; Stop 10/29/19 at 18:16; Status DC Albuterol Sulfate (Ventolin Neb Soln) 2.5 mg STK-MED ONCE .ROUTE ; Start 10/29/19 at 18:06; Stop 10/29/19 at 18:07; Status DC Fentanyl Citrate (Fentanyl 2ml Vial) 50 mcg 1X ONCE IVP Last administered on 10/29/19at 18:38; Start 10/29/19 at 18:15; Stop 10/29/19 at 18:17; Status DC Ipratropium Ulman (Atrovent) 0.5 mg 1X ONCE NEB Last administered on 10/29/19at 18:24; Start 10/29/19 at 18:15; Stop 10/29/19 at 18:21; Status DC Albuterol Sulfate (Ventolin Neb Soln) 10 mg 1X ONCE CONT NEB Last administered on 10/29/19at 18:24; Start 10/29/19 at 18:15; Stop 10/29/19 at 18:21; Status DC Sodium Chloride 1,000 ml @ 1,000 mls/hr 1X ONCE IV Last administered on 10/29/19at 18:39; Start 10/29/19 at 18:30; Stop 10/29/19 at 19:29; Status DC Piperacillin Sod/ Tazobactam Sod 3.375 gm/Sodium Chloride 50 ml @ 100 mls/hr 1X ONCE IV Last administered on 10/29/19at 18:39; Start 10/29/19 at 18:30; Stop 10/29/19 at 18:59; Status DC Sodium Chloride 1,000 ml @ 1,000 mls/hr 1X ONCE IV Last administered on 10/29/19at 20:58; Start 10/29/19 at 18:30; Stop 10/29/19 at 19:29; Status DC Sodium Chloride 500 ml @ 500 mls/hr 1X ONCE IV ; Start 10/29/19 at 18:30; Stop 10/29/19 at 19:29; Status DC Levofloxacin/ Dextrose (Levaquin Per Pharmacy) 1 each PRN DAILY PRN MC SEE COMMENTS; Start 10/29/19 at 18:45; Stop 10/29/19 at 20:19; Status DC Levofloxacin/ Dextrose 100 ml @ 100 mls/hr 1X ONCE IV ; Start 10/29/19 at 18:45; Stop 10/29/19 at 19:44; Status Cancel Levofloxacin/ Dextrose 100 ml @ 100 mls/hr Q24H IV ; Start 10/30/19 at 21:00; Status Cancel Vancomycin HCl (Vanco Per Pharmacy) 1 each PRN DAILY PRN MC SEE COMMENTS Last administered on 10/29/19at 21:12; Start 10/29/19 at 19:00; Stop 10/30/19 at 00:19; Status DC Vancomycin HCl 2 gm/Sodium Chloride 500 ml @ 250 mls/hr 1X ONCE IV Last administered on 10/29/19at 20:31; Start 10/29/19 at 19:00; Stop 10/29/19 at 20:59; Status DC Ondansetron HCl (Zofran) 4 mg PRN Q8HRS PRN IV NAUSEA/VOMITING; Start 10/29/19 at 19:00; Stop 10/30/19 at 00:02; Status DC Fentanyl Citrate (Fentanyl 2ml Vial) 50 mcg PRN Q1HR PRN IV PAIN Last administered on 10/30/19at 10:57; Start 10/29/19 at 19:00; Stop 10/30/19 at 18:59; Status DC Acetaminophen (Tylenol) 650 mg PRN Q4HRS PRN PO FEVER; Start 10/29/19 at 19:00; Stop 10/30/19 at 18:59; Status DC Albuterol/ Ipratropium (Duoneb) 3 ml RTQID NEB ; Start 10/29/19 at 20:00; Stop 10/30/19 at 13:51; Status DC Vancomycin HCl 1.75 gm/Sodium Chloride 500 ml @ 250 mls/hr Q12H IV Last administered on 10/30/19at 20:20; Start 10/30/19 at 08:30 Vancomycin HCl (Vancomycin Trough Level) 1 each 1X ONCE MC Last administered on 10/31/19at 07:49; Start 10/31/19 at 08:00; Stop 10/31/19 at 08:01; Status DC Ondansetron HCl (Zofran) 4 mg PRN Q6HRS PRN IV NAUSEA/VOMITING; Start 10/30/19 at 00:00 Benzonatate (Tessalon Perle) 100 mg TID PO Last administered on 10/31/19at 08:07; Start 10/30/19 at 09:00 Acetaminophen/ Hydrocodone Bitart (Lortab 5/325) 1 tab PRN Q6HRS PRN PO PAIN Last administered on 10/30/19at 09:30; Start 10/30/19 at 00:00 Prednisone (Prednisone) 60 mg DAILY PO ; Start 10/30/19 at 09:00; Stop 10/30/19 at 09:13; Status DC Simvastatin (Zocor) 40 mg HS PO Last administered on 10/30/19at 20:21; Start 10/30/19 at 21:00 Non-Formulary Medication (Budesonide/ Formoterol Fumarate (Symbicort 160-4.5 Mcg Inhaler)) 2 puff BID IH ; Start 10/30/19 at 09:00; Status UNV Metformin HCl (Glucophage) 1,000 mg BIDWMEALS PO Last administered on 10/31/19at 08:07; Start 10/30/19 at 08:00 Famotidine (Pepcid) 40 mg BID PO Last administered on 10/31/19at 08:07; Start 10/30/19 at 09:00 Guaifenesin (Robitussin Dm) 10 ml PRN Q6HRS PRN PO COUGH; Start 10/30/19 at 00:00 Piperacillin Sod/ Tazobactam Sod (Zosyn Per Pharmacy) 1 each PRN DAILY PRN MC SEE COMMENTS; Start 10/30/19 at 00:00 Vancomycin HCl (Vanco Per Pharmacy) 1 each PRN DAILY PRN MC SEE COMMENTS Last administered on 10/30/19at 17:26; Start 10/30/19 at 00:00 Enoxaparin Sodium (Lovenox 40mg Syringe) 40 mg Q24H SQ ; Start 10/30/19 at 00:00 Insulin Human Lispro (HumaLOG) 0-5 UNITS TIDWMEALS SQ ; Start 10/30/19 at 08:00 Dextrose (Dextrose 50%-Water Syringe) 12.5 gm PRN Q15MIN PRN IV SEE COMMENTS; Start 10/30/19 at 00:15 Piperacillin Sod/ Tazobactam Sod 3.375 gm/Sodium Chloride 50 ml @ 100 mls/hr Q6HRS IV Last administered on 10/31/19at 05:32; Start 10/30/19 at 00:30 Budesonide (Pulmicort) 0.5 mg RTBID NEB Last administered on 10/31/19at 07:45; Start 10/30/19 at 08:00 Albuterol Sulfate (Ventolin Neb Soln) 2.5 mg RTQID NEB ; Start 10/30/19 at 08:00; Stop 10/30/19 at 09:13; Status DC Furosemide (Lasix) 40 mg 1X ONCE IVP Last administered on 10/30/19at 09:56; Start 10/30/19 at 09:15; Stop 10/30/19 at 09:16; Status DC Methylprednisolone Sodium Succinate (SOLU-Medrol 125MG VIAL) 80 mg Q8HRS IV Last administered on 10/31/19at 05:31; Start 10/30/19 at 14:00 Albuterol/ Ipratropium (Duoneb) 3 ml Q4HRS NEB Last administered on 10/31/19at 07:45; Start 10/30/19 at 12:00 Non-Formulary Medication (Albuterol Sulfate (Albuterol Sulfate Conc Neb Soln)) 1 vial Q6HRS NEB ; Start 10/30/19 at 18:00; Status UNV Non-Formulary Medication (Albuterol Sulfate (Ventolin Hfa Inhaler)) 2 puff Q4HRS INH ; Start 10/30/19 at 16:00; Status UNV Non-Formulary Medication (Albuterol Sulfate (Ventolin Hfa Inhaler)) 2 puff Q4HRS INH ; Start 10/30/19 at 16:00; Status UNV Non-Formulary Medication (Ipratropium/ Albuterol Sulfate (Combivent Respimat Inhal)) 2 inh QID IH ; Start 10/30/19 at 17:00; Status UNV Guaifenesin/ Codeine Phosphate (Robitussin Ac) 5 ml PRN Q4HRS PRN PO COUGH; Start 10/30/19 at 14:15 Acetaminophen/ Hydrocodone Bitart (Lortab 7.5/325) 1 tab PRN Q6HRS PRN PO MODERATE PAIN Last administered on 10/31/19at 03:12; Start 10/30/19 at 14:00 Sodium Chloride (Normal Saline Flush) 3 ml QSHIFT PRN IV AFTER MEDS AND BLOOD DRAWS; Start 10/30/19 at 14:00 Ondansetron HCl (Zofran) 4 mg PRN Q4HRS PRN IV NAUSEA/VOMITING; Start 10/30/19 at 14:00 Acetaminophen (Tylenol) 650 mg PRN Q4HRS PRN PO TEMP OVER 100.4F OR MILD PAIN; Start 10/30/19 at 14:00 Al Hydroxide/Mg Hydroxide (Mylanta Plus Xs) 30 ml PRN DAILY PRN PO HEARTBURN / GAS; Start 10/30/19 at 14:00 Clonidine HCl (Catapres) 0.1 mg PRN Q6HRS PRN PO SBP>160 OR DBP>90; Start 10/30/19 at 14:00 Docusate Sodium (Colace) 100 mg PRN BID PRN PO CONSTIPATION; Start 10/30/19 at 14:00 Albuterol/ Ipratropium (Duoneb) 3 ml Q4HRS NEB Last administered on 10/30/19at 16:10; Start 10/30/19 at 15:00 Guaifenesin (Robitussin) 200 mg PRN Q4HRS PRN PO COUGH; Start 10/30/19 at 14:00 Enoxaparin Sodium (Lovenox 40mg Syringe) 40 mg DAILY SQ ; Start 10/31/19 at 09:00; Status UNV Fentanyl Citrate (Fentanyl 2ml Vial) 50 mcg PRN Q4HRS PRN IVP PAIN; Start 10/30/19 at 18:45; Stop 10/30/19 at 19:00; Status DC Fentanyl Citrate (Fentanyl 2ml Vial) 50 mcg PRN Q4HRS PRN IVP PAIN Last administered on 10/31/19at 07:57; Start 10/30/19 at 19:30; Stop 10/31/19 at 19:30 Active Scripts Active Prometh-Codein 6.25-10 mg/5 ml (Promethazine HCl/Codeine) 5 Ml Syrup 5 Ml PO PRN Q4-6HRS PRN MDD 30 Milliliter(s) Prednisone 50 Mg Tablet 1 Tab PO DAILY 5 Days start taking on 10/08/19 Azithromycin Tablet (Azithromycin) 250 Mg Tablet 1 Pkg PO UD 5 Days 2 the first day followed by 1 for days 2-5 Prednisone 50 Mg Tablet 1 Tab PO DAILY 5 Days begin taking on 08/10/19 Prednisone 50 Mg Tablet 1 Tab PO DAILY Tessalon Perle (Benzonatate) 100 Mg Capsule 1 Cap PO TID Doxycycline Hyclate 100 Mg Capsule 1 Cap PO BID Prednisone 50 Mg Tablet 1 Tab PO DAILY Levaquin (Levofloxacin) 750 Mg Tablet 1 Tab PO DAILY Doxycycline Hyclate 100 Mg Tablet 1 Tab PO BID Prednisone 50 Mg Tablet 1 Tab PO DAILY Prednisone 50 Mg Tablet 1 Tab PO DAILY Doxycycline Hyclate 100 Mg Capsule 1 Cap PO BID Zithromax (Azithromycin) 250 Mg Tablet 1 Pkg PO UD Prednisone 20 Mg Tablet 20 Mg PO DAILY 12 Days take 2.5 tablets x3 days then take 2 tablets x3 days then take 1.5 tablets x3 days then take 1 tablet x3 days then Ventolin Hfa Inhaler (Albuterol Sulfate) 18 Gm Hfa.aer.ad 2 Puff INH Q4HRS Doxycycline Hyclate 100 Mg Tablet.dr 1 Tab PO BID Prednisone 50 Mg Tablet 1 Tab PO DAILY Prednisone 20 Mg Tablet 20 Mg PO DAILY 10 Days Levaquin (Levofloxacin) 750 Mg Tablet 1 Tab PO DAILY Combivent Respimat Inhal (Ipratropium/Albuterol Sulfate) 4 Gm Aer.w.adap 2 Inh IH QID Prednisone 20 Mg Tablet 60 Mg PO DAILY 7 Days Metformin Hcl 1,000 Mg Tablet 1 Tab PO BID Symbicort 160-4.5 Mcg Inhaler (Budesonide/Formoterol Fumarate) 10.2 Gm Hfa.a er.ad 2 Puff IH BID Ventolin Hfa Inhaler (Albuterol Sulfate) 18 Gm Hfa.aer.ad 2 Puff INH Q4HRS 20 Days Hydrocodone-Apap 5-325 (Hydrocodone Bit/Acetaminophen) 1 Each Tablet 1 Tab PO PRN Q6HRS PRN Reported Ranitidine Hcl 300 Mg Tablet 1 Tab PO BID Simvastatin 40 Mg Tablet 40 Mg PO DAILY Albuterol Sulfate Conc Neb Soln (Albuterol Sulfate) 2.5 Mg/0.5 Ml Vial.neb 1 Vial NEB Q6HRS Vitals/I & O Vital Sign - Last 24 Hours 10/30/19 10/30/19 10/30/19 10/30/19 09:30 10:56 10:57 10:58 Temp 97.4 97.4 Pulse 118 Resp 20 B/P (MAP) 177/89 (118) Pulse Ox 91 91 91 93 O2 Delivery Nasal Cannula Nasal Cannula Nasal Cannula Nasal Cannula O2 Flow Rate 3.0 3.0 3.0 3.0 10/30/19 10/30/19 10/30/19 10/30/19 12:10 13:17 14:16 15:16 Temp 97.6 97.6 Pulse 109 Resp 20 B/P (MAP) 150/94 (112) Pulse Ox 93 95 95 93 O2 Delivery Nasal Cannula Room Air Nasal Cannula Nasal Cannula O2 Flow Rate 3.0 3.0 3.0 10/30/19 10/30/19 10/30/19 10/30/19 16:11 17:00 19:00 19:20 Temp 97.4 97.4 Pulse 71 Resp 20 B/P (MAP) 138/82 (100) Pulse Ox 93 93 91 O2 Delivery Nasal Cannula Nasal Cannula Nasal Cannula Nasal Cannula O2 Flow Rate 3.0 3.0 3.0 3.0 10/30/19 10/30/19 10/30/19 10/30/19 20:00 20:33 20:34 23:32 Temp 97.6 97.6 Pulse 87 Resp 18 B/P (MAP) 145/93 (110) Pulse Ox 95 95 91 O2 Delivery Nasal Cannula Nasal Cannula Nasal Cannula Nasal Cannula O2 Flow Rate 3.0 3.0 3.0 3.0 10/31/19 10/31/19 10/31/19 03:43 07:45 07:57 Temp 97.9 97.9 Pulse 83 Resp 20 B/P (MAP) 155/96 (115) Pulse Ox 90 93 O2 Delivery Nasal Cannula Nasal Cannula Nasal Cannula O2 Flow Rate 3.0 3.0 3.0 Intake and Output 10/30/19 10/30/19 10/31/19 14:59 22:59 06:59 Intake Total 420 ml 650 ml 1600 ml Output Total 300 ml Balance 420 ml 650 ml 1300 ml LEXI BIRD MD Oct 31, 2019 08:18
[2019-10-31] MEDS: VANCOMYCIN 1.75 GM in IV NORMAL SALINE 500ML BAG 500 ML IV SCH (08:59)
[2019-10-31] MEDS ORDERED: ENOXAPARIN 40 MG/0.4 ML SYRINGE. SQ SCH (09:00)
[2019-10-31] MEDS: VANCOMYCIN PER PHARMACY MC PRN (10:14)
--- NOTE | 2019-10-31 10:18 | NUR ---
Pharmacy Vancomycin Dosing Note S:Consulted to monitor and dose vancomycin started 10/29/19. O:AVRIL CHOU is a 59 year old M with Sepsis Pneumonia . Height: 5 feet, 9 inches Weight: 112.086215 kg [place] Body Weight: 70.70 Adjusted Body Weight: 87.22 Dosing Weight: Actual Other Antibiotics: ZOSYN 3.375GM IV X1 IN ER (10/29) LABS: Last BUN: 14 Last Creatinine: 1.0 Creatinine Clearance: 99 mL/min Last WBC: 17.1 Last Procalcitonin: 0.31 Tmax (past 24 hours): 97.9 Microbiology: I/O: 2670/300 Drug Levels: Last Trough level: 10.6 on 10/31/19 at 0830 Last dose given 10/31/19 at 0900 Vancomycin Dosing: Loading Dose: 2000 mg x1 Dosing Weight: Actual Target Trough: 15-20 A: Based on: level P: 1. Change Vancomycin 1750 mg IV q8h 2. Follow up Trough level on 11/01/19 at 0830 3. Pharmacy will continue to monitor, follow and adjust therapy as needed. NIKI PEARSON [facility], 10/31/19 1013
[2019-10-31 10:54] LABS: % BANDS 8 % (0-9); % LYMPHS 3 % (24-48); % MONOS 5 % (0-10); % SEGS 84 % (35-66); PLT ESTIMATE INCREASED (ADEQUATE)
--- NOTE | 2019-10-31 12:30 | PDOC ---
PULMONARY PROGRESS NOTES Subjective The patient is a 59-year-old who has been a smoker for 40+ years and still smokes cigarettes. He has a history of chronic hypoxic respiratory failure and remains on oxygen at 3 liters on a 24-hour basis. He was hospitalized in the first week of October and was treated for right lower lobe pneumonia and discharged on antibiotics. He was brought into the hospital as he said he never felt no better despite being on antibiotics. He states that he became progressively weak. He has a cough, which has been productive of yellow sputum. No fever, no chills. No chest pains. No leg edema, no headaches, no nausea, vomiting, no diarrhea, no dysuria, no focal weakness. He does not vape. He does not have any pets at home. 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 He has been on antibiotics, systemic steroids and nebulized bronchodilators and oxygen. He states his cough is less and he is less short of breath. He is fairly adamant that he wants to go home. He had CT because of concerns about interstitial lung disease. see results. Vitals Vital Signs Date Time Temp Pulse Resp B/P (MAP) Pulse Ox O2 Delivery O2 Flow Rate FiO2 10/31/19 12:02 Nasal Cannula 10/31/19 11:49 94 3.0 10/31/19 07:00 97.7 89 18 156/84 (108) 97.7 ROS: No Nausea, No Chest Pain, No Abdominal Pain, No Increase Cough General: Alert, Oriented X4, No acute distress Lungs: Other (Patient on oxygen. he has prolonged exhalation phase. no accessory muscle use. diminished breath sounds bilaterally without rales or wheezes.) Cardiovascular: S1, S2 Extremities: No Edema Skin: Warm Labs Laboratory Tests Test 10/29/19 18:06 10/29/19 21:31 10/30/19 04:50 10/30/19 07:15 White Blood Count 12.6 x10^3/uL (4.0-11.0) Red Blood Count 4.54 x10^6/uL (4.30-5.70) Hemoglobin 13.8 g/dL (13.0-17.5) Hematocrit 41.0 % (39.0-53.0) Mean Corpuscular Volume 90 fL (79-100) Mean Corpuscular Hemoglobin 30 pg (25-35) Mean Corpuscular Hemoglobin Concent 34 g/dL (31-37) Red Cell Distribution Width 14.9 % (11.5-14.5) Platelet Count 464 x10^3/uL (140-400) Neutrophils (%) (Auto) 68 % (31-73) Lymphocytes (%) (Auto) 14 % (24-48) Monocytes (%) (Auto) 12 % (0-9) Eosinophils (%) (Auto) 6 % (0-3) Basophils (%) (Auto) 1 % (0-3) Neutrophils # (Auto) 8.6 x10^3/uL (1.8-7.7) Lymphocytes # (Auto) 1.7 x10^3/uL (1.0-4.8) Monocytes # (Auto) 1.5 x10^3/uL (0.0-1.1) Eosinophils # (Auto) 0.8 x10^3/uL (0.0-0.7) Basophils # (Auto) 0.1 x10^3/uL (0.0-0.2) Sodium Level 138 mmol/L (136-145) Potassium Level 3.8 mmol/L (3.5-5.1) Chloride Level 98 mmol/L (98-107) Carbon Dioxide Level 30 mmol/L (21-32) Anion Gap 10 (6-14) Blood Urea Nitrogen 5 mg/dL (8-26) 8 mg/dL (8-26) Creatinine 1.1 mg/dL (0.7-1.3) 0.9 mg/dL (0.7-1.3) Estimated GFR (Cockcroft-Gault) 69.0 87.0 BUN/Creatinine Ratio 5 (6-20) Glucose Level 157 mg/dL (70-99) Lactic Acid Level 2.0 mmol/L (0.4-2.0) 1.1 mmol/L (0.4-2.0) Calcium Level 10.0 mg/dL (8.5-10.1) Total Bilirubin 0.2 mg/dL (0.2-1.0) Aspartate Amino Transf (AST/SGOT) 16 U/L (15-37) Alanine Aminotransferase (ALT/SGPT) 19 U/L (16-63) Alkaline Phosphatase 123 U/L (46-116) Troponin I Quantitative < 0.017 ng/mL (0.000-0.055) Total Protein 8.9 g/dL (6.4-8.2) Albumin 2.8 g/dL (3.4-5.0) Albumin/Globulin Ratio 0.5 (1.0-1.7) WB-[id number]-[id number]-Type Natriuretic Peptide 123 pg/mL (0-124) Procalcitonin 0.31 ng/mL (0.00-0.10) Nasal Screen MRSA (PCR) Positive (Negative) Test 10/30/19 08:24 10/30/19 12:01 10/30/19 16:28 10/30/19 20:59 Glucose (Fingerstick) 211 mg/dL (70-99) 148 mg/dL (70-99) 184 mg/dL (70-99) 235 mg/dL (70-99) Test 10/31/19 07:45 10/31/19 08:01 10/31/19 11:42 White Blood Count 17.1 x10^3/uL (4.0-11.0) Red Blood Count 4.10 x10^6/uL (4.30-5.70) Hemoglobin 12.2 g/dL (13.0-17.5) Hematocrit 37.1 % (39.0-53.0) Mean Corpuscular Volume 91 fL (79-100) Mean Corpuscular Hemoglobin 30 pg (25-35) Mean Corpuscular Hemoglobin Concent 33 g/dL (31-37) Red Cell Distribution Width 15.1 % (11.5-14.5) Platelet Count 470 x10^3/uL (140-400) Neutrophils (%) (Auto) 89 % (31-73) Lymphocytes (%) (Auto) 7 % (24-48) Monocytes (%) (Auto) 4 % (0-9) Eosinophils (%) (Auto) 0 % (0-3) Basophils (%) (Auto) 0 % (0-3) Neutrophils # (Auto) 15.2 x10^3/uL (1.8-7.7) Lymphocytes # (Auto) 1.2 x10^3/uL (1.0-4.8) Monocytes # (Auto) 0.7 x10^3/uL (0.0-1.1) Eosinophils # (Auto) 0.0 x10^3/uL (0.0-0.7) Basophils # (Auto) 0.0 x10^3/uL (0.0-0.2) Segmented Neutrophils % 84 % (35-66) Band Neutrophils % 8 % (0-9) Lymphocytes % 3 % (24-48) Monocytes % 5 % (0-10) Platelet Estimate Increased (ADEQUATE) Sodium Level 139 mmol/L (136-145) Potassium Level 4.4 mmol/L (3.5-5.1) Chloride Level 102 mmol/L (98-107) Carbon Dioxide Level 27 mmol/L (21-32) Anion Gap 10 (6-14) Blood Urea Nitrogen 14 mg/dL (8-26) Creatinine 1.0 mg/dL (0.7-1.3) Estimated GFR (Cockcroft-Gault) 77.0 BUN/Creatinine Ratio 14 (6-20) Glucose Level 264 mg/dL (70-99) Calcium Level 9.2 mg/dL (8.5-10.1) Total Bilirubin 0.1 mg/dL (0.2-1.0) Aspartate Amino Transf (AST/SGOT) 10 U/L (15-37) Alanine Aminotransferase (ALT/SGPT) 18 U/L (16-63) Alkaline Phosphatase 99 U/L (46-116) Total Protein 6.9 g/dL (6.4-8.2) Albumin 2.4 g/dL (3.4-5.0) Albumin/Globulin Ratio 0.5 (1.0-1.7) Vancomycin Level Trough 10.6 mcg/mL (10.0-20.0) Vancomycin Last Dose Date 10/30/19 Vancomycin Last Dose Time 2029 Glucose (Fingerstick) 250 mg/dL (70-99) 256 mg/dL (70-99) Laboratory Tests Test 10/30/19 16:28 10/30/19 20:59 10/31/19 07:45 10/31/19 08:01 Glucose (Fingerstick) 184 mg/dL (70-99) 235 mg/dL (70-99) 250 mg/dL (70-99) White Blood Count 17.1 x10^3/uL (4.0-11.0) Red Blood Count 4.10 x10^6/uL (4.30-5.70) Hemoglobin 12.2 g/dL (13.0-17.5) Hematocrit 37.1 % (39.0-53.0) Mean Corpuscular Volume 91 fL (79-100) Mean Corpuscular Hemoglobin 30 pg (25-35) Mean Corpuscular Hemoglobin Concent 33 g/dL (31-37) Red Cell Distribution Width 15.1 % (11.5-14.5) Platelet Count 470 x10^3/uL (140-400) Neutrophils (%) (Auto) 89 % (31-73) Lymphocytes (%) (Auto) 7 % (24-48) Monocytes (%) (Auto) 4 % (0-9) Eosinophils (%) (Auto) 0 % (0-3) Basophils (%) (Auto) 0 % (0-3) Neutrophils # (Auto) 15.2 x10^3/uL (1.8-7.7) Lymphocytes # (Auto) 1.2 x10^3/uL (1.0-4.8) Monocytes # (Auto) 0.7 x10^3/uL (0.0-1.1) Eosinophils # (Auto) 0.0 x10^3/uL (0.0-0.7) Basophils # (Auto) 0.0 x10^3/uL (0.0-0.2) Segmented Neutrophils % 84 % (35-66) Band Neutrophils % 8 % (0-9) Lymphocytes % 3 % (24-48) Monocytes % 5 % (0-10) Platelet Estimate Increased (ADEQUATE) Sodium Level 139 mmol/L (136-145) Potassium Level 4.4 mmol/L (3.5-5.1) Chloride Level 102 mmol/L (98-107) Carbon Dioxide Level 27 mmol/L (21-32) Anion Gap 10 (6-14) Blood Urea Nitrogen 14 mg/dL (8-26) Creatinine 1.0 mg/dL (0.7-1.3) Estimated GFR (Cockcroft-Gault) 77.0 BUN/Creatinine Ratio 14 (6-20) Glucose Level 264 mg/dL (70-99) Calcium Level 9.2 mg/dL (8.5-10.1) Total Bilirubin 0.1 mg/dL (0.2-1.0) Aspartate Amino Transf (AST/SGOT) 10 U/L (15-37) Alanine Aminotransferase (ALT/SGPT) 18 U/L (16-63) Alkaline Phosphatase 99 U/L (46-116) Total Protein 6.9 g/dL (6.4-8.2) Albumin 2.4 g/dL (3.4-5.0) Albumin/Globulin Ratio 0.5 (1.0-1.7) Vancomycin Level Trough 10.6 mcg/mL (10.0-20.0) Vancomycin Last Dose Date 10/30/19 Vancomycin Last Dose Time 2030 Test 10/31/19 11:42 Glucose (Fingerstick) 256 mg/dL (70-99) Medications Active Scripts Medications Dose Route/Sig Max Daily Dose Days Date Category Dose Instructions Ranitidine Hcl 300 Mg Tablet 1 Tab PO BID 10/29/19 Reported Prometh-Codein 6.25-10 mg/5 ml (Promethazine HCl/Codeine) 5 Ml Syrup 5 Ml PO PRN Q4-6HRS PRN MDD 30 Milliliter(s) 10/07/19 Rx Prednisone 50 Mg Tablet 1 Tab PO DAILY 5 10/07/19 Rx start taking on 10/08/19 Azithromycin Tablet (Azithromycin) 250 Mg Tablet 1 Pkg PO UD 5 10/07/19 Rx 2 the first day followed by 1 for days 2-5 Prednisone 50 Mg Tablet 1 Tab PO DAILY 5 08/09/19 Rx begin taking on 08/10/19 Prednisone 50 Mg Tablet 1 Tab PO DAILY 07/22/19 Rx Tessalon Perle (Benzonatate) 100 Mg Capsule 1 Cap PO TID 07/22/19 Rx Doxycycline Hyclate 100 Mg Capsule 1 Cap PO BID 07/22/19 Rx Prednisone 50 Mg Tablet 1 Tab PO DAILY 06/14/19 Rx Levaquin (Levofloxacin) 750 Mg Tablet 1 Tab PO DAILY 06/14/19 Rx Doxycycline Hyclate 100 Mg Tablet 1 Tab PO BID 05/22/19 Rx Prednisone 50 Mg Tablet 1 Tab PO DAILY 05/22/19 Rx Prednisone 50 Mg Tablet 1 Tab PO DAILY 03/20/19 Rx Doxycycline Hyclate 100 Mg Capsule 1 Cap PO BID 03/20/19 Rx Zithromax (Azithromycin) 250 Mg Tablet 1 Pkg PO UD 02/15/19 Rx Prednisone 20 Mg Tablet 20 Mg PO DAILY 12 02/15/19 Rx take 2.5 tablets x3 days then take 2 tablets x3 days then take 1.5 tablets x3 days then take 1 tablet x3 days then Ventolin Hfa Inhaler (Albuterol Sulfate) 18 Gm Hfa.aer.ad 2 Puff INH Q4HRS 02/01/19 Rx Doxycycline Hyclate 100 Mg Tablet.dr 1 Tab PO BID 02/01/19 Rx Prednisone 50 Mg Tablet 1 Tab PO DAILY 02/01/19 Rx Prednisone 20 Mg Tablet 20 Mg PO DAILY 10 12/29/18 Rx Levaquin (Levofloxacin) 750 Mg Tablet 1 Tab PO DAILY 12/29/18 Rx Combivent Respimat Inhal (Ipratropium/Albuterol Sulfate) 4 Gm Aer.w.adap 2 Inh IH QID 12/12/18 Rx Prednisone 20 Mg Tablet 60 Mg PO DAILY 7 12/12/18 Rx Metformin Hcl 1,000 Mg Tablet 1 Tab PO BID 12/12/18 Rx Symbicort 160-4.5 Mcg Inhaler (Budesonide/Formoterol Fumarate) 10.2 Gm Hfa.aer.ad 2 Puff IH BID 12/12/18 Rx Ventolin Hfa Inhaler (Albuterol Sulfate) 18 Gm Hfa.aer.ad 2 Puff INH Q4HRS 20 08/26/18 Rx Simvastatin 40 Mg Tablet 40 Mg PO DAILY 06/19/17 Reported Hydrocodone-Apap 5-325 (Hydrocodone Bit/Acetaminophen) 1 Each Tablet 1 Tab PO PRN Q6HRS PRN 11/18/16 Rx Albuterol Sulfate Conc Neb Soln (Albuterol Sulfate) 2.5 Mg/0.5 Ml Vial.neb 1 Vial NEB Q6HRS 12/24/15 Reported Comments He had CT exam. see full report. more compatible (as is his history) with acute, diffuse pneumonia rather than chronic interstitial process BNP slightly elevated at 145 Echocardiogram with EF 50% and some global hypokinesis Impression . 1. acute on chronic respiratory failure, improved 2. diffuse pneumonia 3. COPD with acute exacerbation 4. Tobacco abuse Plan . While I would prefer that he remain longer, Mr. Cooper is insistent on discarge, and he is doing better. I discussed importance of complete tobacco cessation. Would discharge on O2 (which he has). 5-7 days of prednisone, and broad spectrum antibiotics He should follow up with me in several weeks. KADIE OSEI MD Oct 31, 2019 12:30
--- NOTE | 2019-10-31 13:08 | NUR ---
Pt left AMA; AMA formed read and signature obtained. Dr. Diop, Charge Nurse, and Hand Clipper were informed. Home meds were tubed from pharmacy and returned to patient. Telemetry and PIV removed. Security notified and escorted nurse and patient directly to car w/o incident.
[2019-10-31] MEDS ORDERED: VANCOMYCIN 1.75 GM in IV NORMAL SALINE 500ML BAG 500 ML IV SCH (17:00)
--- NOTE | 2019-10-31 18:56 | PDOC3 ---
Discharge Summary Date of Admission: Oct 30, 2019 Date of Discharge: Oct 31, 2019 Follow-Up: By telephone Admitting Diagnosis comment: discharge dx Sepsis TOBACCO ABUSE COPD MORBID OBESITY Pneumonia Respiratory bronchiolitis interstitial lung disease is a consideration, particularly if the patient is a tobacco smoker, given the presence of centrilobular pulmonary emphysema on this exam. Diffuse endobronchial infection would also be a consideration. There are separate subsolid nodules at the posterior lower lobes largest measuring 11 mm may represent areas of atelectasis or localized pneumonitis. SIRS (systemic inflammatory response syndrome) CHRONIC PAIN ADMITTED PULM CONSULT IV ANTIBIOTICS BLOOD CULT DUONEBS QID dvt prophylaxis WANTS TO LEAVE AMA 10/31 36 MIN pt exam d/c planning , chart review,> 50% of time spent with exam, chart review, pt care coordination FINAL DIAGNOSIS Problems Medical Problems: (1) Pneumonia Status: Acute (2) Sepsis Status: Acute (3) SIRS (systemic inflammatory response syndrome) Status: Acute Brief Hospital Course Mr. Cooper is a 59 old [sex] who presented with [ ] CONDITION AT DISCHARGE: Comment (left ama) Discharge Medications Current Medications Albuterol/ Ipratropium (Duoneb) 3 ml 1X ONCE NEB ; Start 10/29/19 at 18:15; Stop 10/29/19 at 18:16; Status DC Methylprednisolone Sodium Succinate (SOLU-Medrol 125MG VIAL) 125 mg 1X ONCE IV Last administered on 10/29/19at 18:38; Start 10/29/19 at 18:15; Stop 10/29/19 at 18:16; Status DC Albuterol Sulfate (Ventolin Neb Soln) 2.5 mg STK-MED ONCE .ROUTE ; Start 10/29/19 at 18:06; Stop 10/29/19 at 18:07; Status DC Fentanyl Citrate (Fentanyl 2ml Vial) 50 mcg 1X ONCE IVP Last administered on 10/29/19at 18:38; Start 10/29/19 at 18:15; Stop 10/29/19 at 18:17; Status DC Ipratropium [place] (Atrovent) 0.5 mg 1X ONCE NEB Last administered on 10/29/19at 18:24; Start 10/29/19 at 18:15; Stop 10/29/19 at 18:21; Status DC Albuterol Sulfate (Ventolin Neb Soln) 10 mg 1X ONCE CONT NEB Last administered on 10/29/19at 18:24; Start 10/29/19 at 18:15; Stop 10/29/19 at 18:21; Status DC Sodium Chloride 1,000 ml @ 1,000 mls/hr 1X ONCE IV Last administered on 10/29/19at 18:39; Start 10/29/19 at 18:30; Stop 10/29/19 at 19:29; Status DC Piperacillin Sod/ Tazobactam Sod 3.375 gm/Sodium Chloride 50 ml @ 100 mls/hr 1X ONCE IV Last administered on 10/29/19at 18:39; Start 10/29/19 at 18:30; Stop 10/29/19 at 18:59; Status DC Sodium Chloride 1,000 ml @ 1,000 mls/hr 1X ONCE IV Last administered on 10/29/19at 20:58; Start 10/29/19 at 18:30; Stop 10/29/19 at 19:29; Status DC Sodium Chloride 500 ml @ 500 mls/hr 1X ONCE IV ; Start 10/29/19 at 18:30; Stop 10/29/19 at 19:29; Status DC Levofloxacin/ Dextrose (Levaquin Per Pharmacy) 1 each PRN DAILY PRN MC SEE COMMENTS; Start 10/29/19 at 18:45; Stop 10/29/19 at 20:19; Status DC Levofloxacin/ Dextrose 100 ml @ 100 mls/hr 1X ONCE IV ; Start 10/29/19 at 18:45; Stop 10/29/19 at 19:44; Status Cancel Levofloxacin/ Dextrose 100 ml @ 100 mls/hr Q24H IV ; Start 10/30/19 at 21:00; Status Cancel Vancomycin HCl (Vanco Per Pharmacy) 1 each PRN DAILY PRN MC SEE COMMENTS Last administered on 10/29/19at 21:12; Start 10/29/19 at 19:00; Stop 10/30/19 at 00:19; Status DC Vancomycin HCl 2 gm/Sodium Chloride 500 ml @ 250 mls/hr 1X ONCE IV Last administered on 10/29/19at 20:31; Start 10/29/19 at 19:00; Stop 10/29/19 at 20:59; Status DC Ondansetron HCl (Zofran) 4 mg PRN Q8HRS PRN IV NAUSEA/VOMITING; Start 10/29/19 at 19:00; Stop 10/30/19 at 00:02; Status DC Fentanyl Citrate (Fentanyl 2ml Vial) 50 mcg PRN Q1HR PRN IV PAIN Last administered on 10/30/19at 10:57; Start 10/29/19 at 19:00; Stop 10/30/19 at 18:59; Status DC Acetaminophen (Tylenol) 650 mg PRN Q4HRS PRN PO FEVER; Start 10/29/19 at 19:00; Stop 10/30/19 at 18:59; Status DC Albuterol/ Ipratropium (Duoneb) 3 ml RTQID NEB ; Start 10/29/19 at 20:00; Stop 10/30/19 at 13:51; Status DC Vancomycin HCl 1.75 gm/Sodium Chloride 500 ml @ 250 mls/hr Q12H IV Last administered on 10/31/19at 08:59; Start 10/30/19 at 08:30; Stop 10/31/19 at 10:11; Status DC Vancomycin HCl (Vancomycin Trough Level) 1 each 1X ONCE MC Last administered on 10/31/19at 07:49; Start 10/31/19 at 08:00; Stop 10/31/19 at 08:01; Status DC Ondansetron HCl (Zofran) 4 mg PRN Q6HRS PRN IV NAUSEA/VOMITING; Start 10/30/19 at 00:00; Stop 10/31/19 at 12:59; Status DC Benzonatate (Tessalon Perle) 100 mg TID PO Last administered on 10/31/19at 08:07; Start 10/30/19 at 09:00; Stop 10/31/19 at 13:29; Status DC Acetaminophen/ Hydrocodone Bitart (Lortab 5/325) 1 tab PRN Q6HRS PRN PO PAIN Last administered on 10/30/19at 09:30; Start 10/30/19 at 00:00; Stop 10/31/19 at 13:29; Status DC Prednisone (Prednisone) 60 mg DAILY PO ; Start 10/30/19 at 09:00; Stop 10/30/19 at 09:13; Status DC Simvastatin (Zocor) 40 mg HS PO Last administered on 10/30/19at 20:21; Start 10/30/19 at 21:00; Stop 10/31/19 at 13:29; Status DC Non-Formulary Medication (Budesonide/ Formoterol Fumarate (Symbicort 160-4.5 Mcg Inhaler)) 2 puff BID IH ; Start 10/30/19 at 09:00; Status UNV Metformin HCl (Glucophage) 1,000 mg BIDWMEALS PO Last administered on 10/31/19at 08:07; Start 10/30/19 at 08:00; Stop 10/31/19 at 13:29; Status DC Famotidine (Pepcid) 40 mg BID PO Last administered on 10/31/19at 08:07; Start 10/30/19 at 09:00; Stop 10/31/19 at 13:29; Status DC Guaifenesin (Robitussin Dm) 10 ml PRN Q6HRS PRN PO COUGH 2ND CHOICE; Start 10/30/19 at 00:00; Stop 10/31/19 at 13:29; Status DC Piperacillin Sod/ Tazobactam Sod (Zosyn Per Pharmacy) 1 each PRN DAILY PRN MC SEE COMMENTS; Start 10/30/19 at 00:00; Stop 10/31/19 at 13:29; Status DC Vancomycin HCl (Vanco Per Pharmacy) 1 each PRN DAILY PRN MC SEE COMMENTS Last administered on 10/31/19at 10:14; Start 10/30/19 at 00:00; Stop 10/31/19 at 13:29; Status DC Enoxaparin Sodium (Lovenox 40mg Syringe) 40 mg Q24H SQ ; Start 10/30/19 at 00:00; Stop 10/31/19 at 13:29; Status DC Insulin Human Lispro (HumaLOG) 0-5 UNITS TIDWMEALS SQ ; Start 10/30/19 at 08:00; Stop 10/31/19 at 13:29; Status DC Dextrose (Dextrose 50%-Water Syringe) 12.5 gm PRN Q15MIN PRN IV SEE COMMENTS; Start 10/30/19 at 00:15; Stop 10/31/19 at 13:29; Status DC Piperacillin Sod/ Tazobactam Sod 3.375 gm/Sodium Chloride 50 ml @ 100 mls/hr Q6HRS IV Last administered on 10/31/19at 05:32; Start 10/30/19 at 00:30; Stop 10/31/19 at 13:29; Status DC Budesonide (Pulmicort) 0.5 mg RTBID NEB Last administered on 10/31/19at 07:45; Start 10/30/19 at 08:00; Stop 10/31/19 at 13:29; Status DC Albuterol Sulfate (Ventolin Neb Soln) 2.5 mg RTQID NEB ; Start 10/30/19 at 08:00; Stop 10/30/19 at 09:13; Status DC Furosemide (Lasix) 40 mg 1X ONCE IVP Last administered on 10/30/19at 09:56; Start 10/30/19 at 09:15; Stop 10/30/19 at 09:16; Status DC Methylprednisolone Sodium Succinate (SOLU-Medrol 125MG VIAL) 80 mg Q8HRS IV Last administered on 10/31/19at 05:31; Start 10/30/19 at 14:00; Stop 10/31/19 at 13:29; Status DC Albuterol/ Ipratropium (Duoneb) 3 ml Q4HRS NEB Last administered on 10/31/19at 11:49; Start 10/30/19 at 12:00; Stop 10/31/19 at 13:29; Status DC Non-Formulary Medication (Albuterol Sulfate (Albuterol Sulfate Conc Neb Soln)) 1 vial Q6HRS NEB ; Start 10/30/19 at 18:00; Status UNV Non-Formulary Medication (Albuterol Sulfate (Ventolin Hfa Inhaler)) 2 puff Q4HRS INH ; Start 10/30/19 at 16:00; Status UNV Non-Formulary Medication (Albuterol Sulfate (Ventolin Hfa Inhaler)) 2 puff Q4HRS INH ; Start 10/30/19 at 16:00; Status UNV Non-Formulary Medication (Ipratropium/ Albuterol Sulfate (Combivent Respimat Inhal)) 2 inh QID IH ; Start 10/30/19 at 17:00; Status UNV Guaifenesin/ Codeine Phosphate (Robitussin Ac) 5 ml PRN Q4HRS PRN PO COUGH 3RD CHOICE; Start 10/30/19 at 14:15; Stop 10/31/19 at 13:29; Status DC Acetaminophen/ Hydrocodone Bitart (Lortab 7.5/325) 1 tab PRN Q6HRS PRN PO MODERATE PAIN Last administered on 10/31/19at 03:12; Start 10/30/19 at 14:00; Stop 10/31/19 at 13:29; Status DC Sodium Chloride (Normal Saline Flush) 3 ml QSHIFT PRN IV AFTER MEDS AND BLOOD DRAWS; Start 10/30/19 at 14:00; Stop 10/31/19 at 13:29; Status DC Ondansetron HCl (Zofran) 4 mg PRN Q4HRS PRN IV NAUSEA/VOMITING; Start 10/30/19 at 14:00; Stop 10/31/19 at 13:29; Status DC Acetaminophen (Tylenol) 650 mg PRN Q4HRS PRN PO TEMP OVER 100.4F; Start 10/30/19 at 14:00; Stop 10/31/19 at 13:29; Status DC Al Hydroxide/Mg Hydroxide (Mylanta Plus Xs) 30 ml PRN DAILY PRN PO HEARTBURN / GAS; Start 10/30/19 at 14:00; Stop 10/31/19 at 13:29; Status DC Clonidine HCl (Catapres) 0.1 mg PRN Q6HRS PRN PO SBP>160 OR DBP>90; Start 10/30/19 at 14:00; Stop 10/31/19 at 13:29; Status DC Docusate Sodium (Colace) 100 mg PRN BID PRN PO CONSTIPATION; Start 10/30/19 at 14:00; Stop 10/31/19 at 13:29; Status DC Albuterol/ Ipratropium (Duoneb) 3 ml Q4HRS NEB Last administered on 10/30/19at 16:10; Start 10/30/19 at 15:00; Stop 10/31/19 at 13:29; Status DC Guaifenesin (Robitussin) 200 mg PRN Q4HRS PRN PO COUGH 1ST CHOICE; Start 10/30/19 at 14:00; Stop 10/31/19 at 13:29; Status DC Enoxaparin Sodium (Lovenox 40mg Syringe) 40 mg DAILY SQ ; Start 10/31/19 at 09:00; Status UNV Fentanyl Citrate (Fentanyl 2ml Vial) 50 mcg PRN Q4HRS PRN IVP PAIN; Start 10/30/19 at 18:45; Stop 10/30/19 at 19:00; Status DC Fentanyl Citrate (Fentanyl 2ml Vial) 50 mcg PRN Q4HRS PRN IVP PAIN Last administered on 10/31/19at 12:02; Start 10/30/19 at 19:30; Stop 10/31/19 at 13:29; Status DC Vancomycin HCl 1.75 gm/Sodium Chloride 500 ml @ 250 mls/hr Q8H IV ; Start 10/31/19 at 17:00; Stop 10/31/19 at 13:29; Status DC Vancomycin HCl (Vancomycin Trough Level) 1 each 1X ONCE MC ; Start 11/01/19 at 08:30; Stop 10/31/19 at 13:29; Status DC Active Scripts Active Prometh-Codein 6.25-10 mg/5 ml (Promethazine HCl/Codeine) 5 Ml Syrup 5 Ml PO PRN Q4-6HRS PRN MDD 30 Milliliter(s) Prednisone 50 Mg Tablet 1 Tab PO DAILY 5 Days start taking on 10/08/19 Azithromycin Tablet (Azithromycin) 250 Mg Tablet 1 Pkg PO UD 5 Days 2 the first day followed by 1 for days 2-5 Prednisone 50 Mg Tablet 1 Tab PO DAILY 5 Days begin taking on 08/10/19 Prednisone 50 Mg Tablet 1 Tab PO DAILY Tessalon Perle (Benzonatate) 100 Mg Capsule 1 Cap PO TID Doxycycline Hyclate 100 Mg Capsule 1 Cap PO BID Prednisone 50 Mg Tablet 1 Tab PO DAILY Levaquin (Levofloxacin) 750 Mg Tablet 1 Tab PO DAILY Doxycycline Hyclate 100 Mg Tablet 1 Tab PO BID Prednisone 50 Mg Tablet 1 Tab PO DAILY Prednisone 50 Mg Tablet 1 Tab PO DAILY Doxycycline Hyclate 100 Mg Capsule 1 Cap PO BID Zithromax (Azithromycin) 250 Mg Tablet 1 Pkg PO UD Prednisone 20 Mg Tablet 20 Mg PO DAILY 12 Days take 2.5 tablets x3 days then take 2 tablets x3 days then take 1.5 tablets x3 days then take 1 tablet x3 days then Ventolin Hfa Inhaler (Albuterol Sulfate) 18 Gm Hfa.aer.ad 2 Puff INH Q4HRS Doxycycline Hyclate 100 Mg Tablet.dr 1 Tab PO BID Prednisone 50 Mg Tablet 1 Tab PO DAILY Prednisone 20 Mg Tablet 20 Mg PO DAILY 10 Days Levaquin (Levofloxacin) 750 Mg Tablet 1 Tab PO DAILY Combivent Respimat Inhal (Ipratropium/Albuterol Sulfate) 4 Gm Aer.w.adap 2 Inh IH QID Prednisone 20 Mg Tablet 60 Mg PO DAILY 7 Days Metformin Hcl 1,000 Mg Tablet 1 Tab PO BID Symbicort 160-4.5 Mcg Inhaler (Budesonide/Formoterol Fumarate) 10.2 Gm Hfa.aer.ad 2 Puff IH BID Ventolin Hfa Inhaler (Albuterol Sulfate) 18 Gm Hfa.aer.ad 2 Puff INH Q4HRS 20 Days Hydrocodone-Apap 5-325 (Hydrocodone Bit/Acetaminophen) 1 Each Tablet 1 Tab PO PRN Q6HRS PRN Reported Ranitidine Hcl 300 Mg Tablet 1 Tab PO BID Simvastatin 40 Mg Tablet 40 Mg PO DAILY Albuterol Sulfate Conc Neb Soln (Albuterol Sulfate) 2.5 Mg/0.5 Ml Vial.neb 1 Vial NEB Q6HRS Vital Signs Vital Signs Date Time Temp Pulse Resp B/P (MAP) Pulse Ox O2 Delivery O2 Flow Rate FiO2 10/31/19 12:02 Nasal Cannula 10/31/19 11:49 94 3.0 10/31/19 07:00 97.7 89 18 156/84 (108) 97.7 Labs Laboratory Tests Test 10/29/19 21:31 10/30/19 04:50 10/30/19 07:15 10/30/19 08:24 Lactic Acid Level 1.1 mmol/L (0.4-2.0) Blood Urea Nitrogen 8 mg/dL (8-26) Creatinine 0.9 mg/dL (0.7-1.3) Estimated GFR (Cockcroft-Gault) 87.0 PR-Ijf-H-Type Natriuretic Peptide 123 pg/mL (0-124) Procalcitonin 0.31 ng/mL (0.00-0.10) Nasal Screen MRSA (PCR) Positive (Negative) Glucose (Fingerstick) 211 mg/dL (70-99) Test 10/30/19 12:01 10/30/19 16:28 10/30/19 20:59 10/31/19 07:45 Glucose (Fingerstick) 148 mg/dL (70-99) 184 mg/dL (70-99) 235 mg/dL (70-99) White Blood Count 17.1 x10^3/uL (4.0-11.0) Red Blood Count 4.10 x10^6/uL (4.30-5.70) Hemoglobin 12.2 g/dL (13.0-17.5) Hematocrit 37.1 % (39.0-53.0) Mean Corpuscular Volume 91 fL (79-100) Mean Corpuscular Hemoglobin 30 pg (25-35) Mean Corpuscular Hemoglobin Concent 33 g/dL (31-37) Red Cell Distribution Width 15.1 % (11.5-14.5) Platelet Count 470 x10^3/uL (140-400) Neutrophils (%) (Auto) 89 % (31-73) Lymphocytes (%) (Auto) 7 % (24-48) Monocytes (%) (Auto) 4 % (0-9) Eosinophils (%) (Auto) 0 % (0-3) Basophils (%) (Auto) 0 % (0-3) Neutrophils # (Auto) 15.2 x10^3/uL (1.8-7.7) Lymphocytes # (Auto) 1.2 x10^3/uL (1.0-4.8) Monocytes # (Auto) 0.7 x10^3/uL (0.0-1.1) Eosinophils # (Auto) 0.0 x10^3/uL (0.0-0.7) Basophils # (Auto) 0.0 x10^3/uL (0.0-0.2) Segmented Neutrophils % 84 % (35-66) Band Neutrophils % 8 % (0-9) Lymphocytes % 3 % (24-48) Monocytes % 5 % (0-10) Platelet Estimate Increased (ADEQUATE) Sodium Level 139 mmol/L (136-145) Potassium Level 4.4 mmol/L (3.5-5.1) Chloride Level 102 mmol/L (98-107) Carbon Dioxide Level 27 mmol/L (21-32) Anion Gap 10 (6-14) Blood Urea Nitrogen 14 mg/dL (8-26) Creatinine 1.0 mg/dL (0.7-1.3) Estimated GFR (Cockcroft-Gault) 77.0 BUN/Creatinine Ratio 14 (6-20) Glucose Level 264 mg/dL (70-99) Calcium Level 9.2 mg/dL (8.5-10.1) Total Bilirubin 0.1 mg/dL (0.2-1.0) Aspartate Amino Transf (AST/SGOT) 10 U/L (15-37) Alanine Aminotransferase (ALT/SGPT) 18 U/L (16-63) Alkaline Phosphatase 99 U/L (46-116) Total Protein 6.9 g/dL (6.4-8.2) Albumin 2.4 g/dL (3.4-5.0) Albumin/Globulin Ratio 0.5 (1.0-1.7) Vancomycin Level Trough 10.6 mcg/mL (10.0-20.0) Vancomycin Last Dose Date 10/30/19 Vancomycin Last Dose Time 2030 Test 10/31/19 08:01 10/31/19 11:42 Glucose (Fingerstick) 250 mg/dL (70-99) 256 mg/dL (70-99) Laboratory Tests Test 10/30/19 20:59 10/31/19 07:45 10/31/19 08:01 10/31/19 11:42 Glucose (Fingerstick) 235 mg/dL (70-99) 250 mg/dL (70-99) 256 mg/dL (70-99) White Blood Count 17.1 x10^3/uL (4.0-11.0) Red Blood Count 4.10 x10^6/uL (4.30-5.70) Hemoglobin 12.2 g/dL (13.0-17.5) Hematocrit 37.1 % (39.0-53.0) Mean Corpuscular Volume 91 fL (79-100) Mean Corpuscular Hemoglobin 30 pg (25-35) Mean Corpuscular Hemoglobin Concent 33 g/dL (31-37) Red Cell Distribution Width 15.1 % (11.5-14.5) Platelet Count 470 x10^3/uL (140-400) Neutrophils (%) (Auto) 89 % (31-73) Lymphocytes (%) (Auto) 7 % (24-48) Monocytes (%) (Auto) 4 % (0-9) Eosinophils (%) (Auto) 0 % (0-3) Basophils (%) (Auto) 0 % (0-3) Neutrophils # (Auto) 15.2 x10^3/uL (1.8-7.7) Lymphocytes # (Auto) 1.2 x10^3/uL (1.0-4.8) Monocytes # (Auto) 0.7 x10^3/uL (0.0-1.1) Eosinophils # (Auto) 0.0 x10^3/uL (0.0-0.7) Basophils # (Auto) 0.0 x10^3/uL (0.0-0.2) Segmented Neutrophils % 84 % (35-66) Band Neutrophils % 8 % (0-9) Lymphocytes % 3 % (24-48) Monocytes % 5 % (0-10) Platelet Estimate Increased (ADEQUATE) Sodium Level 139 mmol/L (136-145) Potassium Level 4.4 mmol/L (3.5-5.1) Chloride Level 102 mmol/L (98-107) Carbon Dioxide Level 27 mmol/L (21-32) Anion Gap 10 (6-14) Blood Urea Nitrogen 14 mg/dL (8-26) Creatinine 1.0 mg/dL (0.7-1.3) Estimated GFR (Cockcroft-Gault) 77.0 BUN/Creatinine Ratio 14 (6-20) Glucose Level 264 mg/dL (70-99) Calcium Level 9.2 mg/dL (8.5-10.1) Total Bilirubin 0.1 mg/dL (0.2-1.0) Aspartate Amino Transf (AST/SGOT) 10 U/L (15-37) Alanine Aminotransferase (ALT/SGPT) 18 U/L (16-63) Alkaline Phosphatase 99 U/L (46-116) Total Protein 6.9 g/dL (6.4-8.2) Albumin 2.4 g/dL (3.4-5.0) Albumin/Globulin Ratio 0.5 (1.0-1.7) Vancomycin Level Trough 10.6 mcg/mL (10.0-20.0) Vancomycin Last Dose Date 10/30/19 Vancomycin Last Dose Time 2030 Allergies Allergies Coded Allergies Type Severity Reaction Last Updated Verified I S O L A T I O N *CONTACT* Allergy Unknown 11/28/18 Yes No Known Medication Allergies Allergy Unknown 11/28/18 Yes Disposition/Orders: D/C to Home Patient Instructions left LEXI Lee MD Oct 31, 2019 18:56
== END 2019-10-31 12:55 | disposition left against medical advice (07) | DRG 871 ==
LOC: ER 17:54 → 6 SOUTH 18:38
PROVIDERS: ADMIT Internal Medicine; ATTEND Internal Medicine
DX: A41.9 Sepsis, unspecified organism (principal); J18.9 Pneumonia, unspecified organism; J96.21 Acute and chronic respiratory failure with hypoxia; J44.0 Chronic obstructive pulmonary disease with (acute) lower respiratory infection; J44.1 Chronic obstructive pulmonary disease with (acute) exacerbation; E11.22 Type 2 diabetes mellitus with diabetic chronic kidney disease; E66.01 Morbid (severe) obesity due to excess calories; E78.5 Hyperlipidemia, unspecified; F17.210 Nicotine dependence, cigarettes, uncomplicated; G89.29 Other chronic pain; I50.9 Heart failure, unspecified; K21.9 Gastro-esophageal reflux disease without esophagitis; N18.9 Chronic kidney disease, unspecified; Z83.3 Family history of diabetes mellitus; Z96.649 Presence of unspecified artificial hip joint; Z96.659 Presence of unspecified artificial knee joint; Z99.81 Dependence on supplemental oxygen; M19.90 Unspecified osteoarthritis, unspecified site; Z53.29 Procedure and treatment not carried out because of patient's decision for other reasons; Z68.36 Body mass index [BMI] 36.0-36.9, adult
CPT/HCPCS: 36415; 71045; 71250; 80053; 80202; 82565; 82962; 83605; 83880; 84145; 84484; 84520; 85007; 85025; 87040; 87641; 93005; 93306; 94640; 94644; 94760; 96365; 96375; J1815; J1940; J2543; J2930; J3010; J3370; J7030; J7040; J7613; J7620; J7626; J7644; 99285-25; G0378

== ENCOUNTER 2020-05-15 13:09 | Emergency (ER) | payer MEDICARE, MEDICAID ==
[~2020-05-15] VITALS: Ht 175.3 cm; Wt 105.0 kg
[~2020-05-15 13:09] MED LIST changes: +RANI300T PO
[2020-05-15] MEDS ORDERED: IPRATRPIUM/ALBUTEROL 0.5/2.5MG 3 ML NEBU. NEB ONE ×2 (13:45→15:30)
[2020-05-15] MEDS ORDERED: fentaNYL PF VIAL 100 MCG/2 ML VIAL IVP ONE (13:45)
[2020-05-15] MEDS ORDERED: methylPREDNISolone SOD SUCC PF 125 MG/2 ML VIAL. IV ONE (13:45)
[2020-05-15 13:56] LABS: BASO % 0 % (0-3); EOS # 0.4 x10^3/uL (0.0-0.7); EOS % 3 % (0-3); HEMATOCRIT 41.1 % (39.0-53.0); HEMOGLOBIN 13.7 g/dL (13.0-17.5); LYMPH # 2.1 x10^3/uL (1.0-4.8); LYMPH % 15 % (24-48); MEAN CORPUSCULAR HEMOGLOBIN 30 pg (25-35); MEAN CORPUSCULAR HGB CONC 33 g/dL (31-37); MEAN CORPUSCULAR VOLUME 90 fL (79-100); MONO # 1.6 x10^3/uL (0.0-1.1); MONO % 12 % (0-9); NEUT # 9.6 x10^3/uL (1.8-7.7); NEUT % 70 % (31-73); PLATELET COUNT 342 x10^3/uL (140-400); RED BLOOD COUNT 4.56 x10^6/uL (4.30-5.70); RED CELL DISTRIBUTION WIDTH 16.3 % (11.5-14.5); WHITE BLOOD COUNT 13.9 x10^3/uL (4.0-11.0)
--- NOTE | 2020-05-15 13:56 | EKG ---
[facility] [address] [place] [address] Test Date: 2020-05-15 Test Time: 13:19:14 Pat Name: AVRIL CHOU Department: Room: Gender: M Funding Specialist: : [id number] Requested By: CLAUDETTE RICHMOND Order Number: [id number] Reading MD: Rayo Bahena MD Measurements Intervals [place] Rate: 108 P: 66 HI: 140 QRS: 30 QRSD: 98 T: 51 QT: 328 QTc: 443 Interpretive Statements SINUS TACHYCARDIA NON-SPECIFIC ST/T CHANGES Electronically Signed On 05-16-2020 12:35:20 CDT by Rayo Bahena MD
[2020-05-15 14:02] LABS: CALCIUM 9.3 mg/dL (8.5-10.1)
[2020-05-15 14:04] LABS: PROTHROMBIN TIME PATIENT 13.5 SEC (11.7-14.0)
[2020-05-15 14:09] LABS: ALBUMIN 2.8 g/dL (3.4-5.0); ALBUMIN/GLOBULIN RATIO 0.5 (1.0-1.7); TOTAL BILIRUBIN 0.4 mg/dL (0.2-1.0)
--- NOTE | 2020-05-15 14:37 | RAD ---
EXAM: AP View of the chest DATE: 05/15/2020 1:31 PM INDICATION: Shortness of air COMPARISON: 10/29/2019, 10/07/2019 FINDINGS/ IMPRESSION: The heart is not enlarged. Aorta is tortuous with atherosclerotic calcifications. Prominent interstitial opacities bilaterally, grossly stable, likely from a background of chronic interstitial lung disease. Superimposed patchy opacities left lung base may represent superimposed atelectasis or consolidation. Trace blunting bilateral costophrenic angle likely trace pleural effusion or pleural thickening. Electronically signed by: Deuce Solano MD (05/15/2020 2:33 PM) [facility]
[2020-05-15] MEDS ORDERED: HYDROcodone/APAP 5/325MG 1 TAB TABLET PO ONE (15:30)
--- NOTE | 2020-05-15 15:30 | PHYS DOC ---
Past Medical History Past Medical History: COPD, Diabetes-Type II, Pneumonia Additional Past Medical Histor: Home O2 3L Past Surgical History: Hip Replacement Additional Past Surgical Histo: RIGHT SHOULDER, LEFT KNEE, LEFT HIP Smoking Status: Current Every Day Smoker Alcohol Use: None Drug Use: None General Adult EDM: Chief Complaint: SHORTNESS OF BREATH HPI: HPI: Patient is a 59 year old male presented to ER today for evaluation of cough and trouble breathing for about 3 days. Patient says he is coughing up yellow sputum, denies any fever or chills. Patient denies being exposed to anybody who tested positive for COVID-19. Patient denies any chest pain, no abdominal pain. Patient denies any nausea vomiting. Patient has history of COPD, he is on 3 L oxygen at home. Patient also had chronic right hip pain, he would like some pain medication for that. Patient said he has been evaluated by the orthopedic doctor Dr. Luis Daniel Rolon about his right hip. Review of Systems: Review of Systems: Constitutional: Denies fever or chills. [] Eyes: Denies change in visual acuity. [] HENT: Denies nasal congestion or sore throat. [] Respiratory: Positive for cough and trouble breathing Cardiovascular: Denies chest pain or edema. [] GI: Denies abdominal pain, nausea, vomiting, bloody stools or diarrhea. [] : Denies dysuria. [] Musculoskeletal: Denies back pain, positive for right hip pain. Integument: Denies rash. [] Neurologic: Denies headache, focal weakness or sensory changes. [] Endocrine: Denies polyuria or polydipsia. [] Lymphatic: Denies swollen glands. [] Psychiatric: Denies depression or anxiety. [] Heart Score: Risk Factors: Risk Factors: DM, Current or recent (<one month) smoker, HTN, HLP, family history of CAD, obesity. Risk Scores: Score 0 - 3: 2.5% MACE over next 6 weeks - Discharge Home Score 4 - 6: 20.3% MACE over next 6 weeks - Admit for Clinical Observation Score 7 - 10: 72.7% MACE over next 6 weeks - Early Invasive Strategies Current Medications: Current Medications Medications (Trade) Dose Ordered Sig/Paulino Start Time Stop Time Status Last Admin Dose Admin Albuterol/ Ipratropium (Duoneb) 3 ml 1X ONCE 05/15/20 13:45 05/15/20 13:46 DC 05/15/20 13:45 3 ML Fentanyl Citrate (Fentanyl 2ml Vial) 50 mcg 1X ONCE 05/15/20 13:45 05/15/20 13:46 DC 05/15/20 14:05 50 MCG Methylprednisolone Sodium Succinate (SOLU-Medrol 125MG VIAL) 125 mg 1X ONCE 05/15/20 13:45 05/15/20 13:46 DC 05/15/20 14:05 125 MG Allergies: Allergies: Allergies Coded Allergies Type Severity Reaction Last Updated Verified I S O L A T I O N *CONTACT* Allergy Unknown 11/28/18 Yes No Known Medication Allergies Allergy Unknown 11/28/18 Yes Physical Exam: PE: Constitutional: Well developed, well nourished, no acute distress, non-toxic ap pearance. [] HENT: Normocephalic, atraumatic, bilateral external ears normal, oropharynx moist, no oral exudates, nose normal. [] Eyes: PERRLA, EOMI, conjunctiva normal, no discharge. [] Neck: Normal range of motion, no tenderness, supple, no stridor. [] Cardiovascular:Heart rate regular rhythm, no murmur [] Lungs & Thorax: Diffuse expiratory and inspiratory wheezing, no respiratory distress Abdomen: Bowel sounds normal, soft, no tenderness, no masses, no pulsatile ma sses. [] Skin: Warm, dry, no erythema, no rash. [] Back: No tenderness, no CVA tenderness. [] Extremities: No tenderness, no cyanosis, no clubbing, ROM intact, no edema. [] Neurologic: Alert and oriented X 3, normal motor function, normal sensory function, no focal deficits noted. [] Psychologic: Affect normal, judgement normal, mood normal. [] Current Patient Data: Labs: Laboratory Tests Test 05/15/20 13:28 White Blood Count 13.9 x10^3/uL (4.0-11.0) H Red Blood Count 4.56 x10^6/uL (4.30-5.70) Hemoglobin 13.7 g/dL (13.0-17.5) Hematocrit 41.1 % (39.0-53.0) Mean Corpuscular Volume 90 fL (79-100) Mean Corpuscular Hemoglobin 30 pg (25-35) Mean Corpuscular Hemoglobin Concent 33 g/dL (31-37) Red Cell Distribution Width 16.3 % (11.5-14.5) H Platelet Count 342 x10^3/uL (140-400) Neutrophils (%) (Auto) 70 % (31-73) Lymphocytes (%) (Auto) 15 % (24-48) L Monocytes (%) (Auto) 12 % (0-9) H Eosinophils (%) (Auto) 3 % (0-3) Basophils (%) (Auto) 0 % (0-3) Neutrophils # (Auto) 9.6 x10^3/uL (1.8-7.7) H Lymphocytes # (Auto) 2.1 x10^3/uL (1.0-4.8) Monocytes # (Auto) 1.6 x10^3/uL (0.0-1.1) H Eosinophils # (Auto) 0.4 x10^3/uL (0.0-0.7) Basophils # (Auto) 0.0 x10^3/uL (0.0-0.2) Prothrombin Time 13.5 SEC (11.7-14.0) Prothrombin Time INR 1.1 (0.8-1.1) Activated Partial Thromboplast Time 40 SEC (24-38) H Sodium Level 136 mmol/L (136-145) Potassium Level 4.0 mmol/L (3.5-5.1) Chloride Level 97 mmol/L (98-107) L Carbon Dioxide Level 35 mmol/L (21-32) H Anion Gap 4 (6-14) L Blood Urea Nitrogen 9 mg/dL (8-26) Creatinine 1.0 mg/dL (0.7-1.3) Estimated GFR (Cockcroft-Gault) 77.0 BUN/Creatinine Ratio 9 (6-20) Glucose Level 155 mg/dL (70-99) H Calcium Level 9.3 mg/dL (8.5-10.1) Total Bilirubin 0.4 mg/dL (0.2-1.0) Aspartate Amino Transferase (AST) 13 U/L (15-37) L Alanine Aminotransferase (ALT) 17 U/L (16-63) Alkaline Phosphatase 145 U/L (46-116) H Troponin I Quantitative < 0.017 ng/mL (0.000-0.055) LB-Xua-N-Type Natriuretic Peptide 68 pg/mL (0-124) Total Protein 9.0 g/dL (6.4-8.2) H Albumin 2.8 g/dL (3.4-5.0) L Albumin/Globulin Ratio 0.5 (1.0-1.7) L Laboratory Tests 05/15/20 13:28 Laboratory Tests 05/15/20 13:28 Vital Signs: Vital Signs Date Time Temp Pulse Resp B/P (MAP) Pulse Ox O2 Delivery O2 Flow Rate FiO2 05/15/20 14:11 94 Nasal Cannula 3.0 05/15/20 13:17 97.7 120 24 150/95 (113 97.7 EKG: EKG: EKG was done at 1319, heart rate 108 bpm, sinus tachycardia, no ST segment elevation, normal QT interval. Radiology/Procedures: Radiology/Procedures: [][facility] [address] [place], [place] [id number] IMAGING REPORT Signed PATIENT: AVRIL CHOU DACCOUNT: [id number] : 1960 LOCATION: ER AGE: 59 SEX: M EXAM STATUS: REG ER ORD. PHYSICIAN: CLAUDETTE RICHMOND DO REASON: SOA PROCEDURE: CHEST AP ONLY EXAM: AP View of the chest DATE: 05/15/2020 1:31 PM INDICATION: Shortness of air COMPARISON: 10/29/2019, 10/07/2019 FINDINGS/ IMPRESSION: The heart is not enlarged. Aorta is tortuous with atherosclerotic calcifications. Prominent interstitial opacities bilaterally, grossly stable, likely from a background of chronic interstitial lung disease. Superimposed patchy opacities left lung base may represent superimposed atelectasis or consolidation. Trace blunting bilateral costophrenic angle likely trace pleural effusion or pleural thickening. Electronically signed by: Deuce Putnam MD (05/15/2020 2:33 PM) [id number] DICTATED and SIGNED BY: DEUCE PUTNAM MD DATE: 05/15/20 1433 Course & Med Decision Making: Course & Med Decision Making Pertinent Labs and Imaging studies reviewed. (See chart for details) []Patient is a 59-year-old male who was evaluated in the ER due to trouble breathing. Patient has COPD exacerbation. Patient was given medication in the ER, he feels much better. Patient would like to be discharged home. Patient also complained of pain in his right hip area, he has been evaluated by orthopedic doctor for hip pain in the right hip. Patient will need to follow-up with orthopedic doctor about his right hip condition. Dragon Disclaimer: Dragon Disclaimer: This electronic medical record was generated, in whole or in part, using a voice recognition dictation system. Departure Departure Impression: Primary Impression: COPD exacerbation Disposition: HOME, SELF-CARE Condition: IMPROVED Referrals: NO PCP (PCP) Please call your family doctor for follow-up next week. Patient Instructions: Chronic Obstructive Pulmonary Disease Exacerbation Additional Instructions: Thank you for visiting our Emergency Department. We appreciate you trusting us with your care. If any additional problems come up don't hesitate to return to visit us. Please follow up with your primary care provider so they can plan additional care if needed and know about the problem that you had. If symptoms worsen come back to the Emergency Department. Any concerning symptoms that start such as chest pain, shortness of air, weakness or numbness on one side of the body, running high fevers or any other concerning symptoms return to the ER. Scripts Azithromycin (ZITHROMAX) 250 Mg Tablet 1 PKG PO UD, #6 TAB Prov: CLAUDETTE RICHMOND DO 05/15/20 Prednisone (PREDNISONE) 20 Mg Tablet 1 TAB PO DAILY, #7 TAB Prov: CLAUDETTE RICHMOND DO 05/15/20 Justicifation of Admission Dx: Justifications for Admission: Justification of Admission Dx: N/A CLAUDETTE RICHMOND DO May 15, 2020 15:30
[2020-05-15] MEDS ORDERED: AZIT250T PO (15:38)
[2020-05-15] MEDS ORDERED: PRED20TA PO (15:38)
[2020-05-15 16:00] VITALS: BP 157/92
== END 2020-05-15 16:05 | disposition home or self-care (01) ==
LOC: ER 13:09
DX: J44.1 Chronic obstructive pulmonary disease with (acute) exacerbation (principal); M25.551 Pain in right hip; E11.9 Type 2 diabetes mellitus without complications; F17.200 Nicotine dependence, unspecified, uncomplicated; Z91.041 Radiographic dye allergy status
CPT/HCPCS: 36415; 71045; 80053; 83880; 84484; 85025; 85610; 85730; 93005; 94640; 96374; 96375; 99285; J2930; J3010

== ENCOUNTER 2021-08-24 13:49 | Emergency (ER) | payer MEDICAID, MEDICARE ==
[~2021-08-24] VITALS: Ht 177.8 cm; Wt 124.0 kg
[~2021-08-24 13:49] MED LIST changes: -DOXY100C2 PO; +DOXY100C3 PO
--- NOTE | 2021-08-24 14:59 | PHYS DOC ---
Past Medical History Past Medical History: COPD, Diabetes-Type II, Pneumonia Additional Past Medical Histor: Home O2 3L (CAL JENSEN) Past Surgical History: Hip Replacement, Knee Replacement Additional Past Surgical Histo: RIGHT SHOULDER, LEFT KNEE, LEFT HIP (CAL JENSEN) Smoking Status: Current Every Day Smoker Alcohol Use: None Drug Use: None (CAL JENSEN) General Adult EDM: Chief Complaint: SHORTNESS OF BREATH HPI: HPI: Patient is a 61 year old male with history of COPD and diabetes, well-known to the department, who presents with 2-day history of increased shortness of breath. Patient states that yesterday, he had to work harder to breathe as well as had increased wheezing. He reports he has pain in his low back into his thorax. Patient states this feels like COPD exacerbations he has had in the past. He uses 4 L oxygen at home all the time. He states he has no change in cough or sputum. Patient received 2 doses of Covid vaccination approximately 2 months ago, and reports that he does not leave home unless absolutely necessary. Patient denies fever, chills, headache, chest pain, palpitations. (CAL JENSEN) Review of Systems: Review of Systems: Constitutional: Denies fever or chills. [] Eyes: Denies change in visual acuity. [] HENT: Denies nasal congestion or sore throat. [] Respiratory: Denies cough or shortness of breath. [] Cardiovascular: Denies chest pain or edema. [] GI: Denies abdominal pain, nausea, vomiting, bloody stools or diarrhea. [] : Denies dysuria. [] Musculoskeletal: Denies back pain or joint pain. [] Integument: Denies rash. [] Neurologic: Denies headache, focal weakness or sensory changes. [] Endocrine: Denies polyuria or polydipsia. [] Lymphatic: Denies swollen glands. [] Psychiatric: Denies depression or anxiety. [] (CAL JENSEN) Heart Score: C/O Chest Pain: No (CAL JENSEN) Allergies: Allergies: Allergies Coded Allergies Type Severity Reaction Last Updated Verified I S O L A T I O N *CONTACT* Allergy Unknown 11/28/18 Yes No Known Medication Allergies Allergy Unknown 12/28/18 Yes (CAL JENSEN) Physical Exam: PE: Constitutional: Obese, well-groomed, non-toxic appearance. Neck: Normal range of motion, no tenderness, supple, no stridor. Cardiovascular: Tachycardic with regular rhythm. Lungs & Thorax: Audible expiratory wheezing without use of stethoscope, symmetrical thoracic expansion. Skin: Warm, dry, no erythema, no rash. Back: No tenderness, no CVA tenderness. (CAL JENSEN) Current Patient Data: Vital Signs: Vital Signs Date Time Temp Pulse Resp B/P (MAP) Pulse Ox O2 Delivery O2 Flow Rate FiO2 08/24/21 14:03 98.5 121 24 140/98 (112) 94 Nasal Cannula 4.0 98.5 (CAL JENSEN) EKG: EKG: EKG Interpreted by Dr. Aviles: Tachycardic 119 bpm, regular rhythm with no ectopic beats. No concerning ST-T wave changes. No STEMI. (CAL JENSEN) Radiology/Procedures: Radiology/Procedures: PROCEDURE: PORTABLE CHEST 1V XR CHEST 1V Clinical History: Reason: SOB / Spl. Instructions: / History: Technique: AP view of the chest was obtained at 08/24/2021 2:52 PM. Comparison: May 15, 2020. Findings: The cardiomediastinal silhouette is normal. The pulmonary vasculature is normal. There is reticular opacities throughout the lungs especially in the lung bases. Impression: Interstitial infiltrates could be CHF or atypical pneumonia. Electronically signed by: Silvio Koch III, MD (08/24/2021 3:03 PM) [facility] (CAL JESNEN) Course & Med Decision Making: Course & Med Decision Making Pertinent Labs and Imaging studies reviewed. (See chart for details) Patient appears to know his baseline and health history very well. Chest x-ray and EKG ordered. Patient will be administered DuoNeb as well as fentanyl and Solu-Medrol. Due to patient vaccination status and the fact that he nor his leave home, Covid testing will be deferred. Pending chest x-ray and patient symptom improvement with current treatment, disposition will be discharged home. Chest x-ray did show some interstitial infiltrates primarily in the lung bases. Patient will be prescribed with a 3-day course of azithromycin in addition to oral steroids. Patient is agreeable to discharge plan. (CAL JENSEN) Dragon Disclaimer: Dragon Disclaimer: This electronic medical record was generated, in whole or in part, using a voice recognition dictation system. (CAL JENSEN) Departure Departure Impression: Primary Impression: COPD exacerbation Disposition: HOME / SELF CARE / HOMELESS Condition: STABLE Referrals: KATHRYN SWIFT MD (PCP) Patient Instructions: Chronic Obstructive Pulmonary Disease Exacerbation, [id number] Additional Instructions: Your chest x-ray showed some patchy opacities that could represent atypical pneumonia. You will be provided with a 3-day course of azithromycin in addition to a 5-day course of steroids. Please take full course of both medications. Return to the emergency department for worsening shortness of breath, fever/chills, increased sputum production. Scripts Prednisone (PREDNISONE) 20 Mg Tablet 2 TAB PO DAILY for 5 Days, #10 TAB Take 2 tablets by mouth daily for 5 days. Prov: CAL JENSEN 08/24/21 Azithromycin (ZITHROMAX) 500 Mg Tablet 1 TAB PO DAILY for 3 Days, #3 TAB Take 1 tablet by mouth once a day for 3 days. Prov: CAL JENSEN 08/24/21 Attending Signature I have participated in the care of this patient and I have reviewed and agree with all pertinent clinical information above including history, exam, and recommendations. (VANESSA AVILES DO) CAL JENSEN Aug 24, 2021 14:59 VANESSA AVILES DO Aug 24, 2021 16:59
[2021-08-24] MEDS ORDERED: fentaNYL PF VIAL 100 MCG/2 ML VIAL IM ONE (15:00)
[2021-08-24] MEDS ORDERED: methylPREDNISolone SOD SUCC PF 125 MG/2 ML VIAL. IV ONE (15:00)
[2021-08-24] MEDS ORDERED: IPRATRPIUM/ALBUTEROL 0.5/2.5MG 3 ML NEBU. NEB ONE (15:00)
--- NOTE | 2021-08-24 15:05 | RAD ---
XR CHEST 1V Clinical History: Reason: SOB / Spl. Instructions: / History: Technique: AP view of the chest was obtained at 08/24/2021 2:52 PM. Comparison: May 15, 2020. Findings: The cardiomediastinal silhouette is normal. The pulmonary vasculature is normal. There is reticular o pacities throughout the lungs especially in the lung bases. Impression: Interstitial infiltrates could be CHF or atypical pneumonia. Electronically signed by: Silvio Koch III, MD (08/24/2021 3:03 PM) [facility]
[2021-08-24] MEDS ORDERED: PRED20TA PO (16:10)
[2021-08-24] MEDS ORDERED: AZIT500T PO (16:10)
[2021-08-24 16:22] VITALS: BP 158/79
== END 2021-08-24 16:23 | disposition home or self-care (01) ==
LOC: ER 13:49
DX: J44.1 Chronic obstructive pulmonary disease with (acute) exacerbation (principal); E11.9 Type 2 diabetes mellitus without complications; F17.200 Nicotine dependence, unspecified, uncomplicated; Z91.041 Radiographic dye allergy status
CPT/HCPCS: 71045; 93005; 94640; 96372; 96374; 99284; J2930; J3010